=== PATIENT | male | born 1950 | race Caucasian/White ===

== ENCOUNTER → 2018-06-15 07:58 | Outpatient (CLI) | payer BC, SELFPAY ==
[2018-06-15 08:12] LABS: Bacteria 0 SEEN /hpf (None Seen); Mucous, Urine 0 SEEN /hpf (<or=2+); Red Blood Cells-Urine 0 SEEN /hpf (0-5); Squamous Epithelial Cells - UA 0 SEEN /hpf (0-5); White Blood Cells 0 SEEN /hpf (0-5)
[2018-06-15 08:53] LABS: Absolute Lymphocyte Count 1.11 X10^3/ul (0.83-4.51); Absolute Neutrophil Count 6.1 X10^3/uL (2.0-7.7); Basophil# 0.06 X10^3/uL; Basophil% 0.7 % (0-1); Color, Urine Yellow (Yellow); Eosinophil# 0.12 X10^3/uL; Eosinophils% 1.5 % (0-5); Glucose, Dipstick Normal (Normal); Hemoglobin 13.6 g/dl (13.0-16.5); Ketone-Dipstick Negative (Negative); Leukocyte Esterase-Dipstick Negative /ul (Negative); Lymphocyte # 1.11 X10^3/ul (4.0); Lymphocyte % 13.5 % (19-41); Mean Corp Hgb Conc 33.2 g/gl (32-36); Mean Corpuscular Hgb 31.4 pg (27.0-32.0); Mean Corpuscular Volume 94.7 fL (80-94); Mean Platelet Vol. 8.8 fl (6.2-12.0); Monocyte% 10.9 % (0-10); Neutrophil # 6.05 X10^3/uL (2.7-7.7); Neutrophil % 73.3 % (47-70); Nitrite-Dipstick Negative (Negative); Occult Blood-Urine 25 /ul (Negative); POSITIVE COUNT NO; POSITIVE DIFFERENTIAL NO; POSITIVE MORPHOLOGY NO; Platelet Count 231 K/mm3 (150-450); Protein-Dipstick Negative (Negative); RBC Distribution Width SD 45.3 fl (35.1-43.9); Red Blood Count 4.33 M/mm3 (4.6-6.2); Specific Gravity, Urine 1.005 (1.002-1.030); Urine Bilirubin Dipstick Negative (Negative); Urine Clarity Clear (Clear); Urine Urobilinogen Normal (Normal); Urine pH 6.5 (5.0 - 8.0); White Blood Count 8.3 K/mm3 (4.4-11.0)
[2018-06-15 09:25] LABS: ALB/GLOB Ratio 0.9 RATIO (0.9-2.4); AST(SGOT) 10 U/L (15-37); Alanine Aminotransfer ALT/SGPT 27 U/L (16-61); Albumin, Serum 3.6 g/dL (3.2-5.0); Alkaline Phosphatase 72 U/L (45-117); Anion Gap 9 (5-15); BUN 18 mg/dL (7-18); Calcium,Total 8.8 mg/dL (8.5-10.1); Chloride 106 mmol/L (98-107); EST Glomerular Filtration Rate 64 mL/min (>60); Est Glom Filt Rate - Afr Amer 78 mL/min (>60); Globulin 3.8 g/dL (2.2-4.2); Glucose 93 mg/dL (74-106); Potassium 4.1 mmol/L (3.5-5.1); Protein, Total 7.4 g/dL (6.4-8.2); Sodium Level 140 mmol/L (136-145)
[2018-06-15 11:03] LABS: Vitamin B12 870 pg/mL (211-911)
[2018-06-16 11:33] LABS: Hep C Antibodies <0.1 s/co ratio (0.0-0.9)
== END ==
PROVIDERS: Family Provider Internal Medicine; PCP Internal Medicine; Referring Provider Internal Medicine; Visit Provider Internal Medicine
DX: R53.83 Other fatigue (principal)
CPT/HCPCS: 36415; 80053; 81001; 82607; 85025; 86803

== ENCOUNTER → 2018-09-30 09:25 | Outpatient (CLI) | payer BC, SELFPAY ==
--- NOTE | 2018-09-30 09:37 | CT_ITS ---
STUDY: CT ABDOMEN AND PELVIS WITH CONTRAST REASON FOR EXAM: Male, 68 years old. RUQ pain radiating to RLQ and around to flank. Prior cholecystectomy, hypertension, hx pancreatitis. RADIATION DOSAGE (If Supplied By Facility): CTDIvol = ( 15.38 ) mGy, DLP = ( 717.21 ) mGycm TECHNIQUE: Transaxial images were obtained from the dome of the diaphragm to the symphysis pubis with oral contrast. 75mL ml of Isovue 300 contrast was administered. Sagittal and coronal images were reconstructed. Individualized dose optimization techniques were used for this CT. COMPARISON: CT abdomen August 30, 2015 FINDINGS: The visualized lung bases are unremarkable. The visualized portions of the heart are within normal limits. Normal liver. There are surgical clips in the gallbladder fossa consistent with a prior cholecystectomy. No biliary ductal dilatation. Normal spleen. Small splenule anterior to the spleen. Normal pancreas. Normal bilateral adrenal glands. Normal right kidney. Normal left kidney. There is an exophytic cyst of the mid to lower pole the left kidney measuring approximately 4.5 cm. Normal visualized stomach. Normal small intestine. There are multiple colonic diverticula consistent with diverticulosis. The appendix is visualized and appears normal. Mild atherosclerosis of the aorta noted. Normal inferior vena cava. Normal retroperitoneum. Normal urinary bladder. Prominent fat extends into the right inguinal canal. There is no evidence of bowel hernia. Normal osseous structures. Mild degenerative endplate changes present. CT/Abdomen/Pelvis WITH Contrast IMPRESSION: Normal appendix. No acute intra-abdominal or pelvic abnormality. No evidence of pancreatitis. No evidence of aortic aneurysm. Diverticulosis without evidence of diverticulitis. Right inguinal fatty hernia without bowel herniation. See above. Electronically Signed: Tonya Torrez MD at 12:39 EST , Service support ,
--- OUTSIDE RECORDS SUMMARY | 2018-12-04 23:07 | XMS RPT_ITS | Continuity of Care Document ---
:1950 Author Organization [facility] Address [address] [facility] [address] [place] [address] Phone Care Team Providers Name Role Phone Diandra Anaya DO Unavailable [facility], [facility] Unavailable Dr. Ryne Arndt Unavailable Marlene Ghosh Unavailable [place] DPMBrien Unavailable Long MACHINE CARTON MARKER, Shayla L Unavailable Unavailable Slarb MACHINE CARTON MARKER, Jade Unavailable Unavailable Willy Edouarda Unavailable Unavailable Unavailable Unavailable Problems Name Dates Details Abdominal pain, acute, generalized (R10.84, 789.07) Status: Active Abdominal pain, acute, right upper quadrant (Renamed from Acute abdominal pain in right upper quadrant) (R10.11, 789.01) Status: Active Abnormal blood sugar (R73.09, 790.29) Status: Active Actinic keratosis (L57.0, 702.0) Comments: froze mid back 45 sec with good results Status: Active Anemia (285.9) Status: Active Anxiety (F41.9, 300.00) Comments: chronic stable-continue present regimen Status: Active Benign essential hypertension (I10, 401.1) Status: Active Benign essential hypertension (I10, 401.1) Comments: we will monitor bp over next week- minimizie salt and caffiene and if stays elevated will need meds- Status: Active Bilateral carotid artery stenosis (I65.23, 433.10) Comments: getting blood flow screening Status: Active BMI 28.0-28.9,adult (Z68.28, V85.24) Status: Active BMI 28.0-28.9,adult (Z68.28, V85.24) Status: Active BMI 29.0-29.9,adult (Z68.29, V85.25) Status: Active Carcinoma in situ of skin, 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, 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) Status: Active Decreased libido (Renamed from Low libido) (R68.82, 799.81) Status: Active Dehydration (E86.0, 276.51) Status: Active Diverticulitis (K57.92, 562.11) Status: Active Dizziness (R42, 780.4) Status: Active Encounter for hepatitis C virus screening test for high risk patient (Z11.59, V73.89) Status: Active Encounter for screening for malignant neoplasm of prostate (Renamed from Screening for prostate cancer) (Z12.5, V76.44) Status: Active Encounter for screening for malignant neoplasm of prostate (Renamed from Screening for prostate cancer) (Z12.5, V76.44) Status: Active Erectile dysfunction (N52.9, 607.84) Status: Active Fatigue (R53.83, 780.79) Status: Active Gastroesophageal reflux disease without esophagitis (K21.9, 530.81) Status: Active Intractable vomiting with nausea, unspecified vomiting type (R11.2, 536.2) Status: Active Malignant hypertension (I10, 401.0) Status: Active [facility] WELLNESS EXAM Status: Active [facility] WELLNESS EXAM Status: Active Microscopic hematuria (R31.29, 599.72) Status: Active Mixed hyperlipidemia (E78.2, 272.2) Comments: bettercontrol, Status: Active 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, 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) Comments: monitor left cheek macule and scalp lesion and papule left lower face- recheck 2 months Status: Active Nonsmoker (Z78.9, V49.89) Status: Active Nonsmoker (Z78.9, V49.89) Status: Active Prediabetes (R73.03, 790.29) Comments: check labs Status: Active Right upper quadrant pain (R10.11, 789.01) Status: Active SYMPTOM, APNEA (786.03) Status: Active travel Comments: antiobitoic if needed Status: Active Unspecified Diagnosis Status: Active Unspecified Diagnosis Status: Active Medications Name Dates Details Baby Aspirin 81 MG Oral Tablet Chewable Active qd (81 MG) Losartan Potassium 25 MG Oral Tablet 1 (one) Tablet bid for 0 days Quantity: 60 {Tablet} Refills: 5 Ordered:26-May-2018 Fast DO, Diandra AFast DO, Diandra A Start : 26-May-2018 Active Multivitamin Oral Tablet 1 qd Active Vitamin D3 2000 UNIT Oral Capsule 1 cap daily (2000 UNIT) Active ACIPHEX, 20MG (Oral Tablet Delayed Release) 1 (one) Tablet DR daily for 0 days Quantity: 30 {Tablet_DR} Refills: 7 Ordered:06-Feb-2010 Sheryl Feliciano Start : 16-May-2009 Inactive ALBUTEROL SULFATE HFA, 108MCG/ACT (Inhalation Aerosol Soln) 2 (two) Aerosol Soln QID/PRN for 0 days Quantity: 1 {Aerosol_Soln} Refills: 0 Ordered:10-Sep-2006 Lakshmi Garrison LPN Start : 10-Sep-2006 End : 15-Jan-2007 Inactive ALIGN, 4MG (Oral Capsule) 1 Capsule daily for 0 days Quantity: 30 {Capsule} Refills: 0 Ordered:21-Feb-2013 Sera Edouard Start : 27-Aug-2012 End : 21-Feb-2013 Inactive ASHWIN-D 12 HOUR, 60-120MG (Oral Tablet Extended Release 12 Hour) 1 Tablet ER 12HR bid for 3 days Quantity: 10 {Tablet_ER_12HR} Refills: 0 Ordered:01-Nov-2007 Faye Narayan CNP Start : 01-Nov-2007 End : 15-Nov-2007 Inactive AMBIEN CR, 6.25MG (Oral Tablet Extended Release) 1 (one) Tablet ER qhs prn for 0 days Quantity: 30 {Tablet_ER} Refills: 3 Ordered:24-Oct-2010 Ngozi Belle LPN Start : 23-Sep-2010 End : 24-Oct-2010 Inactive ATIVAN, 0.5MG (Oral Tablet) 1 Tablet qd prn for 0 days Quantity: 60 {Tablet} Refills: 1 Ordered:05-Nov-2010 Sheryl Feliciano Start : 27-May-2010 End : 05-Nov-2010 Inactive Comments:SIXTY BIAXIN XL PAC, 500MG (Oral Tablet Extended Release 24 Hour) 2 (two) Tablet ER 24HR daily for 10 days Quantity: 20 {Tablet_ER_24HR} Refills: 0 Ordered:24-Oct-2010 Johana Pan DO Start : 24-Oct-2010 End : 03-Nov-2010 Inactive BUSPAR, 15MG (Oral Tablet) 1 (one) Tablet bid for 0 days Quantity: 60 {Tablet} Refills: 4 Ordered:06-Feb-2010 Sheryl Feliciano Start : 17-Oct-2009 Inactive CARAFATE, 1GM/10ML (Oral Suspension) 2 tsp before each meal and q hs for 0 days Refills: 0 Ordered:06-Feb-2010 Sheryl FelicianoInactive CELEBREX, 200MG (Oral Capsule) 1 Capsule daily for 0 days Quantity: 9 {Capsule} Refills: 0 Ordered:27-Aug-2012 Lakshmi Garrison LPN Start : 10-Dec-2011 End : 27-Aug-2012 Inactive CELEXA, 20MG (Oral Tablet) 1 Tablet daily for 0 days Quantity: 30 {Tablet} Refills: 0 Ordered:06-Feb-2010 Sheryl Feliciano Start : 28-Aug-2009 Inactive Cipro 500 MG Oral Tablet 1 (one) Tablet twice daily for 0 days Quantity: 20 {Tablet} Refills: 0 Ordered:26-May-2018 Shayla West LPN Start : 10-Jan-2018 End : 26-May-2018 Inactive CLARITIN, 10MG (Oral Tablet) 1 for 0 days Refills: 0 Ordered:06-Feb-2010 Sheryl Feliciano Start : 09-May-2009 Inactive Flagyl 500 MG Oral Tablet 1 (one) Tablet bid for 0 days Quantity: 20 {Tablet} Refills: 0 Ordered:26-May-2018 Shayla West LPN Start : 10-Jan-2018 End : 26-May-2018 Inactive GUAIATUSSIN AC, 100-10MG/5ML (Oral Syrup) 1 Syrup every 4-6 hours prn for 0 days Quantity: 6 {Ounce(s)} Refills: 0 Ordered:10-Sep-2006 Bladimir LOPEZNLakshmi Start : 10-Sep-2006 End : 15-Jan-2007 Inactive KAPIDEX, 60MG (Oral Capsule Delayed Release) 1 (one) Capsule DR daily for 0 days Refills: 0 Ordered:06-Feb-2010 Sheryl Feliciano Start : 09-May-2009 Inactive LEVAQUIN, 500MG (Oral Tablet) 1 Tablet daily for 10 days Quantity: 10 {Tablet} Refills: 0 Ordered:31-Aug-2008 Faye Narayan CNP Start : 31-Aug-2008 End : 18-Sep-2008 Inactive MEDROL (ОЛЬГА), 4MG (Oral Tablet) 1 Tablet TAD for 0 days Quantity: 1 {Package(s)} Refills: 0 Ordered:21-Feb-2013 Sera Edouard Start : 08-Nov-2012 End : 21-Feb-2013 Inactive Comments:take with food NEXIUM, 40MG (Oral Capsule Delayed Release) [address] QD for 0 days Quantity: 30 {Capsule_DR} Refills: 3 Ordered:25-Apr-2009 Venessa Parnell End : 03-May-2009 Inactive No current meds at this time Inactive PEPCID, 20MG (Oral Tablet) 1 bid for 0 days Refills: 0 Ordered:06-Feb-2010 Opal Feliciano PRILOSEC OTC, 20MG (Oral Tablet Delayed Release) 1 QD for 0 days Refills: 0 Ordered:06-Feb-2010 Opal Feliciano PROVENTIL HFA, 108 (90 Base)MCG/ACT (Inhalation Aerosol Solution) 1 (one) Aerosol Soln 1-2 puff bid for 0 days Quantity: 1 {Aerosol_Soln} Refills: 0 Ordered:06-Feb-2010 Sheryl Feliciano Start : 03-Oct-2008 Inactive Tamiflu 75 MG Oral Capsule 1 (one) Capsule bid for 0 days Quantity: 10 {Capsule} Refills: 0 Ordered:20-Nov-2017 Sera Edouard Start : 27-Oct-2017 End : 20-Nov-2017 Inactive VALIUM, 2MG (Oral Tablet) 1 Tablet qhs for 2 weeks then 1/2 for 2 weeks then 1/4 for 2 weeks for 0 days Quantity: 25 {Tablet} Refills: 0 Ordered:21-Feb-2013 Sera Edouard Start : 07-Nov-2010 End : 21-Feb-2013 Inactive Vitamin D qd Inactive ZANTAC 150 MAXIMUM STRENGTH, 150MG (Oral Tablet) 1 tab qd for 0 days Refills: 0 Ordered:06-Feb-2010 Opal Feliciano ZYRTEC HIVES RELIEF, 10MG (Oral Tablet) 1 Tablet daily for 0 days Quantity: 30 {Tablet} Refills: 0 Ordered:21-Feb-2013 MarcelSera bustamante Start : 08-Nov-2012 End : 21-Feb-2013 Inactive AMBIEN, 5MG (Oral Tablet) 1 tab Tablet q hs, prn for 0 days Quantity: 30 {Tablet} Refills: 2 Ordered:06-Feb-2010 Fast DO, Diandra AFast DO, Diandra A Start : 06-Feb-2010 End : 06-Feb-2010 Discontinued ATIVAN, 1MG (Oral Tablet) 1 (one) Tablet QHS / HS for 0 days Quantity: 14 {Tablet} Refills: 0 Ordered:01-Feb-2008 Agnes Osman Start : 01-Feb-2008 End : 31-Aug-2008 Discontinued ATIVAN, 1MG (Oral Tablet) 1 Tablet q6 hrs prn for 0 days Quantity: 20 {Tablet} Refills: 0 Ordered:07-Nov-2010 Fast DO, Diandra AFast DO, Diandra A Start : 07-Nov-2010 End : 07-Nov-2010 Discontinued Ciprofloxacin HCl 500 MG Oral Tablet 1 (one) Tablet bid for 0 days Quantity: 20 {Tablet} Refills: 0 Ordered:22-Apr-2016 Sheryl Feliciano Start : 17-Sep-2015 End : 22-Apr-2016 Discontinued GUAIATUSSIN AC, 100-10MG/5ML (Oral Syrup) 1 Syrup 1 tsp qhs for 0 days Quantity: 6 {Ounce(s)} Refills: 0 Ordered:31-Aug-2008 Agnes Osman Start : 31-Aug-2008 End : 21-Sep-2008 Discontinued LEXAPRO, 10MG (Oral Tablet) 1 Tablet for 0 days Refills: 0 Ordered:27-Aug-2009 Faye Narayan CNP Start : 27-Aug-2009 End : 28-Aug-2009 Discontinued NASACORT AQ, 55MCG/ACT (Nasal Aerosol Solution) 2 (two) Aerosol Soln Daily for 0 days Quantity: 1 {Aerosol_Soln} Refills: 0 Ordered:01-Feb-2008 Agnes Osman Start : 01-Feb-2008 End : 21-Sep-2008 Discontinued Omeprazole 20 MG Oral Capsule Delayed Release [address] QD for 0 days Quantity: 30 {Capsule_DR} Refills: 3 Ordered:22-Apr-2016 Sheryl Feliciano Start : 20-Aug-2015 End : 22-Apr-2016 Discontinued OMEPRAZOLE, 20MG (PO Cap CR) 1 QD for 0 days Refills: 0 Ordered:03-May-2009 Venessa Parnell Start : 03-May-2009 End : 03-May-2009 Discontinued Comments:This order discontinued per [facility]. OxyCODONE HCl 5 MG Oral Capsule 1 (one) Capsule Capsule q4h prn for 0 days Quantity: 20 {Capsule} Refills: 0 Ordered:22-Apr-2016 Sheryl Feliciano Start : 20-Aug-2015 End : 22-Apr-2016 Discontinued Comments:number given unknown -- started by [facility] for pancreatitis PROZAC, 10MG (Oral Tablet) 1 (one) Tablet Daily for 0 days Quantity: 30 {Tablet} Refills: 3 Ordered:01-Mar-2008 Agnes Osman Start : 01-Mar-2008 End : 31-Aug-2008 Discontinued SKELAXIN, 800MG (Oral Tablet) 1 (one) Tablet TID prn for 0 days Quantity: 30 {Tablet} Refills: 0 Ordered:01-Feb-2008 Agnes Osman Start : 01-Feb-2008 End : 31-Aug-2008 Discontinued VITAMIN B12, 100MCG (Oral Tablet) qd (100 MCG) End : 22-Apr-2016 Discontinued ZITHROMAX Z-ОЛЬГА, 250MG (Oral Tablet) 1 Tablet TAD for 0 days Quantity: 1 {Package} Refills: 0 Ordered:02-Oct-2014 Sheryl Feliciano Start : 19-Sep-2014 End : 02-Oct-2014 Discontinued Allergies and Adverse Reactions Name Dates Details CeleXA *ANTIDEPRESSANTS* (Allergy) Status: Active Comments: vomit Penicillamine *Assorted Classes (Allergy) Status: Active Past Medical History Name Dates Details Abdominal discomfort, generalized (789.00) Status: Inactive as of 19-Sep-2014 Abdominal pain, acute, right upper quadrant (R10.11, 789.01) 28-Jun-2010 Status: Resolved as of 23-Dec-2010 Abnormal blood chemistry (R79.9, 790.6) Status: Inactive as of 19-Sep-2014 Abnormal cardiac function test (R94.30, 794.30) Status: Inactive as of 19-Sep-2014 Acute epigastric pain (R10.13, 789.06) Status: Resolved as of 10-Jun-2016 Acute sinusitis, unspecified (J01.90, 461.9) Status: Inactive as of 27-Feb-2009 Allergic rhinitis due to other allergen (J30.89, 477.8) Status: Inactive as of 19-Sep-2014 Ankle swelling (M25.473, 719.07) Status: Inactive as of 19-Sep-2014 Bronchitis (J40, 490) Status: Resolved as of 10-Jun-2016 Chills (R68.83, 780.64) Status: Resolved as of 10-Jun-2016 Cough (R05, 786.2) Status: Inactive as of 27-Feb-2009 Diarrhea (R19.7, 787.91) Status: Resolved as of 23-Dec-2010 Encounter for immunization (Z23, V03.89) Status: Inactive as of 19-Sep-2014 Eustachian tube dysfunction (H69.80, 381.81) Status: Inactive as of 27-Feb-2009 Fatigue (R53.83, 780.79) Status: Inactive as of 20-Nov-2017 Fever (R50.9, 780.60) Status: Inactive as of 27-Feb-2009 Foot Pain (M79.673, 729.5) Status: Inactive as of 19-Sep-2014 Hematuria (R31.9, 599.7) Status: Inactive as of 19-Sep-2014 Impingement syndrome of shoulder region, unspecified laterality (M75.40, 726.2) Status: Inactive as of 19-Sep-2014 Jaw sprain (848.1) Comments: resolved Status: Inactive as of 27-Feb-2009 Knee pain (M25.569, 719.46) Comments: ? 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) Status: Inactive as of 20-Nov-2017 Pain in forearm, unspecified laterality (M79.639, 729.5) Comments: elbow -- suspect ulnar radiculopathy doubt cervical component Status: Inactive as of 27-Feb-2009 Pain in unspecified joint (M25.50, 719.40) Status: Inactive as of 20-Nov-2017 Pancreatitis, acute (K85.9, 577.0) Status: Resolved as of 10-Jun-2016 Pharyngitis, acute (J02.9, 462) 24-Oct-2010 Status: Resolved as of 23-Dec-2010 Post-nasal drip (R09.82, 784.91) Status: Resolved as of 10-Jun-2016 Rash and nonspecific skin eruption (R21, 782.1) Comments: from Sathish oil Status: Inactive as of 19-Sep-2014 screening Status: Inactive as of 10-Oct-2009 Screening for prostate cancer (Z12.5, V76.44) Status: Inactive as of 10-Jun-2016 Shoulder pain (M25.519, 719.41) Comments: LHI DOSE OMEAGA 3 FFA Status: Inactive as of 27-Feb-2009 Sinus congestion (R09.81, 478.19) Status: Resolved as of 23-Dec-2010 SOB (shortness of breath) on exertion (R06.02, 786.05) Status: Inactive as of 27-Feb-2009 Syncope and collapse (R55, 780.2) Status: Inactive as of 19-Sep-2014 Unspecified Diagnosis Status: Inactive as of 10-Oct-2009 Unspecified Diagnosis Status: Inactive as of 10-Oct-2009 Unspecified Diagnosis Status: Inactive as of 10-Jun-2016 Urinary frequency (R35.0, 788.41) Status: Inactive as of 20-Nov-2017 Urinary frequency (R35.0, 788.41) Status: Resolved as of 10-Oct-2009 Wheezing (R06.2, 786.07) Status: Inactive as of 27-Feb-2009 Procedures Procedure Dates Details basal cell ca removed Completed Cholecystectomy Completed Comments: 2014 Vasectomy Completed Date Value Details 17-Jun-2018 TXT - Blood Flow Screening Result: Comments: See Note; NOTES: [facility] [address] [place] [address] 06/15/18 0826 MR#: [id number] Acct: [id number] Name: SIMEON PAIZ Rep #: [id number] : 1950 68 From: Nilo King MD Attending Dr: Diandra Anaya DO Status: REG REF Ordering Dr: Date: 06/16/18 Location: [facility] Sex: M C Admitted: Reason For Study: BFS Carotid Duplex Ultrasou nd Abdominal Aorta The right maximum ICA velocity is 98.9/41.4 cm/s.The maximal outside diameter of the proximal The left maximum ICA velocity is 102/37.7 cm/s. aorta measures 1.72 cm in the longitudina l axis. The right ECA velocity is less than 125 cm/s. The maximal outside diameter of the proximal The left ECA velocity is less than 125 cm/s. aorta measures 1.69 x 1.65 cm in the cross- There is no pl aque formation noted on the right sectional axis. side. There is no plaque formation noted on the left side. Ankle Brachial Index The right ankle/ brachial index is 1.14. The left ankle/ brachial index is 1.03. Medical History and Assessment The heart rate is 66 beats per minute. The heart rhythm is regular. The right blood pressure is 138/84. The left blood pressure is 140/82. Pt presents with a hi story of high blood pressure. The assessment was performed by Ángel Porter RVT. Interpretation Summary Normal carotid artery screening (0 to 15% narrowing). Normal aortic ultrasound exam. The ankle/bra chial index is normal (1.0 or greater). .rdering Physician: Diandra Anaya D.O Performed By: Kely Huerta RVT and Student 06/16/18920 Date Nilo King MD CC: Diandra LOWE ate Dictated: 06/15/18825 Date Transcribed: 06/16/18920 Clean Up Worker: Signed 16-Jun-2018 TXT - Blood Flow Screening Result: Comments: See Note; NOTES: [facility] [address] [place] [address] 06/15/18825 MR#: [id number] Acct: [id number] Name: SIMEON PAIZ Rep #: [id number] : 1950 68 From: Nilo King MD Attending Dr: Diandra Anaya DO Status: REG REF Ordering Dr: Date: 06/16/18 Location: [facility] Sex: M C Admitted: Reason For Study: BFS Carotid Duplex Ultrasou nd Abdominal Aorta The right maximum ICA velocity is 98.9/41.4 cm/s.The maximal outside diameter of the proximal The left maximum ICA velocity is 102/37.7 cm/s. aorta measures 1.72 cm in the longitudina l axis. The right ECA velocity is less than 125 cm/s. The maximal outside diameter of the proximal The left ECA velocity is less than 125 cm/s. aorta measures 1.69 x 1.65 cm in the cross- There is no pl aque formation noted on the right sectional axis. side. There is no plaque formation noted on the left side. Ankle Brachial Index The right ankle/ brachial index is 1.14. The left ankle/ brachial index is 1.03. Medical History and Assessment The heart rate is 66 beats per minute. The heart rhythm is regular. The right blood pressure is 138/84. The left blood pressure is 140/82. Pt presents with a hi story of high blood pressure. The assessment was performed by Ángel Porter RVT. Interpretation Summary Normal carotid artery screening (0 to 15% narrowing). Normal aortic ultrasound exam. The ankle/bra chial index is normal (1.0 or greater). .rdering Physician: Diandra Anaya D.O Performed By: Kely Huerta RVT and Student 06/16/18920 Date Nilo King MD CC: Diandra Anaya DO D ate Dictated: 06/15/18825 Date Transcribed: 06/16/18920 Clean Up Worker: Signed 08-Oct-2016 PT D/C of Non Returning Pt (1) Result: Comments: See Note; NOTES: [facility] [address] [place] [address]. [address] [place] [address] Fax REHABILITATION SERVICES DISCHAR GE SUMMARY MR#: [id number] Acct: [id number] Name: SIMEON PAIZ Rep #: [id number] : 1950 66 From: Sean Rojas PT, Cert. T, OCS Referring Dr.: Diandra Anaya DO Status: REG RCR Insurance: [facility] - Discharge Summary (1) - Patient Information SIMEON PAIZ was seen in my office for initial evaluation on 08/19/16. The following Plan of Care was established for this patient: Init ial Frequency: 2x /Week Initial Duration: 4 Weeks - Anticipated Interventions Patient/Client Instruction: Educate patient on: Condition, Plan of Care For the Purpose of:: To decrease pain, To increase ROM, To improve nutrient delivery to tissue, To increase oxygenation perfusion, To improve muscle performance and motor function, To improve performance and independence with ADL's, To improve ability o f physical actions for home/ community/work/leisure, To improve health of tissue, To decrease soft tissue restriction, To increase flexibility/ROM, To improve ability to perform tasks related to life ma nagement Therapeutic Exercise to Include: Strength training, Body mechanics, Postural training, Flexibilty training, Dynamic Lumbar Stabilization For the Purpose of:: To decrease pain, To increase ROM, To improve muscle performance and motor function, To improve ability to perform ADL's, To increase tolerance to activity/condition/ position, To improve performance and independence with ADL's, To impro ve ability of physical actions for home/community/work/leisure, To improve gait and locomotor functions, To improve health of tissue, To decrease soft tissue restriction, To increase flexibility/ROM, To improve ability to perform tasks related to life management Manual Therapy Techniques to Include: Mobilization Comment: MUSCLE ENERGY For the Purpose of:: To decrease pain, To decrease swelling/inflamm ation, To increase ROM, To improve health of tissue, To decrease soft tissue restriction IF ES: Yes Cryotherapy (ice pack, ice massage): Yes Thermo therapy (hot pack): Yes Ultrasound (thermal/non therma l): Yes For the Purpose of:: To decrease pain, To increase ROM, To improve nutrient delivery to tissue, To increase oxygenation perfusion, To improve health of tissue, To decrease soft tissue restrictio n This patient was last seen in our office 09/12/16. Pertinent comments regarding their Physical therapy will appear below: This patient was seen for PT hip and back pain. Patient PT focused on strengh ening ,postural ex's ,flexability ,hip strengthening. Patient had good response with decrease pain ,and will cont at home with ex's.Thus is d/c. At this point I will be discontinuing this patient from physical therapy. I would be happy to see this patient again in the future if found appropriate by the physician. Thank you! Sean Rojas PT, <Electronically signed by Sean Rojas PT, CertSandra GUTIERREZ, OCS> 10/08/16 0801 CC: Diandra Anaya DO VIRAL Signed 21-Aug-2016 Inital Evaluation (1) - PT Result: Comments: See Note; NOTES: [facility] [address] [place], [place] [address] Fax REHABILITATION SERVICES INITIAL EVALUATION MR#: [id number] Acct: [id number] Name: SIMEON PAIZ Rep #: [id number] : 1950 66 From: Sean Rojas PT, CertSandra HORTONT, OCS Referring Dr.: Diandra Anaya DO Status: REG R Insurance: [facility] Patient's Visit Information SIMEON PAIZ is a 66 year old M referred to Physical Therapy by Diandra Anaya DO with a diagnosis of lumbar radiculapothy,bursits. Date of Evaluation: 08/19/16 Physical Therapist: Sean Rojas PT, - Visit Plan Frequency: 2x /Week Duration: 4 Weeks Plan: FLEXABILITY,MODALITIES,DLS ,HIP/KNEE STENGTHENING,STICK/ROLLING I tband. muscle energy ..manulat therap y - Subjective Subjective: This 66 y/o male presents to physical therapy with lumbar radiculopathy ,bursitis hip left. for several years. Patient has history of being runner.Most ,recently been using e clipitical. Patient reports location of pain buttuck,hamstring,lateral hip.Symptoms worse with resting ,laying. Symptoms okay with bending,lifting,sitting,standing,walking. Most problem keeps patient at night. Coughing/sneezing/straining negative. patient c/o feeling tightness buttuck hams. SOCIAL: . 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 PALPATION: mild L-S,greater tronchanter, I T BAND. GAIT: normal adilson. NEURO: den ies parathesia/tingling,reflexes L3-4,L5-S1 2/3. FLEXABILITY:left min/mod loss,right min loss,piriformis min loss. MMT: quads/hams 4/5,hip flexion/abd 4-/5,ankle 5/5. LIMBAR ROM: flexion min loss,ext mi n loss,side glides min loss - Special Tests L/S Slump test left side: Negative L/S Slump test right side: Negative L/S Left Straight Leg Raise: Negative L/S Right Straight Leg Raise: Negative Lumbar St anding: Flexion - Mechanical Response: No effect Lumbar Standing: Flexion - Symptoms During Testing: No effect Lumbar Standing: Flexion - Symptoms After Testing: No effect Lumbar Standing: Extension - M echanical Response: No effect Lumbar Standing: Extension - Symptoms During Testing: No effect Lumbar Standing: Extension - Symptoms After Testing: No effect Lumbar Standing: Right Side Glides - Childcare Teacher al Response: No effect Lumbar Standing: Right Side [place] - Symptoms During Testing: No effect Lumbar Standing: Right Side [place] - Symptoms After Testing: No effect Lumbar Standing: Left Side [place] - Mec hanical Response: No effect Lumbar Standing: Left Side [place] - Symptoms During Testing: No effect Lumbar Standing: Left Side [place] - Symptoms After Testing: No effect Lumbar Lying: Flexion - Mechanical Response: No effect Lumbar Lying: Flexion - Symptoms During Testing: No effect Lumbar Lying: Flexion - Symptoms After Testing: No effect Lumbar Lying: Extension - Mechanical Response: No effect Lumbar L jamshid: Extension - Symptoms During Testing: No effect Lumbar Lying: Extension - Symptoms After Testing: No effect L Hip Scour: Negative L Hip Quadrant - Intraarticular Pathology: Negative L Hip ARMANDO - I ntraarticular Pathology: Negative L Hip Trendelenberg - Glut Medius: Negative - Goals Goal 1:: Patient to be Independant with HEP Goal Time Frame: 4-6 Weeks Goal 2:: Decrease pain left hip /back by 60 % or greater to improve function ans sleeping, return to working out. Goal Time Frame: 4-6 Weeks Goal 3:: Patient increase strength left hip 4/5 to improve function with function ,sleeping, Goal Time Fr stephan: 4-6 Weeks Goal 4:: Patient to improve flexability hip to WFL to decrease tightness durning walking Goal Time Frame: 4-6 Weeks Goal 5:: patient return to prior level of activity without limitations Goal Time Frame: 4-6 Weeks - Rehabilitation Potential Physical Therapy Diagnosis: This patient has left leg pain with leg length disrepency with tightness and wekness left hip. thus will benifit from s killed PT Rehabilitation Potential: Good - Anticipated Interventions Patient/Client Instruction: Educate patient on: Condition, Plan of Care For the Purpose of:: To decrease pain, To increase ROM, To i mprove nutrient delivery to tissue, To increase oxygenation perfusion, To improve muscle performance and motor function, To improve performance and independence with ADL's, To improve ability of physica l actions for home/ community/work/leisure, To improve health of tissue, To decrease soft tissue restriction, To increase flexibility/ROM, To improve ability to perform tasks related to life management Therapeutic Exercise to Include: Strength training, Body mechanics, Postural training, Flexibilty training, Dynamic Lumbar Stabilization For the Purpose of:: To decrease pain, To increase ROM, To improv e muscle performance and motor function, To improve ability to perform ADL's, To increase tolerance to activity/condition/ position, To improve performance and independence with ADL's, To improve abilit y of physical actions for home/community/work/leisure, To improve gait and locomotor functions, To improve health of tissue, To decrease soft tissue restriction, To increase flexibility/ROM, To improve ability to perform tasks related to life management Manual Therapy Techniques to Include: Mobilization Comment: MUSCLE ENERGY For the Purpose of:: To decrease pain, To decrease swelling/inflammation, To increase ROM, To improve health of tissue, To decrease soft tissue restriction IF ES: Yes Cryotherapy (ice pack, ice massage): Yes Thermo therapy (hot pack): Yes Ultrasound (thermal/non thermal): Yes F or the Purpose of:: To decrease pain, To increase ROM, To improve nutrient delivery to tissue, To increase oxygenation perfusion, To improve health of tissue, To decrease soft tissue restriction Steve nk you for the opportunity to evaluate your patient. For Medicare and Medicare HMO plans, please review the plan of care and approve it. It will need to be FAXED BACK to us at [phone] for Medicare purposes. Please let me know if there are questions or concerns regarding this plan of care. Physician Signature: Date: <Electr onically signed by Sean Rojas PT, Cert. T, OCS> 08/21/16 1517 CC: Diandra Anaya DO JLShan Signed For Medicare only, by signing this I certify the plan of care. __ Physicians Signature Date 24-Apr-2016 MRCP Abdomen without Contrast Result: Comments: See Note; NOTES: [facility] Imaging Services [address] [place] [address] Verdana 4d MRCP Abdomen without Contrast MR#: [id number] Acct: [id number] Name: DELMA PAIZ Rep #: [id number] : 1950 M 66 From: Catherine Mota MD PCP: Diandra Anaya DO Status: REG CLI Study: MRCP Abdomen without Contrast Date of Exam: 04/24/16 Exam# [id number] Ordering Dr: Diandra Anaya DO STUDY: MR CHOLANGIOPANCREATOGRAPHY (MRCP) REASON FOR EXAM: Male, 66 years old. Abdominal pain. TECHNIQUE: Standard MRCP technique was utilized. COMPARISON: CT of the abdomen dated August 30, 2015. FINDINGS: Gall Bladder: The gallbladder is NOT visualized. This may be secondary to cholecystectomy. Cystic duct: Normal with no demonstrated fixed filling d efect. Intrahepatic ducts: Normal visualized intrahepatic ducts with no demonstrated fixed filling defect, dilation or stricture. Common hepatic duct: Normal with no demonstrated fixed filling defect, dilation or stricture. Common bile duct: Normal with no demonstrated fixed filling defect, dilation or stricture. Pancreatic duct: Normal with no demonstrated fixed filling defect, dilation or strict ure. The visualized lung bases are unremarkable. The visualized portions of the heart are within normal limits. Normal liver. There is non-visualization of the gallbladder, which may be secondary to e ither contraction or a prior cholecystectomy. Normal spleen. Normal pancreas. Normal bilateral adrenal glands. Normal right kidney. There is a large cyst arising from lower pole of the left kidney, si milar to the previous CT. This measures 4.2 cm in greatest dimension. The gastric kang are mildly thickened measuring approximately 1.6 cm. Normal small intestine. Normal colon. There is non-visualiza tion of the appendix. Normal abdominal aorta. Normal inferior vena cava. Normal retroperitoneum. Normal abdominal wall. Normal osseous structures. 0003 MRI/MRCP Abdomen without Contrast IMPRESSION: 1. Nonvisualization of the gallbladder suggesting possible cholecystectomy. 2. No evidence for choledocholithiasis. 3. Left-sided renal cyst. Electron ically Signed: Catherine Mota MD at 9:35 EDT , Service support [phone], CC: Diandra Anaya DO Clean Up Worker: Signed 20-Sep-2015 Operative Report Result: Comments: See Note; NOTES: [facility] Medical Records Department [address] [place] [address] Operative Report MR#: [id number] Acct: [id number] Name: KIKE PAIZ Rep #: [id number] : 1950 65 From: Simeon Gruber MD PCP: Diandra Anaya DO Status: [facility] DATE OF SERVICE: 09/04/2015 DATE OF SERVICE: September 04, 2015. PREOPERATIVE DIAGNOSIS: Ac marie biliary pancreatitis. POSTOPERATIVE DIAGNOSIS: Acute biliary pancreatitis. PROCEDURE: Laparoscopic cholecystectomy. SURGEON: Simeon Gruber M.D. ANESTHETIC: Endotracheal intubation. E STIMATED BLOOD LOSS: Less than 25 mL. FLUID REPLACEMENT: About a liter of crystalloid. ASA: 2. DESCRIPTION OF PROCEDURE: The patient was brought in the operating room, placed in supine positio n. Under excellent general endotracheal intubation, the abdomen was sterilely prepped and draped in the usual fashion. Local was injected infraumbilically. Dissection was carried down to the fascia. The fascia was grasped with Alne. Veress needle was placed inside the abdomen. The abdomen was insufflated to 15 torr. 10/12 trocar was placed without difficulty. Subxiphoid #5 trocar was placed. I nferior to this, another #5 trocar was placed. Laterally, a #5 trocar was placed, all of these under direct visualization without injury to underlying structures. The patient actually had dense adhesi ons onto his gallbladder. I took these all down with electrocautery, grabbed the fundus of the gallbladder and retracted in a cephalad direction, dissected the cystic duct free, dissected the cystic artery free, identified the liver lobe posterior to this. I identified Calot's triangle quite nicely, placed Hem-o-jean paul clips proximally and distally on the duct, the duct was quite small and ligated t he duct. Identified the cystic artery, placed Hem-o-jean paul clips proximally and distally and ligated the artery and identified the posterior branch of the cystic artery and placed Hem-o-jean paul clip on this. I delivered the gallbladder from the gallbladder bed with the use of electrocautery, had no spillage of bile or stones. I placed the specimen in specimen bag, delivered it through the umbilical port without difficulty. Irrigated the right upper quadrant. Good hemostasis was noted. I inspected the liver, good hemostasis. Inspected above the liver I did not see any abnormalities within the liver i tself, did not see any abnormalities within the stomach, pylorus or the first part of the duodenum and the duodenal bulb. I removed the trocars under direct visualization. Good hemostasis was noted. I closed the fascia of the umbilical port with hyqtdp-mu-yfenh stitch of 0 Vicryl. Skin incisions were closed with subcuticular stitches of 4-0 Monocryl. Steri- Strips were applied. Sterile dressings we re applied and the patient tolerated the procedure well. Simeon Gruber MD T: NTS JOB: [id number] 09/20/15 1111 <Electronically signed by Simeon Gruber MD> Date Simeon Gruber MD Cosigner Signature (If Indicated): Date CC: Simeon Gruber MD; Diandra Anaya DO Date D ictated: 09/04/151151 Date Transcribed: 09/04/151151 Clean Up Worker: Signed 06-Sep-2015 12 Lead Electrocardiogram Result: Comments: See Note; NOTES: [facility] Cardiovascular Services [address] [place] [address] 12 Lead EKG 09/04/15911 MR#: [id number] Acct: [id number] Name: ERIK SIMEON HARTLEY Rep #: [id number] : 1950 65 From: Simeon Stack MD Attending Dr: Simeon Gruber MD Status: DEP [facility] [place] Ordering [place]: Misael Mayer MD Date: 09/04/15 Location: [facility] [place] Sex: M C Admitted: Test Reason : PRE-OP Blood Pressure : / mmHG Vent. 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-2008) Abnormal ECG When compared with ECG of 18-AUG-2015 21:15, No significant change was found Confirmed by SIMEON STACK ([id number]), book or script editor EDGAR MOTA ([id number]) on 09/06/2015 10:47:28 AM Referred By: WALLY Confirmed By:SIMEON STACK 09/06/15 1047 Date Simeon Stack MD CC: Diandra Anaya DO Date Dictated: 09/04/15911 Date Transcribed: 09/04/15911 Clean Up Worker: Signed 04-Sep-2015 Discharge Instruction Result: Comments: See Note; NOTES: [facility] Medical Records Department [address] [place] [address] Instructions for Home/Discharge Instructions 09/04/15 1121 MR#: [id number] Acct: [id number] Name: SIMEON PAIZ Rep #: [id number] : 1950 65 From: Simeon Gruber MD PCP: Diandra Anaya DO Status: REG [facility] [place] Discharge Diet: Light diet - advance as tolerated Dis charge Activity: May Not Drive - for 2-3 days or while taking narcotic pain medications., - - Do not drive, work heavy equipment or sign legal documents for 24 hours. May shower in (days): 1 - with th e bandage in place. Additional Activity Instructions:: Pain medication may cause nausea. You should typically eat light foods as you take your pain medications. Pain medication may also cause constipa tion. If this is a problem for you, please discuss with your doctor. Call your doctor if your incision/area has: Continuous Slow Oozing, Sudden Increased Bleeding, Increased Pain/ Swelling, Increased Redness, Foul Smelling Discharge Call your doctor if you observe: Fever of 101 or Higher Suture Line Care: Avoid Pulling/Pushing, Avoid Pinching/Bending Additional Dressing/Incision Instructions:: Le ave operative bandaids on for 2 days. When you remove dressing, leave Steri-Strips on until your follow-up appointment, or until the Steri- Strips fall off on their own. Allergies/Adverse Reactions: Allergies Penicillins Allergy (Intermediate, Verified 08/18/15 20:57) Hives Medications to take at Discharge Cholecalciferol (Vitamin D3) [Vitamin D3] 5,000 tab PO DAILY 09/03/15 Multivitamins, Ther W-Minerals [Multivitamin With Minerals] 1 tablet PO DAILY 09/03/15 Oxycodone HCl/Acetaminophen [Percocet 5/325] 1 - 2 tablet PO Q4H PRN PRN #30 tablet 09/04/15 The following prescriptions were given: Oxycodone HCl/Acetaminophen [Percocet 5/325] 1 - 2 tablet PO Q4H PRN PRN #30 tablet PRN Reason: Pain Please Follow Up With: Simeon Gruber - Please call [phone] to schedule an appointment . When: 7 days after your surgery. 09/04/15 1122 <Electronically signed by Simeon Gruber MD> Date Simeon Gruber MD CC: Diadnra Anaya DO 30-Aug-2015 Abdomen W/WO IV Contrast Result: Comments: See Note; NOTES: [facility] Imaging Services [address] [place] [address] Verdana 4d Abdomen W/WO IV Contrast MR#: [id number] Acct: [id number] Name: SIMEON YE Rep #: [id number] : 1950 M 65 From: Chidi Walker MD PCP: Diandra Anaya DO Status: REG CLI Study: Abdomen W/WO IV Contrast Date of Exam: 08/30/15 Exam# [id number] Ordering Dr : Diandra Anaya DO STUDY: CT ABDOMEN WITH AND WITHOUT CONTRAST REASON FOR EXAM: Male, 65 years old. Epigastric pain. Pancreatitis. RADIATION DOSAGE (If Supplied By Facility): CTDIvol = ( 12.34 ) m Gy, DLP = ( 1204.97 ) mGycm TECHNIQUE: Transaxial images were obtained pre and post I.V. administration of 100cc ml of Isovue 300, and with oral contrast. Sagittal and coronal images were reconstru cted. Delayed images were obtained as well. COMPARISON: Comparison is made with prior study dated June 28, 2010 FINDINGS: The visualized lung bases are unre markable. The visualized portions of the heart are within normal limits. Normal liver. Normal gallbladder and extrahepatic biliary system. Normal spleen. Normal pancreas. Normal bilateral adrenal glands. Normal right kidney. There is a 4.3 cm x 4.2 cm cyst in the mid inferior portion of the left kidney. There is a small hiatal hernia. Normal small intestine. Normal colon. The appendix is v isualized and appears normal. There is scattered atherosclerotic calcification of the abdominal aorta, without a demonstrated aneurysm. Normal inferior vena cava. Normal retroperitoneum. Normal ab dominal wall. There are mild degenerative changes of the visualized lumbar spine. IMPRESSION: Left renal cyst. Electronically Signed: Chidi Walker MD at 9:59 EST Tel [phone], Service support [phone], CC: Diandra Anaya DO Clean Up Worker: Signed Immunization Name Dates Details Influenza (3 years and up) on: 26-Jun-2009 Comments: Lot #[id number]-left deltoidgiven by:[facility] Pneumococcal (2 years and up) on: 26-Jun-2009 Comments: Lot #[id number]/20/10Site-right deltoidDose0.5mlgiven by:[facility] Family History Unknown Family Member Name Dates Details Father Comments: Dimple Gerig's Disease in 70s, HTN mild Status: Active Mother Comments: 93 heart failure- mi age 85- htn Status: Active Social History Name Dates Details Alcohol Use Comments: Occasional alcohol use Status: Active Caffeine Use Comments: 4 cups/day Status: Active Exercise History Comments: 1-2 X a week for 1 hr Status: Active Living Situation Comments: Lives with spouse Status: Active Most Recent Primary Occupation Comments: [employer] Status: Active Number of Adult (age 18 or over) Dependents Comments: 3 Status: Active Tobacco Use Comments: Smokes cigars-occ Status: Active Vital Signs Date Test Result Details :13 Temperature 97.3 f Comments: Method: Temporal Pulse 63 /min Comments: Pattern: Regular Respiration Rate 16 /min Comments: Pattern: Unlabored O2 SAT 98 % Comments: Room air BP Systolic 128 mm[Hg] Comments: Patient Position: Sitting; Cuff Location: Left Arm; Cuff Size: Standard BP Diastolic 82 mm[Hg] Comments: Patient Position: Sitting; Cuff Location: Left Arm; Cuff Size: Standard Weight 191 lb Height 68 in Body Mass Index Calculated 29.04 kg/m2 Body Surface Area Calculated 2 m2 :14 Temperature 98.3 f Comments: Method: Temporal Pulse 80 /min Comments: Pattern: Regular Respiration Rate 16 /min Comments: Pattern: Unlabored BP Systolic 128 mm[Hg] Comments: Patient Position: Sitting; Cuff Location: Left Arm; Cuff Size: Standard BP Diastolic 68 mm[Hg] Comments: Patient Position: Sitting; Cuff Location: Left Arm; Cuff Size: Standard Weight 189 lb Height 68 in Body Mass Index Calculated 28.74 kg/m2 Body Surface Area Calculated 2 m2 :15 Temperature 97.1 f Pulse 70 /min Comments: Pattern: Regular Respiration Rate 18 /min Comments: Pattern: Unlabored O2 SAT 97 % Comments: Room air BP Systolic 134 mm[Hg] Comments: Patient Position: Sitting; Cuff Location: Left Arm; Cuff Size: Standard BP Diastolic 78 mm[Hg] Comments: Patient Position: Sitting; Cuff Location: Left Arm; Cuff Size: Standard Weight 189 lb Height 68 in Body Mass Index Calculated 28.74 kg/m2 Body Surface Area Calculated 2 m2 :15 Comments: cuff compared at 135/92, 80P Temperature 98 f Pulse 74 /min Comments: Pattern: Regular Respiration Rate 16 /min Comments: Pattern: Unlabored O2 SAT 97 % Comments: Room air BP Systolic 138 mm[Hg] Comments: Patient Position: Sitting; Cuff Location: Left Arm; Cuff Size: Standard BP Diastolic 92 mm[Hg] Comments: Patient Position: Sitting; Cuff Location: Left Arm; Cuff Size: Standard Weight 190 lb Height 68 in Body Mass Index Calculated 28.89 kg/m2 Body Surface Area Calculated 2 m2 :06 Comments: this was initial bp prior to the 148 BP Systolic 168 mm[Hg] Comments: Patient Position: Sitting BP Diastolic 90 mm[Hg] Comments: Patient Position: Sitting :13 BP Systolic 148 mm[Hg] Comments: Patient Position: Sitting BP Diastolic 90 mm[Hg] Comments: Patient Position: Sitting :12 Pulse 65 /min Comments: Pattern: Regular Respiration Rate 16 /min :07 Temperature 98 f Pulse 84 /min Comments: Pattern: Regular Respiration Rate 16 /min Comments: Pattern: Unlabored O2 SAT 92 % Comments: Room air BP Systolic 110 mm[Hg] Comments: Patient Position: Sitting; Cuff Location: Left Arm; Cuff Size: Standard BP Diastolic 62 mm[Hg] Comments: Patient Position: Sitting; Cuff Location: Left Arm; Cuff Size: Standard Weight 190 lb Height 68 in Body Mass Index Calculated 28.89 kg/m2 Body Surface Area Calculated 2 m2 [id number] Temperature 97.2 f Comments: Method: Temporal Pulse 68 /min Comments: Pattern: Regular Respiration Rate 15 /min Comments: Pattern: Unlabored O2 SAT 97 % Comments: Room air BP Systolic 136 mm[Hg] Comments: Patient Position: Sitting; Cuff Location: Right Arm; Cuff Size: Standard BP Diastolic 82 mm[Hg] Comments: Patient Position: Sitting; Cuff Location: Right Arm; Cuff Size: Standard Weight 190 lb Height 68 in Body Mass Index Calculated 28.89 kg/m2 Body Surface Area Calculated 2 m2 :49 Temperature 97.4 f Comments: Method: Temporal Pulse 72 /min Comments: Pattern: Regular Respiration Rate 16 /min Comments: Pattern: Unlabored O2 SAT 95 % Comments: Room air BP Systolic 126 mm[Hg] Comments: Patient Position: Sitting; Cuff Location: Left Arm; Cuff Size: Standard BP Diastolic 78 mm[Hg] Comments: Patient Position: Sitting; Cuff Location: Left Arm; Cuff Size: Standard Weight 186 lb Height 68 in Body Mass Index Calculated 28.28 kg/m2 Body Surface Area Calculated 1.98 m2 :00 Temperature 97.7 f Comments: Method: Temporal Pulse 77 /min Comments: Pattern: Regular Respiration Rate 16 /min Comments: Pattern: Unlabored O2 SAT 95 % Comments: Room air BP Systolic 128 mm[Hg] Comments: Patient Position: Sitting; Cuff Location: Left Arm; Cuff Size: Standard BP Diastolic 74 mm[Hg] Comments: Patient Position: Sitting; Cuff Location: Left Arm; Cuff Size: Standard Weight 186 lb Height 68 in Body Mass Index Calculated 28.28 kg/m2 Body Surface Area Calculated 1.98 m2 :33 Temperature 97.6 f Pulse 72 /min Comments: Pattern: Regular Respiration Rate 16 /min Comments: Pattern: Unlabored BP Systolic 120 mm[Hg] Comments: Patient Position: Sitting; Cuff Location: Left Arm; Cuff Size: Large BP Diastolic 90 mm[Hg] Comments: Patient Position: Sitting; Cuff Location: Left Arm; Cuff Size: Large Weight 189 lb Height 68 in Body Mass Index Calculated 28.74 kg/m2 Body Surface Area Calculated 2 m2 :54 Temperature 97.9 f Comments: Method: Temporal Pulse 90 /min Comments: Pattern: Regular Respiration Rate 20 /min Comments: Pattern: Unlabored O2 SAT 98 % Comments: Room air BP Systolic 120 mm[Hg] Comments: Patient Position: Sitting; Cuff Location: Left Arm; Cuff Size: Standard BP Diastolic 80 mm[Hg] Comments: Patient Position: Sitting; Cuff Location: Left Arm; Cuff Size: Standard Weight 195 lb Height 68 in Body Mass Index Calculated 29.65 kg/m2 Body Surface Area Calculated 2.02 m2 :31 Temperature 97.2 f Comments: Method: Oral Pulse 68 /min Comments: Pattern: Regular Respiration Rate 16 /min Comments: Pattern: Unlabored BP Systolic 134 mm[Hg] Comments: Patient Position: Sitting; Cuff Location: Left Arm; Cuff Size: Standard BP Diastolic 88 mm[Hg] Comments: Patient Position: Sitting; Cuff Location: Left Arm; Cuff Size: Standard Weight 195.3125 lb Height 68 in Body Mass Index Calculated 29.7 kg/m2 Body Surface Area Calculated 2.02 m2 :04 Temperature 98.4 f Comments: Method: Oral Pulse 88 /min Comments: Pattern: Regular Respiration Rate 16 /min O2 SAT 98 % Comments: Room air BP Systolic 152 mm[Hg] Comments: Patient Position: Sitting; Cuff Location: Left Arm; Cuff Size: Standard BP Diastolic 88 mm[Hg] Comments: Patient Position: Sitting; Cuff Location: Left Arm; Cuff Size: Standard Weight 195.3125 lb Height 68 in Body Mass Index Calculated 29.7 kg/m2 Body Surface Area Calculated 2.02 m2 :32 Temperature 98.2 f Comments: Method: Oral Pulse 80 /min Comments: Pattern: Regular O2 SAT 99 % Comments: Room air BP Systolic 140 mm[Hg] Comments: Patient Position: Sitting; Cuff Location: Left Arm; Cuff Size: Standard BP Diastolic 82 mm[Hg] Comments: Patient Position: Sitting; Cuff Location: Left Arm; Cuff Size: Standard Weight 195.3125 lb Height 68 in Body Mass Index Calculated 29.7 kg/m2 Body Surface Area Calculated 2.02 m2 :38 Pulse 78 /min Comments: Pattern: Regular Respiration Rate 16 /min Comments: Pattern: Unlabored BP Systolic 138 mm[Hg] Comments: Patient Position: Sitting; Cuff Location: Left Arm; Cuff Size: Standard BP Diastolic 86 mm[Hg] Comments: Patient Position: Sitting; Cuff Location: Left Arm; Cuff Size: Standard Weight 195 lb Height 68.5 in Body Mass Index Calculated 29.22 kg/m2 Body Surface Area Calculated 2.03 m2 [id number] Temperature 96.9 f Pulse 68 /min Comments: Pattern: Regular Respiration Rate 16 /min Comments: Pattern: Unlabored BP Systolic 122 mm[Hg] Comments: Patient Position: Sitting; Cuff Location: Left Arm; Cuff Size: Standard BP Diastolic 84 mm[Hg] Comments: Patient Position: Sitting; Cuff Location: Left Arm; Cuff Size: Standard Weight 195 lb Height 68.5 in Body Mass Index Calculated 29.22 kg/m2 Body Surface Area Calculated 2.03 m2 :08 Temperature 97.7 f Pulse 72 /min Comments: Pattern: Regular Respiration Rate 16 /min Comments: Pattern: Unlabored BP Systolic 126 mm[Hg] Comments: Patient Position: Sitting; Cuff Location: Left Arm; Cuff Size: Large BP Diastolic 72 mm[Hg] Comments: Patient Position: Sitting; Cuff Location: Left Arm; Cuff Size: Large Weight 190 lb Height 68.5 in Body Mass Index Calculated 28.47 kg/m2 Body Surface Area Calculated 2.01 m2 :56 Temperature 98 f Pulse 88 /min Comments: Pattern: Regular Respiration Rate 16 /min Comments: Pattern: Unlabored BP Systolic 120 mm[Hg] Comments: Patient Position: Sitting; Cuff Location: Left Arm; Cuff Size: Large BP Diastolic 80 mm[Hg] Comments: Patient Position: Sitting; Cuff Location: Left Arm; Cuff Size: Large :08 Temperature 97.5 f Comments: Method: Oral Pulse 72 /min Comments: Pattern: Regular Respiration Rate 20 /min Comments: Pattern: Unlabored BP Systolic 124 mm[Hg] Comments: Patient Position: Sitting; Cuff Location: Left Arm; Cuff Size: Standard BP Diastolic 70 mm[Hg] Comments: Patient Position: Sitting; Cuff Location: Left Arm; Cuff Size: Standard Weight 183 lb :02 Temperature 97.7 f Pulse 76 /min Comments: Pattern: Regular Respiration Rate 16 /min Comments: Pattern: Unlabored BP Systolic 108 mm[Hg] Comments: Patient Position: Sitting; Cuff Location: Left Arm; Cuff Size: Large BP Diastolic 76 mm[Hg] Comments: Patient Position: Sitting; Cuff Location: Left Arm; Cuff Size: Large Weight 183 lb :59 Temperature 97.6 f Pulse 76 /min Comments: Pattern: Regular Respiration Rate 18 /min Comments: Pattern: Unlabored BP Systolic 110 mm[Hg] Comments: Patient Position: Sitting; Cuff Location: Left Arm; Cuff Size: Large BP Diastolic 76 mm[Hg] Comments: Patient Position: Sitting; Cuff Location: Left Arm; Cuff Size: Large Weight 186 lb :49 Temperature 979.8 f Pulse 80 /min Comments: Pattern: Regular Respiration Rate 18 /min Comments: Pattern: Unlabored BP Systolic 120 mm[Hg] Comments: Patient Position: Sitting; Cuff Location: Left Arm; Cuff Size: Large BP Diastolic 90 mm[Hg] Comments: Patient Position: Sitting; Cuff Location: Left Arm; Cuff Size: Large Weight 190 lb :26 Temperature 97.8 f Pulse 74 /min Comments: Pattern: Regular Respiration Rate 18 /min Comments: Pattern: Unlabored BP Systolic 120 mm[Hg] Comments: Patient Position: Sitting; Cuff Location: Left Arm; Cuff Size: Standard BP Diastolic 80 mm[Hg] Comments: Patient Position: Sitting; Cuff Location: Left Arm; Cuff Size: Standard Weight 186 lb :01 Temperature 97.1 f Pulse 66 /min Comments: Pattern: Regular Respiration Rate 18 /min Comments: Pattern: Unlabored BP Systolic 128 mm[Hg] Comments: Patient Position: Sitting; Cuff Location: Left Arm; Cuff Size: Standard BP Diastolic 84 mm[Hg] Comments: Patient Position: Sitting; Cuff Location: Left Arm; Cuff Size: Standard Weight 186 lb :19 Temperature 96.4 f Pulse 80 /min Comments: Pattern: Regular Respiration Rate 18 /min Comments: Pattern: Unlabored BP Systolic 146 mm[Hg] Comments: Patient Position: Sitting; Cuff Location: Right Arm; Cuff Size: Large BP Diastolic 80 mm[Hg] Comments: Patient Position: Sitting; Cuff Location: Right Arm; Cuff Size: Large :00 Temperature 97.3 f Comments: Method: Oral Pulse 76 /min Comments: Pattern: Regular Respiration Rate 18 /min Comments: Pattern: Unlabored BP Systolic 120 mm[Hg] Comments: Patient Position: Sitting; Cuff Location: Left Arm; Cuff Size: Standard BP Diastolic 80 mm[Hg] Comments: Patient Position: Sitting; Cuff Location: Left Arm; Cuff Size: Standard Weight 200 lb Height 0 in Head Circumference 0.00 cm :31 Pulse 60 /min Comments: Pattern: Regular Respiration Rate 20 /min Comments: Pattern: Unlabored BP Systolic 124 mm[Hg] Comments: Patient Position: Sitting; Cuff Location: Left Arm; Cuff Size: Large BP Diastolic 70 mm[Hg] Comments: Patient Position: Sitting; Cuff Location: Left Arm; Cuff Size: Large Weight 200 lb Height 0 in Head Circumference 0.00 cm :39 Temperature 97.6 f Comments: Method: Oral Pulse 80 /min Comments: Pattern: Regular Respiration Rate 16 /min Comments: Pattern: Unlabored BP Systolic 122 mm[Hg] Comments: Patient Position: Sitting; Cuff Location: Left Arm; Cuff Size: Standard BP Diastolic 74 mm[Hg] Comments: Patient Position: Sitting; Cuff Location: Left Arm; Cuff Size: Standard Weight 0 lb Height 0 in Head Circumference 0.00 cm :16 Pulse 72 /min Comments: Pattern: Regular Respiration Rate 16 /min Comments: Pattern: Unlabored BP Systolic 132 mm[Hg] Comments: Patient Position: Supine; Cuff Location: Left Arm; Cuff Size: Standard BP Diastolic 72 mm[Hg] Comments: Patient Position: Supine; Cuff Location: Left Arm; Cuff Size: Standard Weight 200 lb Height 0 in Head Circumference 0.00 cm :02 Temperature 98.1 f Comments: Method: Undefined Pulse 84 /min Comments: Pattern: Regular Respiration Rate 16 /min Comments: Pattern: Undefined BP Systolic 124 mm[Hg] Comments: Patient Position: Sitting; Cuff Location: Left Arm; Cuff Size: Standard BP Diastolic 76 mm[Hg] Comments: Patient Position: Sitting; Cuff Location: Left Arm; Cuff Size: Standard Weight 0 lb Height 0 in Head Circumference 0.00 cm :42 Temperature 97.5 f Comments: Method: Oral Pulse 67 /min Comments: Pattern: Regular Respiration Rate 18 /min Comments: Pattern: Unlabored O2 SAT 98 % Comments: Room air BP Systolic 122 mm[Hg] Comments: Patient Position: Sitting; Cuff Location: Left Arm; Cuff Size: Standard BP Diastolic 80 mm[Hg] Comments: Patient Position: Sitting; Cuff Location: Left Arm; Cuff Size: Standard Weight 200 lb Height 0 in Head Circumference 0.00 cm :46 Temperature 97.9 f Comments: Method: Oral Pulse 83 /min Comments: Pattern: Regular Respiration Rate 18 /min Comments: Pattern: Unlabored O2 SAT 96 % Comments: Room air BP Systolic 114 mm[Hg] Comments: Patient Position: Sitting; Cuff Location: Left Arm; Cuff Size: Large BP Diastolic 68 mm[Hg] Comments: Patient Position: Sitting; Cuff Location: Left Arm; Cuff Size: Large Weight 200 lb Height 0 in Head Circumference 0.00 cm :12 Temperature 99 f Comments: Method: Oral Pulse 86 /min Comments: Pattern: Regular Respiration Rate 18 /min Comments: Pattern: Unlabored O2 SAT 98 % Comments: Room air BP Systolic 130 mm[Hg] Comments: Patient Position: Sitting; Cuff Location: Left Arm; Cuff Size: Standard BP Diastolic 86 mm[Hg] Comments: Patient Position: Sitting; Cuff Location: Left Arm; Cuff Size: Standard Weight 200 lb Height 0 in Head Circumference 0.00 cm :23 Pulse 88 /min Comments: Pattern: Regular Respiration Rate 20 /min Comments: Pattern: Unlabored BP Systolic 138 mm[Hg] Comments: Patient Position: Sitting; Cuff Location: Right Arm; Cuff Size: Standard BP Diastolic 82 mm[Hg] Comments: Patient Position: Sitting; Cuff Location: Right Arm; Cuff Size: Standard Weight 200.25 lb Height 0 in Head Circumference 0.00 cm :48 Pulse 64 /min Comments: Pattern: Regular Respiration Rate 20 /min Comments: Pattern: Unlabored BP Systolic 124 mm[Hg] Comments: Patient Position: Sitting; Cuff Location: Left Arm; Cuff Size: Standard BP Diastolic 78 mm[Hg] Comments: Patient Position: Sitting; Cuff Location: Left Arm; Cuff Size: Standard Weight 204.125 lb Height 0 in Head Circumference 0.00 cm :00 Temperature 98.1 f Comments: Method: Oral Pulse 82 /min Comments: Pattern: Regular Respiration Rate 16 /min Comments: Pattern: Unlabored BP Systolic 122 mm[Hg] Comments: Patient Position: Sitting; Cuff Location: Left Arm; Cuff Size: Large BP Diastolic 86 mm[Hg] Comments: Patient Position: Sitting; Cuff Location: Left Arm; Cuff Size: Large Weight 0 lb Height 0 in Head Circumference 0.00 cm :54 Temperature 97.4 f Comments: Method: Oral Pulse 66 /min Comments: Pattern: Regular Respiration Rate 17 /min Comments: Pattern: Unlabored O2 SAT 97 % Comments: Room air BP Systolic 120 mm[Hg] Comments: Patient Position: Sitting; Cuff Location: Left Arm; Cuff Size: Standard BP Diastolic 72 mm[Hg] Comments: Patient Position: Sitting; Cuff Location: Left Arm; Cuff Size: Standard Weight 206 lb Height 0 in Head Circumference 0.00 cm :47 Temperature 97.5 f Comments: Method: Oral Pulse 72 /min Comments: Pattern: Regular Respiration Rate 16 /min Comments: Pattern: Unlabored BP Systolic 128 mm[Hg] Comments: Patient Position: Sitting; Cuff Location: Left Arm; Cuff Size: Standard BP Diastolic 82 mm[Hg] Comments: Patient Position: Sitting; Cuff Location: Left Arm; Cuff Size: Standard Weight 206 lb Height 0 in Head Circumference 0.00 cm :03 Temperature 97.9 f Comments: Method: Oral Pulse 80 /min Comments: Pattern: Regular Respiration Rate 16 /min Comments: Pattern: Unlabored BP Systolic 124 mm[Hg] Comments: Patient Position: Sitting; Cuff Location: Left Arm; Cuff Size: Standard BP Diastolic 76 mm[Hg] Comments: Patient Position: Sitting; Cuff Location: Left Arm; Cuff Size: Standard Weight 204 lb Height 0 in Head Circumference 0.00 cm :29 Temperature 98.1 f Comments: Method: Undefined Pulse 80 /min Comments: Pattern: Regular BP Systolic 140 mm[Hg] Comments: Patient Position: Sitting; Cuff Location: Left Arm; Cuff Size: Standard BP Diastolic 96 mm[Hg] Comments: Patient Position: Sitting; Cuff Location: Left Arm; Cuff Size: Standard Weight 0 lb Height 0 in Head Circumference 0.00 cm Results Date Description Value Details :11 CBC W/Diff, Automated Comments: [facility] [address] [place], [place], [id number] Absolute Lymph 1.11 {X10_3/ul} (Normal) Range: 0.83-4.51 Absolute Neut 6.1 {X10_3/uL} (Normal) Range: 2.0-7.7 IM GRAN % 0.100 % (Normal) Range: 0.0-0.9 Comments: IG% - Immature Granulocytes (promyelocytes, myelocytes andmetamyelocytes) > 1% indicates that a LEFT SHIFT is Present. BASO% 0.7 % (Normal) Range: 0-1 EO% 1.5 % (Normal) Range: 0-5 MONO% 10.9 % (Abnormal) Range: 0-10 LY% 13.5 % (Abnormal) Range: 19-41 NEUT% 73.3 % (Abnormal) Range: 47-70 MPV 8.8 fL (Normal) Range: 6.2-12.0 PLT 231 K/mm3 (Normal) Range: 150-450 RDW SD 45.3 fL (Abnormal) Range: 35.1-43.9 RDW CV 13.0 % (Normal) Range: 11.6-14.6 MCHC 33.2 {g/gl} (Normal) Range: 32-36 MCH 31.4 pg (Normal) Range: 27.0-32.0 MCV 94.7 fL (Abnormal) Range: 80-94 HCT 41.0 % (Normal) Range: 40-54 HGB 13.6 g/dL (Normal) Range: 13.0-16.5 RBC 4.33 {M/mm3} (Abnormal) Range: 4.6-6.2 WBC 8.3 K/mm3 (Normal) Range: 4.4-11.0 15-Jun-20188:11 Comprehensive Metabolic Profil Comments: [facility] [address] [place], [address] GAP 9 (Normal) Range: 5-15 CO2 25.0 mmol/L (Normal) Range: 21.0-32.0 CL 106 mmol/L (Normal) Range: 98-107 K 4.1 mmol/L (Normal) Range: 3.5-5.1 NA 140 mmol/L (Normal) Range: 136-145 T BILI 1.10 mg/dL (Abnormal) Range: 0.20-1.00 ALT 27 U/L (Normal) Range: 16-61 ALK P 72 U/L (Normal) Range: 45-117 AST 10 U/L (Abnormal) Range: 15-37 CA 8.8 mg/dL (Normal) Range: 8.5-10.1 A/G 0.9 {RATIO} (Normal) Range: 0.9-2.4 GLOB 3.8 g/dL (Normal) Range: 2.2-4.2 ALB 3.6 g/dL (Normal) Range: 3.2-5.0 T PROT 7.4 g/dL (Normal) Range: 6.4-8.2 BUN/CRE 15.0 {RATIO} (Normal) Range: 10-20 EST GFR - AA 78 mL/min (Normal) Comments: GFR Calc EST GFR 64 mL/min (Normal) Comments: Non- GFR Calc CREAT,SERUM 1.20 mg/dL (Normal) Range: 0.70-1.30 Comments: The validity of the calculated GFR AND GFRAA in patients over70 years has not been determined. Clinical correlation isessential. BUN 18 mg/dL (Normal) Range: 7-18 GLU 93 mg/dL (Normal) Range: 74-106 Comments: Please note revised GLUCOSE reference range ybyknudlx03/02/2018. 15-Jun-20188:11 Hepatitis C Antibodies Comments: [facility] (refer to report for specific site)refer to report for address and phone number HEP C AB <0.1 {s/co_ratio} (Normal) Range: 0.0-0.9 Comments: Negative: < 0.8 Indeterminate: 0.8 - 0.9 Positive: > 0.9 The CDC recommends that a positive HCV antibody result be followed up with a HCV Nucleic Acid Amplification test (995970).Performed at: [address] [id number] Director: Toby Wilder PhD, Phone: [phone] 15-Jun-20188:11 Urinalysis, Complete Comments: How was Urine Obtained? [facility] [address] [place] [address], [address] MUCUS, URINE 0 SEEN {/hpf} (Normal) BACTERIA 0 SEEN {/hpf} (Normal) SQUAM EPI 0 SEEN {/hpf} (Normal) Range: 0-5 RBC-UA 0 SEEN {/hpf} (Normal) Range: 0-5 WBC 0 SEEN {/hpf} (Normal) Range: 0-5 LEUK ESTERASE Negative /ul (Normal) OCCULT BLOOD-UR 25 /ul (Abnormal) NITRITE UR Negative (Normal) UROBILI Normal mg/dL (Normal) PROT DIPSTX Negative mg/dL (Normal) pH UR 6.5 (Normal) Range: 5.0 - 8.0 SP.GR. DIPSTX 1.005 (Normal) Range: 1.002-1.030 KETONE UR Negative mg/dL (Normal) BILIRUBIN URINE Negative mg/dL (Normal) GLUCOSE, UR Normal mg/dL (Normal) CLARITY Clear (Normal) COLOR Yellow (Normal) :11 Vitamin B12 870 pg/mL (Normal) Comments: USE R1 TUBE ADD ON TEST PER [facility] [address] [place], [id number] Range: 211-911 :53 Microscopic Examination Comments: PATIENT WAS FASTINGPERFORMED BY: [facility] [id number] BY: [employer] [id number] Bacteria None seen (Normal) Mucus Threads Present (Normal) Epithelial Cells (non renal) None seen {/hpf} (Normal) Range: 0 - 10 RBC None seen {/hpf} (Normal) Range: 0 - 2 WBC 0-5 {/hpf} (Normal) Range: 0 - 5 :53 URINALYSIS, W/ MICRO Comments: PATIENT WAS FASTINGPERFORMED BY: [facility] [id number] BY: [employer] [id number] ([id number]) Microscopic Examination See below: (Normal) Comments: Microscopic was indicated and was performed. Microscopic Examination MICRON (Normal) Comments: Microscopic follows if indicated. Nitrite, Urine Negative (Normal) Urobilinogen,Semi-Qn 0.2 mg/dL (Normal) Range: 0.2-1.0 Bilirubin Negative (Normal) Occult Blood Negative (Normal) Ketones Negative (Normal) Glucose Negative (Normal) Protein Negative (Normal) WBC Esterase Negative (Normal) Appearance Clear (Normal) Urine-Color Yellow (Normal) pH 7.0 (Normal) Range: 5.0-7.5 Specific [place] 1.009 (Normal) Range: 1.005-1.030 :53 PSA (PROSTATE SPECIFIC Comments: PATIENT WAS FASTINGPERFORMED BY: [facility] [id number] BY: [employer] [id number] ANTIGEN) (V76.44) Prostate Specific Ag, 1.3 ng/mL (Normal) Range: 0.0-4.0 Serum Comments: [employer] methodology. .According to the [place] [employer], Serum PSA shoulddecrease and remain at undetectable levels after radicalprostatectomy. The AUA defines biochemical recurrence as an initialPSA value 0.2 ng/mL or greater followed by a subsequent confirmatoryPSA value 0.2 ng/mL or greater.Values obtained with d ifferent assay methods or kits cannot be usedinterchangeably. Results cannot be interpreted as absolute evidenceof the presence or absence of malignant disease. :53 TESTOSTERONE FREE (29699) Comments: PATIENT WAS FASTINGPERFORMED BY: [employer] Ouwbks1745 [facility] [id number] BY: [employer] [id number] Free Testosterone(Direct) 13.7 pg/mL (Normal) Range: 6.6-18.1 :53 CBC with auto diff Comments: PATIENT WAS FASTINGPERFORMED BY: [employer] [address] [id number] BY: [employer] [id number] ([address]) Immature Grans (Abs) 0.0 {x10E3/uL} (Normal) Range: 0.0-0.1 Immature Granulocytes 0 % (Normal) Baso (Absolute) 0.1 {x10E3/uL} (Normal) Range: 0.0-0.2 Eos (Absolute) 0.2 {x10E3/uL} (Normal) Range: 0.0-0.4 Monocytes(Absolute) 0.8 {x10E3/uL} (Normal) Range: 0.1-0.9 Lymphs (Absolute) 1.6 {x10E3/uL} (Normal) Range: 0.7-3.1 Neutrophils (Absolute) 3.7 {x10E3/uL} (Normal) Range: 1.4-7.0 Basos 1 % (Normal) Eos 3 % (Normal) Monocytes 12 % (Normal) Lymphs 25 % (Normal) Neutrophils 59 % (Normal) Platelets 217 {x10E3/uL} (Normal) Range: 150-379 RDW 13.4 % (Normal) Range: 12.3-15.4 MCHC 33.3 g/dL (Normal) Range: 31.5-35.7 MCH 31.3 pg (Normal) Range: 26.6-33.0 MCV 94 fL (Normal) Range: 79-97 Hematocrit 40.8 % (Normal) Range: 37.5-51.0 Hemoglobin 13.6 g/dL (Normal) Range: 13.0-17.7 RBC 4.34 {x10E6/uL} (Normal) Range: 4.14-5.80 WBC 6.3 {x10E3/uL} (Normal) Range: 3.4-10.8 :53 MICROALBUMIN: CREATININE Comments: PATIENT WAS FASTINGPERFORMED BY: [employer] [facility] [id number] BY: [employer] [id number] RATIO (34967) AND (69124) Microalb/Creat Ratio <7.8 {mg/g_creat} (Normal) Range: 0.0-30.0 Microalbumin, Urine <3.0 ug/mL (Normal) Creatinine, Urine 38.5 mg/dL (Normal) :53 HGB A1C (01062) Comments: PATIENT WAS FASTINGPERFORMED BY: [employer] Xqlwku7573 [facility] [id number] BY: [employer] [id number] Hemoglobin A1c 5.3 % (Normal) Range: 4.8-5.6 Comments: . Pre-diabetes: 5.7 - 6.4 Diabetes: >6.4 Glycemic control for adults with diabetes: <7.0 :53 LIPID PANEL (37922) Comments: PATIENT WAS FASTINGPERFORMED BY: [employer] [facility] [id number] BY: [employer] SolutionsBarbara [place] [address] [facility] [id number] LDL/HDL Ratio 1.8 {ratio_units} (Normal) Range: 0.0-3.6 Comments: LDL/HDL Ratio Men Women 1/2 Avg.Risk 1.0 1.5 Av g.Risk 3.6 3.2 2X Avg.Risk 6.2 5.0 3X Avg.Risk 8.0 6.1 LDL Cholesterol Calc 102 mg/dL (Abnormal) Range: 0-99 VLDL Cholesterol [place] 19 mg/dL (Normal) Range: 5-40 HDL Cholesterol 58 mg/dL (Normal) Triglycerides 96 mg/dL (Normal) Range: 0-149 Cholesterol, Total 179 mg/dL (Normal) Range: 100-199 33-Ovm-25596:53 METABOLIC PANEL, Comments: PATIENT WAS FASTINGPERFORMED BY: [employer] Ekfvdk7403 [facility] [id number] BY: [employer] [id number] [facility] ([address]) ALT (SGPT) 18 [iU]/L (Normal) Range: 0-44 AST (SGOT) 15 [iU]/L (Normal) Range: 0-40 Alkaline Phosphatase, S 79 [iU]/L (Normal) Range: 39-117 Bilirubin, Total 0.8 mg/dL (Normal) Range: 0.0-1.2 A/G Ratio 1.6 (Normal) Range: 1.2-2.2 Globulin, Total 2.7 g/dL (Normal) Range: 1.5-4.5 Albumin, Serum 4.3 g/dL (Normal) Range: 3.6-4.8 Protein, Total, Serum 7.0 g/dL (Normal) Range: 6.0-8.5 Calcium, Serum 9.2 mg/dL (Normal) Range: 8.6-10.2 Carbon Dioxide, Total 24 mmol/L (Normal) Range: 18-29 Chloride, Serum 100 mmol/L (Normal) Range: 96-106 Potassium, Serum 4.5 mmol/L (Normal) Range: 3.5-5.2 Sodium, Serum 140 mmol/L (Normal) Range: 134-144 BUN/Creatinine Ratio 9 (Abnormal) Range: 10-24 eGFR If Africn Am 84 mL/min/1.73 (Normal) eGFR If NonAfricn Am 72 mL/min/1.73 (Normal) Creatinine, Serum 1.07 mg/dL (Normal) Range: 0.76-1.27 BUN 10 mg/dL (Normal) Range: 8-27 Glucose, Serum 88 mg/dL (Normal) Range: 65-99 64-Qsj-910760:15 Microscopic Examination Comments: PATIENT NOT FASTINGPERFORMED BY: [facility] [place] [id number] Bacteria None seen (Normal) Mucus Threads Present (Normal) Epithelial Cells (non renal) None seen {/hpf} (Normal) Range: 0 - 10 RBC 0-2 {/hpf} (Normal) Range: 0 - 2 WBC 0-5 {/hpf} (Normal) Range: 0 - 5 42-Atp-815068:15 URINALYSIS (41098) Comments: PATIENT NOT FASTINGPERFORMED BY: [facility] [place] [id number] Information: SRC:UC Microscopic Examination See below: (Normal) Comments: Microscopic was indicated and was performed. Nitrite, Urine Negative (Normal) Urobilinogen,Semi-Qn 0.2 mg/dL (Normal) Range: 0.2-1.0 Bilirubin Negative (Normal) Occult Blood 2+ (Abnormal) Ketones Negative (Normal) Glucose Negative (Normal) Protein Trace (Normal) WBC Esterase Negative (Normal) Appearance Clear (Normal) Urine-Color Yellow (Normal) pH 6.0 (Normal) Range: 5.0-7.5 Specific [place] 1.025 (Normal) Range: 1.005-1.030 94-Yxs-438401:15 URINE IZA CULTURE-IDENTIFICATN Comments: PATIENT NOT FASTINGPERFORMED BY: [facility] [place] [id number] (05448) Result 1 NG36 (Normal) Comments: No growth in 36 - 48 hours. Urine Culture,Comprehensive Final report (Normal) 04-Bpm-79630:45 CBC W/AUTO DIFF WBC (45689) Comments: PATIENT NOT FASTINGPERFORMED BY: HistoryFile RoadDublin [place] [id number] Immature Grans (Abs) 0.0 {x10E3/uL} (Normal) Range: 0.0-0.1 Immature Granulocytes 0 % (Normal) Baso (Absolute) 0.1 {x10E3/uL} (Normal) Range: 0.0-0.2 Eos (Absolute) 0.1 {x10E3/uL} (Normal) Range: 0.0-0.4 Monocytes(Absolute) 0.6 {x10E3/uL} (Normal) Range: 0.1-0.9 Lymphs (Absolute) 1.5 {x10E3/uL} (Normal) Range: 0.7-3.1 Neutrophils (Absolute) 4.5 {x10E3/uL} (Normal) Range: 1.4-7.0 Basos 1 % (Normal) Eos 2 % (Normal) Monocytes 9 % (Normal) Lymphs 21 % (Normal) Neutrophils 67 % (Normal) Platelets 263 {x10E3/uL} (Normal) Range: 150-379 RDW 13.7 % (Normal) Range: 12.3-15.4 MCHC 33.5 g/dL (Normal) Range: 31.5-35.7 MCH 31.1 pg (Normal) Range: 26.6-33.0 MCV 93 fL (Normal) Range: 79-97 Hematocrit 42.7 % (Normal) Range: 37.5-51.0 Hemoglobin 14.3 g/dL (Normal) Range: 12.6-17.7 RBC 4.60 {x10E6/uL} (Normal) Range: 4.14-5.80 WBC 6.8 {x10E3/uL} (Normal) Range: 3.4-10.8 35-Fgn-15428:45 METABOLIC PANEL, COMPREHENSIVE Comments: PATIENT NOT FASTINGPERFORMED BY: [facility]CoSaint [facility] CenterYvtwqc3444 [facility] [id number] (06234) ALT (SGPT) 18 [iU]/L (Normal) Range: 0-44 AST (SGOT) 12 [iU]/L (Normal) Range: 0-40 Alkaline Phosphatase, S 80 [iU]/L (Normal) Range: 39-117 Bilirubin, Total 0.9 mg/dL (Normal) Range: 0.0-1.2 A/G Ratio 1.6 (Normal) Range: 1.1-2.5 Globulin, Total 2.7 g/dL (Normal) Range: 1.5-4.5 Albumin, Serum 4.3 g/dL (Normal) Range: 3.6-4.8 Protein, Total, Serum 7.0 g/dL (Normal) Range: 6.0-8.5 Calcium, Serum 9.4 mg/dL (Normal) Range: 8.6-10.2 Carbon Dioxide, Total 20 mmol/L (Normal) Range: 18-29 Chloride, Serum 105 mmol/L (Normal) Range: 96-106 Potassium, Serum 4.1 mmol/L (Normal) Range: 3.5-5.2 Sodium, Serum 145 mmol/L (Abnormal) Range: 134-144 BUN/Creatinine Ratio 13 (Normal) Range: 10-22 eGFR If Africn Am 68 mL/min/1.73 (Normal) eGFR If NonAfricn Am 59 mL/min/1.73 (Abnormal) Creatinine, Serum 1.28 mg/dL (Abnormal) Range: 0.76-1.27 BUN 17 mg/dL (Normal) Range: 8-27 Glucose, Serum 95 mg/dL (Normal) Range: 65-99 :30 Amylase Comments: [facility] [address] [place], [place], [address] ESTIVEN 80 U/L (Normal) Range: 25-115 :30 CBC W/Diff, Automated Comments: [address] [place], [place], [address] Absolute Lymph 1.18 {X10_3/ul} (Normal) Range: 0.83-4.51 Absolute Neut 4.7 {X10_3/uL} (Normal) Range: 2.0-7.7 IM GRAN % 0.000 % (Normal) Range: 0.0-0.9 Comments: IG% - Immature Granulocytes (promyelocytes, myelocytes andmetamyelocytes) > 1% indicates that a LEFT SHIFT is Present. BASO% 1.2 % (Abnormal) Range: 0-1 EO% 2.2 % (Normal) Range: 0-5 MONO% 11.6 % (Abnormal) Range: 0-10 LY% 17.2 % (Abnormal) Range: 19-41 NEUT% 67.8 % (Normal) Range: 47-70 MPV 9.3 fL (Normal) Range: 6.2-12.0 PLT 230 K/mm3 (Normal) Range: 150-450 RDW SD 43.2 fL (Normal) Range: 35.1-43.9 RDW CV 13.0 % (Normal) Range: 11.6-14.6 MCHC 32.9 {g/gl} (Normal) Range: 32-36 MCH 30.8 pg (Normal) Range: 27.0-32.0 MCV 93.4 fL (Normal) Range: 80-94 HCT 42.5 % (Normal) Range: 40-54 HGB 14.0 g/dL (Normal) Range: 13.0-16.5 RBC 4.55 {M/mm3} (Abnormal) Range: 4.6-6.2 WBC 6.9 K/mm3 (Normal) Range: 4.4-11.0 22-Apr-20169:30 Comprehensive Metabolic Profil Comments: [facility] [address] [place], [address] GAP 6 (Normal) Range: 5-15 CO2 28.0 mmol/L (Normal) Range: 21.0-32.0 CL 106 mmol/L (Normal) Range: 98-107 K 4.2 mmol/L (Normal) Range: 3.5-5.1 NA 140 mmol/L (Normal) Range: 136-145 T BILI 1.30 mg/dL (Abnormal) Range: 0.20-1.00 ALT 71 U/L (Normal) Range: 12-78 ALK P 77 U/L (Normal) Range: 50-136 AST 17 U/L (Normal) Range: 15-37 CA 8.7 mg/dL (Normal) Range: 8.5-10.1 A/G 1.1 {RATIO} (Normal) Range: 0.9-2.4 GLOB 3.4 g/dL (Normal) Range: 2.3-3.5 ALB 3.7 g/dL (Normal) Range: 3.4-5.0 T PROT 7.1 g/dL (Normal) Range: 6.4-8.2 BUN/CRE 12.8 {RATIO} (Normal) Range: 10-20 EST GFR - AA 70 mL/min (Normal) Comments: GFR Calc EST GFR 58 mL/min (Abnormal) Comments: Non- GFR Calc CREAT,SERUM 1.33 mg/dL (Abnormal) Range: 0.70-1.30 Comments: The validity of the calculated GFR AND GFRAA in patients over70 years has not been determined. Clinical correlation isessential. BUN 17 mg/dL (Normal) Range: 7-18 GLU 97 mg/dL (Normal) Range: 70-110 22-Apr-20169:30 Lipase Comments: [facility] [address] [place], [place], [id number] LIPASE 201 U/L (Normal) Range: 73-393 57-Iou-532816:28 GALLBLADDER See Note (Normal) Comments: [facility] [address] [place], [place], [address] Comments: Patient: SIMEON PAIZ : 1950 (65/M) Acct Num: [id number] Phys: Wally HORTON,Simeon Unit Num: [id number] Loc: [facility] [place] Specimen: [id number] Received: 09/04/15 - 1324 Spec Type: G ALLBLADDE TISSUES TISSUES: CULTURE RESULTS No results available. GROSS DESCRIPTION Received is one container designated gallbladder. The specimen consists of a gallbladder m easuring 8 x 2.6 x 2.3 cm. The external surface is pink-beck, smooth and glistening for the most part. Focally, it is granular, hemorrhagic and contains cautery artifact. The lumen of the gallbladder contains yellow mucoid bile and no stones. The gallbladder wall measures 0.2 cm in thickness and is free of mass lesions. Superannuation Funds Manager sections of the gallbladder and thecystic duct are submitted in one cassette. AM: 09/04/15 TC:3 CPT: 28927 HEADER OPERATION: Cholecystectomy, lap, no grams PRE-OP DIAGNOSIS: Acute biliary pancreatitis TISSUE SUBMITTED: Gallbladder MICROSCOPIC DE SCRIPTION Slides are reviewed. MICROSCOPIC DIAGNOSIS Gallbladder, cholecystectomy: Mild chronic cholecystitis. AM: 09/05/15 Signed Jared Gabo 09/05/15 <signature on file> [id number]-Fcv-[id number]:30 Urinalysis, Complete Comments: Order Date: 08/18/15How was Urine Obtained? CLEAN [facility] [address] [place], [address] FINE GRAN CAST 0-5 SEEN {/lpf} (Normal) Range: 0-5 HYALINE CAST 0-5 SEEN {/lpf} (Normal) Range: 0-5 MUCUS, URINE 0 SEEN {/hpf} (Normal) BACTERIA 0 SEEN {/hpf} (Normal) SQUAM EPI 0 SEEN {/hpf} (Normal) Range: 0-5 RBC-UA 0-5 SEEN {/hpf} (Normal) Range: 0-5 WBC 0-5 SEEN {/hpf} (Normal) Range: 0-5 LEUK ESTERASE Negative /ul (Normal) OCCULT BLOOD-UR 150 /ul (Abnormal) NITRITE UR Negative (Normal) UROBILI Normal mg/dL (Normal) PROT DIPSTX Negative mg/dL (Normal) pH UR 6.0 (Normal) Range: 5.0 - 8.0 SP.GR. DIPSTX 1.025 (Normal) Range: 1.002-1.030 KETONE UR Negative mg/dL (Normal) BILIRUBIN URINE Negative mg/dL (Normal) GLUCOSE, UR Normal mg/dL (Normal) CLARITY Clear (Normal) COLOR Yellow (Normal) 7-Xhv-348793:00 Basic Metabolic Profile (BMP) Comments: 'TROP' Serial specimen #1, #2, #3, or #4: [address] [place] [address] [id number] [place], [place], [id number] GAP 12 (Normal) Range: 5-15 CO2 27.0 mmol/L (Normal) Range: 21.0-32.0 CL 107 mmol/L (Normal) Range: 98-107 K 3.3 mmol/L (Abnormal) Range: 3.5-5.1 NA 146 mmol/L (Abnormal) Range: 136-145 CA 8.8 mg/dL (Normal) Range: 8.5-10.1 BUN/CRE 16.8 {RATIO} (Normal) Range: 10-20 Estimated CRCL 48.78 ml/min (Normal) EST GFR - AA 59 mL/min (Abnormal) Comments: GFR Calc EST GFR 48 mL/min (Abnormal) Comments: Non- GFR Calc CREAT,SERUM 1.55 mg/dL (Abnormal) Range: 0.70-1.30 Comments: The validity of the calculated GFR AND GFRAA in patients over70 years has not been determined. Clinical correlation isessential. BUN 26 mg/dL (Abnormal) Range: 7-18 GLU 96 mg/dL (Normal) Range: 70-110 1-Dyc-844917:00 CBC W/Diff, Automated Comments: [facility] [id number] [place], [place], [id number] Absolute Lymph 2.93 {X10_3/ul} (Normal) Range: 0.83-4.51 Absolute Neut 6.1 {X10_3/uL} (Normal) Range: 2.0-7.7 IM GRAN % 0.200 % (Normal) Range: 0.0-0.9 Comments: IG% - Immature Granulocytes (promyelocytes, myelocytes andmetamyelocytes) > 1% indicates that a LEFT SHIFT is Present. BASO% 0.4 % (Normal) Range: 0-1 EO% 1.5 % (Normal) Range: 0-5 MONO% 9.3 % (Normal) Range: 0-10 LY% 28.9 % (Normal) Range: 19-41 NEUT% 59.7 % (Normal) Range: 47-70 MPV 9.0 fL (Normal) Range: 6.2-12.0 PLT 209 K/mm3 (Normal) Range: 150-450 RDW SD 44.7 fL (Abnormal) Range: 35.1-43.9 RDW CV 13.2 % (Normal) Range: 11.6-14.6 MCHC 33.7 {g/gl} (Normal) Range: 32-36 MCH 31.2 pg (Normal) Range: 27.0-32.0 MCV 92.7 fL (Normal) Range: 80-94 HCT 40.7 % (Normal) Range: 40-54 HGB 13.7 g/dL (Normal) Range: 13.0-16.5 RBC 4.39 {M/mm3} (Abnormal) Range: 4.6-6.2 WBC 10.1 K/mm3 (Normal) Range: 4.4-11.0 :00 Lipase Comments: 'TROP' Serial specimen #1, #2, #3, or #4: [address] [place] [address] [id number] [place], [address] LIPASE 73093 U/L (Abnormal) Range: 73-393 :00 Liver Profile Comments: 'TROP' Serial specimen #1, #2, #3, or #4: [address] [place] [address] [id number] [place], [address] D BILI 0.13 mg/dL (Normal) Range: 0.00-0.30 T BILI 0.60 mg/dL (Normal) Range: 0.20-1.00 ALT 104 U/L (Abnormal) Range: 12-78 ALK P 89 U/L (Normal) Range: 50-136 AST 108 U/L (Abnormal) Range: 15-37 GLOB 3.5 g/dL (Normal) Range: 2.3-3.5 ALB 3.7 g/dL (Normal) Range: 3.4-5.0 T PROT 7.2 g/dL (Normal) Range: 6.4-8.2 :00 Troponin-I Comments: 'TROP' Serial specimen #1, #2, #3, or #4: [address] [place] [id number] [place], [address] TROPONIN-I < 0.02 ng/mL (Normal) Comments: TROPONIN-I EXPECTED VALUES <0.05 NEGATIVE 0.06 - 0.59 AT RISK OF [place] > OR = 0.60 SUGGEST [place] 41-Luv-122382:23 Microscopic Examination Comments: PATIENT NOT FASTINGPERFORMED BY: [facility] [id number] [facility] [id number] Bacteria None seen (Normal) Mucus Threads Present (Normal) Epithelial Cells (non renal) None seen {/hpf} (Normal) Range: 0 - 10 RBC None seen {/hpf} (Normal) Range: 0 - 2 WBC 0-5 {/hpf} (Normal) Range: 0 - 5 92-Paq-761205:14 H pylori, IgM, IgG, IgA Comments: PATIENT NOT FASTINGPERFORMED BY: [facility] [id number] Information: [id number] Ab H. pylori, IgM Abs <9.0 {units} (Normal) Range: 0.0-8.9 Comments: Negative <9.0 Equivocal 9.0 - 11.0 Positive >11.0 . This test was developed and its performance characteristics determined by [employer]. It has not been cleared or approved by the Food and Drug Administration. Results of this test are for investigational purposes only. The result should not be used as a diagnostic procedure without confi rmation of the diagnosis by another medically diagnostic product or procedure. H. pylori, IgA Abs <9.0 {units} (Normal) Range: 0.0-8.9 Comments: Negative <9.0 Equivocal 9.0 - 11.0 Positive >11.0 H. pylori, IgG Abs <0.9 U/mL (Normal) Range: 0.0-0.8 Comments: Negative <0.9 Indeterminate 0.9 - 1.0 Positive >1.0 25-Jks-420113:14 Request Problem Comments: PATIENT NOT FASTINGPERFORMED BY: [facility] [id number] 66-Lab-766201:1 Written Authorization WAR (Normal) Comments: PATIENT NOT FASTINGPERFORMED BY: [facility] [id number] Comments: Written Authorization Received.Authorization received from ORIGINAL REQUISITION [id number] by Faye Fitzgerald 57-Hdd-731648:23 URINE IZA CULTURE (MARYCHUY COL Comments: PATIENT NOT FASTINGPERFORMED BY: [facility] [id number] COUNT) ([id number]) Result 1 NG36 (Normal) Comments: No growth in 36 - 48 hours. Urine Culture,Comprehensive Final report (Normal) 23-Kpc-406549:14 CBC W/AUTO DIFF WBC Comments: PATIENT NOT FASTINGPERFORMED BY: [facility] [id number] Information: [id number] (23828) Immature Grans (Abs) 0.0 {x10E3/uL} (Normal) Range: 0.0-0.1 Immature Granulocytes 0 % (Normal) Baso (Absolute) 0.1 {x10E3/uL} (Normal) Range: 0.0-0.2 Eos (Absolute) 0.1 {x10E3/uL} (Normal) Range: 0.0-0.4 Monocytes(Absolute) 0.9 {x10E3/uL} (Normal) Range: 0.1-0.9 Lymphs (Absolute) 1.7 {x10E3/uL} (Normal) Range: 0.7-3.1 Neutrophils (Absolute) 5.4 {x10E3/uL} (Normal) Range: 1.4-7.0 Basos 1 % (Normal) Eos 1 % (Normal) Monocytes 11 % (Normal) Lymphs 21 % (Normal) Neutrophils 66 % (Normal) Platelets 282 {x10E3/uL} (Normal) Range: 150-379 RDW 13.6 % (Normal) Range: 12.3-15.4 MCHC 33.2 g/dL (Normal) Range: 31.5-35.7 MCH 30.5 pg (Normal) Range: 26.6-33.0 MCV 92 fL (Normal) Range: 79-97 Hematocrit 42.8 % (Normal) Range: 37.5-51.0 Hemoglobin 14.2 g/dL (Normal) Range: 12.6-17.7 RBC 4.65 {x10E6/uL} (Normal) Range: 4.14-5.80 WBC 8.1 {x10E3/uL} (Normal) Range: 3.4-10.8 95-Rjh-492176:14 METABOLIC PANEL, COMPREHENSIVE Comments: PATIENT NOT FASTINGPERFORMED BY: [facility] [id number] (81048) ALT (SGPT) 21 [iU]/L (Normal) Range: 0-44 AST (SGOT) 12 [iU]/L (Normal) Range: 0-40 Alkaline Phosphatase, S 71 [iU]/L (Normal) Range: 39-117 Bilirubin, Total 1.1 mg/dL (Normal) Range: 0.0-1.2 A/G Ratio 1.7 (Normal) Range: 1.1-2.5 Globulin, Total 2.5 g/dL (Normal) Range: 1.5-4.5 Albumin, Serum 4.3 g/dL (Normal) Range: 3.6-4.8 Protein, Total, Serum 6.8 g/dL (Normal) Range: 6.0-8.5 Calcium, Serum 9.5 mg/dL (Normal) Range: 8.6-10.2 Comments: Please note reference interval change Carbon Dioxide, Total 24 mmol/L (Normal) Range: 18-29 Chloride, Serum 102 mmol/L (Normal) Range: 97-108 Potassium, Serum 4.6 mmol/L (Normal) Range: 3.5-5.2 Sodium, Serum 141 mmol/L (Normal) Range: 134-144 BUN/Creatinine Ratio 11 (Normal) Range: 10-22 eGFR If Africn Am 72 mL/min/1.73 (Normal) eGFR If NonAfricn Am 63 mL/min/1.73 (Normal) Creatinine, Serum 1.23 mg/dL (Normal) Range: 0.76-1.27 BUN 14 mg/dL (Normal) Range: 8-27 Glucose, Serum 87 mg/dL (Normal) Range: 65-99 99-Fhn-471716:14 Vitamin D Hydroxy (44864) Comments: PATIENT NOT FASTINGPERFORMED BY: [facility] [id number] Vitamin D, 25-Hydroxy 38.7 ng/mL (Normal) Range: 30.0-100.0 Comments: Vitamin D deficiency has been defined by the [place] of[place]icine and an Endocrine Society practice guideline as alevel of serum 25-OH vitamin D less than 20 ng/mL (1,2).The Endocrine Society went on to further define vitamin Dinsufficiency as a level between 21 and 29 ng/mL (2).1. IOM ([place] of [employer]). 2010. Dietary reference intakes for calcium and D. [place]: The National Academies Press.2. Mike MF, Shital HARVEY, Adele PEREZ, et al. Evaluation, treatment, and prevention of vitamin D deficiency: an Endocrine Society clinical practice guideline. JCEM. 2010; 96(7):1911-30. 66-Zej-306319:14 VITAMIN B-12 (CYANOCOBALAMIN) Comments: PATIENT NOT FASTINGPERFORMED BY: [facility] [id number] (83161) Vitamin B12 935 pg/mL (Normal) Range: 211-946 53-Njf-171322:14 EBV Panel (33193) Comments: PATIENT NOT FASTINGPERFORMED BY: [facility] [id number] Interpretation: SPRCS (Normal) Comments: EBV Interpretation Chart . Interpretation EBV-IgM EA(D)-IgG VCA-IgG EBNA-IgG . EBV Seronegative - - - - Early Phase + - - - Acute Primary + +or- + - Infection Convalescence/Past - +or- + + Infection Reactivated +or- + + + Infection + Antibody Present - Antibody Absent EBV Nuclear Antigen Ab, IgG 492.0 U/mL (Abnormal) Range: 0.0-17.9 Comments: Negative <18.0 Equivocal 18.0 - 21.9 Positive >21.9 EBV Ab VCA, IgG 352.0 U/mL (Abnormal) Range: 0.0-17.9 Comments: Negative <18.0 Equivocal 18.0 - 21.9 Positive >21.9 EBV Early Antigen Ab, IgG >150.0 U/mL (Abnormal) Range: 0.0-8.9 Comments: Hepatitis A, Hepatitis C and HIV antibodies may cross-reactwith this assay. Negative < 9.0 Equivoc al 9.0 - 10.9 Positive >10.9 EBV Ab VCA, IgM <36.0 U/mL (Normal) Range: 0.0-35.9 Comments: Negative <36.0 Equivocal 36.0 - 43.9 Positive >43.9 16-Wgm-248526:23 URINALYSIS, W/ MICRO Comments: PATIENT NOT FASTINGPERFORMED BY: [facility] [id number] Information: SRC:BENJAMIN [id number] (56889) Microscopic Examination See below: (Normal) Comments: Microscopic was indicated and was performed. Nitrite, Urine Negative (Normal) Urobilinogen,Semi-Qn 0.2 mg/dL (Normal) Range: 0.0-1.9 Bilirubin Negative (Normal) Occult Blood Trace (Abnormal) Ketones Negative (Normal) Glucose Negative (Normal) Protein Negative (Normal) WBC Esterase Negative (Normal) Appearance Clear (Normal) Urine-Color Yellow (Normal) pH 7.5 (Normal) Range: 5.0-7.5 Specific [place] 1.011 (Normal) Range: 1.005-1.030 90-Rau-147661:14 TSH (52163) Comments: PATIENT NOT FASTINGPERFORMED BY: [facility] Dtnvjr9148 [facility] [id number] TSH 2.980 {uIU/mL} (Normal) Range: 0.450-4.500 31-Uml-784974:14 SED RATE ERYTHROCYTE (37180) Comments: PATIENT NOT FASTINGPERFORMED BY: [facility] SolutionsSaint [facility]abas Medical CenterHtozaj7289 [facility] [id number] Sedimentation Rate-Westergren 2 mm/h (Normal) Range: 0-30 11-Csb-530374:14 C-REACTIVE PROTEIN (05662) Comments: PATIENT NOT FASTINGPERFORMED BY: [facility]FillSaint [facility]abas Medical CenterYtkxou2472 [facility] [id number] C-Reactive Protein, Quant 1.3 mg/L (Normal) Range: 0.0-4.9 73-Vsw-290431:23 ANKLE MIN 3 VIEWS Radiology Report See Note Comments: PROCEDURE: X-RAY - RIGHT ANKLE REASON FOR EXAM: Male, 62 years old. Pain TECHNIQUE: Three views of the ankle. COMPARISON: None. FINDINGS:Normal vi sualized dis (Normal) cristy tibia and fibula. Normal medial and lateralmalleoli. Normal tibiotalar articulation and ankle mortise. Heel spur is present The visualized subtalar, talonavicular, calcaneocuboid and tarsalarticul ations are normal. IMPRESSION:Heel spur. No fracture. Signed:John Mandujano M.D.February 21, 2013 at 6:08:53 PM [id number] Signed BP/BP If you are the referring physician and would like to consult with theradiologist who provided this interpretation, please contact Heri Ramsay at [phone]. If this radiologist is unavailable, youwillbe ected to another radiologist to assist. If you are a patient with a question regarding this report, pleasecontactyour referring physician directly. Professional Interpretation Provided By: PaeDae, Phone , These documents contain legally protected and confidential healthinformation intended only for the use of the individual or entity namedabove. If you are not the in tended recipient, you are hereby notifiedthatany disclosure, copying, distribution, or other use of these documents isstrictly prohibited. If you have received this information in error,pleasenotify the sender immediately and arrange for the return or destructionofthese documents. Dictated on 02/21/131807 by John Mandujano MDTranscribed on 02/21/131809 by ITS IMPORTSign by John Mandujano MD on 02/21/131810 Sign by: John Mandujano MD 58-Fkw-815297:23 FOOT MIN 3 VIEWS Radiology See Note Comments: PROCEDURE: X-RAY - RIGHT FOOT CLINICAL: Male, 62 years old. Pain TECHNIQUE: Three view(s) of the foot. COMPARISON: None. FINDINGS:There is a plantar calcaneal Report (Normal) spur. Normal visualized subtalar, talonavicular, calcaneocuboid, tarsal andtarsometatarsal articulations. Normal metatarsi. Normal metatarsophalangeal joint of the great toe. Normal tibial andfibular sesamoid bones. Normal interphalangeal joint of the great toe.Normal phalanges of the great toe. Normal second through fifth metatarsophalangeal joints. Normalinterphalangeal joints of the lesser toes . Normal phalanges of thelessertoes. There is no demonstrated fracture. There is no demonstrated soft tissueswelling. IMPRESSION:Heel spur. No fracture. Signed:Shahram Mandujano M.D.February 21, 2013 at 6:10:23 PM [id number] Signed BP/BP If you are the referring physician and would like to consult with theradiologist who provided this interpretation, please contact Heri Ramsay at [phone]. If this radiologist is unavailable, youwillbe directed to another radiologist to assist. If you are a patient with a question regarding this report, juany zeeconsarahctyobenjamin referring physician directly. Professional Interpretation Provided By: PaeDae, Phone , These documents contain legally protected and confidential heal thinformation intended only for the use of the individual or entity namedabove. If you are not the intended recipient, you are hereby notifiedthatany disclosure, copying, distribution, or other use of t hese documents isstrictly prohibited. If you have received this information in error,pleasenotify the sender immediately and arrange for the return or destructionofthese documents. Dictated on 1809 by John Mandujano MDTranscribed on 02/21/131811 by ITS IMPORTSign by John Mandujano MD on 02/21/131812 Sign by: John Mandujano MD 59-Bbe-988615:57 CBC With Differential/Platelet Comments: PERFORMED BY: [facility] [id number] Immature Grans (Abs) 0.0 {x10E3/uL} (Normal) Range: 0.0-0.1 Immature Granulocytes 0 % (Normal) Range: 0-2 Baso (Absolute) 0.1 {x10E3/uL} (Normal) Range: 0.0-0.2 Eos (Absolute) 0.1 {x10E3/uL} (Normal) Range: 0.0-0.4 Monocytes(Absolute) 0.8 {x10E3/uL} (Normal) Range: 0.1-1.0 Lymphs (Absolute) 1.2 {x10E3/uL} (Normal) Range: 0.7-4.5 Neutrophils (Absolute) 4.4 {x10E3/uL} (Normal) Range: 1.8-7.8 Basos 1 % (Normal) Range: 0-3 Eos 1 % (Normal) Range: 0-7 Monocytes 12 % (Normal) Range: 4-13 Lymphs 18 % (Normal) Range: 14-46 Neutrophils 68 % (Normal) Range: 40-74 Platelets 257 {x10E3/uL} (Normal) Range: 140-415 RDW 13.7 % (Normal) Range: 12.3-15.4 MCHC 33.5 g/dL (Normal) Range: 31.5-35.7 MCH 30.7 pg (Normal) Range: 26.6-33.0 MCV 92 fL (Normal) Range: 79-97 Hematocrit 42.7 % (Normal) Range: 37.5-51.0 Hemoglobin 14.3 g/dL (Normal) Range: 12.6-17.7 RBC 4.66 {x10E6/uL} (Normal) Range: 4.14-5.80 WBC 6.4 {x10E3/uL} (Normal) Range: 4.0-10.5 34-Tcx-005127:57 Celiac Disease Comprehensive Comments: PERFORMED BY: [facility] [id number] Immunoglobulin A, Qn, Serum 266 mg/dL (Normal) Range: 91-414 Endomysial Antibody IgA Negative (Normal) t-Transglutaminase (tTG) IgG 2 U/mL (Normal) Range: 0-5 Comments: Negative 0 - 5 Weak Positive 6 - 9 Positive >9 t-Transglutaminase (tTG) IgA <2 U/mL (Normal) Range: 0-3 Comments: Negative 0 - 3 Weak Positive 4 - 10 Positive >10 . Tissue Transglutaminase (tTG) has been identified as the endomysial antigen. Studies have demonstr- ated that endomysial IgA antibo dies have over 99% specificity for gluten sensitive enteropathy. Deamidated Gliadin Abs, IgG 3 {units} (Normal) Range: 0-19 Comments: Negative 0 - 19 Weak Positive 20 - 30 Moderate to Strong Positive >30 Deamidated Gliadin Abs, IgA 5 {units} (Normal) Range: 0-19 Comments: Negative 0 - 19 Weak Positive 20 - 30 Moderate to Strong Positive >30 :57 Comp. Metabolic Panel (14) Comments: PERFORMED BY: [facility] [id number] ALT (SGPT) 17 [iU]/L (Normal) Range: 0-44 AST (SGOT) 14 [iU]/L (Normal) Range: 0-40 Alkaline Phosphatase, S 64 [iU]/L (Normal) Range: 25-160 Bilirubin, Total 1.1 mg/dL (Normal) Range: 0.0-1.2 A/G Ratio 1.5 (Normal) Range: 1.1-2.5 Globulin, Total 2.8 g/dL (Normal) Range: 1.5-4.5 Albumin, Serum 4.2 g/dL (Normal) Range: 3.6-4.8 Protein, Total, Serum 7.0 g/dL (Normal) Range: 6.0-8.5 Calcium, Serum 9.2 mg/dL (Normal) Range: 8.6-10.2 Carbon Dioxide, Total 23 mmol/L (Normal) Range: 20-32 Chloride, Serum 103 mmol/L (Normal) Range: 97-108 Potassium, Serum 3.9 mmol/L (Normal) Range: 3.5-5.2 Sodium, Serum 140 mmol/L (Normal) Range: 134-144 BUN/Creatinine Ratio 12 (Normal) Range: 10-22 eGFR If Africn Am 71 mL/min/1.73 (Normal) eGFR If NonAfricn Am 62 mL/min/1.73 (Normal) Creatinine, Serum 1.26 mg/dL (Normal) Range: 0.76-1.27 BUN 15 mg/dL (Normal) Range: 8-27 Glucose, Serum 90 mg/dL (Normal) Range: 65-99 20-Bpx-721021:57 H pylori, IgM, IgG, IgA Ab Comments: PERFORMED BY: [employer] [id number] [facility] [id number] H.pylori, IgM ABS <0.80 {index} Range: 0.00-0.79 (Normal) Comments: Negative <0.80 Equivocal 0.80 - 1.19 Positive >1.19 . Current studies suggest that H. pylori IgM testing should be performed concomitantly with H. pylori IgA and/or IgG tests to support a diagnosis of Helicobacter pylori infection. . For research use only, not for use in clinical diagnostic procedures. H. pylori, IgA ABS <0.89 {index} Range: 0.00-0.88 (Normal) Comments: Negative <0.89 Equivocal 0.89 - 0.99 Positive >0.99 H. pylori IgG, Abs <0.9 U/mL (Normal) Range: 0.0-0.8 Comments: Negative <0.9 Indeterminate 0.9 - 1.0 Positive >1.0 Magnesium, Serum 2.0 mg/dL (Normal) Comments: PERFORMED BY: [employer] Bykofe1124 [facility] [id number] :57 Range: 1.6-2.6 TSH 2.770 {uIU/mL} Comments: PERFORMED BY: [employer] Ohqfuw0724 [facility] [id number] :57 (Normal) Range: 0.450-4.500 Vitamin D, 25-Hydroxy 32.0 ng/mL (Normal) Comments: PERFORMED BY: [facility] SolutionsSaint Barnabas [facility] CenterLxutig3128 [facility] [id number] :57 Range: 30.0-100.0 Comments: Vitamin D deficiency has been defined by the [place] of[place]icine and an Endocrine Society practice guideline as alevel of serum 25-OH vitamin D less than 20 ng/mL (1,2).The Endocrine Society went on to further define vitamin Dinsufficiency as a level between 21 and 29 ng/mL (2).1. IOM ([place] of [employer]). 2010. Dietary reference intakes for calcium and D. [place]: The National Academies Press.2. Mike MF, Shital HARVEY, Adele PEREZ, et al. Evaluation, treatment, and prevention of vitamin D deficiency: an Endocrine Society clinical practice guideline. JCEM. 2010; 96(7):1911-30. 45-Lmt-020522:09 URINE IZA CULTURE-IDENTIFICATN Comments: PATIENT NOT FASTINGPERFORMED BY: [facility] Savvmo[address] [place] [id number] Information: [id number] (26429) Result 1 NG36 (Normal) Comments: No growth in 36 - 48 hours. Urine Culture,Comprehensive Final report (Normal) 82-Xsg-62284:35 Urinalysis, Office (62028) UA - BILIRUBIN Negative (Normal) UA - BLOOD Hemolyzed Small (Normal) UA - GLUCOSE Negative (Normal) UA - KETONES Negative mg/dL (Normal) UA - LEUKOCYTE ESTERASE Negative (Normal) UA - NITRITE Negative (Normal) UA - PH 7.5 (Normal) UA - PROTEIN Negative mg/dL (Normal) UA - SPECIFIC GRAVITY 1.015 (Normal) URINE UROBILINGN MARYCHUY TIMED Normal mg/dL (Normal) 11-Ggb-097780:27 KNEE,4 OR MORE VIEWS Radiology Report See Note (Normal) Comments: PROCEDURES: X-RAY - RIGHT KNEE REASON FOR EXAM: Male, 61 years old. Knee pain TECHNIQUE: Five views of the right knee including weight bearing views. COMPARISON: None. FINDINGS:Ther e is moderat e degenerative arthrosis of the medial femorotibialcompartment. Normal lateral femorotibial compartment. There is milddegenerative arthrosis of the patellofemoral articulation. Normal visualized dista l femur. Normal visualized proximal tibia andfibula. Normal proximal tibiofibular articulation. IMPRESSION:Moderate degenerative osteoarthrosis of the medial joint compartment. Unremarkable lateral jose alejandro int compartment. Mild degenerative osteoarthrosis of the patellofemoral joint. To consult with a radiologist regarding this report, please call our [id number] line @ Dictated on 12/09 1636 by Alfredo Gotti MDTranscribed on 12/11/11 171 by ITS IMPORTSign by Alfredo Gotti MD on 12/11/111711 Sign by: Alfredo Gotti MD 1-Ipv-410875:26 HAND,MIN 3 VIEWS Radiology Report See Note (Normal) Comments: PROCEDURE: X-RAY - RIGHT HAND REASON FOR EXAM: Male, 61 years old. Pain and swelling, arthralgia,attention thumb. TECHNIQUE: Three views of the hand. COMPARISON: None. FINDINGS:Norm al visualize d carpal bones. Normal first metacarpus. Normal secondthrough fifth metacarpi. Normal phalanges. There is no demonstratedfracture. Normal carpal articulations. Mild degenerative joint disease invol vingtheradiocarpal joint. Normal carpometacarpal (CMC) articulation of the thumb. Normalmetacarpophalangeal (MCP) joint of the thumb. Normal interphalangeal(IP) joint of the thumb. Normal second thr ough fifth carpometacarpal (CMC) joints. Normal secondthrough fifth metacarpophalangeal (MCP) joints. Normal proximalinterphalangeal (PIP) and distal interphalangeal (DIP) joints of thesecondthrough fifth fingers. IMPRESSION:Degenerative osteoarthritis, as described above. Dictated on 04/16/11 1626 by Hiren Braden MDTranscribed on 04/17/11 0126 by ITS IMPORTSign by Hiren Braden MD on 12/23 0126 Sign by: Hiren Braden MD 8-Gmm-182410:26 HAND,MIN 3 VIEWS Radiology Report See Note (Normal) Comments: PROCEDURE: X-RAY - LEFT HAND REASON FOR EXAM: Male, 61 years old. Pain and swelling, arthralgias,attention thumb. TECHNIQUE: Three views of the hand. COMPARISON: None. FINDINGS:Normal visualize d carpal bones. Normal first metacarpus. Normal secondthrough fifth metacarpi. Normal phalanges. There is no demonstratedfracture. Normal carpal articulations. Normal carpometacarpal (CMC) articulat ion of the thumb. Normalmetacarpophalangeal (MCP) joint of the thumb. Normal interphalangeal(IP) joint of the thumb. Normal second through fifth carpometacarpal (CMC) joints. Normal secondthrough f ifth metacarpophalangeal (MCP) joints. Normal proximalinterphalangeal (PIP) and distal interphalangeal (DIP) joints of thesecondthrough fifth fingers. IMPRESSION:Normal x-ray examination of the hand. Dictated on 04/16/11 1626 by Hiren Braden MDTranscribed on 04/17/11 0359 by ITS IMPORTSign by Hiren Braden MD on 04/17/11 0400 Sign by: Hiren Braden MD CCP Antibodies 7 {units} Comments: PATIENT NOT FASTINGPERFORMED BY: [employer] [id number] [facility] [id number] BY: [address] [id number] 6:01 IgG/IgA (Normal) Range: 0-19 Comments: Negative <20 Weak positive 20 - 39 Moderate positive 40 - 59 Strong positive >59 Comment: SPRCS (Normal) Comments: PATIENT NOT FASTINGPERFORMED BY: [employer] [id number] [facility] [id number] BY: [address] [id number] 6:01 Comments: Effective June 11, 2009 order code 148854 CCP IgGAntibodies has been replaced due to an updated reagentversion 3.1. For this reason [facility] has provided youwith a new order code 546128 CCP Antibodies IgG/IgA. 2-Oam-702828:01 SED RATE ERYTHROCYTE Comments: PATIENT NOT FASTINGPERFORMED BY: [employer] Joagmu3758 [facility] [id number] BY: [address] [id number] (66367) Sedimentation Rate-Westergren 3 mm/h (Normal) Range: 0-41 9-Jfn-024213:01 C-REACTIVE PROTEIN (97461) Comments: PATIENT NOT FASTINGPERFORMED BY: [employer] Tetact3833 [facility] [id number] BY: [address] [id number] C-Reactive Protein, Quant 0.7 mg/L (Normal) Range: 0.0-4.9 :01 TSH (07855) Comments: PATIENT NOT FASTINGPERFORMED BY: LabCoSaint Barnabas Medical CenterQbxszc8328 [facility] [id number] BY: [address] [id number] TSH 2.220 {uIU/mL} (Normal) Range: 0.450-4.500 8-Jil-095572:01 RHEUMATOID FACTOR-QUANT Comments: PATIENT NOT FASTINGPERFORMED BY: LabC[place] [id number] [facility] [id number] BY: [address] [id number] (90099) RA Latex Turbid. 9.1 {IU/mL} (Normal) Range: 0.0-13.9 :01 BO (ANTINUCLEAR ANTIBODY) Comments: PATIENT NOT FASTINGPERFORMED BY: [facility]6370 [facility] [id number] BY: [address] [id number] (38656) BO Direct Negative (Normal) :01 CBC WITH MANUAL DIFF Comments: PATIENT NOT FASTINGPERFORMED BY: [place] 2125270 [facility] [id number] BY: [address] [id number] Inf ormation: [id number] (82794) Immature Grans (Abs) 0.0 {x10E3/uL} (Normal) Range: 0.0-0.1 Immature Granulocytes 0 % (Normal) Range: 0-2 Comments: Please note reference interval change Baso (Absolute) 0.1 {x10E3/uL} (Normal) Range: 0.0-0.2 Eos (Absolute) 0.3 {x10E3/uL} (Normal) Range: 0.0-0.4 Monocytes(Absolute) 0.7 {x10E3/uL} (Normal) Range: 0.1-1.0 Lymphs (Absolute) 1.7 {x10E3/uL} (Normal) Range: 0.7-4.5 Neutrophils (Absolute) 3.5 {x10E3/uL} (Normal) Range: 1.8-7.8 Basos 1 % (Normal) Range: 0-3 Eos 4 % (Normal) Range: 0-7 Monocytes 11 % (Normal) Range: 4-13 Lymphs 27 % (Normal) Range: 14-46 Neutrophils 57 % (Normal) Range: 40-74 Platelets 224 {x10E3/uL} (Normal) Range: 140-415 RDW 13.8 % (Normal) Range: 11.7-15.0 MCHC 33.8 g/dL (Normal) Range: 32.0-36.0 MCH 30.9 pg (Normal) Range: 27.0-34.0 MCV 91 fL (Normal) Range: 80-98 Hematocrit 41.1 % (Normal) Range: 36.0-50.0 Hemoglobin 13.9 g/dL (Normal) Range: 12.5-17.0 RBC 4.50 {x10E6/uL} (Normal) Range: 4.10-5.60 WBC 6.2 {x10E3/uL} (Normal) Range: 4.0-10.5 8-Nke-347484:01 METABOLIC PANEL, Comments: PATIENT NOT FASTINGPERFORMED BY: CB [facility] Piyhbz4167 [facility] [id number] BY: BN [facility] Myuuwkifay2901 [facility] [id number] [facility] (48271) ALT (SGPT) 15 [iU]/L (Normal) Range: 0-55 AST (SGOT) 11 [iU]/L (Normal) Range: 0-40 Alkaline Phosphatase, S 69 [iU]/L (Normal) Range: 25-150 Bilirubin, Total 1.1 mg/dL (Normal) Range: 0.0-1.2 A/G Ratio 1.7 (Normal) Range: 1.1-2.5 Globulin, Total 2.5 g/dL (Normal) Range: 1.5-4.5 Albumin, Serum 4.3 g/dL (Normal) Range: 3.5-5.5 Protein, Total, Serum 6.8 g/dL (Normal) Range: 6.0-8.5 Calcium, Serum 8.8 mg/dL (Normal) Range: 8.7-10.2 Carbon Dioxide, Total 26 mmol/L (Normal) Range: 20-32 Chloride, Serum 103 mmol/L (Normal) Range: 97-108 Potassium, Serum 4.2 mmol/L (Normal) Range: 3.5-5.2 Sodium, Serum 140 mmol/L (Normal) Range: 135-145 BUN/Creatinine Ratio 14 (Normal) Range: 9-20 eGFR If Africn Am 68 mL/min/1.73 (Normal) Comments: Note: A persistent eGFR <60 mL/min/1.73 m2 (3 months or more) mayindicate chronic kidney disease. An eGFR >59 mL/min/1.73 m2 with anelevated urine protein also may indicate chronic kidney disease.Calculated using CKD-EPI formula. eGFR If NonAfricn Am 59 mL/min/1.73 (Abnormal) Creatinine, Serum 1.31 mg/dL (Abnormal) Range: 0.76-1.27 BUN 18 mg/dL (Normal) Range: 6-24 Glucose, Serum 96 mg/dL (Normal) Range: 65-99 :29 IZA CULTURE-OTHER (19445) Comments: PATIENT NOT FASTINGPERFORMED BY: LabCoSaint Barnabas Medical CenterEqxmaq8912 [facility] [id number] Information: SRC:THRT [id number] Result 1 RRF (Normal) Comments: Routine respiratory hilda Upper Respiratory Culture Final report (Normal) :05 Rapid Strep Test, Office (85617) Rapid Strep Test, Office Negative (Normal) :00 CUL STOOL/SHIG SHIGA-TOXIN See Note (Normal) Comments: SHIGA TOXIN 1 AND SHIGA TOXIN 2 NOT DETECTED CULTURE, STOOL See Note (Normal) Comments: No Salmonella, Shigella, Yersinia or Campylobacter isolated.No significant amount of Staphylococcus aureusor yeast-like organisms isolated. :00 O AND P See Note (Normal) Comments: OVA AND PARASITES EXAM, ROUTINE These results were obtained using wet preparation(s) and trichrome stained smear. This test does not include testing for Crytosporidium parvum, Cyclospora, or Microspo ridia. TESTING PERFORMED AT [facility]. ORIGINAL REPORT ON FILE IN LAB CONTAINS ADDITIONAL TEST SITE INFORMATION. OVA/ PARASITES EXAM NO OVA, CYSTS, OR PARASITES FOUND. 31-Tus-419619:22 FOLIC ACID SERUM (74931) Comments: PATIENT NOT FASTINGPERFORMED BY: [address] [id number] Folate (Folic Acid), Serum 14.5 ng/mL (Normal) Comments: Indeterminate: 2.2 - 3.0 Deficient: <2.2 44-Mae-839207:22 VITAMIN B-12 (CYANOCOBALAMIN) Comments: PATIENT NOT FASTINGPERFORMED BY: [address] [id number] (05035) Vitamin B12 566 pg/mL (Normal) Range: 211-946 47-Xuh-809791:22 T3, FREE (TRIDOTHYRONINE) (85007) Comments: PATIENT NOT FASTINGPERFORMED BY: [address] [id number] Triiodothyronine,Free,Serum 3.0 pg/mL (Normal) Range: 2.0-4.4 69-Jno-529818:22 T4, FREE (THYROXINE) Comments: PATIENT NOT FASTINGPERFORMED BY: [address] [id number] Information: [id number],[id number] (92314) T4,Free(Direct) 1.40 ng/dL (Normal) Range: 0.82-1.77 32-Ycy-594534:22 Anti-TPO Antibody (24623) Comments: PATIENT NOT FASTINGPERFORMED BY: [facility] Wcuppu2952 [facility] [place] [id number] Thyroid Peroxidase (TPO) Ab 9 {IU/mL} (Normal) Range: 0-34 95-Epv-773828:22 TSH (26094) Comments: PATIENT NOT FASTINGPERFORMED BY: [facility] Rbnxuh4649 [facility] [place] [id number] TSH 2.640 {uIU/mL} (Normal) Range: 0.450-4.500 08-Hzb-505577:22 Vitamin D Hydroxy (18286) Comments: PATIENT NOT FASTINGPERFORMED BY: CB [facility] Ztdkvx7074 [facility] [place] [id number] Vitamin D, 25-Hydroxy 48.1 ng/mL (Normal) Range: 32.0-100.0 Comments: Recent studies consider the lower limit of 32.0 ng/mL to be athreshold for optimal health.Stevan NEAL. J Nutr. 2004;135(2):317-22. 61-Uza-739178:37 SERUM CRE & GFR EST GFR 60 mL/min (Normal) EST GFR - AA 73 mL/min (Normal) CREAT,SERUM 1.3 mg/dL (Normal) Range: 0.8-1.3 91-Jkf-681264:40 ABDOMEN WITH IV CONTRAST Radiology Report See Note (Normal) Comments: Exam Number: [id number] LINICAL:The patient is a 60-year-old man with right upper quadrant pain for months CT ABDOMEN WITH CONTRAST TECHNIQUE:Transaxial images were obtained from the dome of the diaphrag m to the iliac crest of the pelvis with oral contrast. 100 ml of Isovue-300 contrast was administered intravenously. COMPARISON:None. FINDINGS:The visualized lung bases are unremarkable. Normal enha nced liver except for the presence of a 2-mm hypodensity at the dome of the liver. This tiny focus is too small to evaluate. Normal gallbladder and biliary system. Normal enhanced spleen. Normal pancre as. Normal bilateral adrenal glands. Normal size of the right kidney. There is no right renal mass. There are no right renal calculi. There is no right hydronephrosis. Normal visualized right ureter . Normal size of the left kidney. There is a left renal cyst measuring 3 cm in size. There are no left renal calculi. There is no left hydronephrosis. Normal visualized left ureter. Normal visualized stomach. Normal visualized small intestine. The visualized segments of the colon demonstrates mild colonic diverticulosis. Lewis and small bowel are not completely visualized since only be stomach o r lowest imaged. Normal abdominal aorta. Normal inferior vena cava. Normal abdominal wall. Normal osseous structures. IMPRESSION:No significant abnormality is seen Reported By: JA MARIN M.D. 0-Jvv-478257:10 HEPATOBILIARY IMAGING Radiology Report See Note (Normal) Comments: Exam Number: [id number] HEPATOBILIARY IMAGING HISTORYRight upper quadrant pain. Following the intravenous administration of 5.1 mCi of Tc99m labeledCholetec, sequential images of the liver and biliary tr ee wereobtained. There is prompt visualization of liver, gallbladder,biliary tree and small bowel. Initial images, therefore, are normal. Following the intravenous infusion of 1.7 mcg of Cholecystokin in over30 minutes, the ejection fraction is 99% which is normal. IMPRESSIONNormal hepatobiliary scan with Cholecystokinin. Reported By: JA MARIN M.D. 68-Arz-924401:32 GALLBLADDER Radiology Report See Note (Normal) Comments: Exam Number: [id number] ULTRASOUND OF THE GALLBLADDER Multiple views of the gallbladder were obtained. HISTORYThis is a 59-year-old male patient with history of epigastricdiscomfort. FINDINGS There is no evidence of cholelithiasis. The gallbladder is notdistended. The gallbladder wall is not thickened. The common bileduct is not dilated. The pancreas was obscured due to overlying bowel gas. The live r is not enlarged. It is of homogeneous echotexture. Nofocal lesion is seen. The right kidney measures 10.8 cm in longitudinal dimension. It isunremarkable. IMPRESSIONThere is no evidence of cholelit hiasis. No acute abnormality is seen. Reported By: CHIDI WALKER 46-Dln-871453:07 Bilirubin, Total/Direct, Serum Comments: PERFORMED BY: LabCoSaint Barnabas Medical CenterKncgry0249 [facility] [id number] Bilirubin, Indirect 0.70 mg/dL (Normal) Range: 0.10-0.80 Bilirubin, Direct 0.20 mg/dL (Normal) Range: 0.00-0.40 60-Tmp-903957:07 CBC WITH MANUAL DIFF (83909) Comments: PERFORMED BY: [employer] SolutionsSaint Barnabas Medical CenterUvvrjk3776 [facility] [id number] Baso (Absolute) 0.1 {x10E3/uL} (Normal) Range: 0.0-0.2 Eos (Absolute) 0.2 {x10E3/uL} (Normal) Range: 0.0-0.4 Lymphs (Absolute) 1.8 {x10E3/uL} (Normal) Range: 0.7-4.5 Monocytes(Absolute) 0.9 {x10E3/uL} (Normal) Range: 0.1-1.0 Neutrophils (Absolute) 4.6 {x10E3/uL} (Normal) Range: 1.8-7.8 Basos 1 % (Normal) Range: 0-3 Eos 2 % (Normal) Range: 0-7 Lymphs 24 % (Normal) Range: 14-46 Monocytes 12 % (Normal) Range: 4-13 Neutrophils 61 % (Normal) Range: 40-74 Platelets 268 {x10E3/uL} (Normal) Range: 140-415 RDW 14.0 % (Normal) Range: 11.7-15.0 Hematocrit 40.7 % (Normal) Range: 36.0-50.0 MCH 32.3 pg (Normal) Range: 27.0-34.0 MCHC 34.9 g/dL (Normal) Range: 32.0-36.0 MCV 93 fL (Normal) Range: 80-98 Hemoglobin 14.2 g/dL (Normal) Range: 12.5-17.0 RBC 4.40 {x10E6/uL} (Normal) Range: 4.10-5.60 WBC 7.5 {x10E3/uL} (Normal) Range: 4.0-10.5 71-Dte-368350:07 METABOLIC PANEL, COMPREHENSIVE Comments: PERFORMED BY: [facility] SolutionsSaint Barnabas Medical CenterOcmzmp1913 [facility] [id number] (78983) Alkaline Phosphatase, S 77 [iU]/L (Normal) Range: 25-150 ALT (SGPT) 22 [iU]/L (Normal) Range: 0-55 AST (SGOT) 13 [iU]/L (Normal) Range: 0-40 Bilirubin, Total 0.9 mg/dL (Normal) Range: 0.1-1.2 A/G Ratio 1.6 (Normal) Range: 1.1-2.5 Globulin, Total 2.7 g/dL (Normal) Range: 1.5-4.5 Albumin, Serum 4.3 g/dL (Normal) Range: 3.5-5.5 Calcium, Serum 9.7 mg/dL (Normal) Range: 8.7-10.2 Protein, Total, Serum 7.0 g/dL (Normal) Range: 6.0-8.5 Carbon Dioxide, Total 26 mmol/L (Normal) Range: 20-32 Chloride, Serum 101 mmol/L (Normal) Range: 97-108 Potassium, Serum 4.1 mmol/L (Normal) Range: 3.5-5.2 Sodium, Serum 141 mmol/L (Normal) Range: 135-145 BUN 12 mg/dL (Normal) Range: 5-26 BUN/Creatinine Ratio 10 (Normal) Range: 8-27 Creatinine, Serum 1.20 mg/dL (Normal) Range: 0.76-1.27 eGFR >59 mL/min/1.73 (Normal) eGFR AfricanAmerican >59 mL/min/1.73 Comments: Note: Persistent reduction for 3 months or more in an eGFR<60 mL/min/1.73 m2 defines CKD. Patients with eGFR values>/=60 mL/min/1.73 m2 may also have CKD if evidence of persistentproteinuria is (Normal) present. Additional information may be found [email or web address]. Glucose, Serum 88 mg/dL (Normal) Range: 65-99 9-Xuo-605978:10 KIDNEY (HP) Radiology Report See Note (Normal) Comments: Exam Number: [id number] CLINICAL:Elevated renal functions. RENAL ULTRASOUND TECHNIQUE: COMPARISON:None FINDINGS:The right kidney is normal in size, measuring 12.8 x 5.7 x 5.3 cm.There are no cortical mas ses or cysts. There is no corticalatrophy. There is no hydronephrosis. There are no renal calculi. The left kidney is normal in size, measuring 11.5 x 4.9 x 4.3 cm.There is an exophytic lower pole cy st measuring 2.5 x 2.7 x 2.5 cm.There is no cortical atrophy. There is no hydronephrosis. Thereare no renal calculi. There are no perinephric collections. There is no retroperitoneal lymphadenopathy. IMPRESSION:Simple left renal cyst. Reported By: HALLEY SIDDIQUI M.D. :40 CBCD,SMEAR DIFF BAND 2 % (Normal) Range: 0-5 CELLS COUNTED 100 (Normal) LYMPH 22 % (Normal) Range: 19-41 MCHC 33.6 g/dL (Normal) Range: 32-36 MONOCYTE 14 % (Abnormal) Range: 0-10 PLT 268 K/mm3 (Normal) Range: 150-450 PLT EST SeeNote (Normal) Comments: Result: ADEQUATE RDW 13.3 % (Normal) Range: 11.6-14.6 RED CELL MORPH SeeNote {NORMAL} (Normal) Comments: Result: NORM C+C SEGS 62 % (Normal) Range: 47-70 HCT 42.4 % (Normal) Range: 40-54 HGB 14.3 g/dL (Normal) Range: 14.0-18.0 MCH 30.9 pg (Normal) Range: 27.0-32.0 MCV 91.9 fL (Normal) Range: 80-94 RBC 4.62 {M/mm3} (Normal) Range: 4.6-6.2 WBC 7.0 K/mm3 (Normal) Range: 4.4-11.0 :40 COMP METABOLIC CL 104 mmol/L (Normal) Range: 98-107 CO2 27.0 mmol/L (Normal) Range: 21.0-32.0 GAP 8 (Normal) Range: 5-15 K 3.7 mmol/L (Normal) Range: 3.5-5.1 A/G 1.0 {RATIO} (Normal) Range: 0.9-2.4 ALB 3.8 g/dL (Normal) Range: 3.4-5.0 ALK P 74 U/L (Normal) Range: 50-136 ALT 23 U/L (Normal) Range: 12-78 AST 4 U/L (Abnormal) Range: 15-37 BUN/CRE 10.7 {RATIO} (Normal) Range: 10-20 CA 9.2 mg/dL (Normal) Range: 8.5-10.1 EST GFR 51 mL/min (Abnormal) EST GFR - AA 62 mL/min (Normal) GLOB 3.7 g/dL (Normal) Range: 2.7-4.2 NA 139 mmol/L (Normal) Range: 136-145 T BILI 1.40 mg/dL (Abnormal) Range: 0.00-1.00 T PROT 7.5 g/dL (Normal) Range: 6.4-8.2 BUN 16 mg/dL (Normal) Range: 7-18 CREAT,SERUM 1.5 mg/dL (Abnormal) Range: 0.8-1.3 GLU 93 mg/dL (Normal) Range: 70-110 :40 COMPLETE UA BACTERIA 0 SEEN {/hpf} (Normal) LEUK ESTERASE SeeNote (Normal) Comments: Result: NEGATIVE MUCUS, URINE 0 SEEN {/hpf} (Normal) OCCULT BLOOD-UR 1+ (Abnormal) RBC-UA SeeNote {/hpf} (Normal) Range: 0-5 Comments: Result: 0-5 SEEN SQUAM EPI 0 SEEN {/hpf} (Normal) Range: 0-5 WBC SeeNote {/hpf} (Normal) Range: 0-5 Comments: Result: 0-5 SEEN BILIRUBIN URINE SeeNote (Normal) Comments: Result: NEGATIVE CLARITY CLEAR (Normal) GLUCOSE, UR SeeNote (Normal) Comments: Result: NEGATIVE KETONE UR SeeNote mg/dL (Normal) Comments: Result: NEGATIVE NITRITE UR SeeNote (Normal) Comments: Result: NEGATIVE pH UR 6.0 (Normal) Range: 5.0-8.0 PROT DIPSTX SeeNote (Normal) Comments: Result: NEGATIVE SP.GR. DIPSTX <=1.005 (Normal) Range: 1.002-1.030 UROBILI 0.2 EU/dl (Normal) Range: 0.2 - 1.0 COLOR YELLOW (Normal) :40 LIPID VLDL 19 mg/dL (Normal) Range: 5-40 CHOL 170 mg/dL (Normal) Comments: <200 mg/dL Sueujgnmi955-126 mg/dL Borderline>240 mg/dL High Risk HDL 52 mg/dL (Normal) Comments: Reference RangeHDL <40 mg/dL Low HDL CholesterolHDL >or= 60 mg/dL High HDL Cholesterol LDL 99 mg/dL (Normal) Range: 0-130 TRIG 94 mg/dL (Normal) Comments: Serum Triglycerides Reference IntervalNormal <150 mg/dLBorderline high 150 - 199 mg/dLHigh 200 - 499 mg/ dLVery High > or = 500 mg/dL :40 PSA, SCREEN 1.1 ng/mL (Normal) Range: 0.0-4.0 :40 TSH 2.36 {uIU/mL} (Normal) Range: 0.358-3.74 :40 VITAMIN B12 729 pg/mL (Normal) Range: 254-1320 33-Zvs-949720:20 IZA CULTURE-OTHER (15927) Comments: PATIENT NOT FASTINGPERFORMED BY: [facility]EC[facility] [id number] Information: SRC:THRT [id number] Result 1 RRF (Normal) Comments: Routine respiratory hilda Upper Respiratory Culture Final report (Normal) 11-Gow-022993:19 Rapid Strep Test, Office (93055) Rapid Strep Test, Office Negative (Normal) 12-Bso-099922:31 URINE IZA CULTURE (MARYCHUY COL Comments: PATIENT NOT FASTINGClinical Information: SRC:UR [id number] PERFORMED BY: [facility] [place] [id number] COUNT) (19457) Result 1 NG36 (Normal) Comments: No growth in 36 - 48 hours. Urine Culture,Comprehensive Final report (Normal) 33-Pxz-47321:31 Urinalysis, Office (15387) UA - LEUKOCYTE ESTERASE Negative (Normal) Comments: aw UA - BILIRUBIN Negative (Normal) UA - BLOOD Non Hemolyzed Moderate (Normal) UA - GLUCOSE Negative (Normal) UA - KETONES Negative mg/dL (Normal) UA - NITRITE Negative (Normal) UA - PH 5.0 (Normal) UA - PROTEIN Negative mg/dL (Normal) UA - SPECIFIC GRAVITY 1.020 (Normal) URINE UROBILINGN MARYCHUY TIMED Normal mg/dL (Normal) 28-Prj-593695:45 CHEST, PA AND LATERAL Radiology Report See Note (Normal) Comments: Exam Number: [id number] TWO VIEW CHEST COMPARISON STUDYNone. REASON FOR EXAMINATIONCough. Cardiac, mediastinal and hilar contours are normal. Lungs are clearwithout consolidation or effusion . Fine line ar opacity at the leftlateral base likely represents subsegmental atelectasis/scar. Thereis no acute osseous abnormality. Upper abdomen is unremarkable. IMPRESSIONNo radiographic evidence for acute ch est abnormality. Reported By: KANE MANUEL M.D. 19-Gyo-795328:26 CBCD BASO% 0.5 % (Normal) Range: 0-1 EO% 2.5 % (Normal) Range: 0-5 HCT 40.8 % (Normal) Range: 40-54 HGB 14.1 g/dL (Normal) Range: 14.0-18.0 LY% 20.0 % (Normal) Range: 19-41 MCH 30.5 pg (Normal) Range: 27.0-32.0 MCHC 34.5 g/dL (Normal) Range: 32-36 MCV 88.3 fL (Normal) Range: 80-94 MONO% 11.8 % (Abnormal) Range: 0-10 MPV 7.5 fL (Normal) Range: 6.5-12.0 NEUT% 65.2 % (Normal) Range: 47-70 PLT 272 K/mm3 (Normal) Range: 150-450 RBC 4.62 {M/mm3} (Normal) Range: 4.6-6.2 RDW 13.7 % (Normal) Range: 11.6-14.6 WBC 8.9 K/mm3 (Normal) Range: 4.4-11.0 24-Erk-989597:26 ESR SED RATE 11 mm/h (Normal) Range: 0-20 :05 Urinalysis, Office (41699) Comments: done BC UA - BILIRUBIN Negative (Normal) UA - BLOOD Hemolyzed Small (Normal) UA - GLUCOSE Negative (Normal) UA - KETONES Negative mg/dL (Normal) UA - LEUKOCYTE ESTERASE Trace (Normal) UA - NITRITE Negative (Normal) UA - PH 6.0 (Normal) UA - PROTEIN Negative mg/dL (Normal) UA - SPECIFIC GRAVITY 1.000 (Normal) URINE UROBILINGN MARYCHUY Normal mg/dL (Normal) TIMED :0 CULTURE, THROAT See Note (Normal) Comments: Normal throat hilda isolated. No beta-hemolyticstreptococcus isolated. 2 :0 CULTURE,VIRUS See Note (Normal) Comments: TESTING PERFORMED AT [facility]. ORIGINAL REPORT ON FILE IN LAB CONTAINS ADDITIONAL TEST SITE INFORMATION. 2 CULTURE, VIRUS GENERAL NO VIRUS ISOLATED AFTER 14 DAYS- FINAL REPORT 73-Srr-245891:38 Urinalysis, Office (75351) UA - BILIRUBIN Negative (Normal) UA - BLOOD Hemolyzed Large (Normal) UA - GLUCOSE Negative (Normal) UA - KETONES Small mg/dL (Normal) Comments: 15 UA - LEUKOCYTE ESTERASE Negative (Normal) UA - NITRITE Negative (Normal) UA - PH 6.5 (Normal) UA - PROTEIN Trace mg/dL (Normal) UA - SPECIFIC GRAVITY 1.000 (Normal) URINE UROBILINGN MARYCHUY TIMED Normal mg/dL (Normal) 15-Iwf-975111:19 Rapid Flu (68228 x 2) Comments: Neg INFLUENZA IMMUNOASSY DIRECT OPTICAL OBSERV Negative (Normal) 68-Aud-919143:12 Rapid Strep Test, Office (09607) Comments: neg Rapid Strep Test, Office Negative (Normal) :31 CORONALS,SAG,MULTI,OBL,3-D REC Radiology Report See Note (Normal) Comments: Exam Number: [id number] CT SINUSES REASON FOR EXAMAcute sinusitis. Recent history of dental procedure with drainageof tooth abscess and root canal. Coronal and axial CT scan obtained through the [facility]. All areas areviewed at soft tissue and bone windows. COMPARISON STUDYNone. Bilateral frontal, ethmoid, maxillary and sphenoid air cells arenormally pneumatized and clear. There is minimal mucop eriostealthickening associated with the left maxillary sinus inferiorly andposteriorly. There is left wall nasal septal deviation with small left sidedosseous spur. IMPRESSIONMinimal mucoperiosteal thickening associated with the leftmaxillary sinus. All paranasal sinuses are otherwise clear. Thereis leftward septal deviation. Reported By: KANE MANUEL M.D. :00 SINUS/FACIAL BONE WITHOUT CONT Radiology Report See Note (Normal) Comments: Exam Number: [id number] CT SINUSES REASON FOR EXAMAcute sinusitis. Recent history of dental procedure with drainageof tooth abscess and root canal. Coronal and axial CT scan obtained through the [facility]. All areas areviewed at soft tissue and bone windows. COMPARISON STUDYNone. Bilateral frontal, ethmoid, maxillary and sphenoid air cells arenormally pneumatized and clear. There is minimal mucop eriostealthickening associated with the left maxillary sinus inferiorly andposteriorly. There is left wall nasal septal deviation with small left sidedosseous spur. IMPRESSIONMinimal mucoperiosteal thickening associated with the leftmaxillary sinus. All paranasal sinuses are otherwise clear. Thereis leftward septal deviation. Reported By: KANE MANUEL M.D. : TSH 2.74 {uIU/mL} Range: 0.34-4.82 00 (Normal) 89-Rpx-067545:20 A/C JTS,KYRA W OR W/O WTS Radiology Report See Note (Normal) Comments: Exam Number: [id number] LEFT SHOULDER/BILATERAL ACROMIOCLAVICULAR JOINTS CLINICAL INFORMATIONShoulder pain. TECHNIQUE4 images of the left shoulder were obtained. AP views of both acromioclavicular joints were obtained with andwithout weightbearing. FINDINGSThere is no evidence of fracture or dislocation. The glenohumeraljoint is unremarkable. There are some mild degenerative changes inthe acromioclav icular joint. No soft tissue calcification is evident.No bone destruction is seen. The underlying ribs and apex of thelungs appear unremarkable. Both AC joints demonstrate mild degenerative changes. Otherwise,there is normal relationship of the clavicular to the acromion. Noseparation is seen. There is no clavicular displacement evident. IMPRESSIONExamination of the left shoulder and the acro mioclavicular jointsdemonstrate no acute findings. There are mild symmetric degenerativechanges in the acromioclavicular joints. Reported By: FILIPPO PETERSON M.D. 69-Jrs-507638:19 SHOULDER,MIN 2 VIEWS Radiology Report See Note (Normal) Comments: Exam Number: [id number] LEFT SHOULDER/BILATERAL ACROMIOCLAVICULAR JOINTS CLINICAL INFORMATIONShoulder pain. TECHNIQUE4 images of the left shoulder were obtained. AP views of both acromioclavicular joints were obtained with andwithout weightbearing. FINDINGSThere is no evidence of fracture or dislocation. The glenohumeraljoint is unremarkable. There are some mild degenerative changes inthe acromioclav icular joint. No soft tissue calcification is evident.No bone destruction is seen. The underlying ribs and apex of thelungs appear unremarkable. Both AC joints demonstrate mild degenerative changes. Otherwise,there is normal relationship of the clavicular to the acromion. Noseparation is seen. There is no clavicular displacement evident. IMPRESSIONExamination of the left shoulder and the acro mioclavicular jointsdemonstrate no acute findings. There are mild symmetric degenerativechanges in the acromioclavicular joints. Reported By: FILIPPO PETERSON M.D. Plan of Care Name Dates Details Instructions Nonsmoker : Eprescribed prescriptions (G8553) Indication: Nonsmoker Nonsmoker : Eprescribed prescriptions (G8553) Indication: Nonsmoker Bilateral carotid artery stenosis : Eprescribed prescriptions (G8553) Indication: Bilateral carotid artery stenosis Prediabetes : *Diabetes Education Indication: Prediabetes Prediabetes : Diet, Exercise, and Wt loss Indication: Prediabetes Low back pain potentially associated with radiculopathy : Eprescribed prescriptions (G8553) Indication: Low back pain potentially associated with radiculopathy Abdominal pain, acute, right upper quadrant (Renamed from Acute abdominal pain in right upper quadrant) : Eprescribed prescriptions (G8553) Indication: Abdominal pain, acute, right upper quadrant (Renamed from Acute abdominal pain in right upper quadrant) Pancreatitis, acute : Eprescribed prescriptions (G8553) Indication: Pancreatitis, acute Abdominal pain, acute, generalized : Abdominal Pain: abdominal pain Indication: Abdominal pain, acute, generalized Bronchitis : *URI Treatment Indication: Bronchitis Bronchitis : *URI Symptoms Indication: Bronchitis Bronchitis : *Antibiotic Usage Education - Female Indication: Bronchitis Encounter for immunization : Shingles Vaccine Education 2005 Indication: Encounter for immunization Rash and nonspecific skin eruption : Follow up if no improvement or if symptoms worsen Indication: Rash and nonspecific skin eruption Metallic taste : Follow up in 1 week Indication: Metallic taste Knee pain : Follow up in 2 weeks Indication: Knee pain Mixed hyperlipidemia : Diet, Exercise, and Wt loss Indication: Mixed hyperlipidemia Anxiety : Antidepressant Usage Indication: Anxiety Anxiety : depression/anxiety treatment Indication: Anxiety Anxiety : depression/anxiety treatment Indication: Anxiety Anxiety : Antidepressant Usage Indication: Anxiety Allergic rhinitis due to other allergen : ALLERGY CONTROL Indication: Allergic rhinitis due to other allergen Allergic rhinitis due to other allergen : ALLERGY PROOFING Indication: Allergic rhinitis due to other allergen Allergic rhinitis due to other allergen : URI Symptoms Indication: Allergic rhinitis due to other allergen Gastroesophageal reflux disease without esophagitis : FOLLOW UP IF NO IMPROVEMENT OR IF SYMPTOMS WORSEN Indication: Gastroesophageal reflux disease without esophagitis Gastroesophageal reflux disease without esophagitis : GERD Education Indication: Gastroesophageal reflux disease without esophagitis Bronchitis : *URI Treatment Indication: Bronchitis Bronchitis : URI Symptoms Indication: Bronchitis Jaw sprain : Reviewed Diagnostic Tests Indication: Jaw sprain Anxiety : FOLLOW UP IN 1 MONTH Indication: Anxiety Shoulder pain : Reviewed Diagnostic Tests Indication: Shoulder pain Anxiety : Diet, Exercise, and Wt loss Indication: Anxiety Acute sinusitis, unspecified : *Antibiotic Usage Education - Male Indication: Acute sinusitis, unspecified Acute sinusitis, unspecified : *URI Treatment Indication: Acute sinusitis, unspecified Acute sinusitis, unspecified : URI Symptoms Indication: Acute sinusitis, unspecified Wheezing : FOLLOW UP IF NO IMPROVEMENT OR IF SYMPTOMS WORSEN Indication: Wheezing Wheezing : MDI Education Indication: Wheezing Acute sinusitis, unspecified : Antibiotic Usage Education - Male Indication: Acute sinusitis, unspecified Acute sinusitis, unspecified : URI treament Indication: Acute sinusitis, unspecified Acute sinusitis, unspecified : URI Symptoms Indication: Acute sinusitis, unspecified Planned Observations LIPASE (35200)Indication: Right upper quadrant pain On: :19 Request AMYLASE (08630)Indication: Right upper quadrant pain On: :19 Request CBC W/AUTO DIFF WBC (59629)Indication: Right upper quadrant pain On: :17 Request METABOLIC PANEL, COMPREHENSIVE (33994)Indication: Right upper quadrant pain On: :17 Request Vitamin B-12 (cyanocobalamin) (49335)Indication: Fatigue On: 15-Jun-20189:23 Request URINALYSIS, W/ MICRO (39971)Indication: Benign essential hypertension On: :04 Request CBC W/AUTO DIFF WBC (14693)Indication: Benign essential hypertension On: :04 Request METABOLIC PANEL, COMPREHENSIVE (39022)Indication: Benign essential hypertension On: 65-Cwl-822325:04 Request HEPATITIS C ANTIBODY (28018)Indication: Encounter for hepatitis C virus screening test for high risk patient On: :04 Request HGB A1C (88691)Indication: Abnormal blood sugar On: 5-Kpx-386881:03 Request CBC W/AUTO DIFF WBC (88655)Indication: Benign essential hypertension On: :46 Request METABOLIC PANEL, COMPREHENSIVE (14995)Indication: Benign essential hypertension On: :46 Request LIPID PANEL (51077)Indication: Mixed hyperlipidemia On: :46 Request HEPATITIS C ANTIBODY (06661)Indication: Encounter for hepatitis C virus screening test for high risk patient On: :46 Request METABOLIC PANEL, COMPREHENSIVE (56723)Indication: Prediabetes On: :30 Request RENIN (22584)Indication: Malignant hypertension On: :53 Request URINE VMA (68486)Indication: Malignant hypertension On: :53 Request CATECHOLAMINES TOTAL, URINE (84557)Indication: Malignant hypertension On: :53 Request METANEPHRINES - URINE (63322)Indication: Malignant hypertension On: :53 Request TESTOSTERONE FREE (11954)Indication: Decreased libido (Renamed from Low libido) On: 0-Uft-254346:02 Request LIPID PANEL (59738)Indication: Mixed hyperlipidemia On: :55 Request PSA (PROSTATE SPECIFIC ANTIGEN) (V76.44)Indication: Encounter for screening for malignant neoplasm of prostate (Renamed from Screening for prostate cancer) On: :13 Request CBC with auto diff (67632)Indication: Prediabetes On: :12 Request METABOLIC PANEL, COMPREHENSIVE (10175)Indication: Prediabetes On: :12 Request MICROALBUMIN: CREATININE RATIO (86876) AND (70746)Indication: Prediabetes On: :12 Request HGB A1C (25879)Indication: Prediabetes On: :12 Request HEPATIC FUNCTION PANEL (52911)Indication: Acute epigastric pain On: :36 Request Comments: standing Lipase (27303)Indication: Acute epigastric pain On: :36 Request Comments: standing Amylase (75295)Indication: Acute epigastric pain On: :36 Request Comments: standing Lipase (12380)Indication: Abdominal pain, acute, right upper quadrant (Renamed from Acute abdominal pain in right upper quadrant) On: :15 Request Comments: stat Amylase (24678)Indication: Abdominal pain, acute, right upper quadrant (Renamed from Acute abdominal pain in right upper quadrant) On: :15 Request Comments: stat CBC WITH MANUAL DIFF (56190)Indication: Abdominal pain, acute, right upper quadrant (Renamed from Acute abdominal pain in right upper quadrant) On: :15 Request Comments: stat METABOLIC PANEL, COMPREHENSIVE (73752)Indication: Abdominal pain, acute, right upper quadrant (Renamed from Acute abdominal pain in right upper quadrant) On: :15 Request Comments: stat Vitamin D Hydroxy (02537)Indication: Fatigue On: :35 Request VITAMIN B-12 (CYANOCOBALAMIN) (35223)Indication: Fatigue On: :34 Request METABOLIC PANEL, COMPREHENSIVE (56002)Indication: Pancreatitis, acute On: :33 Request CBC W/AUTO DIFF WBC (71965)Indication: Anemia On: :33 Request LIPID PANEL (97398)Indication: Mixed hyperlipidemia On: :33 Request PSA (PROSTATE SPECIFIC ANTIGEN) (V76.44)Indication: Screening for prostate cancer On: :32 Request Phosphorus (00390)Indication: Abdominal pain, acute, generalized On: 79-Tbj-383480:51 Request Magnesium (14283)Indication: Abdominal pain, acute, generalized On: 07-Yiy-391941:51 Request METABOLIC PANEL, COMPREHENSIVE (52981)Indication: Abdominal pain, acute, generalized On: 07-Yfl-091857:50 Request Helicobacter pylori Ag, EIA (40450)Indication: Abdominal pain, acute, generalized On: 35-Iwd-633269:08 Request H. PYLORI ANALYSIS UREASE ACTIVITY (64417)Indication: Metallic taste On: 02-Veb-22360:05 Request Celiac Disease Comphrehensive Profile (50412)Indication: Metallic taste On: :05 Request MAGNESIUM (73490)Indication: Metallic taste On: :03 Request CALCIFEDIOL (78965)Indication: Metallic taste On: :03 Request TSH (30561)Indication: Metallic taste On: :02 Request CBC with manual diff (19195)Indication: Metallic taste On: :02 Request Metabolic Panel, Comprehensive (83375)Indication: Metallic taste On: :02 Request CCP ANTIBODY (02862)Indication: Pain in unspecified joint On: 1-Vpk-135589:55 Request HEPATIC FUNCTION PANEL (90605)Indication: Mixed hyperlipidemia On: 29-Yel-168155:19 Request LIPID PANEL (19046)Indication: Mixed hyperlipidemia On: 96-Noq-218021:19 Request OVA & PARASITE DIR SMEAR (23376)Indication: Diarrhea On: :26 Request Comments: check and make sure no giardia IZA CULTURE-STOOL (58981)Indication: Diarrhea On: :26 Request HEPATIC FUNCTION PANEL (87094)Indication: Bilateral carotid artery stenosis On: 90-Fsm-713534:05 Request LIPID PANEL (19883)Indication: Bilateral carotid artery stenosis On: 54-Giq-551219:05 Request Creatine (81165)Indication: Abdominal pain, acute, right upper quadrant On: 93-Hyg-987897:55 Request Bilirubin, total (22652)Indication: Abnormal blood chemistry On: 93-Fyf-220847:49 Request Bilirubin, Direct (76324)Indication: Abnormal blood chemistry On: 89-Rci-352025:49 Request VITAMIN B-12 (CYANOCOBALAMIN) (98570)Indication: Fatigue On: 64-Utp-635036:08 Request LIPID PANEL (46763)Indication: screening On: :08 Request PSA (PROSTATE SPECIFIC ANTIGEN) (V76.44)Indication: Screening for prostate cancer On: :06 Request URINALYSIS, W/ MICRO (72155)Indication: Fatigue On: :06 Request TSH (84549)Indication: Fatigue On: :06 Request METABOLIC PANEL, COMPREHENSIVE (06892)Indication: Fatigue On: :06 Request CBC WITH MANUAL DIFF (10180)Indication: Fatigue On: :06 Request VIRAL CULTURE (39084) On: 68-Eli-755908:55 Request IZA CULTURE-OTHER (19782) On: :52 Request TSH ([id number])Indication: Anxiety On: 97-Nxw-857131:18 Request Planned Encounters Medical; [facility] Exam (DF Nurse) - On: 12-Nov-2018 7:15 [facility] NURSE, DF Medical; [facility] Exam (Doctor) - On: 03-Dec-2018 7:00 [facility] Fast DO, Diandra A Fast DO, Diandra A Planned Procedures CT - Abdomen & Pelvis Stone ProtocolBy: On: 28-Jul-2018 Intent Fast DO, Diandra A Fast DO, Diandra A ELECTROCARDIOGRAM, COMPLETE (ECG) On: 20-Nov-2017 Intent ([id number])By: Fast DO, Diandra A Fast DO, Comments: ekg showed normal sinus rhythym, normal axis, no acute st/t wave changes Diandra A Renal Duplex ScanBy: Fast DO, Diandra A On: 09-Oct-2016 Intent Fast DO, Diandra A ELECTROCARDIOGRAM, COMPLETE (ECG) On: 08-Oct-2016 Intent ([id number])By: Fast DO, Diandra A Fast DO, Comments: ekg showed normal sinus rhythym, normal axis, no acute st/t wave changes Diandra A Cartoid DopplerBy: Fast DO, Diandra A Fast On: 08-Oct-2016 Intent DO, Diandra A INFUSION, NORMAL SALINE SOLUTION , 1000 On: 28-Aug-2016 Intent CC (Special Coverage Instructions Apply. Comments: lot:[id number]:12-13-2017rte: left anticub. IV dose: 1000ml (2 bags) given by:Suzanne Godinez LPN See MCM: 2049) (J7030)By: BARRINGTON Patton Phenergan Injection, up to 50 mg On: 28-Aug-2016 Intent (J2550)By: BARRINGTON Patton Comments: lot:[id number]:04/2017rte:IM right gluteal dose:25mggiven by:cristian RO signedER, MACHINE CARTON MARKER ELECTROCARDIOGRAM, COMPLETE (ECG) On: 14-Aug-2016 Intent ([id number])By: Fast DO, Diandra A Fast DO, Comments: ekg showed normal sinus rhythym, normal axis, no acute st/t wave changes Diandra A Cartoid DopplerBy: Fast DO, Diandra A Fast On: 14-Aug-2016 Intent DO, Diandra A Comments: bilateral Cartoid DopplerBy: Fast DO, Diandra A Fast On: 10-Jun-2016 Intent DO, Diandra A MAGNETIC RESONANCE On: 22-Apr-2016 Intent CHOLANGIOPANCREATOGRAPHY (MRCP) WITH Comments: rule out biliary sludge or stone CONTRAST ([id number])By: Fast DO, Diandra A Fast DO, Diandra A Cartoid DopplerBy: Fast DO, Diandra A Fast On: 24-Aug-2015 Intent DO, Diandra A CT - Abdomen (IV Contrast Needed)By: Fast On: 24-Aug-2015 Intent DO, Diandra A Fast DO, Diandra A IMMUNIZ ADMNIN, 1 VAC, SNGL/COMBO On: 10-Mar-2014 Intent ([id number])By: Visit, [place] ([id number])By: Fast DO, Diandra On: 10-Mar-2014 Intent A Fast DO, Diandra A Comments: lot: [id number]: 11/17/14site/route: R arm/IMamt:0.5mLVIS signed when applicableSHELBY Zamora Radiology - Foot - RightBy: Fast DO, On: 21-Feb-2013 Intent Diandra A Fast DO, Diandra A Comments: call wet read Radiology - Ankle - RightBy: Fast DO, On: 21-Feb-2013 Intent Diandra A Fast DO, Diandra A Comments: call wet read Solu -Medrol Injection, 125 mg On: 08-Nov-2012 Intent ([id number])By: Faye Narayan CNP Comments: lot # [id number]- 06/2015site-RGlut hpakp-BRklmv-[id number] ML Eun GONZALEZ PHYSICAL THERAPY EVALUATION ([id number])By: On: 10-Dec-2011 Intent Faye Narayan CNP Radiology - Knee - Right - Weight On: 10-Dec-2011 Intent BearingBy: Faye Narayan CNP Radiology - Humerus - RightBy: Sylvain LIM, On: 10-Dec-2011 Intent Faye Alves Radiology - Hand - BilateralBy: Fast DO, On: 16-Apr-2011 Intent Diandra A Fast DO, Diandra A Comments: attn thumbs malik- pain and swelling CT - AbdomenBy: Fast DO, Diandra A Fast DO, On: 28-Jun-2010 Intent Diandra A Comments: - please do today- call wet read Overnight Pulse Ox([id number])By: Bladimir GONZALEZ, On: 12-Jun-2010 Intent Lakshmi Ultrasound - GallbladderBy: Fast DO, On: 02-Nov-2009 Intent Diandra A Fast DO, Diandra A Pneumovax (45005)By: Erin Jordan LPN On: 26-Jun-2009 Intent Comments: Lot #[id number]/20/10Site-right deltoidDose0.5mlgiven by:FRANCE Flu Vaccine, Split IM (23656)By: Julian On: 26-Jun-2009 Intent Erin GONZALEZ Comments: Lot #[id number]-left deltoidgiven by:FRANCE Inhaler Demonstration (76867)By: Sylvain On: 21-Sep-2008 Intent Faye LIM Comments: done BC Pulse Oximetry (07026)By: Faye Narayan CNP On: 21-Sep-2008 Intent E Comments: done BC Aerosol Treatment ([id number])By: Sylvain LIM, On: 21-Sep-2008 Intent Faye Alves Comments: done BC Solu -Medrol Injection, 125 mg On: 21-Sep-2008 Intent ([id number])By: Faye Narayan CNP Comments: Amt: 2mlLot: [id number]: 03/2011Route: IMSite: right hipTolerated: wellGiven By: LISA Soto Pulse Oximetry (17163)By: Sylvain LIMFaye On: 31-Aug-2008 Intent E Pulse Oximetry (65515)By: Sylvain LIM Faye On: 31-Aug-2008 Intent E Aerosol Treatment ([id number])By: Sylvain LIM, On: 31-Aug-[address] - Sinuses CompleteBy: Maxim HAMM, On: 01-Feb-2008 Intent Johana PHYSICAL THERAPY EVALUATION ([id number])By: On: 01-Nov-2007 Intent Sylvain LIM Meli Radiology - Shoulder - LeftBy: Fast DO, On: 12-Oct-2007 Intent Diandra A Fast DO, Diandra A Comments: and left ac joint Nerve ConductionBy: Johana Pan DO On: 15-Jan-2007 Intent EMGBy: Johana Pan DO On: 15-Jan-2007 Intent Inhaler Demo (85384)By: JOSY LIM, On: 10-Sep-2006 Intent LASHAY Aerosol Treatment ([id number])By: JOSY LIM, On: 10-Sep-2006 Intent LASHAY Comments: expiratory wheeze absent on rt after treatment.Continues on rt. Pulse Oximetry ([id number])By: JOSY LIM On: 10-Sep-2006 Intent LASHAY Comments: 98% Planned Medications INFUSION, NORMAL SALINE SOLUTION , 1000 CC Ordered: 28-Aug-2016 Pending BARRINGTON Patton INJECTION, METHYLPREDNISOLONE SODIUM SUCCINATE, UP TO 125 MG Ordered: 08-Nov-2012 Pending Faye Narayan CNP Phenergan 50 MG/ML Injection Solution Ordered: 28-Aug-2016 Pending BARRINGTON Patton Instructions Name Dates Details Nonsmoker : Patient Instructions Indication: Nonsmoker Nonsmoker : How to access health information online Indication: Nonsmoker Nonsmoker : Patient Instructions Indication: Nonsmoker Nonsmoker : How to access health information online Indication: Nonsmoker Nonsmoker : How to access health information online - Detail Indication: Nonsmoker Nonsmoker : Patient Instructions Indication: Nonsmoker Bilateral carotid artery stenosis : How to access health information online Indication: Bilateral carotid artery stenosis Bilateral carotid artery stenosis : How to access health information online - Detail Indication: Bilateral carotid artery stenosis Bilateral carotid artery stenosis : Patient Instructions Indication: Bilateral carotid artery stenosis [facility] EX[facility] : How to access health information online Indication: [facility] EXAM [facility] EXAM : How to access health information online - Detail Indication: [facility] EXAM [facility] EXAM : Patient Instructions Indication: [facility] EXAM Low back pain potentially associated with radiculopathy : How to access health information online Indication: Low back pain potentially associated with radiculopathy Low back pain potentially associated with radiculopathy : How to access health information online - Detail Indication: Low back pain potentially associated with radiculopathy Low back pain potentially associated with radiculopathy : Patient Instructions Indication: Low back pain potentially associated with radiculopathy Abdominal pain, acute, right upper quadrant (Renamed from Acute abdominal pain in right upper quadrant) : How to access health information online Indication: Abdominal pain, acute, right upper quadrant (Renamed from Acute abdominal pain in right upper quadrant) Abdominal pain, acute, right upper quadrant (Renamed from Acute abdominal pain in right upper quadrant) : How to access health information online - Detail Indication: Abdominal pain, acute, right upper quadrant (Renamed from Acute abdominal pain in right upper quadrant) Abdominal pain, acute, right upper quadrant (Renamed from Acute abdominal pain in right upper quadrant) : Patient Instructions Indication: Abdominal pain, acute, right upper quadrant (Renamed from Acute abdominal pain in right upper quadrant) Pancreatitis, acute : How to access health information online Indication: Pancreatitis, acute Pancreatitis, acute : How to access health information online - Detail Indication: Pancreatitis, acute Pancreatitis, acute : Patient Instructions Indication: Pancreatitis, acute Abdominal pain, acute, generalized : Patient Instructions Indication: Abdominal pain, acute, generalized Ankle swelling : Patient Instructions Indication: Ankle swelling Advance Directives Name Dates Details Living Will - Effective on 01/12/2018. Expiration date Effective: 12-Jan-2018 unspecified. Scanned Document is available upon request. Encounters Office Visit On: 29-Sep-2018 14:17 Encounter Diagnosis: Right upper quadrant pain End: 29-Sep-2018 14:19 [facility] Phone Encounter On: 28-Jul-2018 15:04 Encounter Diagnosis: Microscopic hematuria End: 28-Jul-2018 15:18 [facility] Phone Encounter On: 28-Jul-2018 13:12 Encounter Diagnosis: Microscopic hematuria End: 28-Jul-2018 13:13 [facility] Office Visit On: 15-Jun-2018 9:22 Encounter Diagnosis: Fatigue End: 15-Jun-2018 9:23 [facility] Office Visit On: 26-May-2018 15:05 Encounter Reason: Follow up for chronic medical issues - The patient feels well with no complaints, has good energy level and is sleeping well. Patient has been compliant with instructions. Current medication use: experi End: 28-May-2018 7:13 encing side effects (losartan-dizziness). Patient sleeps 6 hours per night. Impact of disease: no overall impact. The medical issues the patient is following up for include high cholesterol and other (a nxiety, prediabetes, GERD). blood pressure range : (130/80). Note for Follow up for chronic medical issues: feeling well reviewed his labs done for insurance profile and looked good -- sugar and chol great and bp is good and toleraiting well- he is riding back 10 miles plus several times a week- and feels while doing- and he never did the blood flow screening we discussed ris of strokeEncounter Diagnosis: Nonsmoker, Benign essential hypertension , BMI 29.0-29.9,adult, Encounter for hepatitis C virus screening test for high risk patient, Mixed hyperlipidemia, Bilateral carotid artery stenosis [facility] Office Visit On: 10-Jan-2018 12:19 Encounter Diagnosis: Diverticulitis End: 10-Jan-2018 20:24 [facility] Office Visit On: 07-Jan-2018 9:25 Encounter Diagnosis: Benign essential hypertension End: 07-Jan-2018 9:26 [facility] Office Visit On: 20-Nov-2017 14:05 Encounter Reason: Physical male exam - General health: feels well with no complaints, has good energy level and is sleeping well. The patient's appetite is normal. Nutrition: normal/adequate. Exercises 4 days per week. S End: 07-Dec-2017 20:36 leeps on average 6 hours per night. Normal bowel and bladder habits. Safety measures include appropriate use of safety belts, appropriate use of helmets and home smoke detectors. There are no current em otional problems. Preventative measures done by patient are screening, colonoscopy (less than 10 years ago) and screening, visual acuity (2014, glacoma test done). Note for Physical exam: have added l ittle bit of chicken shrimp turkey back in- - he is biking - some not as much as he was- feeling well- he has followup skin check in january and just had eye exam last month- he feels good when exercising- prostate good no issues - not having stomach issues although a month ago may have had the sphincter oddi spasm- questions from cold beverage-Encounter Diagnosis: Nonsmoker, BMI 28.0-28.9,adult, Benign essential hypertension, Mixed hyperlipidemia, Bilateral carotid artery stenosis, [facility] EXAM, Encounter for hepatitis C virus screening test for high risk patient, Abnormal blood sugar, Gastroesophageal reflux disease without esophagitis [facility] Office Visit On: 27-Oct-2017 21:52 Encounter Diagnosis: Unspecified Diagnosis End: 27-Oct-2017 21:53 [facility] Office Visit On: 04-Sep-2017 7:08 Encounter Reason: Follow up for chronic medical issues - The patient feels well with no complaints, has good energy level and is sleeping well. Patient has been compliant with instructions. Current medication use: experi End: 08-Sep-2017 21:57 encing side effects (losartan-dizziness). Patient sleeps 6 hours per night. Impact of disease: no overall impact. The medical issues the patient is following up for include high cholesterol and other (a nxiety, prediabetes, GERD). blood pressure range : (130/80). Note for Follow up for chronic medical issues: he is vegan now bp good and weight stable- no gerd or gi sx - only time losxarten bothers hi m if quick ak chin movements and laying on backget up- riding bikes again and back and leg good- no syncope no dizzy and no cp sob when ridingEncounter Diagnosis: BMI 28.0-28.9,adult, Nonsmoker, Mixed hyperlipidemia, Bilateral carotid artery stenosis , Prediabetes, Benign essential hypertension, Erectile dysfunction, Encounter for screening for malignant neoplasm of prostate (Renamed from Screening for prostate cancer), Gastroesophageal reflux disease without esophagitis [facility] Office Visit On: 09-Oct-2016 17:47 Encounter Diagnosis: Malignant hypertension End: 09-Oct-2016 17:54 [facility] Office Visit On: 09-Oct-2016 8:09 Encounter Reason: Nurse procedure visit - The symptoms have been associated with other (Bp cuff check).[facility] End: 09-Oct-2016 16:17 Office Visit On: 08-Oct-2016 16:49 Encounter Reason: Dizziness - Symptoms include dizziness and weakness. Onset was sudden hour(s) ago (8). The patient describes this as moderate in severity. Associated symptoms do not include headache or visual changes. End: 09-Oct-2016 17:10 Note for Dizziness: he didnt have good night sleep last night then woke up and worked out really hard- cardiovascular- didnt eat before then ate cottage cheese and tuna- no carbs was shakey tremory di zzy and just not feel well - no chest pain no sob no perez- bp running high today 140-160s/80-90sEncounter Diagnosis: Near syncope, Urinary frequency, Benign essential hypertension [facility] Office Visit On: 08-Oct-2016 10:31 Encounter Diagnosis: Near syncope End: 08-Oct-2016 10:34 [facility] Office Visit On: 28-Aug-2016 9:41 Encounter Reason: Vomiting - Note for Vomiting: call from patient he feeling ill - went out felt like maybe too many etoh beverages - not typical for him to do so - and woke up feeling like hangover but as day progress End: 28-Aug-2016 21:02 ed he felt worse vomit body aches loose stools and very nauseated and no abdominal pain- he vomited 4-5 times not keeping anything down and not urinatingEncounter Diagnosis: Dehydration, Intractable vomiting with nausea, unspecified vomiting type [facility] Office Visit On: 14-Aug-2016 7:59 Encounter Reason: Physical male exam - General health: feels well with minor complaints (dizziness), has good energy level and is sleeping well. The patient's appetite is normal. Nutrition: normal/adequate. Exercises 4 d End: 25-Aug-2016 21:54 ays per week. Sleeps on average 8 hours per night. Elimination problems include urinary frequency (getting up once at night, but drinks water at night before bed). Safety measures include appropriate us e of safety belts, appropriate use of helmets and home smoke detectors. There are no current emotional problems. Preventative measures done by patient are screening, colonoscopy (less than 10 years ago) and screening, visual acuity (2014, glacoma test done). Note for Physical exam: he thinks hip and leg improving since back on exercise regimen- he occ if eats wrong things gets the right upper quad painEncounter Diagnosis: BMI 28.0-28.9,adult, Nonsmoker, Dizziness, [facility] WELLNESS EXAM, Mixed hyperlipidemia, Low back pain potentially associated with radiculopathy, Prediabetes, Actinic keratosis, Neoplasm of uncertain behavior of skin, Encounter for screening for malignant neoplasm of prostate (Renamed from Screening for prostate cancer), Decreased libido (Renamed from Low libido) [facility] Office Visit On: 10-Jun-2016 13:31 Encounter Reason: Skin Lesions - Symptoms include single skin lesion. Lesion location includes the head (left cheek). The patient describes the lesion(s) as painless and changing in texture. Onset was gradual week(s) ago End: 11-Jun-2016 22:08 . There is no known event that preceded symptom onset. The symptoms occur constantly. The patient describes this as mild and worsening. Associated symptoms do not include fever. The patient is not currently being treated for this problem., [ADDITIONAL REASON] Hip Problem - Symptoms include hip problem and pain in other joints. The symptoms are located in the left hip. The patient describes the hip problem as hip pain. Onset was gradual m onth(s) ago. The symptoms occur intermittently. The patient describes symptoms as moderate in severity and unchanged. Associated symptoms do not include low back pain. The patient is not currently being treated for this problem. Note for Hip problem: he started sleeping on left side alot and and going hard on ellipitcial and now left buttocks and deep tooth ache/ hurts worse with sit or lay and bett er with walk - certainpositions better than others- he not take nsaid yet -sent him home with exercises Encounter Diagnosis: Low back pain potentially associated with radiculopathy, Bilateral carotid artery stenosis, Neoplasm of uncertain behavior of skin [facility] Office Visit On: 29-Apr-2016 8:35 Encounter Diagnosis: Acute epigastric pain End: 29-Apr-2016 8:37 [facility] Office Visit On: 22-Apr-2016 8:43 Encounter Reason: Abdominal pain - The onset of the abdominal pain has been sudden and has been occurring in a persistent pattern for 4 days. The course has been constant. The abdominal pain is described as a mild sharp End: 22-Apr-2016 14:26 pain, stabbing (had this pain on sat for about 20min- now just ache) and dull ache. The abdominal pain is described as being located in the right upper quadrant and epigastrium. The abdominal pain radia victoria to the back. The symptoms have no aggravating factors. The symptoms have no relieving factors. The symptoms have been associated with nausea, while the symptoms have not been associated with bloati ng, bloody stools, chest pain, constipation, diarrhea, dysuria, fever, heartburn or vomiting. Note for Abdominal pain: Pt had his gallbladder removed.- so has had about 3 episodes since gb out- right upper quad pain/midline pain - this one the worst on sat=-it gets intense then decresencedo- no vomit little nausea-- no diarrhea- no fever- no chest pain did make difficult to breath-- when had pain - had beer and pumpernickle wrap Encounter Diagnosis: Abdominal pain, acute, right upper quadrant (Renamed from Acute abdominal pain in right upper quadrant) [facility] Office Visit On: 17-Sep-2015 20:23 Encounter Diagnosis: travel End: 17-Sep-2015 20:30 [facility] Office Visit On: 24-Aug-2015 8:56 Encounter Reason: Transition into care - The patient is transitioning into care from a hospital and a summary of care was reviewed ., [ADDITIONAL REASON] Follow up hospital - Reason for ER visit: abdominal pain. The patient feels well End: 27-Aug-2015 22:04 with minor complaints (mild nausea yet, slight tweeks of pinching feelings), has decreased energy level and is sleeping poorly. Patient has been compliant with instructions. Current medication use: no side effects and compliant with dosing regimen. Patient sleeps 5 hours per night. Nutrition: balanced diet and supplemental vitamins. Encounter Diagnosis: Pancreatitis, acute, Hyperlipidemia, Screening for prostate cancer, Carotid stenosis, Anemia(285.9), Fatigue (780.79), Post-nasal drip [facility] Phone Encounter On: 20-Aug-2015 10:43 Encounter Diagnosis: Unspecified Diagnosis End: 20-Aug-2015 10:49 [facility] Office Visit On: 09-Oct-2014 10:50 Encounter Diagnosis: Abdominal Pain,General (789.07) End: 09-Oct-2014 10:51 [facility] Office Visit On: 02-Oct-2014 9:26 Encounter Reason: Abdominal pain - The pain has been occurring in an intermittent pattern for years. The course has been increasing. The pain is described as a moderate burning and sharp pain. The pain is described as be End: 03-Oct-2014 22:34 ing located in the right upper quadrant and lower abdomen. The pain radiates to the back. The symptoms are aggravated by alcohol (and popcorn). The symptoms have no relieving factors. The symptoms have been associated with bloating and nausea, while the symptoms have not been associated with chest pain, constipation, diarrhea, dysuria, fever or vomiting. Note for Pain: no vomit or diarrhea had some nausea had flu last week -with zithromax that improved e xcept post nasal drip- this am low backhurts- normal burning that gets right side ??but now low abd and low back and maria guadalupe fatigued and chills no fever - no blood in stool Encounter Diagnosis: Abdominal Pain,General (789.07), Chills, Fatigue (780.79) [facility] Office Visit On: 19-Sep-2014 7:54 Encounter Diagnosis: BRONCHITIS, NOT SPECIFIED ACUTE OR CHRONIC (490.) End: 21-Sep-2014 16:20 [facility] Office Visit On: 10-Mar-2014 14:04 Encounter Reason: Injections - The medication the patient is here to receive is shingles vaccine IM.Encounter Diagnosis: SHINGLES,NEED FOR PROPHYLACTIC VACCINATION AND INOCULATION AGAINST (V05.8) End: 12-Mar-2014 21:11 [facility] Office Visit On: 21-Feb-2013 15:28 Encounter Reason: Ankle Pain - This condition occurred without any known injury. Symptoms include ankle pain and swelling, while symptoms do not include warmth, decreased range of motion or difficulty bearing weight. Sym End: 21-Feb-2013 22:31 ptoms are located in the right ankle. There is no radiation. The patient describes the pain as aching. Onset was 1 month(s) ago. The patient describes symptoms as worsening. Current treatment includes a pplication of ice and nonsteroidal anti-inflammatory drugs. 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 The course has been constant. The problem is characterized as a rash, itch End: 08-Nov-2012 12:32 ing and a change in skin color. Lesions are described as red. There has been associated itching, while there has been no fever or pain.Encounter Diagnosis: Rash and nonspecific skin eruption (782.1) [facility] Office Visit On: 27-Aug-2012 8:23 Encounter Reason: Abdominal pain - The pain has been occurring in an intermittent pattern for 1 week. The course has been increasing. The pain is described as a severe burning. The pain is described as being located in t End: 27-Aug-2012 9:06 he right lower quadrant. The pain does not radiate. The symptoms are aggravated by meals (1/2 to 1 hour after eating). The symptoms have no relieving factors. The symptoms have been associated with abdo cecil distention and bloating, while the symptoms have not been associated with constipation, diarrhea, dysuria, fever or heartburn. Previous evaluations have included upper gastrointestinal X-ray. Not e for Pain: worst bloating after eating fried food Encounter Diagnosis: Abdominal discomfort, generalized (789.00), Metallic taste (781.1) [facility] Office Visit On: 10-Dec-2011 15:31 Encounter Reason: Joint Pain - Symptoms include joint pain, joint stiffness and morning stiffness, while symptoms do not include joint warmth. Symptoms are located in the right knee. The patient describes the pain as dul End: 10-Dec-2011 15:59 l, aching and burning. Onset was sudden. The symptoms occur constantly.Encounter Diagnosis: Knee pain (719.46) [facility] Office Visit On: 16-Apr-2011 15:25 Encounter Reason: Joint Pain - Symptoms include joint pain, joint swelling, joint stiffness and decreased range of motion, while symptoms do not include joint redness or joint warmth. Symptoms are located in the left wri End: 17-Apr-2011 21:38 st (hands and fingers) and right wrist (hands and fingers). The patient describes the pain as sharp and dull. Onset was gradual 6 month(s) ago. There is no known event that preceded symptom onset. The s ymptoms occur frequently. The patient describes this as moderate in severity and worsening. There is no radiation. Associated symptoms do not include fever, chills, shortness of breath, paresthesias or rash. Note for Joint Pain: The more pt does with his hands the more they hurt. Has not and doesnt want to take any meds to relieve it. pain primarily in thumb areas- - rest of hands feel tight- not st iff- - hard to get rings off - some swelling- blood vessels pop and swell near thumb- no rash on skinEncounter Diagnosis: ARTHRALGIAS 719.40 [facility] Office Visit On: 23-Dec-2010 17:00 Encounter Reason: Follow up for chronic medical issues - The patient feels well with no complaints, has good energy level and is sleeping well. Patient has been compliant with instructions. Current medication use: no angel End: 24-Dec-2010 7:23 e effects and compliant with dosing regimen. Patient sleeps 6 hours per night. Nutrition: balanced diet and supplemental vitamins. The medical issues the patient is following up for include All identifi ed problems below, gastric reflux and other (anxiety, fatigue, allergic rhinitis). 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 Patient has been End: 07-Nov-2010 22:12 compliant with instructions. Current medication use: experiencing side effects (just withdrawl symptoms, joint pain, vertigo, tremors) and compliant with dosing regimen. Patient sleeps 6 hours per night.Encounter Diagnosis: Anxiety (300.00) [facility] Office Visit On: 24-Oct-2010 8:04 Encounter Reason: Sore Throat - The last clinic visit was 3 day(s) ago. Symptoms include sore throat and swollen glands, while symptoms do not include fever or chills. The symptoms are symmetrical. There is no radiation. End: 24-Oct-2010 8:32 The patient describes the pain as sharp.Encounter Diagnosis: ACUTE PHARYNGITIS (462.), Sinus congestion (478.19) [facility] Office Visit On: 24-Sep-2010 8:56 Encounter Reason: Follow up, Diagnostic Procedure Results - Diagnostic tests include other (gastric emptying study). Date: (09/18/10). Current symptoms include other (ongoing bloating and gerd symptoms- not currently takin End: 24-Sep-2010 21:57 g anything for this.). Note for Follow up, Diagnostic Procedure Results: Tess ordered this test and has given pt the results and states pt needs to have a thyroid workup by his pcp.Encounter Diagnosis: Anxiety (300.00), Diarrhea (787.91), GERD (530.81) [facility] Office Visit On: 27-Aug-2010 11:50 Encounter Reason: Follow up hospital - Reason for ER visit: note: (syncope). The patient feels well with no complaints, has good energy level and is sleeping well. Patient has been compliant with instructions. Current me End: 29-Aug-2010 22:19 dication use: no side effects and compliant with dosing regimen. Patient sleeps 6 hours per night. Note for Follow up hospital: he was sitting at table with client and hewas telling him about his sto mach issue - and the client told him nhow a friend had same sx and from stomach cancer and then he felt suddenly like he was going to pass out and did and broke out in cold sweat- no seizure activi ty- was taken to hospital and admitted cxr ekg- and enzynes neg- was little dehydrated given fluids was better- hadnt had diarrhea or vomit- no chest pain sob- he had normal echo- stress question apical thinning vs normal- he felt like wanted another opinion other than the cardio there as he wanted to cath him- had carotids some plaque discussed with plaque there could have heart plaque- and should go get another opinion and discussed should be on statin and why and he will consider and also discussed his anxietyEncounter Diagnosis: Abnormal Cardiac Test (794.30), SYMPTOM, SYNCOPE AND COLLAPSE (780.2), Anxiety (300.00), Carotid stenosis (433.10) [facility] Office Visit On: 28-Jun-2010 9:41 Encounter Reason: Abdominal pain - The onset of the pain has been gradual and has been occurring in a persistent pattern for 6 months. The course has been increasing. The pain is described as a moderate burning, dull ach End: 30-Jun-2010 21:05 e and fullness. The pain is described as being located in the left upper quadrant. The pain radiates to the back. The symptoms have no aggravating factors. The symptoms are relieved by eating. The sympt oms have been associated with bloating, constipation, diarrhea and nausea, while the symptoms have not been associated with dysuria, fever or vomiting. Previous evaluations have included endoscopy (mur garcia). Note for Abdominal pain: -he didnt feel a lump he just felt a gas bubble in right mid abd- medial to gb and near duodenum- has been chronic- he is unsure whether food makes a difference- sometim es better sometimes worse- he called [facility] office other day and gave him dicyclomine- he started it thursday- doesnt helpEncounter Diagnosis: Abdominal Pain,RUQ(789.01) [facility] Office Visit On: 12-Jun-2010 16:20 Encounter Diagnosis: SYMPTOM, APNEA (786.03) End: 12-Jun-2010 16:46 [facility] Office Visit On: 06-Feb-2010 15:26 Encounter Reason: Follow up for chronic medical issues - The patient feels well with no complaints ,has good energy level and is sleeping well. Patient has been compliant with instructions. Current medication use: no angel End: 06-Feb-2010 22:57 e effects and compliant with dosing regimen. Patient sleeps 6 hours per night. Nutrition: balanced diet and supplemental vitamins. The medical issues the patient is following up for include All identifi ed problems below ,gastric reflux and other (anxiety, fatigue, allergic rhinitis). Note for Follow up for chronic medical issues: Abdominal issues are alot better. Didnt do the ct abd and started citr acel and it seems to be helping alot.--- not taking ativan routinely - maybe every few weeks- but helps alot- ambien helps him have more restful sleep- minimal gerdEncounter Diagnosis: GERD (530.81), Anxiety (300.00) [facility] Office Visit On: 02-Nov-2009 14:01 Encounter Reason: Follow up, Diagnostic Procedure Results - Diagnostic tests include ultrasound (kidney). Date: (10/15/09). , [ADDITIONAL REASON] Follow up, Laboratory Test Results - Date: (10/08/09). Note for Follow up, Labor End: 04-Nov-2009 21:52 atory Test Results: occ snore- but lays on side mostly- if does ok- but lays on back -- 2 sisters have elevated creatinine- he is watching diet and noticed more pain right upper quad- gas and bloating - feeling better on very small dose of buspar- weaned off all gerd meds made him worse just having to really watch diet- ambien helping him sleep- feels pretty good Encounter Diagnosis: Abdominal Pain,RUQ(789.01), Hematuria (599.7), GERD (530.81), Abnormal blood chemistry (790.6), Anxiety (300.00) [facility] Historical Summary On: 10-Oct-2009 17:47 [facility] End: 10-Oct-2009 18:08 Office Visit On: 02-Oct-2009 12:08 Encounter Reason: Sore throat - The onset of the sore throat has been gradual and has been occurring in a persistent pattern for months. The course has been unchanged. The symptoms have been associated with change in voi End: 14-Oct-2009 22:16 ce ,difficulty in swallowing ,post-nasal drip and sinus pain, while the symptoms have not been associated with chest pain ,chills ,cough ,ear pain ,fever ,runny nose or swelling of neck glands. Note for Sore throat: several mos ag saw severo he looked down - esophagus looked little inflamed classic sx of gerd- getting egd and colonsocopy next month- seems to have started after getting allergy shots and using nasal spray- has alot of pnd- - worried about staph becuase dog had staph in ears- cant sleep on back becuase if lays back airway shuts off- years ago tested for sleep apnea- years ago-despit e taking aciphex in am - pepcid in pb and carafate during day still burning in throat- no trouble swallowing - no etoh caffeine or tobacco for mos- alot of anxietyEncounter Diagnosis: ACUTE PHARYNGITIS (462.), Anxiety (300.00), GERD (530.81), Fatigue (780.79), SCREENING FOR CANCER OF THE PROSTATE (V76.44), screening [facility] Office Visit On: 03-Sep-2009 17:12 Encounter Diagnosis: Unspecified Diagnosis End: 03-Sep-2009 17:14 [facility] Office Visit On: 03-Sep-2009 16:49 Encounter Reason: Follow up Meds - The patient feels well with minor complaints ,has good energy level and is sleeping well. Patient has been non-compliant with instructions. Current medication use: not considered effective by patient. End: 03-Sep-2009 17:12 Encounter Diagnosis: Anxiety (300.00) [facility] Office Visit On: 31-Aug-2009 7:29 Encounter Reason: Urinary problems - The onset of the urinary problems has been sudden and they have been occurring in a persistent pattern for 1 weeks. The course has been increasing. The urinary problems are described End: 31-Aug-2009 8:24 as mild. The urinary problem is characterized as frequency (difficulty initiating a stream -- ) ,hesitancy and urgency. There has been associated back pain. Encounter Diagnosis: Urinary frequency (788.41) [facility] Phone Encounter On: 28-Aug-2009 12:25 Encounter Diagnosis: Anxiety (300.00) End: 28-Aug-2009 12:28 [facility] Office Visit On: 27-Aug-2009 16:31 Encounter Reason: Anxiety - The onset of the anxiety has been gradual and has been occurring for months. The anxiety is characterized as nervousness. There are no specific phobias. The symptoms have been associated with End: 27-Aug-2009 17:17 agitation ,personality change (cranky) and tremors ( from coffee ), while the symptoms have not been associated with anorexia ,chest pain or weight loss. Previous evaluations: antidepressants. Encounter Diagnosis: Anxiety (300.00) [facility] Office Visit On: 26-Jun-2009 15:01 Encounter Diagnosis: Unspecified Diagnosis End: 26-Jun-2009 15:22 [facility] Office Visit On: 09-May-2009 9:11 Encounter Reason: Follow up acute care visit - The patient feeling better since last seen (except for when taking Prilosec, ok on Aciphex). Note for Follow up acute care visit: t being treated for GERDEncounter Diagnosis: GERD (530.81), End: 09-May-2009 11:49 Allergic rhinitis due to other allergen (477.8) [facility] Phone Encounter On: 03-May-2009 15:11 [facility] End: 03-May-2009 15:13 Phone Encounter On: 25-Apr-2009 10:55 [facility] End: 25-Apr-2009 10:57 Office Visit On: 19-Apr-2009 8:02 Encounter Reason: Heartburn - The onset of the heartburn has been gradual and has been occurring in an intermittent pattern for months. The course has been increasing. The heartburn is characterized as burning. The heart End: 19-Apr-2009 12:49 burn does not radiate. The symptoms are aggravated by citrus fruits (and stress related) and alcohol (tomatoes), but not by large meals. The symptoms are relieved by antacids. There has been no associat ed abdominal pain ,dysphagia ,nausea ,use of medications ,vomiting or blood in stool. Encounter Diagnosis: GERD (530.81), Anxiety (300.00) [facility] Office Visit On: 03-Oct-2008 14:38 Encounter Reason: Follow up acute care visit - The patient feeling better since last seen. Patient has been compliant with instructions. Current medication use: no side effects and compliant with dosing regimen. Patient End: 03-Oct-2008 15:01 sleeps 7 hours per night. Nutrition: balanced diet. The medical issues the patient is following up for include other (bronchitis, hematuria). Encounter Diagnosis: Cough (786.2), Wheezing (786.07) [facility] Office Visit On: 21-Sep-2008 8:42 Encounter Reason: Follow up acute care visit - The patient feeling better since last seen. Patient has been compliant with instructions. Current medication use: no side effects and compliant with dosing regimen. Patient End: 21-Sep-2008 11:49 sleeps 7 hours per night. Nutrition: balanced diet. The medical issues the patient is following up for include other (bronchitis, cough). Encounter Diagnosis: Cough (786.2), BRONCHITIS, NOT SPECIFIED ACUTE OR CHRONIC (490.), Hematuria (599.7) [facility] Annotation/Addendum On: 31-Aug-2008 16:51 Encounter Diagnosis: Unspecified Diagnosis End: 31-Aug-2008 16:56 [facility] Office Visit On: 31-Aug-2008 16:08 Encounter Reason: Flu like symptoms - The onset of the flu like symptoms has been acute and they have been occurring in a persistent pattern for 4 days. The course has been constant. The flu like symptoms are described as moderate. End: 31-Aug-2008 16:49 Encounter Diagnosis: BRONCHITIS, NOT SPECIFIED ACUTE OR CHRONIC (490.), Cough (786.2), Wheezing (786.07), FEVER (780.6), Lower back pain (724.2), Hematuria (599.7) [facility] Office Visit On: 01-Mar-2008 8:23 Encounter Reason: Follow up, Diagnostic Procedure Results - Date: (02-28-08 on face sheet). Encounter Diagnosis: Anxiety (300.00), Jaw sprain (848.1) End: 01-Mar-2008 9:08 [facility] Office Visit On: 01-Feb-2008 7:48 Encounter Reason: Sinusitis/ - The course has been worsening. The sinusitis/ has no relieving factors. Associated features include The symptoms have been associated with nasal discharge/stuffy nose ,sinus pain and teeth End: 01-Feb-2008 8:36 pain, while the symptoms have not been associated with cough or ear pain. No previous evaluations were reported. Encounter Diagnosis: Acute sinusitis, unspecified (461.9), Jaw sprain (848.1), Anxiety (300.00) [facility] Office Visit On: 25-Nov-2007 15:52 Encounter Reason: Anxiety - The onset of the anxiety has been gradual and has been occurring in a persistent pattern for 2 months. The course has been constant. The symptoms have been associated with agitation ,headache and sleep disturbance. End: 25-Nov-2007 16:40 Encounter Diagnosis: Shoulder pain (719.41), Anxiety (300.00) [facility] Office Visit On: 01-Nov-2007 15:42 Encounter Reason: Follow up, Diagnostic Procedure Results - Diagnostic tests include X-Ray (shoulder ). Date: (10-28-07). Current symptoms include decreased ROM. There is no family history of breast cancer ,cardiovascular End: 01-Nov-2007 16:38 disease ,cystic fibrosis ,Down's syndrome ,mental retardation or myocardial infarction before age 55. There is no past medical history of abnormal Pap smear ,anatomic urinary anomalies ,asthma ,cardiov ascular disease ,chest injury ,chronic obstructive lung disease ,congenital/chromosomal defects ,coronary artery disease ,current ,emotional problems ,hypertension ,injury ,lung disease ,menta l retardation ,neurologic disorder ,psychiatric illness or other. , [ADDITIONAL REASON] Sinusitis/ - The duration of the symptoms are 2 weeks (noticed sensitivity to pa in - wakes up with it ) The course has been worsening. The sinusitis/ has no relieving factors. Associated features include The symptoms have been associated with ear pain (popping - ) ,nasal discharge/ stuffy nose (clear ) ,sinus pain and teeth pain (maxilla ), while the symptoms have not been associated with cough ,purulent discharge from ear ,purulent nasal discharge ,red eyes ,sore throat or swolle n lymph glands. No previous evaluations were reported. none reported. Encounter Diagnosis: Acute sinusitis, unspecified (461.9), Eustachian tube dysfunction (381.81), Shoulder pain (719.41) [facility] Office Visit On: 12-Oct-2007 16:41 Encounter Reason: Shoulder Pain - The onset of the shoulder pain has been gradual following an incident not at work and has been occurring in an intermittent pattern for months. The course has been recurrent. The shoulde End: 12-Oct-2007 20:55 r pain is moderate. The shoulder pain is characterized as a sharp stabbing. The shoulder pain is described as being located in the left shoulder. The shoulder pain is aggravated by physical activity and overhead activity (reaching). Relieving factors include rest and medication (ibuprofen). Associated features include: painful ROM ,decreased ROM ,popping/crepitus ,difficulty overhead activities (reach ing) and difficulty dressing oneself, but not muscle stiffness ,muscle swelling ,warmth ,burning sensation ,fever ,chills ,difficulty combing hairs or difficulty hooking bra. Note for Shoulder Pain: d riving for 6 hours this weekend- thursday and thursday had pain inEncounter Diagnosis: Shoulder pain (719.41) [facility] Historical Summary On: 19-Jan-2007 14:13 [facility] End: 19-Jan-2007 14:17 Office Visit On: 15-Jan-2007 8:03 Encounter Reason: Shoulder Pain - The onset of the shoulder pain has been gradual following no specific incident and has been occurring in an intermittent (some tasks aggravate the pain more) pattern for 1 years. The cou End: 15-Jan-2007 15:21 rse has been constant. The shoulder pain is mild to moderate. The shoulder pain is characterized as a dull aching. The shoulder pain is described as being located in the left shoulder. The shoulder pain is aggravated by any movement. Relieving factors include medication (Ibuprofen helps a little). Associated features include: painful ROM. Encounter Diagnosis: Shoulder pain (719.41), Shoulder Impingment Syndrome (726.2), Forearm Pain (719.43) [facility] Office Visit On: 10-Sep-2006 13:29 Encounter Reason: Cough - The onset of the cough has been sudden and 10 days ago. The cough is characterized as productive of mucoid sputum. The amount of sputum produced is scanty. The cough occurs all the time. The sym End: 10-Sep-2006 21:20 ptoms are aggravated by supine posture. the color of the sputum is clear and purulent. Note for Cough: Hoarness of voice. Had cold last week and then exposed to dust. Pt has hx of bad coughs after exposure to allergens.Encounter Diagnosis: Acute sinusitis, unspecified (461.9), Cough (786.2), Wheezing (786.07), SOB (786.05) [facility] Payers Namita PEREZ/CAMELIA PAIZ; a guarantor
--- OUTSIDE RECORDS SUMMARY | 2018-12-04 23:08 | XMS RPT_ITS | Continuity of Care Document ---
:1950 Author Organization [facility] Address [address] [facility] [address] [place] [address] Phone Care Team Providers Name Role Phone Diandra Anaya DO Unavailable [facility], [facility] Unavailable Dr. Ryne Arndt Unavailable Marlene Ghosh Unavailable Prairie DPMBrien Unavailable Long DRIVERS LICENSE EXAMINER, Shayla L Unavailable Unavailable Slarb DRIVERS LICENSE EXAMINER, Jade Unavailable Unavailable Willy Edouarda Unavailable Unavailable [...] (R73.03, 790.29) Comments: check labs Status: Active SYMPTOM, APNEA (786.03) Status: Active [...] days Quantity: 6 {Ounce(s)} Refills: 0 Ordered:10-Sep-2006 Lakshmi Garrison LPN Start [...] days Quantity: 30 {Tablet} Refills: 0 Ordered:21-Feb-2013 Willy Edouarda Start : 08-Nov-2012 End : 21-Feb-2013 Inactive [...] Discontinued Comments:number given unknown -- started by [facility] for pancreatitis PROZAC, 10MG (Oral Tablet) 1 [...] Flow Screening Result: Comments: See Note; NOTES: [facility] Cardiovascular Services [address] [place] [address] 06/15/18 0826 MR#: [id number] Acct: [id number] Name: SIMEON PAIZ Rep #: [id number] : 1950 68 From: Nilo King MD Attending Dr: Diandra Anaya DO Status: REG REF Ordering Dr: Date: 06/16/18 Location: [facility] Sex: M C Admitted: Reason For Study: [...] LOWE ate Dictated: 06/15/18825 Date Transcribed: 06/16/18920 Medication Care Manager: Signed 16-Jun-2018 TXT - Blood Flow Screening Result: Comments: See Note; NOTES: [facility] Cardiovascular Services [address] [place] [address] 06/15/18825 MR#: [id number] Acct: [id number] Name: SIMEON PAIZ Rep #: [id number] : 1950 68 From: Nilo King MD Attending Dr: Diandra Anaya DO Status: REG REF Ordering Dr: Date: 06/16/18 Location: [facility] Sex: M C Admitted: Reason For Study: [...] D ate Dictated: 06/15/18825 Date Transcribed: 06/16/18920 Medication Care Manager: Signed 08-Oct-2016 PT D/C of Non Returning Pt (1) Result: Comments: See Note; NOTES: [facility] Physical Therapy Health[address] [place] [address] Fax REHABILITATION SERVICES DISCHAR GE SUMMARY MR#: [id number] Acct: [id number] Name: SIMEON PAIZ Rep #: [id number] : 1950 66 From: Sean Rojas PT, Cert. T, OCS Referring : Diandra Anaya DO Status: REG RCR [facility] Discharge Summary (1) - Patient [...] appropriate by the physician. Thank you! Sean Rojas, PT, <Electronically signed by Sean Rojas PT, CertSandra GUTIERREZ, OCS> 10/08/16 0801 CC: Diandra Anaya DO VIRAL Signed 21-Aug-2016 Inital Evaluation (1) - PT Result: Comments: See Note; NOTES: [facility] Physical Therapy [facility]point [address] [facility] [place] [address] Fax REHABILITATION SERVICES INITIAL EVALUATION MR#: [id number] Acct: [id number] Name: SIMEON PAIZ Rep #: [id number] : 1950 66 From: Sean Rojas PT, Cert. 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 Please let me know if there are questions or concerns regarding this plan of care. Physician Signature: Date: <Electr onically signed by Sean Rojas PT, Cert. T, OCS> 08/21/16 1517 CC: Diandra Aanya DO VIRAL Signed For Medicare only, by signing this I certify the plan of care. __ Physicians Signature Date 24-Apr-2016 MRCP Abdomen without Contrast Result: Comments: See Note; NOTES: [facility] Imaging Services [address] [place] [address] Verdana 4d MRCP Abdomen without Contrast MR#: [id number] Acct: [id number] Name: DELMA PAIZ Rep #: [id number] : 1950 M 66 From: Catherine Mota MD PCP: Diandra Anaya DO Status: REG CLI Study: MRCP Abdomen without Contrast Date of Exam: 04/24/16 Exam# [id number] Ordering Dr: Diandra Anaya DO STUDY: MR [...] MD at 9:35 EDT , Service support [phone], CC: Diandra Anaya DO Medication Care Manager: Signed 20-Sep-2015 Operative Report Result: Comments: See Note; NOTES: [facility] Medical Records Department [address] [place] [address] Operative Report MR#: [id number] Acct: [id number] Name: KIKE PAIZ Rep #: [id number] : 1950 65 From: Simeon Gruber MD PCP: Diandra Anaya DO Status: [facility] DATE OF SERVICE: 09/04/2015 DATE OF SERVICE: [...] the fascia. The fascia was grasped with Lane. Veress needle was placed inside the abdomen. [...] the fascia of the umbilical port with mwcwyr-xx-yzhpm stitch of 0 Vicryl. Skin incisions were closed with subcuticular stitches of 4-0 Monocryl. Steri- Strips were applied. Sterile dressings we re applied and the patient tolerated the procedure well. Simeon Gruber MD T: NTS JOB: [id number] 09/20/15 1111 <Electronically signed by Simeon Gruber MD> Date Simeon Gruber MD Cosigner Signature (If Indicated): Date CC: Simeon Gruber MD; Diandra Anaya DO Date D ictated: 09/04/151151 Date Transcribed: 09/04/151151 Medication Care Manager: Signed 06-Sep-2015 12 Lead Electrocardiogram Result: Comments: See Note; NOTES: [facility] Cardiovascular Services [address] [place] [address] 12 Lead EKG 09/04/15911 MR#: [id number] Acct: [id number] Name: ERIK HARTLEYTALATSIMEON Pham Rep #: [id number] : 1950 65 From: Simeon Stack MD Attending Dr: Simeon Gruber MD Status: DEP [facility] Ordering Dr: Misael Mayer MD Date: 09/04/15 Location: [facility] Sex: M C Admitted: Test Reason : [...] found Confirmed by SIMEON STACK ([id number]), rewrite editor EDGAR OMTA (56) on 09/06/2015 10:47:28 AM Referred By: WALLY Confirmed By:SIMEON STACK 09/06/15 1047 Date Simeon Stack MD CC: Diandra Anaya DO Date Dictated: 09/04/15911 Date Transcribed: 09/04/15911 Medication Care Manager: Signed 04-Sep-2015 Discharge Instruction Result: Comments: See Note; NOTES: [facility] Medical Records Department [address] [place] [address] Instructions for Home/Discharge Instructions 09/04/15 1121 MR#: [id number] Acct: [id number] Name: SIMEON PAIZ Rep #: [id number] : 1950 65 From: Simeon Gruber MD PCP: Diandra Anaya DO Status: REG [facility] Discharge Diet: Light diet - advance as [...] Up With: Simeon Gruber - Please call [phone] to schedule an appointment . When: 7 days after your surgery. 09/04/15 1122 <Electronically signed by Simeon Gruber MD> Date Simeon Gruber MD CC: Diandra Anaya DO 30-Aug-2015 Abdomen W/WO IV Contrast Result: Comments: See Note; NOTES: [facility] Imaging Services [address] [place] [address] Verdana 4d Abdomen W/WO IV Contrast MR#: [id number] Acct: [id number] Name: SIMEON YE Rep #: [id number] : 1950 M 65 From: Chidi Walker MD PCP: Diandra Anaya DO Status: REG CLI Study: Abdomen W/WO IV Contrast Date of Exam: 08/30/15 Exam# [id number] Ordering Dr : Diandra Anaya DO STUDY: [...] Chidi Walker MD at 9:59 EST Tel [phone], Service support [phone], CC: Diandra Anaya DO Medication Care Manager: Signed Immunization Name Dates Details Influenza (3 years and up) on: 26-Jun-2009 Comments: Lot #[id number] deltoidgiven by:[facility] Pneumococcal (2 years and up) [...] Status: Active Most Recent Primary Occupation Comments: [employer] Status: Active Number of Adult (age 20 [...] kg/m2 Body Surface Area Calculated 2 m2 57-Lzu-510517:39 Temperature 97.2 f Comments: Method: Temporal Pulse [...] kg/m2 Body Surface Area Calculated 2.03 m2 :25 Temperature 96.9 f Pulse 68 /min Comments: [...] Value Details :11 CBC W/Diff, Automated Comments: [facility] [address] [place], [place], [address] Absolute Lymph 1.11 {X10_3/ul} (Normal) Range: 0.83-4.51 [...] Range: 4.4-11.0 15-Jun-20188:11 Comprehensive Metabolic Profil Comments: [facility] [address] [place], [place], [address] GAP 9 (Normal) Range: 5-15 CO2 25.0 [...] Comments: Please note revised GLUCOSE reference range rpikthtqp75/02/2018. 15-Jun-20188:11 Hepatitis C Antibodies Comments: [facility] (refer to report for specific site)refer to report for address and phone number HEP C AB <0.1 {s/co_ratio} (Normal) Range: 0.0-0.9 Comments: Negative: < 0.8 Indeterminate: 0.8 - 0.9 Positive: > 0.9 The CDC recommends that a positive HCV antibody result be followed up with a HCV Nucleic Acid Amplification test (498647).Performed at: [address] [id number] Director: Toby Wilder PhD, Phone: [phone] 15-Jun-20188:11 Urinalysis, Complete Comments: How was Urine Obtained? [facility] [address] [place] [address], [id number] MUCUS, URINE 0 SEEN {/hpf} (Normal) BACTERIA [...] R1 TUBE ADD ON TEST PER [facility] Fnaxwvugvi2269 FAREED [place], [address] Range: 211-918 :53 Microscopic Examination Comments: PATIENT WAS FASTINGPERFORMED BY: [employer] [facility] [id number] BY: [employer] [id number] Bacteria None seen (Normal) Mucus Threads Present (Normal) Epithelial Cells (non renal) None seen {/hpf} (Normal) Range: 0 - 10 RBC None seen {/hpf} (Normal) Range: 0 - 2 WBC 0-5 {/hpf} (Normal) Range: 0 - 5 :53 URINALYSIS, W/ MICRO Comments: PATIENT WAS FASTINGPERFORMED BY: Shots70 [facility] [id number] BY: [employer] [id number] ([address]60) Microscopic Examination See below: (Normal) Comments: Microscopic was indicated and was performed. Microscopic Examination MICRON (Normal) Comments: Microscopic follows if indicated. Nitrite, Urine Negative (Normal) Urobilinogen,Semi-Qn 0.2 mg/dL (Normal) Range: 0.2-1.0 Bilirubin Negative (Normal) Occult Blood Negative (Normal) Ketones Negative (Normal) Glucose Negative (Normal) Protein Negative (Normal) WBC Esterase Negative (Normal) Appearance Clear (Normal) Urine-Color Yellow (Normal) pH 7.0 (Normal) Range: 5.0-7.5 Specific Rapelje 1.009 (Normal) Range: 1.005-1.030 :53 PSA (PROSTATE SPECIFIC Comments: PATIENT WAS FASTINGPERFORMED BY: [employer] [facility] [id number] BY: [employer] [id number] ANTIGEN) (V76.44) Prostate Specific Ag, 1.3 ng/mL (Normal) Range: 0.0-4.0 Serum Comments: Lin ECLIA methodology. .According to the [place] [employer], Serum PSA shoulddecrease and remain at undetectable levels after radicalprostatectomy. The AUA defines biochemical recurrence as an initialPSA value 0.2 ng/mL or greater followed by a subsequent confirmatoryPSA value 0.2 ng/mL or greater.Values obtained with d ifferent assay methods or kits cannot be usedinterchangeably. Results cannot be interpreted as absolute evidenceof the presence or absence of malignant disease. :53 TESTOSTERONE FREE (49345) Comments: PATIENT WAS FASTINGPERFORMED BY: Shots70 [facility] [id number] BY: [employer] [id number] Free Testosterone(Direct) 13.7 pg/mL (Normal) Range: 6.6-18.1 :53 CBC with auto diff Comments: PATIENT WAS FASTINGPERFORMED BY: [employer] Umyhbg1179 [facility] [id number] BY: [address]rels[address] [id number] (78413) Immature Grans (Abs) 0.0 {x10E3/uL} (Normal) Range: [...] MICROALBUMIN: CREATININE Comments: PATIENT WAS FASTINGPERFORMED BY: APJeT [employer] [facility] [id number] BY: Correls[address] [id number] RATIO (81070) AND (05786) Microalb/Creat Ratio <7.8 {mg/g_creat} (Normal) Range: 0.0-30.0 Microalbumin, Urine <3.0 ug/mL (Normal) Creatinine, Urine 38.5 mg/dL (Normal) :53 HGB A1C (08750) Comments: PATIENT WAS FASTINGPERFORMED BY: Idibonlin6370 [facility] [id number] BY: Correls[address] [id number] Hemoglobin A1c 5.3 % (Normal) Range: 4.8-5.6 Comments: . Pre-diabetes: 5.7 - 6.4 Diabetes: >6.4 Glycemic control for adults with diabetes: <7.0 :53 LIPID PANEL (73703) Comments: PATIENT WAS FASTINGPERFORMED BY: [employer] [facility] [id number] BY: LabCo[address] [id number] LDL/HDL Ratio 1.8 {ratio_units} (Normal) Range: 0.0-3.6 Comments: LDL/HDL Ratio Men Women 1/2 Avg.Risk 1.0 1.5 Av g.Risk 3.6 3.2 2X Avg.Risk 6.2 5.0 3X Avg.Risk 8.0 6.1 LDL Cholesterol Calc 102 mg/dL (Abnormal) Range: 0-99 VLDL Cholesterol Chaparro 19 mg/dL (Normal) Range: 5-40 HDL Cholesterol 58 mg/dL (Normal) Triglycerides 96 mg/dL (Normal) Range: 0-149 Cholesterol, Total 179 mg/dL (Normal) Range: 100-199 51-Jmy-17314:53 METABOLIC PANEL, Comments: PATIENT WAS FASTINGPERFORMED BY: LabCoTrinitas HospitalDtulfc6885 [facility] [id number] BY: [facility] [id number] COMPREHENSIVE (27444) ALT (SGPT) 18 [iU]/L (Normal) Range: 0-44 [...] Glucose, Serum 88 mg/dL (Normal) Range: 65-99 02-Dyi-614428:15 Microscopic Examination Comments: PATIENT NOT FASTINGPERFORMED BY: [facility] [id number] Bacteria None seen (Normal) Mucus Threads Present (Normal) Epithelial Cells (non renal) None seen {/hpf} (Normal) Range: 0 - 10 RBC 0-2 {/hpf} (Normal) Range: 0 - 2 WBC 0-5 {/hpf} (Normal) Range: 0 - 5 69-Qwz-219151:15 URINALYSIS (64323) Comments: PATIENT NOT FASTINGPERFORMED BY: [facility] [id number] Information: SRC:UC Microscopic Examination See below: (Normal) Comments: Microscopic was indicated and was performed. Nitrite, Urine Negative (Normal) Urobilinogen,Semi-Qn 0.2 mg/dL (Normal) Range: 0.2-1.0 Bilirubin Negative (Normal) Occult Blood 2+ (Abnormal) Ketones Negative (Normal) Glucose Negative (Normal) Protein Trace (Normal) WBC Esterase Negative (Normal) Appearance Clear (Normal) Urine-Color Yellow (Normal) pH 6.0 (Normal) Range: 5.0-7.5 Specific Rapelje 1.025 (Normal) Range: 1.005-1.030 14-Qsc-508773:15 URINE IZA CULTURE-IDENTIFICATN Comments: PATIENT NOT FASTINGPERFORMED BY: APJeT [facility] EntertainmentFirst[facility] [id number] (38303) Result 1 NG36 (Normal) Comments: No growth in 36 - 48 hours. Urine Culture,Comprehensive Final report (Normal) 39-Dzz-41343:45 CBC W/AUTO DIFF WBC (57471) Comments: PATIENT NOT FASTINGPERFORMED BY: APJeT [facility] [id number] Immature Grans (Abs) 0.0 {x10E3/uL} (Normal) Range: [...] 4.14-5.80 WBC 6.8 {x10E3/uL} (Normal) Range: 3.4-10.8 69-Wsz-38601:45 METABOLIC PANEL, COMPREHENSIVE Comments: PATIENT NOT FASTINGPERFORMED BY: LabCoTrinitas HospitalCnticx3732 [facility] [id number] (89486) ALT (SGPT) 18 [iU]/L (Normal) Range: 0-44 [...] mg/dL (Normal) Range: 65-99 :30 Amylase Comments: [facility] [address] [facility] [place], [place], [id number] ESTIVEN 80 U/L (Normal) Range: 25-115 :30 CBC W/Diff, Automated Comments: [facility] [address] [place], [place], [address] Absolute Lymph 1.18 {X10_3/ul} (Normal) Range: 0.83-4.51 [...] Range: 4.4-11.0 22-Apr-20169:30 Comprehensive Metabolic Profil Comments: [facility] [address] [place], [address] GAP 6 (Normal) Range: 5-15 CO2 28.0 [...] mg/dL (Normal) Range: 70-110 22-Apr-20169:30 Lipase Comments: [facility] [address] [place], [place], [address] LIPASE 201 U/L (Normal) Range: 73-393 16-Lbn-927605:28 GALLBLADDER See Note (Normal) Comments: [facility] [address] [place], [place], [address] Comments: Patient: SIMEON PAIZ : 1950 (65/M) Acct Num: [id number] Phys: Simeon Gruber MD Unit Num: [id number] Loc: [facility] Specimen: [id number] Received: 09/04/15 - 4 Spec Type: G ALLBLADDE TISSUES TISSUES: CULTURE [...] thickness and is free of mass lesions. Director Of Assisted Living sections of the gallbladder and thecystic duct are submitted in one cassette. AM: 09/04/15 TC:3 CPT: 78618 HEADER OPERATION: Cholecystectomy, lap, no grams PRE-OP DIAGNOSIS: Acute biliary pancreatitis TISSUE SUBMITTED: Gallbladder MICROSCOPIC DE SCRIPTION Slides are reviewed. MICROSCOPIC DIAGNOSIS Gallbladder, cholecystectomy: Mild chronic cholecystitis. AM: 09/05/15 Signed Jared Piedraih 09/05/15 <signature on file> 8-Ras-575728:30 Urinalysis, Complete Comments: Order Date: 08/18/15How was Urine Obtained? CLEAN [facility] [address] [place], [address] FINE GRAN CAST 0-5 SEEN [...] (Normal) CLARITY Clear (Normal) COLOR Yellow (Normal) 0-Fyj-121423:00 Basic Metabolic Profile (BMP) Comments: 'TROP' Serial specimen #1, #2, #3, or #4: [address] [place] [address] [address] [place], [place], [address] GAP 12 (Normal) Range: 5-15 CO2 27.0 [...] 7-18 GLU 96 mg/dL (Normal) Range: 70-110 4-Qgm-677816:00 CBC W/Diff, Automated Comments: [facility] [address] [place], [place], [address] Absolute Lymph 2.93 {X10_3/ul} (Normal) Range: 0.83-4.51 [...] Serial specimen #1, #2, #3, or #4: [address] [place] [address] [address] [place], [address] LIPASE 77254 U/L (Abnormal) Range: 73-393 1-Djm-258447:00 Liver Profile Comments: 'TROP' Serial specimen #1, #2, #3, or #4: [address] [place] [address] [address] [place], [address] D BILI 0.13 mg/dL (Normal) [...] Serial specimen #1, #2, #3, or #4: [address] [place] [address] [address] [place], [address] TROPONIN-I < 0.02 ng/mL (Normal) Comments: TROPONIN-I EXPECTED VALUES <0.05 NEGATIVE 0.06 - 0.59 AT RISK OF LA > OR = 0.60 SUGGEST LA 61-Wqr-927632:23 Microscopic Examination Comments: PATIENT NOT FASTINGPERFORMED BY: [facility] Jttiyp0861 Brielle [facility] [id number] Bacteria None seen (Normal) Mucus Threads Present (Normal) Epithelial Cells (non renal) None seen {/hpf} (Normal) Range: 0 - 10 RBC None seen {/hpf} (Normal) Range: 0 - 2 WBC 0-5 {/hpf} (Normal) Range: 0 - 5 58-Dnk-454898:14 H pylori, IgM, IgG, IgA Comments: PATIENT NOT FASTINGPERFORMED BY: [facility]6370 [facility] [id number] Information: [id number],[id number] Ab H. pylori, IgM Abs <9.0 {units} (Normal) Range: 0.0-8.9 Comments: Negative <9.0 Equivocal 9.0 - 11.0 Positive >11.0 . This test was developed and its performance characteristics determined by [facility]. It has not been cleared or approved [...] <0.9 Indeterminate 0.9 - 1.0 Positive >1.0 29-Btt-552578:14 Request Problem Comments: PATIENT NOT FASTINGPERFORMED BY: [facility]6370 [facility] [id number] 54-Ozo-201477:1 Written Authorization WAR (Normal) Comments: PATIENT NOT FASTINGPERFORMED BY: [facility]6370 [facility] [id number] Comments: Written Authorization Received.Authorization received from ORIGINAL REQUISITION [id number] by Faye Fitzgerald 49-Qsg-317710:23 URINE IZA CULTURE (MARYCHUY COL Comments: PATIENT NOT FASTINGPERFORMED BY: [facility]6370 [facility] [id number] COUNT) (56771) Result 1 NG36 (Normal) Comments: No growth in 36 - 48 hours. Urine Culture,Comprehensive Final report (Normal) 95-Mdk-147331:14 CBC W/AUTO DIFF WBC Comments: PATIENT NOT FASTINGPERFORMED BY: [facility]6370 [facility] [id number] Information: 773936,L39754 (59061) Immature Grans (Abs) 0.0 {x10E3/uL} (Normal) Range: [...] 4.14-5.80 WBC 8.1 {x10E3/uL} (Normal) Range: 3.4-10.8 55-Pgc-388289:14 METABOLIC PANEL, COMPREHENSIVE Comments: PATIENT NOT FASTINGPERFORMED BY: [facility]CoBrenda [facility] 7608870 [facility] [id number] (81840) ALT (SGPT) 21 [iU]/L (Normal) Range: 0-44 [...] Glucose, Serum 87 mg/dL (Normal) Range: 65-99 49-Ojd-783149:14 Vitamin D Hydroxy (91798) Comments: PATIENT NOT FASTINGPERFORMED BY: [facility] Zhstyl9619 [facility] [id number] Vitamin D, 25-Hydroxy 38.7 ng/mL (Normal) Range: 30.0-100.0 Comments: Vitamin D deficiency has been defined by the [place] of[place]icine and an Endocrine Society practice guideline as alevel of serum 25-OH vitamin D less than 20 ng/mL (1,2).The Endocrine Society went on to further define vitamin Dinsufficiency as a level between 21 and 29 ng/mL (2).1. IOM ([place] of [employer]). 2010. Dietary reference intakes for calcium and D. [place]: The National Academies Press.2. Mike MF, Shital [place], Adele PEREZ, et al. Evaluation, treatment, and prevention of vitamin D deficiency: an Endocrine Society clinical practice guideline. JCEM. 2010; 96(7):1911-30. 65-Brc-751583:14 VITAMIN B-12 (CYANOCOBALAMIN) Comments: PATIENT NOT FASTINGPERFORMED BY: CorrelsenseTrinitas HospitalEihssa8449 [facility] [id number] (71146) Vitamin B12 935 pg/mL (Normal) Range: 211-946 42-Adr-141670:14 EBV Panel (77355) Comments: PATIENT NOT FASTINGPERFORMED BY: [facility]6370 [facility] [id number] Interpretation: SPRCS (Normal) Comments: EBV Interpretation Chart [...] <36.0 Equivocal 36.0 - 43.9 Positive >43.9 75-Yoa-097222:23 URINALYSIS, W/ MICRO Comments: PATIENT NOT FASTINGPERFORMED BY: [facility]6370 [facility] [id number] Information: SRC:UR [id number] (69946) Microscopic Examination See below: (Normal) Comments: Microscopic was indicated and was performed. Nitrite, Urine Negative (Normal) Urobilinogen,Semi-Qn 0.2 mg/dL (Normal) Range: 0.0-1.9 Bilirubin Negative (Normal) Occult Blood Trace (Abnormal) Ketones Negative (Normal) Glucose Negative (Normal) Protein Negative (Normal) WBC Esterase Negative (Normal) Appearance Clear (Normal) Urine-Color Yellow (Normal) pH 7.5 (Normal) Range: 5.0-7.5 Specific Rapelje 1.011 (Normal) Range: 1.005-1.030 47-Rmh-394189:14 TSH (57654) Comments: PATIENT NOT FASTINGPERFORMED BY: APJeT Fcpvkn3493 [facility] [id number] TSH 2.980 {uIU/mL} (Normal) Range: 0.450-4.500 62-Dmx-596140:14 SED RATE ERYTHROCYTE (97605) Comments: PATIENT NOT FASTINGPERFORMED BY: CorrelsenseTrinitas HospitalMevrrd4720 [facility] [id number] Sedimentation Rate-Westergren 2 mm/h (Normal) Range: 0-30 66-Dzn-682336:14 C-REACTIVE PROTEIN (12548) Comments: PATIENT NOT FASTINGPERFORMED BY: APJeTTrinitas HospitalGpshnz1186 [facility] [id number] C-Reactive Protein, Quant 1.3 mg/L (Normal) Range: 0.0-4.9 74-Ovd-353154:23 ANKLE MIN 3 VIEWS Radiology Report See [...] Mandujano M.D.February 21, 2013 at 6:08:53 PM [id number] Signed BP/BP If you are the referring physician and would like to consult with theradiologist who provided this interpretation, please contact Heri Ramsya at [phone]. If this radiologist is unavailable, youwillbe ected to another radiologist to assist. If you are a patient with a question regarding this report, pleasecontactyour referring physician directly. Professional Interpretation Provided By: [employer], Phone , These documents contain legally protected [...] ITS IMPORTSign by John Mandujano MD on 0 02/21/131810 Sign by: John Mandujano MD 61-Vrc-809077:23 FOOT MIN 3 VIEWS Radiology See Note [...] Mandujano M.D.February 21, 2013 at 6:10:23 PM [id number] Signed BP/BP If you are the referring physician and would like to consult with theradiologist who provided this interpretation, please contact Heri Ramsay at [phone]. If this radiologist is unavailable, youwillbe directed to another radiologist to assist. If you are a patient with a question regarding this report, juany zeeconsarahctyoalisha referring physician directly. Professional Interpretation Provided By: [employer], Phone , These documents contain legally protected [...] on 02/21/131812 Sign by: John Mandujano MD 60-Pku-431129:57 CBC With Differential/Platelet Comments: PERFORMED BY: [facility]6370 [facility] [id number] Immature Grans (Abs) 0.0 {x10E3/uL} (Normal) Range: [...] 4.14-5.80 WBC 6.4 {x10E3/uL} (Normal) Range: 4.0-10.5 70-Aar-890906:57 Celiac Disease Comprehensive Comments: PERFORMED BY: [facility]6370 [facility] [id number] Immunoglobulin A, Qn, Serum 266 mg/dL (Normal) [...] Comp. Metabolic Panel (14) Comments: PERFORMED BY: [facility] [id number] ALT (SGPT) 17 [iU]/L (Normal) Range: 0-44 [...] Glucose, Serum 90 mg/dL (Normal) Range: 65-99 :57 H pylori, IgM, IgG, IgA Ab Comments: PERFORMED BY: [facility] [id number] H.pylori, IgM ABS <0.80 {index} Range: 0.00-0.79 [...] Serum 2.0 mg/dL (Normal) Comments: PERFORMED BY: [employer]6370 [facility] [id number] :57 Range: 1.6-2.6 TSH 2.770 {uIU/mL} Comments: PERFORMED BY: [employer]6370 [facility] [id number] :57 (Normal) Range: 0.450-4.500 Vitamin D, 25-Hydroxy 32.0 ng/mL (Normal) Comments: PERFORMED BY: [employer]6370 [facility] [id number] :57 Range: 30.0-100.0 Comments: Vitamin D deficiency has been defined by the [place] of[place] and an Endocrine Society practice guideline as alevel of serum 25-OH vitamin D less than 20 ng/mL (1,2).The Endocrine Society went on to further define vitamin Dinsufficiency as a level between 21 and 29 ng/mL (2).1. IOM ([place] of [employer]). 2010. Dietary reference intakes for calcium and D. [place]: The National Academies Press.2. Mike MF, Shital [place], Adele PEREZ, et al. Evaluation, treatment, and prevention of vitamin D deficiency: an Endocrine Society clinical practice guideline. JCEM. 2010; 96(7):1911-30. 28-Dvc-671300:09 URINE IZA CULTURE-IDENTIFICATN Comments: PATIENT NOT FASTINGPERFORMED BY: [facility] Abdabh[address] [place] [id number] Information: [id number] (03928) Result 1 NG36 (Normal) Comments: No growth in 36 - 48 hours. Urine Culture,Comprehensive Final report (Normal) 09-Vcn-41638:35 Urinalysis, Office (11652) UA - BILIRUBIN Negative (Normal) UA - BLOOD Hemolyzed Small (Normal) UA - GLUCOSE Negative (Normal) UA - KETONES Negative mg/dL (Normal) UA - LEUKOCYTE ESTERASE Negative (Normal) UA - NITRITE Negative (Normal) UA - PH 7.5 (Normal) UA - PROTEIN Negative mg/dL (Normal) UA - SPECIFIC GRAVITY 1.015 (Normal) URINE UROBILINGN MARYCHUY TIMED Normal mg/dL (Normal) 89-Gej-054926:27 KNEE,4 OR MORE VIEWS Radiology Report See [...] radiologist regarding this report, please call our [id number] line @ Dictated on 12/09 1636 by Alfredo Gotti MDTranscribed on 12/11/11 171 by ITS IMPORTSign by Alfredo Gotti MD on 12/11/11 171 Sign by: Alfredo Gotti MD 7-Met-947841:26 HAND,MIN 3 VIEWS Radiology Report See Note [...] osteoarthritis, as described above. Dictated on 04/16/11 162 by Hiren Braden MDTranscribed on 04/17/11 0126 by ITS IMPORTSign by Hiren Braden MD on 12/23 0126 Sign by: Hiren Braden MD 1-Bli-248160:26 HAND,MIN 3 VIEWS Radiology Report See Note [...] 7 {units} Comments: PATIENT NOT FASTINGPERFORMED BY: [employer] [id number] BY: [address] [id number] 6:01 IgG/IgA (Normal) Range: 0-19 Comments: Negative <20 Weak positive 20 - 39 Moderate positive 40 - 59 Strong positive >59 Comment: SPRCS (Normal) Comments: PATIENT NOT FASTINGPERFORMED BY: [facility]Tr[facility] HospitalXrjgum2073 [facility] [id number] BY: [address] [id number] 6:01 Comments: Effective June 11, 2009 order code 148217 CCP IgGAntibodies has been replaced due to an updated reagentversion 3.1. For this reason [facility] has provided youwith a new order code [id number] CCP Antibodies IgG/IgA. 5-Dbt-851465:01 SED RATE ERYTHROCYTE Comments: PATIENT NOT FASTINGPERFORMED BY: [facility]Trinit[facility] HospitalUtfydj2387 [facility] [id number] BY: [address] [id number] (00719) Sedimentation Rate-Westergren 3 mm/h (Normal) Range: 0-41 0-Qhg-872766:01 C-REACTIVE PROTEIN (80776) Comments: PATIENT NOT FASTINGPERFORMED BY: [facility] BackstageJ[place] 2429670 [facility] [id number] BY: [address] [id number] C-Reactive Protein, Quant 0.7 mg/L (Normal) Range: 0.0-4.9 :01 TSH (80154) Comments: PATIENT NOT FASTINGPERFORMED BY: LabJenn[facility] [place] 2429670 [facility] [id number] BY: [address] [id number] TSH 2.220 {uIU/mL} (Normal) Range: 0.450-4.500 :01 RHEUMATOID FACTOR-QUANT Comments: PATIENT NOT FASTINGPERFORMED BY: LabJenn[place] 2429670 [facility] [id number] BY: [address] [id number] (00560) RA Latex Turbid. 9.1 {IU/mL} (Normal) Range: 0.0-13.9 :01 BO (ANTINUCLEAR ANTIBODY) Comments: PATIENT NOT FASTINGPERFORMED BY: LabJ[place] 2429670 [facility] [id number] BY: [address] [id number] (43010) BO Direct Negative (Normal) : CBC WITH MANUAL DIFF Comments: PATIENT NOT FASTINGPERFORMED BY: [place] 7434770 [facility] [id number] BY: [address] [id number] Inf ormation: [id number] (59064) Immature Grans (Abs) 0.0 {x10E3/uL} (Normal) Range: [...] 4.10-5.60 WBC 6.2 {x10E3/uL} (Normal) Range: 4.0-10.5 4-Osa-317480:01 METABOLIC PANEL, Comments: PATIENT NOT FASTINGPERFORMED BY: [facility] Ochcbk4221 [facility] [id number] BY: [facility] [address] [id number] [facility] (51431) ALT (SGPT) 15 [iU]/L (Normal) Range: 0-55 [...] mg/dL (Normal) Range: 65-99 :29 IZA CULTURE-OTHER (84297) Comments: PATIENT NOT FASTINGPERFORMED BY: LabCoTrinitas HospitalIknrcl8819 [facility] [id number] Information: SRC:CBT [id number] Result 1 RRF (Normal) Comments: Routine respiratory hilda Upper Respiratory Culture Final report (Normal) :05 Rapid Strep Test, Office (93264) Rapid Strep Test, Office Negative (Normal) :00 [...] Cyclospora, or Microspo ridia. TESTING PERFORMED AT [facility]. ORIGINAL REPORT ON FILE IN LAB CONTAINS ADDITIONAL TEST SITE INFORMATION. OVA/ PARASITES EXAM NO OVA, CYSTS, OR PARASITES FOUND. 26-Suj-348086:22 FOLIC ACID SERUM (77106) Comments: PATIENT NOT FASTINGPERFORMED BY: [address] [id number] Folate (Folic Acid), Serum 14.5 ng/mL (Normal) Comments: Indeterminate: 2.2 - 3.0 Deficient: <2.2 26-Vtq-446476:22 VITAMIN B-12 (CYANOCOBALAMIN) Comments: PATIENT NOT FASTINGPERFORMED BY: [place] 7434770 [facility] [id number] (61998) Vitamin B12 566 pg/mL (Normal) Range: 211-946 29-Xro-490708:22 T3, FREE (TRIDOTHYRONINE) (51424) Comments: PATIENT NOT FASTINGPERFORMED BY: [address] [id number] Triiodothyronine,Free,Serum 3.0 pg/mL (Normal) Range: 2.0-4.4 32-Vhh-375938:22 T4, FREE (THYROXINE) Comments: PATIENT NOT FASTINGPERFORMED BY: [address] [id number] Information: [id number] (50744) T4,Free(Direct) 1.40 ng/dL (Normal) Range: 0.82-1.77 07-Qwv-878935:22 Anti-TPO Antibody (11065) Comments: PATIENT NOT FASTINGPERFORMED BY: [facility]6370 [facility] [id number] Thyroid Peroxidase (TPO) Ab 9 {IU/mL} (Normal) Range: 0-34 46-Qvh-539201:22 TSH (27280) Comments: PATIENT NOT FASTINGPERFORMED BY: [facility] Nvugbl5240 [facility] [place] [id number] TSH 2.640 {uIU/mL} (Normal) Range: 0.450-4.500 98-Nqk-224725:22 Vitamin D Hydroxy (32871) Comments: PATIENT NOT FASTINGPERFORMED BY: [facility] Simltg2922 [facility] [id number] Vitamin D, 25-Hydroxy 48.1 ng/mL (Normal) Range: 32.0-100.0 Comments: Recent studies consider the lower limit of 32.0 ng/mL to be athreshold for optimal health.Stevan NEAL. J Nutr. 2004;135(2):317-22. 27-Pga-979847:37 SERUM CRE & GFR EST GFR 60 mL/min (Normal) EST GFR - AA 73 mL/min (Normal) CREAT,SERUM 1.3 mg/dL (Normal) Range: 0.8-1.3 52-Qpm-415694:40 ABDOMEN WITH IV CONTRAST Radiology Report See Note (Normal) Comments: Exam Number: [id number] LINICAL:The patient is a 60-year-old man with [...] is seen Reported By: JA MARIN M.D. 4-Hnq-897848:10 HEPATOBILIARY IMAGING Radiology Report See Note (Normal) Comments: Exam Number: [id number] HEPATOBILIARY IMAGING HISTORYRight upper quadrant pain. Following [...] with Cholecystokinin. Reported By: JA MARIN M.D. 84-Pvp-361377:32 GALLBLADDER Radiology Report See Note (Normal) Comments: Exam Number: [id number] ULTRASOUND OF THE GALLBLADDER Multiple views of [...] abnormality is seen. Reported By: CHIDI WALKER 62-Yqi-888460:07 Bilirubin, Total/Direct, Serum Comments: PERFORMED BY: [facility]Co[facility] HospitalSwrcwe4349 [facility] [id number] Bilirubin, Indirect 0.70 mg/dL (Normal) Range: 0.10-0.80 Bilirubin, Direct 0.20 mg/dL (Normal) Range: 0.00-0.40 :07 CBC WITH MANUAL DIFF (99424) Comments: PERFORMED BY: [facility]6370 [facility] [id number] Baso (Absolute) 0.1 {x10E3/uL} (Normal) Range: 0.0-0.2 [...] 4.10-5.60 WBC 7.5 {x10E3/uL} (Normal) Range: 4.0-10.5 79-Tua-244534:07 METABOLIC PANEL, COMPREHENSIVE Comments: PERFORMED BY: [facility]6370 [facility] [id number] (59245) Alkaline Phosphatase, S 77 [iU]/L (Normal) Range: [...] Glucose, Serum 88 mg/dL (Normal) Range: 65-99 7-Zpd-491618:10 KIDNEY (HP) Radiology Report See Note (Normal) Comments: Exam Number: [id number] CLINICAL:Elevated renal functions. RENAL ULTRASOUND TECHNIQUE: COMPARISON:None [...] CHOL 170 mg/dL (Normal) Comments: <200 mg/dL Oxocefixj126-263 mg/dL Borderline>240 mg/dL High Risk HDL 52 [...] VITAMIN B12 729 pg/mL (Normal) Range: 254-1320 65-Pfy-419819:20 IZA CULTURE-OTHER (55116) Comments: PATIENT NOT FASTINGPERFORMED BY: [facility] [id number] Information: SRC:THRT [id number] Result 1 RRF (Normal) Comments: Routine respiratory hilda Upper Respiratory Culture Final report (Normal) 87-Yoy-522206:19 Rapid Strep Test, Office (99804) Rapid Strep Test, Office Negative (Normal) 43-Lps-053123:31 URINE IZA CULTURE (MARYCHUY COL Comments: PATIENT NOT FASTINGClinical Information: SRC:UR [id number] PERFORMED BY: [facility] [id number] COUNT) (49939) Result 1 NG36 (Normal) Comments: No growth in 36 - 48 hours. Urine Culture,Comprehensive Final report (Normal) 07-Jsx-88023:31 Urinalysis, Office (25957) UA - LEUKOCYTE ESTERASE Negative (Normal) Comments: aw UA - BILIRUBIN Negative (Normal) UA - BLOOD Non Hemolyzed Moderate (Normal) UA - GLUCOSE Negative (Normal) UA - KETONES Negative mg/dL (Normal) UA - NITRITE Negative (Normal) UA - PH 5.0 (Normal) UA - PROTEIN Negative mg/dL (Normal) UA - SPECIFIC GRAVITY 1.020 (Normal) URINE UROBILINGN MARYCHUY TIMED Normal mg/dL (Normal) 59-Ixs-988455:45 CHEST, PA AND LATERAL Radiology Report See Note (Normal) Comments: Exam Number: [id number] TWO VIEW CHEST COMPARISON STUDYNone. REASON FOR EXAMINATIONCough. Cardiac, mediastinal and hilar contours are normal. Lungs are clearwithout consolidation or effusion . Fine line ar opacity at the leftlateral base likely represents subsegmental atelectasis/scar. Thereis no acute osseous abnormality. Upper abdomen is unremarkable. IMPRESSIONNo radiographic evidence for acute ch est abnormality. Reported By: KANE MANUEL M.D. 67-Bbm-226975:26 CBCD BASO% 0.5 % (Normal) Range: 0-1 [...] 11.6-14.6 WBC 8.9 K/mm3 (Normal) Range: 4.4-11.0 23-Ndm-381887:26 ESR SED RATE 11 mm/h (Normal) Range: 0-20 :05 Urinalysis, Office (53933) Comments: done BC UA - BILIRUBIN Negative [...] See Note (Normal) Comments: TESTING PERFORMED AT [facility]. ORIGINAL REPORT ON FILE IN LAB CONTAINS ADDITIONAL TEST SITE INFORMATION. 2 CULTURE, VIRUS GENERAL NO VIRUS ISOLATED AFTER 14 DAYS- FINAL REPORT 81-Dwe-272866:38 Urinalysis, Office (37704) UA - BILIRUBIN Negative (Normal) UA - BLOOD Hemolyzed Large (Normal) UA - GLUCOSE Negative (Normal) UA - KETONES Small mg/dL (Normal) Comments: 15 UA - LEUKOCYTE ESTERASE Negative (Normal) UA - NITRITE Negative (Normal) UA - PH 6.5 (Normal) UA - PROTEIN Trace mg/dL (Normal) UA - SPECIFIC GRAVITY 1.000 (Normal) URINE UROBILINGN MARYCHUY TIMED Normal mg/dL (Normal) 89-Mhi-472329:19 Rapid Flu (75993 x 2) Comments: Neg INFLUENZA IMMUNOASSY DIRECT OPTICAL OBSERV Negative (Normal) 67-Oys-050964:12 Rapid Strep Test, Office (15684) Comments: neg Rapid Strep Test, Office Negative (Normal) :31 CORONALS,SAG,MULTI,OBL,3-D REC Radiology Report See Note (Normal) Comments: Exam Number: [id number] CT SINUSES REASON FOR EXAMAcute sinusitis. Recent history of dental procedure with drainageof tooth abscess and root canal. Coronal and axial CT scan obtained through the [facility]. All areas areviewed at soft tissue and [...] Report See Note (Normal) Comments: Exam Number: [id number] CT SINUSES REASON FOR EXAMAcute sinusitis. Recent history of dental procedure with drainageof tooth abscess and root canal. Coronal and axial CT scan obtained through the [facility]. All areas areviewed at soft tissue and [...] TSH 2.74 {uIU/mL} Range: 0.34-4.82 00 (Normal) 03-Bqm-453870:20 A/C JTS,KYRA W OR W/O WTS Radiology Report See Note (Normal) Comments: Exam Number: [id number] LEFT SHOULDER/BILATERAL ACROMIOCLAVICULAR JOINTS CLINICAL INFORMATIONShoulder pain. [...] acromioclavicular joints. Reported By: FILIPPO PETERSON M.D. :19 SHOULDER,MIN 2 VIEWS Radiology Report See Note (Normal) Comments: Exam Number: [id number] LEFT SHOULDER/BILATERAL ACROMIOCLAVICULAR JOINTS CLINICAL INFORMATIONShoulder pain. [...] Symptoms Indication: Acute sinusitis, unspecified Planned Observations Vitamin B-12 (cyanocobalamin) (05184)Indication: Fatigue On: 15-Jun-20189:23 Request URINALYSIS, W/ MICRO (20364)Indication: Benign essential hypertension On: 04-Hds-630750:04 Request CBC W/AUTO DIFF WBC (41943)Indication: Benign essential hypertension On: 65-Rcj-226154:04 Request METABOLIC PANEL, COMPREHENSIVE (71659)Indication: Benign essential hypertension On: 49-Pdx-547847:04 Request HEPATITIS C ANTIBODY (30973)Indication: Encounter for hepatitis C virus screening test for high risk patient On: 66-Wtg-642242:04 Request HGB A1C (90144)Indication: Abnormal blood sugar On: 7-Kqz-915520:03 Request CBC W/AUTO DIFF WBC (66074)Indication: Benign essential hypertension On: :46 Request METABOLIC PANEL, COMPREHENSIVE (27555)Indication: Benign essential hypertension On: :46 Request LIPID PANEL (17662)Indication: Mixed hyperlipidemia On: :46 Request HEPATITIS C ANTIBODY (27221)Indication: Encounter for hepatitis C virus screening test for high risk patient On: :46 Request METABOLIC PANEL, COMPREHENSIVE (96683)Indication: Prediabetes On: :30 Request RENIN (31097)Indication: Malignant hypertension On: :53 Request URINE VMA (67951)Indication: Malignant hypertension On: :53 Request CATECHOLAMINES TOTAL, URINE (51124)Indication: Malignant hypertension On: :53 Request METANEPHRINES - URINE (43906)Indication: Malignant hypertension On: :53 Request TESTOSTERONE FREE (62621)Indication: Decreased libido (Renamed from Low libido) On: 4-Axg-611274:02 Request LIPID PANEL (44010)Indication: Mixed hyperlipidemia On: 14-Aug-20169:55 Request PSA (PROSTATE SPECIFIC ANTIGEN) (V76.44)Indication: Encounter for screening for malignant neoplasm of prostate (Renamed from Screening for prostate cancer) On: :13 Request CBC with auto diff (49067)Indication: Prediabetes On: :12 Request METABOLIC PANEL, COMPREHENSIVE (24113)Indication: Prediabetes On: :12 Request MICROALBUMIN: CREATININE RATIO (04383) AND (80038)Indication: Prediabetes On: 14-Aug-20169:12 Request HGB A1C (03282)Indication: Prediabetes On: :12 Request HEPATIC FUNCTION PANEL (84599)Indication: Acute epigastric pain On: :36 Request Comments: standing Lipase (16757)Indication: Acute epigastric pain On: :36 Request Comments: standing Amylase (37331)Indication: Acute epigastric pain On: :36 Request Comments: standing Lipase (77137)Indication: Abdominal pain, acute, right upper quadrant (Renamed from Acute abdominal pain in right upper quadrant) On: :15 Request Comments: stat Amylase (08645)Indication: Abdominal pain, acute, right upper quadrant (Renamed from Acute abdominal pain in right upper quadrant) On: :15 Request Comments: stat CBC WITH MANUAL DIFF (37509)Indication: Abdominal pain, acute, right upper quadrant (Renamed from Acute abdominal pain in right upper quadrant) On: :15 Request Comments: stat METABOLIC PANEL, COMPREHENSIVE (56412)Indication: Abdominal pain, acute, right upper quadrant (Renamed from Acute abdominal pain in right upper quadrant) On: :15 Request Comments: stat Vitamin D Hydroxy (72320)Indication: Fatigue On: :35 Request VITAMIN B-12 (CYANOCOBALAMIN) (47968)Indication: Fatigue On: :34 Request METABOLIC PANEL, COMPREHENSIVE (99230)Indication: Pancreatitis, acute On: :33 Request CBC W/AUTO DIFF WBC (74172)Indication: Anemia On: :33 Request LIPID PANEL (93700)Indication: Mixed hyperlipidemia On: :33 Request PSA (PROSTATE SPECIFIC ANTIGEN) (V76.44)Indication: Screening for prostate cancer On: 17-Cxq-31682:32 Request Phosphorus (75870)Indication: Abdominal pain, acute, generalized On: 44-Ijl-959077:51 Request Magnesium (52875)Indication: Abdominal pain, acute, generalized On: 55-Ros-004930:51 Request METABOLIC PANEL, COMPREHENSIVE (88260)Indication: Abdominal pain, acute, generalized On: 73-Gci-031173:50 Request Helicobacter pylori Ag, EIA (35521)Indication: Abdominal pain, acute, generalized On: 78-Elo-290128:08 Request H. PYLORI ANALYSIS UREASE ACTIVITY (60849)Indication: Metallic taste On: :05 Request Celiac Disease Comphrehensive Profile (45267)Indication: Metallic taste On: :05 Request MAGNESIUM (72027)Indication: Metallic taste On: :03 Request CALCIFEDIOL (15468)Indication: Metallic taste On: :03 Request TSH (63020)Indication: Metallic taste On: :02 Request CBC with manual diff (26183)Indication: Metallic taste On: :02 Request Metabolic Panel, Comprehensive (34370)Indication: Metallic taste On: :02 Request CCP ANTIBODY (79478)Indication: Pain in unspecified joint On: 7-Xzg-874004:55 Request HEPATIC FUNCTION PANEL (74062)Indication: Mixed hyperlipidemia On: :19 Request LIPID PANEL (42750)Indication: Mixed hyperlipidemia On: :19 Request OVA & PARASITE DIR SMEAR (58408)Indication: Diarrhea On: :26 Request Comments: check and make sure no giardia IZA CULTURE-STOOL (68972)Indication: Diarrhea On: :26 Request HEPATIC FUNCTION PANEL (39712)Indication: Bilateral carotid artery stenosis On: :05 Request LIPID PANEL (97446)Indication: Bilateral carotid artery stenosis On: :05 Request Creatine (93121)Indication: Abdominal pain, acute, right upper quadrant On: 57-Erm-242524:55 Request Bilirubin, total (62203)Indication: Abnormal blood chemistry On: 58-Bso-132427:49 Request Bilirubin, Direct (36949)Indication: Abnormal blood chemistry On: 58-Lod-178901:49 Request VITAMIN B-12 (CYANOCOBALAMIN) (65375)Indication: Fatigue On: :08 Request LIPID PANEL (70662)Indication: screening On: :08 Request PSA (PROSTATE SPECIFIC ANTIGEN) (V76.44)Indication: Screening for prostate cancer On: :06 Request URINALYSIS, W/ MICRO (49026)Indication: Fatigue On: :06 Request TSH (25704)Indication: Fatigue On: 31-Xlp-132830:06 Request METABOLIC PANEL, COMPREHENSIVE (80978)Indication: Fatigue On: 93-Xns-124452:06 Request CBC WITH MANUAL DIFF (93070)Indication: Fatigue On: 23-Iyk-519906:06 Request VIRAL CULTURE (57886) On: 32-Msf-426742:55 Request IZA CULTURE-OTHER (16471) On: 55-Ywx-883163:52 Request TSH (35283)Indication: Anxiety On: 81-Xyk-908905:18 Request Planned Encounters Medical; [facility] [...] A ELECTROCARDIOGRAM, COMPLETE (ECG) On: 20-Nov-2017 Intent (43255)By: Fast DO, Diandra A Fast DO, Comments: ekg showed normal sinus rhythym, normal axis, no acute st/t wave changes Diandra A Renal Duplex ScanBy: Fast DO, Diandra A On: 09-Oct-2016 Intent Fast DO, Diandra A ELECTROCARDIOGRAM, COMPLETE (ECG) On: 08-Oct-2016 Intent (99164)By: Fast DO, Diandra A Fast DO, Comments: ekg showed normal sinus rhythym, normal axis, no acute st/t wave changes Diandra A Cartoid DopplerBy: Fast DO, Diandra A Fast On: 08-Oct-2016 Intent DO, Diandra A INFUSION, NORMAL SALINE SOLUTION , 1000 On: 28-Aug-2016 Intent CC (Special Coverage Instructions Apply. Comments: lot:[id number]:12-13-2017rte: left anticub. IV dose: 1000ml (2 bags) given by:Suzanne Godinez LPN See MCM: 2049) (J7030)By: BARRINGTON Patton Phenergan Injection, up to 50 mg On: 28-Aug-2016 Intent (J2550)By: BARRINGTON Patton Comments: lot:[id number]:04/2017rte:IM right gluteal dose:25mggiven by:cristian Godinez LPN ELECTROCARDIOGRAM, COMPLETE (ECG) On: 14-Aug-2016 Intent (44135)By: Fast DO Diandra A Fast DO, Comments: ekg showed normal sinus rhythym, normal axis, no acute st/t wave changes Diandra A Cartoid DopplerBy: Fast DO, Diandra A Fast On: 14-Aug-2016 Intent DO, Diandra A Comments: bilateral Cartoid DopplerBy: Fast DO, Diandra A Fast On: 10-Jun-2016 Intent DO, Diandra A MAGNETIC RESONANCE On: 22-Apr-2016 Intent CHOLANGIOPANCREATOGRAPHY (MRCP) WITH Comments: rule out biliary sludge or stone CONTRAST (15733)By: Fast DO, Diandra A Fast DO, Diandra A Cartoid DopplerBy: Fast DO, Diandra A Fast On: 24-Aug-2015 Intent DO, Diandra A CT - Abdomen (IV Contrast Needed)By: Fast On: 24-Aug-2015 Intent DO, Diandra A Fast DO, Diandra A IMMUNIZ ADMNIN, 1 VAC, SNGL/COMBO On: 10-Mar-2014 Intent (78448)By: Visit, Nurse [facility] [place] (80638)By: Fast DO, Diandra On: 10-Mar-2014 Intent A Fast DO, Diandra A Comments: lot: [id number]: 11/17/14site/route: R arm/IMamt:0.5mLVIS signed when applicableSHELBY Zamora Radiology - Foot - RightBy: Fast DO, On: 21-Feb-2013 Intent Diandra A Fast DO, Diandra A Comments: call wet read Radiology - Ankle - RightBy: Fast DO, On: 21-Feb-2013 Intent Diandra A Fast DO, Diandra A Comments: call wet read Solu -Medrol Injection, 125 mg On: 08-Nov-2012 Intent (J2930)By: Faye Narayan CNP Comments: lot # [id number]- 06/2015site-RGlut tyrrg-OXuspc-8 ML [facility] PHYSICAL THERAPY EVALUATION (87197)By: On: 10-Dec-2011 Intent Faye Narayan CNP Radiology [...] do today- call wet read Overnight Pulse Ox(05381)By: Bladimir GONZALEZ, On: 12-Jun-2010 Intent Lakshmi Ultrasound - GallbladderBy: Fast DO, On: 02-Nov-2009 Intent Diandra A Fast DO, Diandra A Pneumovax (34393)By: Erin Jordan LPN On: 26-Jun-2009 Intent Comments: Lot #[id number]-11/20/10Site-right deltoidDose0.5mlgiven by:[facility] Flu Vaccine, Split IM (55443)By: Julian On: 26-Jun-2009 Intent Erin GONZALEZ Comments: Lot #[id number] deltoidgiven by:[facility] Inhaler Demonstration ([id number])By: Sylvain On: 21-Sep-2008 Intent Faye LIM Comments: done BC Pulse Oximetry ([id number])By: Faye Narayan CNP On: 21-Sep-2008 Intent E Comments: done BC Aerosol Treatment ([id number])By: Sylvain LIM On: 21-Sep-2008 Intent Faye Alves Comments: done BC Solu -Medrol Injection, 125 mg On: 21-Sep-2008 Intent ([id number])By: Faye Narayan CNP Comments: Amt: 2mlLot: [id number]: 03/2011Route: IMSite: right hipTolerated: wellGiven By: LISA Soto Pulse Oximetry ([id number])By: Faye Narayan CNP On: 31-Aug-2008 Intent E Pulse Oximetry ([id number])By: Faye Narayan CNP On: 31-Aug-2008 Intent E Aerosol Treatment ([id number])By: Sylvain LIM, On: 31-Aug-[address] - Sinuses CompleteBy: Maxim DO, On: 01-Feb-2008 Intent Johana PHYSICAL THERAPY EVALUATION ([id number])By: On: 01-Nov-2007 Intent Faye Narayan CNP Radiology - Shoulder - LeftBy: Fast DO, On: 12-Oct-2007 Intent Diandra A Fast DO, Diandra A Comments: and left ac joint Nerve ConductionBy: Maxim HAMMJohana On: 15-Jan-2007 Intent EMGBy: Maxim HAMM Johana On: 15-Jan-2007 Intent Inhaler Demo ([id number])By: JOSY LIM, On: 10-Sep-2006 Intent LASHAY Aerosol Treatment ([id number])By: JOSY LIM, On: 10-Sep-2006 Intent LASHAY Comments: expiratory wheeze absent on rt after treatment.Continues on rt. Pulse Oximetry ([id number])By: JOSY LIM, On: 10-Sep-2006 Intent LASHAY Comments: 98% Planned [...] Scanned Document is available upon request. Encounters Phone Encounter On: 28-Jul-2018 15:04 Encounter Diagnosis: [...] time losxarten bothers hi m if quick [place] movements and laying on backget up- riding [...] 10:34 [facility] Office Visit On: 15-Dec-2016 9:41 Encounter Reason: Vomiting - Note for [...] or vomiting. Previous evaluations have included endoscopy (sabrina zelaya). Note for Abdominal pain: -he didnt feel a lump he just felt a gas bubble in right mid abd- medial to gb and near duodenum- has been chronic- he is unsure whether food makes a difference- sometim es better sometimes worse- he called [place] [facility] other day and gave him dicyclomine- [...]
--- OUTSIDE RECORDS SUMMARY | 2018-12-04 23:09 | XMS RPT_ITS | Continuity of Care Document ---
:1950 Author Organization [facility] Address [address] [facility] [address] [place] [address] Phone Care Team Providers Name Role Phone Diandra Anaya DO Unavailable [facility], [facility] Unavailable Dr. Ryne Arndt Unavailable Marlene Ghosh Unavailable [place] DPMBrien Unavailable Long STEAM PLANT OPERATOR, Shayla L Unavailable Unavailable Slarb STEAM PLANT OPERATOR, Jade Unavailable Unavailable Willy Edouarda Unavailable Unavailable [...] Status: Active MDVIP WELLNESS EXAM Status: Active Mixed hyperlipidemia (E78.2, 272.2) Comments: [...] hs for 0 days Refills: 0 Ordered:06-Feb-2010 Mercy Felicianoctive CELEBREX, 200MG (Oral Capsule) 1 Capsule daily [...] {Tablet} Refills: 0 Ordered:26-May-2018 Shayla West LPN L Start : 10-Jan-2018 End : 26-May-2018 Inactive CLARITIN, 10MG (Oral Tablet) 1 for 0 days Refills: 0 Ordered:06-Feb-2010 Sheryl Feliciano Start : 09-May-2009 Inactive Flagyl 500 MG Oral Tablet 1 (one) Tablet bid for 0 days Quantity: 20 {Tablet} Refills: 0 Ordered:26-May-2018 Long [employer] PLANT OPERATOR, Shayla L Start : 10-Jan-2018 End : 26-May-2018 Inactive [...] qd for 0 days Refills: 0 Ordered:06-Feb-2010 Mercy Felicianoctive ZYRTEC HIVES RELIEF, 10MG (Oral Tablet) 1 Tablet daily for 0 days Quantity: 30 {Tablet} Refills: 0 Ordered:21-Feb-2013 Sera Edouard Start : 08-Nov-2012 End : 21-Feb-2013 Inactive AMBIEN, 5MG (Oral Tablet) 1 tab Tablet q hs, prn for 0 days Quantity: 30 {Tablet} Refills: 2 Ordered:06-Feb-2010 Fast DO, Diandra AFast DO, Diandra A Start : 06-Feb-2010 End : 06-Feb-2010 Discontinued ATIVAN, 1MG (Oral Tablet) 1 Tablet q6 hrs prn for 0 days Quantity: 20 {Tablet} Refills: 0 Ordered:07-Nov-2010 Fast DO, Diandra AFast DO, Diandra A Start : 07-Nov-2010 End : 07-Nov-2010 Discontinued ATIVAN, 1MG (Oral Tablet) 1 (one) Tablet QHS / HS for 0 days Quantity: 14 {Tablet} Refills: 0 Ordered:01-Feb-2008 Agnes Osman Start : 01-Feb-2008 End : 31-Aug-2008 Discontinued Ciprofloxacin HCl 500 MG Oral Tablet [...] QD for 0 days Refills: 0 Ordered:03-May-2009 Parmjit Venessa Start : 03-May-2009 End : 03-May-2009 Discontinued Comments:This order discontinued per [employer]. OxyCODONE HCl 5 MG Oral Capsule 1 (one) Capsule Capsule q4h prn for 0 days Quantity: 20 {Capsule} Refills: 0 Ordered:22-Apr-2016 Sheryl Feliciano Start : 20-Aug-2015 End : 22-Apr-2016 Discontinued Comments:number given unknown -- started by [facility] for pancreatitis PROZAC, 10MG (Oral Tablet) [...] Comments: 2014 Vasectomy Completed Date Value Details 08-Oct-2016 PT D/C of Non Returning Pt (1) Result: Comments: See Note; NOTES: [facility] [address] [place] [address] Fax REHABILITATION SERVICES DISCHAR GE SUMMARY MR#: [id number] Acct: [id number] Name: SIMEON PAIZ Rep #: [id number] : 1950 66 From: Sean Rojas PT, Cert. MDT, OCS Referring DrSandra: Diandra Anaya DO Status: REG RCR Insurance: mPort - Discharge Summary (1) - Patient Information [...] PT, <Electronically signed by Sean Rojas PT, Cert. HORTONT, OCS> 10/08/16 0801 CC: Diandra Anaya DO VIRAL Signed 21-Aug-2016 Inital Evaluation (1) - PT Result: Comments: See Note; NOTES: [facility] [address] [place] [address]. [address] [place], [place] [address] Fax REHABILITATION SERVICES INITIAL EVALUATION MR#: [id number] Acct: [id number] Name: SIMEON PAIZ Rep #: [id number] : 1950 66 From: Cert. BRENDA Beauchamp PT, OCS Referring Dr.: Diandra Anaya DO Status: REG RCR Insurance[facility] Patient's Visit Information [...] effect Lumbar Standing: Right Side Glides - Pitch Gatherer al Response: No effect Lumbar Standing: Right Side [place] - Symptoms During Testing: No effect Lumbar Standing: Right Side [place] - Symptoms After Testing: No effect Lumbar Standing: Left Side [place] - Mec hanical Response: No effect Lumbar Standing: Left Side [place] - Symptoms During Testing: No effect Lumbar Standing: Left Side [place] - Symptoms After Testing: No effect Lumbar [...] to be FAXED BACK to us at [phone] for Medicare purposes. Please let me know if there are questions or concerns regarding this plan of care. Physician Signature: Date: <Electr onically signed by Sean Rojas PT, Cert. BRENDA, OCS> 08/21/16 1517 CC: Diandra Anaya DO VIRAL Signed For Medicare only, by signing this I certify the plan of care. __ Physicians Signature Date 24-Apr-2016 MRCP Abdomen without Contrast Result: Comments: See Note; NOTES: [facility] Imaging Services [address] [place] [address] Verdana 4d MRCP Abdomen without Contrast MR#: [id number] Acct: [id number] Name: DELMA PAIZ Rep #: [id number] : 1950 M 66 From: Catherine Mota MD PCP: Diandra Anaya DO Status: REG CLI Study: MRCP Abdomen without Contrast Date of Exam: 04/24/16 Exam# [id number] Ordering Dr: Diandra Anaya DO STUDY: MR [...] MD at 9:35 EDT , Service support [phone], CC: Diandra Anaya DO Fly Frame Tender: Signed 20-Sep-2015 Operative Report Result: Comments: See Note; NOTES: [facility] Medical Records Department [address] [place] [address] Operative Report MR#: [id number] Acct: [id number] Name: KIKE PAIZ Rep #: [id number] : 1950 65 From: Simeon Gruber MD PCP: Diandra Anaya DO Status: [facility] DATE OF SERVICE: 09/04/2015 DATE [...] the fascia of the umbilical port with luphyz-qy-vucvy stitch of 0 Vicryl. Skin incisions were closed with subcuticular stitches of 4-0 Monocryl. Steri- Strips were applied. Sterile dressings we re applied and the patient tolerated the procedure well. Simeon Gruber MD T: NTS JOB: [id number] 09/20/15 1111 <Electronically signed by Simeon Gruber MD> Date Simeon Gruber MD Cosigner Signature (If Indicated): Date CC: Simeon Gruber MD; Diandra Anaya DO Date D ictated: 09/04/151151 Date Transcribed: 09/04/151151 Fly Frame Tender: Signed 06-Sep-2015 12 Lead Electrocardiogram Result: Comments: See Note; NOTES: [facility] Cardiovascular Services [address] [place] [address] 12 Lead EKG 09/04/15 0912 MR#: [id number] Acct: [id number] Name: SIMEON BUENROSTRO Rep #: [id number] : 1950 65 From: Simeon Stack MD Attending Dr: Simeon Gruber MD Status: DEP [facility] Ordering Dr: Misael Mayer MD Date: 09/04/15 Location: [facility] Sex: M C Admitted: Test Reason : [...] found Confirmed by SIMEON STACK ([phone]), school photograph editor EDGAR MOTA (58) on 09/06/2015 10:47:28 AM Referred By: WALLY Confirmed By:SIMEON STACK 09/06/15 1047 Date Simeon Stack MD CC: Diandra Anaya DO Date Dictated: 09/04/15911 Date Transcribed: 09/04/15911 Fly Frame Tender: Signed 04-Sep-2015 Discharge Instruction Result: Comments: See Note; NOTES: [facility] Medical Records Department [address] [facility] [place] [address] Instructions for Home/Discharge Instructions 09/04/15 1121 MR#: [id number] Acct: [id number] Name: CHENCHOSIMEON Nath Rep #: [id number] : 1950 65 From: Simeon Gruber MD PCP: Diandra Anaya DO Status: REG UTC Discharge Diet: Light diet - advance as [...] Up With: Simeon Gruber - Please call [phone] to schedule an appointment . When: 7 days after your surgery. 09/04/15 1122 <Electronically signed by Simeon Gruber MD> Date Simeon Gruber MD CC: Diandra Anaya DO 30-Aug-2015 Abdomen W/WO IV Contrast Result: Comments: See Note; NOTES: [facility] Imaging Services [address] [place] [address] Verdana 4d Abdomen W/WO IV Contrast MR#: [id number] Acct: [id number] Name: SIMEON YE Pham Rep #: [id number] : 1950 M 65 From: Chidi Walker MD PCP: Diandra Anaya DO Status: REG CLI Study: Abdomen W/WO IV Contrast Date of Exam: 08/30/15 Exam# [id number] Ordering Dr : Diandra Anaya DO STUDY: [...] Chidi Walker MD at 9:59 EST Tel [phone], Service support [phone], CC: Diandra Anaya DO Fly Frame Tender: Signed Immunization Name Dates Details Influenza (3 years and up) on: 26-Jun-2009 Comments: Lot #[id number]-left deltoidgiven by:[facility] Pneumococcal (2 years and up) [...] Status: Active 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 [place], [place], [address] Absolute Lymph 1.11 {X10_3/ul} (Normal) Range: 0.83-4.51 [...] 4.6-6.2 WBC 8.3 K/mm3 (Normal) Range: 4.4-11.0 :11 Comprehensive Metabolic Profil Comments: [facility] [address] [place], [place], [address] GAP 9 (Normal) Range: 5-15 CO2 25.0 [...] Comments: Please note revised GLUCOSE reference range bwebrhhfb85/02/2018. 15-Jun-20188:11 Urinalysis, Complete Comments: How was Urine Obtained? [facility] [address] [facility]. [place], [place], [address] MUCUS, URINE 0 SEEN {/hpf} (Normal) BACTERIA [...] R1 TUBE ADD ON TEST PER ORDER [facility]ED[facility] [address] [place], [address] Range: 211-911 :53 Microscopic Examination Comments: PATIENT WAS FASTINGPERFORMED BY: [employer] [facility] [id number] BY: [employer] [address] [id number] Bacteria None seen (Normal) Mucus Threads Present (Normal) Epithelial Cells (non renal) None seen {/hpf} (Normal) Range: 0 - 10 RBC None seen {/hpf} (Normal) Range: 0 - 2 WBC 0-5 {/hpf} (Normal) Range: 0 - 5 :53 URINALYSIS, W/ MICRO Comments: PATIENT WAS FASTINGPERFORMED BY: [employer] [address] [place] [address] [id number] BY: [employer] [address] [id number] (07547) Microscopic Examination See below: (Normal) Comments: Microscopic was indicated and was performed. Microscopic Examination MICRON (Normal) Comments: Microscopic follows if indicated. Nitrite, Urine Negative (Normal) Urobilinogen,Semi-Qn 0.2 mg/dL (Normal) Range: 0.2-1.0 Bilirubin Negative (Normal) Occult Blood Negative (Normal) Ketones Negative (Normal) Glucose Negative (Normal) Protein Negative (Normal) WBC Esterase Negative (Normal) Appearance Clear (Normal) Urine-Color Yellow (Normal) pH 7.0 (Normal) Range: 5.0-7.5 Specific Stephenson 1.009 (Normal) Range: 1.005-1.030 :53 PSA (PROSTATE SPECIFIC Comments: PATIENT WAS FASTINGPERFORMED BY: 3ClickEMR CorporationMarlton Rehabilitation HospitalYjqjsv4743 [facility] [id number] BY: [address] [id number] ANTIGEN) (V76.44) Prostate Specific Ag, 1.3 ng/mL (Normal) Range: 0.0-4.0 Serum Comments: DropShipIA methodology. .According to the [place] [employer], Serum PSA shoulddecrease and remain at undetectable levels after radicalprostatectomy. The AUA defines biochemical recurrence as an initialPSA value 0.2 ng/mL or greater followed by a subsequent confirmatoryPSA value 0.2 ng/mL or greater.Values obtained with d ifferent assay methods or kits cannot be usedinterchangeably. Results cannot be interpreted as absolute evidenceof the presence or absence of malignant disease. :53 TESTOSTERONE FREE (54122) Comments: PATIENT WAS FASTINGPERFORMED BY: ACSIANMarlton Rehabilitation HospitalVqqvan0779 [facility] [id number] BY: Qiandao[address] [id number] Free Testosterone(Direct) 13.7 pg/mL (Normal) Range: 6.6-18.1 :53 CBC with auto diff Comments: PATIENT WAS FASTINGPERFORMED BY: ACS[place]Don[place] 0529670 [facility] [id number] BY: [address] [id number] ([address]) Immature Grans (Abs) 0.0 {x10E3/uL} (Normal) Range: [...] MICROALBUMIN: CREATININE Comments: PATIENT WAS FASTINGPERFORMED BY: ACSIAN[address] [id number] BY: [employer] [id number] RATIO (97649) AND (60168) Microalb/Creat Ratio <7.8 {mg/g_creat} (Normal) Range: 0.0-30.0 Microalbumin, Urine <3.0 ug/mL (Normal) Creatinine, Urine 38.5 mg/dL (Normal) :53 HGB A1C (13828) Comments: PATIENT WAS FASTINGPERFORMED BY: ACSIAN[address] [id number] BY: [employer] [id number] Hemoglobin A1c 5.3 % (Normal) Range: 4.8-5.6 Comments: . Pre-diabetes: 5.7 - 6.4 Diabetes: >6.4 Glycemic control for adults with diabetes: <7.0 :53 LIPID PANEL (17414) Comments: PATIENT WAS FASTINGPERFORMED BY: [employer] Stlvyg5942 [facility] [id number] BY: Qiandao[address] [id number] LDL/HDL Ratio 1.8 {ratio_units} (Normal) Range: 0.0-3.6 Comments: LDL/HDL Ratio Men Women 1/2 Avg.Risk 1.0 1.5 Av g.Risk 3.6 3.2 2X Avg.Risk 6.2 5.0 3X Avg.Risk 8.0 6.1 LDL Cholesterol Calc 102 mg/dL (Abnormal) Range: 0-99 VLDL Cholesterol Chaparro 19 mg/dL (Normal) Range: 5-40 HDL Cholesterol 58 mg/dL (Normal) Triglycerides 96 mg/dL (Normal) Range: 0-149 Cholesterol, Total 179 mg/dL (Normal) Range: 100-199 :53 METABOLIC PANEL, Comments: PATIENT WAS FASTINGPERFORMED BY: [employer] Nhpwkb8720 [facility] [id number] BY: [employer] [id number] COMPREHENSIVE (00923) ALT (SGPT) 18 [iU]/L (Normal) Range: 0-44 [...] Glucose, Serum 88 mg/dL (Normal) Range: 65-99 14-Bqx-496628:15 Microscopic Examination Comments: PATIENT NOT FASTINGPERFORMED BY: S[facility]hmarketC[facility] [id number] Bacteria None seen (Normal) Mucus Threads Present (Normal) Epithelial Cells (non renal) None seen {/hpf} (Normal) Range: 0 - 10 RBC 0-2 {/hpf} (Normal) Range: 0 - 2 WBC 0-5 {/hpf} (Normal) Range: 0 - 5 79-Jff-645089:15 URINALYSIS (84082) Comments: PATIENT NOT FASTINGPERFORMED BY: S[facility]hmarketC[facility] [id number] Information: SRC:UC Microscopic Examination See below: (Normal) Comments: Microscopic was indicated and was performed. Nitrite, Urine Negative (Normal) Urobilinogen,Semi-Qn 0.2 mg/dL (Normal) Range: 0.2-1.0 Bilirubin Negative (Normal) Occult Blood 2+ (Abnormal) Ketones Negative (Normal) Glucose Negative (Normal) Protein Trace (Normal) WBC Esterase Negative (Normal) Appearance Clear (Normal) Urine-Color Yellow (Normal) pH 6.0 (Normal) Range: 5.0-7.5 Specific Stephenson 1.025 (Normal) Range: 1.005-1.030 89-Eag-464071:15 URINE IZA CULTURE-IDENTIFICATN Comments: PATIENT NOT FASTINGPERFORMED BY: [facility]hmarketC[facility] [id number] (36712) Result 1 NG36 (Normal) Comments: No growth in 36 - 48 hours. Urine Culture,Comprehensive Final report (Normal) :45 CBC W/AUTO DIFF WBC (02761) Comments: PATIENT NOT FASTINGPERFORMED BY: 3ClickEMR CorporationUNM Sandoval Regional Medical CenterYshecl1920 [facility] [id number] Immature Grans (Abs) 0.0 {x10E3/uL} (Normal) Range: [...] 4.14-5.80 WBC 6.8 {x10E3/uL} (Normal) Range: 3.4-10.8 :45 METABOLIC PANEL, COMPREHENSIVE Comments: PATIENT NOT FASTINGPERFORMED BY: [facility]6370 [facility] [id number] (44327) ALT (SGPT) 18 [iU]/L (Normal) Range: 0-44 [...] :30 Amylase Comments: [facility] [address] [place], [address] ESTIVEN 80 U/L (Normal) Range: 25-115 :30 CBC W/Diff, Automated Comments: [address] [place], [address] Absolute Lymph 1.18 {X10_3/ul} (Normal) Range: 0.83-4.51 [...] Metabolic Profil Comments: [facility] [address] [place], [address] GAP 6 (Normal) Range: 5-15 CO2 28.0 [...] 22-Apr-20169:30 Lipase Comments: [facility] [address] [place], [place], [address] LIPASE 201 U/L (Normal) Range: 73-393 00-Wlx-728540:28 GALLBLADDER See Note (Normal) Comments: [facility] [address] [place], [place], [address] Comments: Patient: SIMEON PAIZ : 1950 (65/M) Acct Num: [id number] Phys: Simeon Gruber MD Unit Num: [id number] Loc: [facility] Specimen: [id number] Received: 09/04/15 - 1324 Spec Type: G [...] thickness and is free of mass lesions. Assistant Dean Of Students sections of the gallbladder and thecystic duct are submitted in one cassette. AM:dom 09/04/15 TC:3 CPT: 19136 HEADER OPERATION: Cholecystectomy, lap, no grams PRE-OP DIAGNOSIS: Acute biliary pancreatitis TISSUE SUBMITTED: Gallbladder MICROSCOPIC DE SCRIPTION Slides are reviewed. MICROSCOPIC DIAGNOSIS Gallbladder, cholecystectomy: Mild chronic cholecystitis. AM: 09/05/15 Signed Jared Gabo 09/05/15 <signature on file> 7-Oyp-720656:30 Urinalysis, Complete Comments: Order Date: 08/18/15How was Urine Obtained? CLEAN [facility] [address] [place], [address] FINE GRAN CAST 0-5 SEEN [...] (Normal) CLARITY Clear (Normal) COLOR Yellow (Normal) 9-Cvg-851246:00 Basic Metabolic Profile (BMP) Comments: 'TROP' Serial specimen #1, #2, #3, or #4: [address] [place] [address] [address] [place], [address] GAP 12 (Normal) Range: 5-15 CO2 27.0 [...] 7-18 GLU 96 mg/dL (Normal) Range: 70-110 8-Kua-911298:00 CBC W/Diff, Automated Comments: [facility] [address] [place], [place], [address] Absolute Lymph 2.93 {X10_3/ul} (Normal) Range: 0.83-4.51 [...] Serial specimen #1, #2, #3, or #4: [address] [place] [address] [place], [address] LIPASE 98689 U/L (Abnormal) Range: 73-393 :00 Liver Profile Comments: '[facility]' Serial specimen #1, #2, #3, or #4: [address] [place] [address] [place], [address] D BILI 0.13 mg/dL (Normal) [...] Serial specimen #1, #2, #3, or #4: [address] [place] [address] [place], [address] TROPONIN-I < 0.02 ng/mL (Normal) Comments: TROPONIN-I EXPECTED VALUES <0.05 NEGATIVE 0.06 - 0.59 AT RISK OF NM > OR = 0.60 SUGGEST NM 50-Zfx-487401:23 Microscopic Examination Comments: PATIENT NOT FASTINGPERFORMED BY: CB [facility] Chlgwz9300 [facility] [id number] Bacteria None seen (Normal) Mucus Threads Present (Normal) Epithelial Cells (non renal) None seen {/hpf} (Normal) Range: 0 - 10 RBC None seen {/hpf} (Normal) Range: 0 - 2 WBC 0-5 {/hpf} (Normal) Range: 0 - 5 11-Wfz-224257:14 H pylori, IgM, IgG, IgA Comments: PATIENT NOT FASTINGPERFORMED BY: [facility]6370 [facility] [id number] Information: 378127,Y69461 Ab H. pylori, IgM Abs <9.0 {units} (Normal) Range: 0.0-8.9 Comments: Negative <9.0 Equivocal 9.0 - 11.0 Positive >11.0 . This test was developed and its performance characteristics determined by [employer]. It has not been cleared or approved [...] <0.9 Indeterminate 0.9 - 1.0 Positive >1.0 13-Lfa-334124:14 Request Problem Comments: PATIENT NOT FASTINGPERFORMED BY: [facility]6370 [facility] [id number] 29-Xjr-702374:1 Written Authorization WAR (Normal) Comments: PATIENT NOT FASTINGPERFORMED BY: [facility]6370 [facility] [id number] 4 Comments: Written Authorization Received.Authorization received from ORIGINAL REQUISITION [id number] by Faye Fitzgerald 98-Lkf-830987:23 URINE IZA CULTURE (MARYCHUY COL Comments: PATIENT NOT FASTINGPERFORMED BY: [facility]6370 [facility] [id number] COUNT) (41731) Result 1 NG36 (Normal) Comments: No growth in 36 - 48 hours. Urine Culture,Comprehensive Final report (Normal) 11-Rmi-918734:14 CBC W/AUTO DIFF WBC Comments: PATIENT NOT FASTINGPERFORMED BY: 3ClickEMR CorporationMarlton Rehabilitation HospitalYonumo8476 [facility] [id number] Information: [id number],[id number] (30254) Immature Grans (Abs) 0.0 {x10E3/uL} (Normal) Range: [...] 4.14-5.80 WBC 8.1 {x10E3/uL} (Normal) Range: 3.4-10.8 74-Yxe-699481:14 METABOLIC PANEL, COMPREHENSIVE Comments: PATIENT NOT FASTINGPERFORMED BY: QiandaoCoMarlton Rehabilitation HospitalFoecwf1541 [facility] [id number] (35187) ALT (SGPT) 21 [iU]/L (Normal) Range: 0-44 [...] Glucose, Serum 87 mg/dL (Normal) Range: 65-99 14-Crf-888082:14 Vitamin D Hydroxy (81515) Comments: PATIENT NOT FASTINGPERFORMED BY: [facility] Idqxbu0456 [facility] [id number] Vitamin D, 25-Hydroxy 38.7 ng/mL (Normal) Range: 30.0-100.0 Comments: Vitamin D deficiency has been defined by the [place] ofMedicine and an Endocrine Society practice guideline as alevel of serum 25-OH vitamin D less than 20 ng/mL (1,2).The Endocrine Society went on to further define vitamin Dinsufficiency as a level between 21 and 29 ng/mL (2).1. IOM ([place] of Medicine). 2010. Dietary reference intakes for calcium and D. [place]: The National Academies Press.2. Mike MF, Shital HARVEY, Adele PEREZ, et al. Evaluation, treatment, and prevention of vitamin D deficiency: an Endocrine Society clinical practice guideline. JCEM. 2010; 96(7):1911-30. 00-Jbk-920336:14 VITAMIN B-12 (CYANOCOBALAMIN) Comments: PATIENT NOT FASTINGPERFORMED BY: [employer] [address]wl[address] [place] [id number] (25484) Vitamin B12 935 pg/mL (Normal) Range: 211-946 35-Zae-258492:14 EBV Panel (51604) Comments: PATIENT NOT FASTINGPERFORMED BY: ACSIANrp Srcgca045[address] [place] [id number] Interpretation: SPRCS (Normal) Comments: EBV Interpretation Chart [...] <36.0 Equivocal 36.0 - 43.9 Positive >43.9 73-Ylw-562999:23 URINALYSIS, W/ MICRO Comments: PATIENT NOT FASTINGPERFORMED BY: QiandaoPromedica [facility]6370 [facility] [id number] Information: SRC:BENJAMIN M35300 (13897) Microscopic Examination See below: (Normal) Comments: Microscopic was indicated and was performed. Nitrite, Urine Negative (Normal) Urobilinogen,Semi-Qn 0.2 mg/dL (Normal) Range: 0.0-1.9 Bilirubin Negative (Normal) Occult Blood Trace (Abnormal) Ketones Negative (Normal) Glucose Negative (Normal) Protein Negative (Normal) WBC Esterase Negative (Normal) Appearance Clear (Normal) Urine-Color Yellow (Normal) pH 7.5 (Normal) Range: 5.0-7.5 Specific Stephenson 1.011 (Normal) Range: 1.005-1.030 09-Zdz-808979:14 TSH (10641) Comments: PATIENT NOT FASTINGPERFORMED BY: [facility]6370 [facility] [id number] TSH 2.980 {uIU/mL} (Normal) Range: 0.450-4.500 43-Zto-917338:14 SED RATE ERYTHROCYTE (02053) Comments: PATIENT NOT FASTINGPERFORMED BY: [facility]andaoPromedica [facility]6370 [facility] [id number] Sedimentation Rate-Westergren 2 mm/h (Normal) Range: 0-30 65-Gxa-393845:14 C-REACTIVE PROTEIN (65703) Comments: PATIENT NOT FASTINGPERFORMED BY: [facility]6370 [facility] [id number] C-Reactive Protein, Quant 1.3 mg/L (Normal) Range: 0.0-4.9 77-Lqk-850332:23 ANKLE MIN 3 VIEWS Radiology Report See [...] Mandujano M.D.February 21, 2013 at 6:08:53 PM [id number] Signed BP/BP If you are the referring physician and would like to consult with theradiologist who provided this interpretation, please contact Heri Ramsay at [phone]. If this radiologist is unavailable, youwillbe ected to another radiologist to assist. If you are a patient with a question regarding this report, pleasecontactyour referring physician directly. Professional Interpretation Provided By: [employer], Phone , These documents contain legally protected [...] on 02/21/131810 Sign by: John Mandujano MD 24-Lkj-789134:23 FOOT MIN 3 VIEWS Radiology See Note [...] Mandujano M.D.February 21, 2013 at 6:10:23 PM [id number] Signed BP/BP If you are the referring physician and would like to consult with theradiologist who provided this interpretation, please contact Heri Ramsay at [phone]. If this radiologist is unavailable, moira directed to another radiologist to assist. If you are a patient with a question regarding this report, juany zeeconsarahctyobenjamin referring physician directly. Professional Interpretation Provided By: [employer], Phone , These documents contain legally protected [...] on 02/21/131812 Sign by: John Mandujano MD 58-Obd-977474:57 CBC With Differential/Platelet Comments: PERFORMED BY: [facility]6370 [facility] [id number] Immature Grans (Abs) 0.0 {x10E3/uL} (Normal) Range: [...] 4.14-5.80 WBC 6.4 {x10E3/uL} (Normal) Range: 4.0-10.5 79-Umy-074579:57 Celiac Disease Comprehensive Comments: PERFORMED BY: ZANA [facility]CoM[facility] HospitalOdwvhf8120 [facility] [id number] Immunoglobulin A, Qn, Serum 266 mg/dL (Normal) [...] - 30 Moderate to Strong Positive >30 54-Wxa-537595:57 Comp. Metabolic Panel (14) Comments: PERFORMED BY: [facility]CoM[facility] HospitalKwtaao6519 [facility] [id number] ALT (SGPT) 17 [iU]/L (Normal) Range: 0-44 [...] IgM, IgG, IgA Ab Comments: PERFORMED BY: [employer] Tignoo9797 [facility] [id number] H.pylori, IgM ABS <0.80 {index} Range: 0.00-0.79 [...] Serum 2.0 mg/dL (Normal) Comments: PERFORMED BY: [employer] Fgaonu0589 [facility] [id number] :57 Range: 1.6-2.6 TSH 2.770 {uIU/mL} Comments: PERFORMED BY: [employer] Fvbkxh2857 [facility] [id number] :57 (Normal) Range: 0.450-4.500 Vitamin D, 25-Hydroxy 32.0 ng/mL (Normal) Comments: PERFORMED BY: [employer] Pispte3117 [facility] [id number] :57 Range: 30.0-100.0 Comments: Vitamin D deficiency has been defined by the [place] ofMedicine and an Endocrine Society practice guideline as alevel of serum 25-OH vitamin D less than 20 ng/mL (1,2).The Endocrine Society went on to further define vitamin Dinsufficiency as a level between 21 and 29 ng/mL (2).1. IOM ([place] of Medicine). 2010. Dietary reference intakes for calcium and D. [place]: The National Academies Press.2. Mike MF, Shital HARVEY, Adele PEREZ, et al. Evaluation, treatment, and prevention of vitamin D deficiency: an Endocrine Society clinical practice guideline. JCEM. 2010; 96(7):1911-30. 79-Dyb-209312:09 URINE IZA CULTURE-IDENTIFICATN Comments: PATIENT NOT FASTINGPERFORMED BY: [facility] Eswsxz9640 [facility] [id number] Information: [id number] (87667) Result 1 NG36 (Normal) Comments: No growth in 36 - 48 hours. Urine Culture,Comprehensive Final report (Normal) 79-Ypv-29423:35 Urinalysis, Office (59595) UA - BILIRUBIN Negative (Normal) UA - BLOOD Hemolyzed Small (Normal) UA - GLUCOSE Negative (Normal) UA - KETONES Negative mg/dL (Normal) UA - LEUKOCYTE ESTERASE Negative (Normal) UA - NITRITE Negative (Normal) UA - PH 7.5 (Normal) UA - PROTEIN Negative mg/dL (Normal) UA - SPECIFIC GRAVITY 1.015 (Normal) URINE UROBILINGN MARYCHUY TIMED Normal mg/dL (Normal) 40-Vku-012286:27 KNEE,4 OR MORE VIEWS Radiology Report See [...] radiologist regarding this report, please call our [id number] line @ Dictated on 12/09 1636 by Alfredo Gotti MDTranscribed on 12/11/11 1711 by ITS IMPORTSign by Alfredo Gotti MD on 12/11/11 171 Sign by: Alfredo Gotti MD 5-Jfv-528430:26 HAND,MIN 3 VIEWS Radiology Report See Note [...] 12/23 0126 Sign by: Hiren Braden MD 8-Ynd-343117:26 HAND,MIN 3 VIEWS Radiology Report See Note [...] 7 {units} Comments: PATIENT NOT FASTINGPERFORMED BY: [address] [id number] BY: [address] [id number] 6:01 IgG/IgA (Normal) Range: 0-19 Comments: Negative <20 Weak positive 20 - 39 Moderate positive 40 - 59 Strong positive >59 Comment: SPRCS (Normal) Comments: PATIENT NOT FASTINGPERFORMED BY: [address] [id number] BY: [address] [id number] 6:01 Comments: Effective June 11, 2009 order code 802224 CCP IgGAntibodies has been replaced due to an updated reagentversion 3.1. For this reason [facility] has provided youwith a new order code 107813 CCP Antibodies IgG/IgA. 8-Xni-957700:01 SED RATE ERYTHROCYTE Comments: PATIENT NOT FASTINGPERFORMED BY: Qiandao[address] [id number] BY: [address] [id number] (39669) Sedimentation Rate-Westergren 3 mm/h (Normal) Range: 0-41 0-Nve-570842:01 C-REACTIVE PROTEIN (17595) Comments: PATIENT NOT FASTINGPERFORMED BY: [facility]6370 [facility] [id number] BY: [address] [id number] C-Reactive Protein, Quant 0.7 mg/L (Normal) Range: 0.0-4.9 : TSH (98592) Comments: PATIENT NOT FASTINGPERFORMED BY: LabAdam Ville 3096270 [facility] [id number] BY: [address] [id number] TSH 2.220 {uIU/mL} (Normal) Range: 0.450-4.500 :01 RHEUMATOID FACTOR-QUANT Comments: PATIENT NOT FASTINGPERFORMED BY: [place] 0764470 [facility] [id number] BY: [address] [id number] (86015) RA Latex Turbid. 9.1 {IU/mL} (Normal) Range: 0.0-13.9 :01 BO (ANTINUCLEAR ANTIBODY) Comments: PATIENT NOT FASTINGPERFORMED BY: [place] 0764470 [facility] [id number] BY: [address] [id number] (98375) BO Direct Negative (Normal) : CBC WITH MANUAL DIFF Comments: PATIENT NOT FASTINGPERFORMED BY: [place] 0764470 [facility] [id number] BY: [address] [id number] Inf ormation: [id number],[id number] (08570) Immature Grans (Abs) 0.0 {x10E3/uL} (Normal) Range: [...] 4.10-5.60 WBC 6.2 {x10E3/uL} (Normal) Range: 4.0-10.5 0-Cks-353970:01 METABOLIC PANEL, Comments: PATIENT NOT FASTINGPERFORMED BY: CB [facility] Tlvoxg5131 [facility] [id number] BY: BN [facility] Bwqddrgmjq2969 [facility] [id number] [facility] (56296) ALT (SGPT) 15 [iU]/L (Normal) Range: 0-55 [...] mg/dL (Normal) Range: 65-99 :29 IZA CULTURE-OTHER (10928) Comments: PATIENT NOT FASTINGPERFORMED BY: [facility]CoM[facility] Rehabilitation HospitalDoxzlb0983 [facility] [id number] Information: SRC:THRT [id number] Result 1 RRF (Normal) Comments: Routine respiratory hilda Upper Respiratory Culture Final report (Normal) :05 Rapid Strep Test, Office (29851) Rapid Strep Test, Office Negative (Normal) :00 [...] Cyclospora, or Microspo ridia. TESTING PERFORMED AT [facility]. ORIGINAL REPORT ON FILE IN LAB CONTAINS ADDITIONAL TEST SITE INFORMATION. OVA/ PARASITES EXAM NO OVA, CYSTS, OR PARASITES FOUND. 39-Dyf-156767:22 FOLIC ACID SERUM (77231) Comments: PATIENT NOT FASTINGPERFORMED BY: [employer] nivioCone [facility] [id number] Folate (Folic Acid), Serum 14.5 ng/mL (Normal) Comments: Indeterminate: 2.2 - 3.0 Deficient: <2.2 81-Pfi-559887:22 VITAMIN B-12 (CYANOCOBALAMIN) Comments: PATIENT NOT FASTINGPERFORMED BY: [facility] InstallFree HannahMap DecisionsCone Health [facility] [id number] (84713) Vitamin B12 566 pg/mL (Normal) Range: 211-946 08-Aob-343780:22 T3, FREE (TRIDOTHYRONINE) (20513) Comments: PATIENT NOT FASTINGPERFORMED BY: [facility]oAud[facility] nivioC[facility] [id number] Triiodothyronine,Free,Serum 3.0 pg/mL (Normal) Range: 2.0-4.4 48-Kaz-235323:22 T4, FREE (THYROXINE) Comments: PATIENT NOT FASTINGPERFORMED BY: [facility] PreventsysDublin [place] [id number] Information: [id number] (55928) T4,Free(Direct) 1.40 ng/dL (Normal) Range: 0.82-1.77 08-Ffa-078395:22 Anti-TPO Antibody (14833) Comments: PATIENT NOT FASTINGPERFORMED BY: LabPromedica [facility]6370 [facility] [id number] Thyroid Peroxidase (TPO) Ab 9 {IU/mL} (Normal) Range: 0-34 :22 TSH (75950) Comments: PATIENT NOT FASTINGPERFORMED BY: Lab[facility] Lbgtxx2641 [facility] [id number] TSH 2.640 {uIU/mL} (Normal) Range: 0.450-4.500 :22 Vitamin D Hydroxy (07490) Comments: PATIENT NOT FASTINGPERFORMED BY: [facility] Vttogz4323 [facility] [id number] Vitamin D, 25-Hydroxy 48.1 ng/mL (Normal) Range: 32.0-100.0 Comments: Recent studies consider the lower limit of 32.0 ng/mL to be athreshold for optimal health.Stevan NEAL. J Nutr. 2004;135(2):317-22. 00-Ecc-840115:37 SERUM CRE & GFR EST GFR 60 mL/min (Normal) EST GFR - AA 73 mL/min (Normal) CREAT,SERUM 1.3 mg/dL (Normal) Range: 0.8-1.3 41-Sdh-554891:40 ABDOMEN WITH IV CONTRAST Radiology Report See Note (Normal) Comments: Exam Number: [id number] LINICAL:The patient is a 60-year-old man with [...] is seen Reported By: JA MARIN M.D. 2-Fao-664799:10 HEPATOBILIARY IMAGING Radiology Report See Note (Normal) Comments: Exam Number: [id number] HEPATOBILIARY IMAGING HISTORYRight upper quadrant pain. Following [...] with Cholecystokinin. Reported By: JA MARIN M.D. 03-Qpu-904516:32 GALLBLADDER Radiology Report See Note (Normal) Comments: Exam Number: [id number] ULTRASOUND OF THE GALLBLADDER Multiple views of [...] abnormality is seen. Reported By: CHIDI WALKER :07 Bilirubin, Total/Direct, Serum Comments: PERFORMED BY: 3ClickEMR CorporationMarlton Rehabilitation HospitalKegfjr2415 [facility] [id number] Bilirubin, Indirect 0.70 mg/dL (Normal) Range: 0.10-0.80 Bilirubin, Direct 0.20 mg/dL (Normal) Range: 0.00-0.40 :07 CBC WITH MANUAL DIFF (23097) Comments: PERFORMED BY: 3ClickEMR CorporationMarlton Rehabilitation HospitalZpnweb2283 [facility] [id number] Baso (Absolute) 0.1 {x10E3/uL} (Normal) Range: 0.0-0.2 [...] 4.10-5.60 WBC 7.5 {x10E3/uL} (Normal) Range: 4.0-10.5 :07 METABOLIC PANEL, COMPREHENSIVE Comments: PERFORMED BY: 3ClickEMR CorporationMarlton Rehabilitation HospitalQclyzo8766 [facility] [id number] (04856) Alkaline Phosphatase, S 77 [iU]/L (Normal) Range: [...] Glucose, Serum 88 mg/dL (Normal) Range: 65-99 9-Hau-515063:10 KIDNEY (HP) Radiology Report See Note (Normal) Comments: Exam Number: [id number] CLINICAL:Elevated renal functions. RENAL ULTRASOUND TECHNIQUE: COMPARISON:None [...] CHOL 170 mg/dL (Normal) Comments: <200 mg/dL Zigdifrhv953-195 mg/dL Borderline>240 mg/dL High Risk HDL 52 [...] VITAMIN B12 729 pg/mL (Normal) Range: 254-1320 91-Cfz-353744:20 IZA CULTURE-OTHER (59255) Comments: PATIENT NOT FASTINGPERFORMED BY: [employer] [facility] [id number] Information: SRC:THRT [id number] Result 1 RRF (Normal) Comments: Routine respiratory hilda Upper Respiratory Culture Final report (Normal) 07-Aqb-617901:19 Rapid Strep Test, Office (07459) Rapid Strep Test, Office Negative (Normal) 43-Crd-973539:31 URINE IZA CULTURE (MARYCHUY COL Comments: PATIENT NOT FASTINGClinical Information: SRC:UR [id number] PERFORMED BY: [facility] [facility] WestCMP TherapeuticsCone Health Al[facility] [id number] COUNT) (46056) Result 1 NG36 (Normal) Comments: No growth in 36 - 48 hours. Urine Culture,Comprehensive Final report (Normal) 71-Hlc-41090:31 Urinalysis, Office (97386) UA - LEUKOCYTE ESTERASE Negative (Normal) Comments: aw UA - BILIRUBIN Negative (Normal) UA - BLOOD Non Hemolyzed Moderate (Normal) UA - GLUCOSE Negative (Normal) UA - KETONES Negative mg/dL (Normal) UA - NITRITE Negative (Normal) UA - PH 5.0 (Normal) UA - PROTEIN Negative mg/dL (Normal) UA - SPECIFIC GRAVITY 1.020 (Normal) URINE UROBILINGN MARYCHUY TIMED Normal mg/dL (Normal) 67-Xwk-787163:45 CHEST, PA AND LATERAL Radiology Report See Note (Normal) Comments: Exam Number: [id number] TWO VIEW CHEST COMPARISON STUDYNone. REASON FOR EXAMINATIONCough. Cardiac, mediastinal and hilar contours are normal. Lungs are clearwithout consolidation or effusion . Fine line ar opacity at the leftlateral base likely represents subsegmental atelectasis/scar. Thereis no acute osseous abnormality. Upper abdomen is unremarkable. IMPRESSIONNo radiographic evidence for acute ch est abnormality. Reported By: KANE MANUEL M.D. 39-Lcv-430481:26 CBCD BASO% 0.5 % (Normal) Range: 0-1 [...] 11.6-14.6 WBC 8.9 K/mm3 (Normal) Range: 4.4-11.0 12-Zxq-593587:26 ESR SED RATE 11 mm/h (Normal) Range: 0-20 :05 Urinalysis, Office (34495) Comments: done BC UA - BILIRUBIN Negative [...] See Note (Normal) Comments: [facility] ORIGINAL REPORT ON FILE IN LAB CONTAINS ADDITIONAL TEST SITE INFORMATION. 2 CULTURE, VIRUS GENERAL NO VIRUS ISOLATED AFTER 14 DAYS- FINAL REPORT :38 Urinalysis, Office (95806) UA - BILIRUBIN Negative (Normal) UA - BLOOD Hemolyzed Large (Normal) UA - GLUCOSE Negative (Normal) UA - KETONES Small mg/dL (Normal) Comments: 15 UA - LEUKOCYTE ESTERASE Negative (Normal) UA - NITRITE Negative (Normal) UA - PH 6.5 (Normal) UA - PROTEIN Trace mg/dL (Normal) UA - SPECIFIC GRAVITY 1.000 (Normal) URINE UROBILINGN MARYCHUY TIMED Normal mg/dL (Normal) :19 Rapid Flu (70614 x 2) Comments: Neg INFLUENZA IMMUNOASSY DIRECT OPTICAL OBSERV Negative (Normal) 64-Dtu-767503:12 Rapid Strep Test, Office (63032) Comments: neg Rapid Strep Test, Office Negative (Normal) :31 CORONALS,SAG,MULTI,OBL,3-D REC Radiology Report See Note (Normal) Comments: Exam Number: [id number] CT SINUSES REASON FOR EXAMAcute sinusitis. Recent history of dental procedure with drainageof tooth abscess and root canal. Coronal and axial CT scan obtained through the sinu ses. All areas areviewed at soft tissue and [...] septal deviation. Reported By: KANE MANUEL M.D. 23-Olq-03412:00 SINUS/FACIAL BONE WITHOUT CONT Radiology Report See Note (Normal) Comments: Exam Number: [id number] CT SINUSES REASON FOR EXAMAcute sinusitis. Recent [...] septal deviation. Reported By: KANE MANUEL M.D. 20-Fyr-151840: TSH 2.74 {uIU/mL} Range: 0.34-4.82 00 (Normal) 31-Mam-393821:20 A/C JTS,KYRA W OR W/O WTS Radiology Report See Note (Normal) Comments: Exam Number: [id number] LEFT SHOULDER/BILATERAL ACROMIOCLAVICULAR JOINTS CLINICAL INFORMATIONShoulder pain. [...] acromioclavicular joints. Reported By: FILIPPO PETERSON M.D. 64-Jce-323989:19 SHOULDER,MIN 2 VIEWS Radiology Report See Note (Normal) Comments: Exam Number: [id number] LEFT SHOULDER/BILATERAL ACROMIOCLAVICULAR JOINTS CLINICAL INFORMATIONShoulder pain. [...] sinusitis, unspecified Planned Observations Vitamin B-12 (cyanocobalamin) (57436)Indication: Fatigue On: 15-Jun-20189:23 Request URINALYSIS, W/ MICRO (55081)Indication: Benign essential hypertension On: 74-Brh-958713:04 Request CBC W/AUTO DIFF WBC (93387)Indication: Benign essential hypertension On: 48-Tqc-086089:04 Request METABOLIC PANEL, COMPREHENSIVE (03706)Indication: Benign essential hypertension On: 30-Uzz-775036:04 Request HEPATITIS C ANTIBODY (48503)Indication: Encounter for hepatitis C virus screening test for high risk patient On: 98-Pvd-068544:04 Request HGB A1C (60201)Indication: Abnormal blood sugar On: 1-Whu-634376:03 Request CBC W/AUTO DIFF WBC (74167)Indication: Benign essential hypertension On: :46 Request METABOLIC PANEL, COMPREHENSIVE (62255)Indication: Benign essential hypertension On: :46 Request LIPID PANEL (69706)Indication: Mixed hyperlipidemia On: :46 Request HEPATITIS C ANTIBODY (12873)Indication: Encounter for hepatitis C virus screening test for high risk patient On: :46 Request METABOLIC PANEL, COMPREHENSIVE (83078)Indication: Prediabetes On: :30 Request RENIN (06555)Indication: Malignant hypertension On: :53 Request URINE VMA (34177)Indication: Malignant hypertension On: :53 Request CATECHOLAMINES TOTAL, URINE (02207)Indication: Malignant hypertension On: :53 Request METANEPHRINES - URINE (36523)Indication: Malignant hypertension On: 57-Zzt-571975:53 Request TESTOSTERONE FREE (95135)Indication: Decreased libido (Renamed from Low libido) On: 0-Cqu-212204:02 Request LIPID PANEL (23283)Indication: Mixed hyperlipidemia On: :55 Request PSA (PROSTATE SPECIFIC ANTIGEN) (V76.44)Indication: Encounter for screening for malignant neoplasm of prostate (Renamed from Screening for prostate cancer) On: :13 Request CBC with auto diff (42737)Indication: Prediabetes On: :12 Request METABOLIC PANEL, COMPREHENSIVE (60733)Indication: Prediabetes On: :12 Request MICROALBUMIN: CREATININE RATIO (37885) AND (99461)Indication: Prediabetes On: :12 Request HGB A1C (86958)Indication: Prediabetes On: :12 Request HEPATIC FUNCTION PANEL (02731)Indication: Acute epigastric pain On: :36 Request Comments: standing Lipase (47506)Indication: Acute epigastric pain On: :36 Request Comments: standing Amylase (22667)Indication: Acute epigastric pain On: :36 Request Comments: standing Lipase (09474)Indication: Abdominal pain, acute, right upper quadrant (Renamed from Acute abdominal pain in right upper quadrant) On: :15 Request Comments: stat Amylase (34919)Indication: Abdominal pain, acute, right upper quadrant (Renamed from Acute abdominal pain in right upper quadrant) On: :15 Request Comments: stat CBC WITH MANUAL DIFF (54905)Indication: Abdominal pain, acute, right upper quadrant (Renamed from Acute abdominal pain in right upper quadrant) On: :15 Request Comments: stat METABOLIC PANEL, COMPREHENSIVE (72080)Indication: Abdominal pain, acute, right upper quadrant (Renamed from Acute abdominal pain in right upper quadrant) On: :15 Request Comments: stat Vitamin D Hydroxy (86490)Indication: Fatigue On: :35 Request VITAMIN B-12 (CYANOCOBALAMIN) (44627)Indication: Fatigue On: :34 Request METABOLIC PANEL, COMPREHENSIVE (23496)Indication: Pancreatitis, acute On: :33 Request CBC W/AUTO DIFF WBC (02217)Indication: Anemia On: :33 Request LIPID PANEL (78586)Indication: Mixed hyperlipidemia On: :33 Request PSA (PROSTATE SPECIFIC ANTIGEN) (V76.44)Indication: Screening for prostate cancer On: :32 Request Phosphorus (30991)Indication: Abdominal pain, acute, generalized On: 26-Wjy-402987:51 Request Magnesium (62390)Indication: Abdominal pain, acute, generalized On: 23-Nzg-279204:51 Request METABOLIC PANEL, COMPREHENSIVE (03790)Indication: Abdominal pain, acute, generalized On: 19-Fpy-487073:50 Request Helicobacter pylori Ag, EIA (59183)Indication: Abdominal pain, acute, generalized On: 78-Sih-565994:08 Request H. PYLORI ANALYSIS UREASE ACTIVITY (42495)Indication: Metallic taste On: :05 Request Celiac Disease Comphrehensive Profile (84877)Indication: Metallic taste On: 48-Iwr-12575:05 Request MAGNESIUM (50905)Indication: Metallic taste On: :03 Request CALCIFEDIOL (10040)Indication: Metallic taste On: :03 Request TSH (48646)Indication: Metallic taste On: :02 Request CBC with manual diff (48615)Indication: Metallic taste On: :02 Request Metabolic Panel, Comprehensive (00654)Indication: Metallic taste On: :02 Request CCP ANTIBODY (93001)Indication: Pain in unspecified joint On: 7-Ajc-606576:55 Request HEPATIC FUNCTION PANEL (45283)Indication: Mixed hyperlipidemia On: 66-Cqg-543445:19 Request LIPID PANEL (18307)Indication: Mixed hyperlipidemia On: 15-Csg-981575:19 Request OVA & PARASITE DIR SMEAR (67382)Indication: Diarrhea On: :26 Request Comments: check and make sure no giardia IZA CULTURE-STOOL (67232)Indication: Diarrhea On: :26 Request HEPATIC FUNCTION PANEL (62701)Indication: Bilateral carotid artery stenosis On: 71-Jtn-567745:05 Request LIPID PANEL (72533)Indication: Bilateral carotid artery stenosis On: 56-Ekr-948456:05 Request Creatine (55028)Indication: Abdominal pain, acute, right upper quadrant On: 09-Fyy-410268:55 Request Bilirubin, total (39728)Indication: Abnormal blood chemistry On: 83-Jyo-950308:49 Request Bilirubin, Direct (34268)Indication: Abnormal blood chemistry On: 17-Mhf-981751:49 Request VITAMIN B-12 (CYANOCOBALAMIN) (56452)Indication: Fatigue On: 44-Hsh-095675:08 Request LIPID PANEL (63969)Indication: screening On: 68-Cym-162847:08 Request PSA (PROSTATE SPECIFIC ANTIGEN) (V76.44)Indication: Screening for prostate cancer On: :06 Request URINALYSIS, W/ MICRO (60347)Indication: Fatigue On: :06 Request TSH (68413)Indication: Fatigue On: :06 Request METABOLIC PANEL, COMPREHENSIVE (36161)Indication: Fatigue On: :06 Request CBC WITH MANUAL DIFF (67558)Indication: Fatigue On: :06 Request VIRAL CULTURE (38690) On: 62-Lks-331723:55 Request IZA CULTURE-OTHER (60315) On: 42-Llc-490281:52 Request TSH (35207)Indication: Anxiety On: :18 Request Planned Encounters Medical; [facility] Pre Wellness Exam (DF Nurse) - On: 12-Nov-2018 7:15 [facility] NURSE, DF Medical; [facility] Wellness Exam (Doctor) - On: 03-Dec-2018 7:00 [facility] Fast DO, Diandra A Fast DO, Diandra A Planned Procedures ELECTROCARDIOGRAM, COMPLETE (ECG) On: 20-Nov-2017 Intent (09996)By: Fast DO, Diandra A Fast DO, Comments: ekg showed normal sinus rhythym, normal axis, no acute st/t wave changes Diandra A Renal Duplex ScanBy: Fast DO, Diandra A On: 09-Oct-2016 Intent Fast DO, Diandra A ELECTROCARDIOGRAM, COMPLETE (ECG) On: 08-Oct-2016 Intent (37520)By: Fast DO, Diandra A Fast DO, Comments: ekg showed normal sinus rhythym, normal axis, no acute st/t wave changes Diandra A Cartoid DopplerBy: Fast DO, Diandra A Fast On: 08-Oct-2016 Intent DO, Diandra A INFUSION, NORMAL SALINE SOLUTION , 1000 On: 28-Aug-2016 Intent CC (Special Coverage Instructions Apply. Comments: lot:[id number]:12-13-2017rte: left anticub. IV dose: 1000ml (2 bags) given by:Suzanne Godinez LPN See MCM: 2049) (J7030)By: BARRINGTON Patton Phenergan Injection, up to 50 mg On: 28-Aug-2016 Intent (J2550)By: BARRINGTON Patton Comments: lot:[id number]:04/2017rte:IM right gluteal dose:25mggiven by:cristian Godinez LPN ELECTROCARDIOGRAM, COMPLETE (ECG) On: 14-Aug-2016 Intent (61771)By: Fast DO, Diandra A Fast DO, Comments: [...] rule out biliary sludge or stone CONTRAST (02520)By: Fast DO, Diandra A Fast DO, Dinadra A Cartoid DopplerBy: Fast DO, Diandra A Fast On: 24-Aug-2015 Intent DO, Diandra A CT - Abdomen (IV Contrast Needed)By: Fast On: 24-Aug-2015 Intent DO, Diandra A Fast DO, Diandra A IMMUNIZ ADMNIN, 1 VAC, SNGL/COMBO On: 10-Mar-2014 Intent (75263)By: Visit, Nurse [place] (03167)By: Héctor DO Diandra On: 10-Mar-2014 Intent A Fast DO, Diandra A Comments: lot: [id number]: 11/17/14site/route: R arm/IMamt:0.5mLVIS signed when applicableSHELBY Zamora Radiology - Foot - RightBy: Fast DO, On: 21-Feb-2013 Intent Diandra A Fast DO, Diandra A Comments: call wet read Radiology - Ankle - RightBy: Fast DO, On: 21-Feb-2013 Intent Diandra A Fast DO, Diandra A Comments: call wet read Solu -Medrol Injection, 125 mg On: 08-Nov-2012 Intent (J2930)By: Faye Narayan CNP Comments: lot # [id number]- 06/2015site-RGlut bnyzx-PJfqmh-2 ML Eun GONZALEZ PHYSICAL THERAPY EVALUATION (55353)By: On: 10-Dec-2011 Intent Faye Narayan CNP Radiology [...] do today- call wet read Overnight Pulse Ox(72261)By: Bladimir GONZALEZ, On: 12-Jun-2010 Intent Lakshmi Ultrasound - GallbladderBy: Fast DO, On: 02-Nov-2009 Intent Diandra A Fast DO, Diandra A Pneumovax (65416)By: Erin Jordan LPN On: 26-Jun-2009 Intent Comments: Lot #[id number]-11/20/10Site-right deltoidDose0.5mlgiven by:[facility] Flu Vaccine, Split IM (23595)By: Julian On: 26-Jun-2009 Intent Erin GONZALEZ Comments: Lot #[id number]-left deltoidgiven by:[facility] Inhaler Demonstration (15646)By: Sylvain On: 21-Sep-2008 Intent Faye LIM Comments: done BC Pulse Oximetry (94865)By: Faye Narayan CNP On: 21-Sep-2008 Intent E Comments: done BC Aerosol Treatment (04875)By: Sylvain LIM, On: 21-Sep-2008 Intent Faye Alves Comments: done BC Solu -Medrol Injection, 125 mg On: 21-Sep-2008 Intent (J2930)By: Faye Narayan CNP Comments: Amt: 2mlLot: [id number]: 03/2011Route: IMSite: right hipTolerated: wellGiven By: LISA Soto Pulse Oximetry (80730)By: Faye Narayan CNP On: 31-Aug-2008 Intent E Pulse Oximetry (09233)By: Faye Narayan CNP On: 31-Aug-2008 Intent E Aerosol Treatment (82627)By: Sylvain LIM, On: 31-Aug-[address] - Sinuses CompleteBy: Maxim HAMM, On: 01-Feb-2008 Intent Johana PHYSICAL THERAPY EVALUATION (76223)By: On: 01-Nov-2007 Intent Faye Narayan CNP Radiology - Shoulder - LeftBy: Fast DO, On: 12-Oct-2007 Intent Diandra A Fast DO, Diandra A Comments: and left ac joint Nerve ConductionBy: Johana Pan DO On: 15-Jan-2007 Intent EMGBy: Johana Pan DO On: 15-Jan-2007 Intent Inhaler Demo ([id number])By: JOSY LIM, On: 10-Sep-2006 Intent LASHAY Aerosol Treatment ([id number])By: JOSY LIM, On: 10-Sep-2006 Intent LASHAY Comments: expiratory wheeze absent on rt after treatment.Continues on rt. Pulse Oximetry ([id number])By: JOSY LIM, On: 10-Sep-2006 Intent LASHAY Comments: [...] available upon request. Encounters Office Visit On: 15-Jun-2018 9:22 Encounter Diagnosis: [...] time losxarten bothers hi m if quick karuk movements and laying on backget up- riding [...] Patient has been compliant with instructions. Current ak End: 29-Aug-2010 22:19 dication use: no side [...] sometim es better sometimes worse- he called [facility] office other day and gave him dicyclomine- [...]
--- OUTSIDE RECORDS SUMMARY | 2018-12-04 23:10 | XMS RPT_ITS | Continuity of Care Document ---
:1950 Author Organization [facility] Address [address] [place] [address] Phone Care Team Providers Name Role Phone Diandra Anaya DO Unavailable [facility], [facility] Unavailable Dr. Ryne Arndt Unavailable Marlene Ghosh Unavailable Sublette DPMBrien Unavailable Long ANGLE DOZER OPERATOR, Shayla L Unavailable Unavailable Slarb ANGLE DOZER OPERATOR, Jade Unavailable Unavailable Willy Edouarda Unavailable Unavailable Herminia Xie Unavailable Unavailable Unavailable Unavailable Problems Name Dates [...] Active Right upper quadrant pain (R10.11, 789.01) Comments: rule out retrocecal appendix rule out diverticulitis-call wet lissette woody Status: Active SYMPTOM, APNEA (786.03) Status: Active [...] days Quantity: 9 {Capsule} Refills: 0 Ordered:27-Aug-2012 Bladimir LISA Lakshmi Start : 10-Dec-2011 End : 27-Aug-2012 Inactive CELEXA, 20MG (Oral Tablet) 1 Tablet daily for 0 days Quantity: 30 {Tablet} Refills: 0 Ordered:06-Feb-2010 Sheryl Feliciano Start : 28-Aug-2009 Inactive Cipro 500 MG Oral Tablet 1 (one) Tablet twice daily for 0 days Quantity: 20 {Tablet} Refills: 0 Ordered:26-May-2018 Long ANGLE DOZER OPERATOR, Shayla L Start : 10-Jan-2018 End : 26-May-2018 Inactive CLARITIN, 10MG (Oral Tablet) 1 for 0 days Refills: 0 Ordered:06-Feb-2010 Sheryl Feliciano Start : 09-May-2009 Inactive Flagyl 500 MG Oral Tablet 1 (one) Tablet bid for 0 days Quantity: 20 {Tablet} Refills: 0 Ordered:26-May-2018 Long ANGLE DOZER OPERATOR, Shayla L Start : 10-Jan-2018 End : 26-May-2018 Inactive GUAIATUSSIN AC, 100-10MG/5ML (Oral Syrup) 1 Syrup every 4-6 hours prn for 0 days Quantity: 6 {Ounce(s)} Refills: 0 Ordered:10-Sep-2006 Bladimir LISALakshmi Start : 10-Sep-2006 End : 15-Jan-2007 Inactive [...] days Quantity: 25 {Tablet} Refills: 0 Ordered:21-Feb-2013 MarcelSera bustamante Start : 07-Nov-2010 End : 21-Feb-2013 Inactive [...] Discontinued Comments:number given unknown -- started by health system for pancreatitis PROZAC, 10MG (Oral Tablet) 1 [...] Comments: 2014 Vasectomy Completed Date Value Details 30-Sep-2018 Abdomen/Pelvis WITH Contrast Result: Comments: See Note; NOTES: [facility] Imaging Services [address] [place] [address] Abdomen/Pelvis WITH Contrast MR#: [id number] Acct: [id number] Name: SIMEON PAIZ Rep #: [id number] : 1950 M 68 From: Tonya Torrez MD PCP: Diandra Anaya DO Status: REG CLI Study: Abdomen/Pelvis WITH Contrast Date of Exam: 09/30/18 Exam# [id number] Ordering Dr: Diandra Anaya DO STUDY : CT ABDOMEN AND PELVIS WITH CONTRAST REASON FOR EXAM: Male, 68 years old. RUQ pain radiating to RLQ and around to flank. Prior cholecystectomy, hypertension, hx pancreatitis. RADIATION DOSAGE (If Sup plied By Facility): CTDIvol = ( 15.38 ) mGy, DLP = ( 717.21 ) mGycm TECHNIQUE: Transaxial images were obtained from the dome of the diaphragm to the symphysis pubis with oral contrast. 75mL ml of Isovu e 300 contrast was administered. Sagittal and coronal images were reconstructed. Individualized dose optimization techniques were used for this CT. COMPARISON: CT abdomen August 30, 2015 FINDINGS: The visualized lung bases are unremarkable. The visualized portions of the heart are within normal limits. Normal liver. There are surgical clips in the gallbladder fossa consistent with a prior cholecystectomy. No biliary ductal dilatation. Normal spleen. Small splenule anterior to the spleen. Normal pancreas. Normal bilateral adrenal glands. Normal right kidney . Normal left kidney. There is an exophytic cyst of the mid to lower pole the left kidney measuring approximately 4.5 cm. Normal visualized stomach. Normal small intestine. There are multiple colonic d iverticula consistent with diverticulosis. The appendix is visualized and appears normal. Mild atherosclerosis of the aorta noted. Normal inferior vena cava. Normal retroperitoneum. Normal urinary nathaniel dder. Prominent fat extends into the right inguinal canal. There is no evidence of bowel hernia. Normal osseous structures. Mild degenerative endplate changes present. ___ CT/Abdomen/Pelvis WITH Contrast IMPRESSION: Normal appendix. No acute intra-abdominal or pelvic abnormality. No evidence of pancreatitis. No evidence of aortic aneurysm. Diverti culosis without evidence of diverticulitis. Right inguinal fatty hernia without bowel herniation. See above. Electronically Signed: Tonya Torrez MD at 12:39 EST , Service support , CC: Diandra Anaya DO Automation Tech: Signed 17-Jun-2018 TXT - Blood Flow Screening Result: Comments: See Note; NOTES: [facility] Cardiovascular Services [address] [place] [address] 06/15/18 0826 MR#: [id number] Acct: [id number] Name: SIMEON PAIZ Rep #: [id number] : 1950 68 From: Nilo King MD Attending Dr: Diandra Anaya DO Status: REG REF Ordering Dr: Date: 06/16/18 Location: [facility] Sex: M C Admitted: Reason For Study: [...] LOWE ate Dictated: 06/15/18825 Date Transcribed: 06/16/18920 Automation Tech: Signed 16-Jun-2018 TXT - Blood Flow Screening Result: Comments: See Note; NOTES: [facility] Cardiovascular Services [address] [address] [address] 06/15/18825 MR#: [id number] Acct: [id number] Name: SIMEON PAIZ Rep #: [id number] [...] 06/16/18920 Date Nilo King MD CC: Diandra Cabral Dictated: 06/15/18825 Date Transcribed: 06/16/18920 Automation Tech: Signed 08-Oct-2016 PT D/C of Non Returning Pt (1) Result: Comments: See Note; NOTES: [facility] [address] [place] [address] Fax REHABILITATION SERVICES DISCHAR GE SUMMARY MR#: [id number] Acct: [id number] Name: SIMEON PAIZ Rep #: [id number] : 1950 66 From: Sean Rojas PT, Cert. MDT, OCS Referring DrSandra: Diandra Anaya DO Status: REG RCR Insurance: [employer] - Discharge Summary (1) - Patient Information [...] you! Sean Rojas PT, <Electronically signed by Cert. BRENDA Beauchamp PT, XAVI> 10/08/16 0801 CC: Diandra Anaya DO VIRAL Signed 21-Aug-2016 Inital Evaluation (1) - PT Result: Comments: See Note; NOTES: [facility] [address] [place] [address] Fax REHABILITATION SERVICES INITIAL EVALUATION MR#: [id number] Acct: [id number] Name: SIMEON PAIZ Rep #: [id number] : 1950 66 From: Cert. BRENDA Beauchamp PT, OCS Referring Dr.: Diandra Anaya DO Status: REG RCR Insurance: [facility] Patient's Visit Information SIMEON PAIZ is a [...] effect Lumbar Standing: Right Side Glides - Communication Equipment Repairer al Response: No effect Lumbar Standing: Right Side [place] - Symptoms During Testing: No effect Lumbar Standing: Right Side [place] - Symptoms After Testing: No effect Lumbar Standing: Left Side [place] - Mec hanical Response: No effect Lumbar Standing: Left Side [place] - Symptoms During Testing: No effect Lumbar Standing: Left Side [place] - Symptoms After Testing: No effect Lumbar [...] to be FAXED BACK to us at [phone] for Medicare purposes. Please let me know [...] without Contrast Result: Comments: See Note; NOTES: [facility] Imaging Services [address] [place] [address] [facility] 4d MRCP Abdomen without Contrast MR#: [id number] Acct: [id number] Name: DELMA PAIZ Pham Rep #: [id number] : 1950 M 66 From: Catherine Mota MD PCP: Diandra Anaya DO Status: REG CLI Study: MRCP Abdomen without Contrast Date of Exam: 04/24/16 Exam# [id number] Ordering Dr: Diandra Anaya DO STUDY: MR [...] MD at 9:35 EDT , Service support [phone], CC: Diandra Anaya DO Automation Tech: Signed 20-Sep-2015 Operative Report Result: Comments: See Note; NOTES: [facility] Medical Records Department [address] [place] [address] Operative Report MR#: [id number] Acct: [id number] Name: KIKE PAIZ Rep #: [id number] : 1950 65 From: Simeon Gruber MD PCP: Diandra Anaya DO Status: [facility] DATE OF SERVICE: 09/04/2015 DATE OF SERVICE: [...] the fascia of the umbilical port with fhivte-du-sqszp stitch of 0 Vicryl. Skin incisions were closed with subcuticular stitches of 4-0 Monocryl. Steri- Strips were applied. Sterile dressings we re applied and the patient tolerated the procedure well. Simeon Gruber MD T: NTS JOB: [id number] 09/20/15 1111 <Electronically signed by Simeon Gruber MD> Date Simeon Gruber MD Cosigner Signature (If Indicated): Date CC: Simeon Gruber MD; Diandra Anaya DO Date D ictated: 09/04/151151 Date Transcribed: 09/04/15 115 Automation Tech: Signed 06-Sep-2015 12 Lead Electrocardiogram Result: Comments: See Note; NOTES: [facility] Cardiovascular Services [address] [place] [address] 12 Lead EKG 09/04/15 0912 MR#: [id number] Acct: [id number] Name: ERIK HARTLEYTALATSIMEON R Rep #: [id number] : 1950 65 From: Simeon Stack MD Attending Dr: Simeon Gruber MD Status: DEP [facility] Ordering Dr: Misael Mayer MD Date: 09/04/15 Location: [facility] Sex: M C Admitted: Test Reason : [...] was found Confirmed by SIMEON STACK ([id number]), telegraph editor EDGAR MOTA ([id number]) on 09/06/2015 10:47:28 AM Referred By: WALLY Confirmed By:SIMEON STACK 09/06/15 1047 Date Simeon Stack MD CC: Diandra Anaya DO Date Dictated: 09/04/15911 Date Transcribed: 09/04/15911 Automation Tech: Signed 04-Sep-2015 Discharge Instruction Result: Comments: See Note; NOTES: [facility] Medical Records Department [address] [place] [address] Instructions for Home/Discharge Instructions 09/04/15 1121 MR#: [id number] Acct: [id number] Name: SIMEON PAIZ Rep #: [id number] : 1950 65 From: Simeon Gruber MD PCP: Diandra Anaya DO Status: REG [facility] Discharge Diet: Light diet - advance as tolerated Dis charge Activity: May Not Drive - for 2-3 days or while taking narcotic pain medications., - - Do not drive, work heavy equipment or sign legal documents for 24 hours. May shower in (days): 1 - with e bandage in place. Additional Activity Instructions:: [...] Up With: Simeon Gruber - Please call [phone] to schedule an appointment . When: 7 days after your surgery. 09/04/15 1122 <Electronically signed by Simeon Gruber MD> Date Simeon Gruber MD CC: Diandra Anaya DO 30-Aug-2015 Abdomen W/WO IV Contrast Result: Comments: See Note; NOTES: [facility] Imaging Services [address] [place] [address] [place] 4d Abdomen W/WO IV Contrast MR#: [id number] Acct: [id number] Name: SIMEON CHRISTINE Pham Rep #: [id number] : 1950 M 65 From: Chidi Walker MD PCP: Diandra Anaya DO Status: REG CLI Study: Abdomen W/WO IV Contrast Date of Exam: 08/30/15 Exam# [id number] Ordering Dr : Diandra Anaya DO STUDY: [...] Chidi Walker MD at 9:59 EST Tel [phone], Service support [phone], CC: Diandra Anaya DO Automation Tech: Signed Immunization Name Dates Details Influenza (3 years and up) on: 26-Jun-2009 Comments: Lot #[id number] deltoidgiven by:[facility] Pneumococcal (2 years and up) [...] Status: Active Most Recent Primary Occupation Comments: [employer] Status: Active Number of Adult (age 18 or over) Dependents Comments: 3 Status: Active Tobacco Use Comments: Smokes cigars-occ Status: Active Vital Signs Date Test Result Details 80-Cti-449675:13 Temperature 97.3 f Comments: Method: Temporal Pulse [...] kg/m2 Body Surface Area Calculated 2 m2 3-Tcp-322869:14 Temperature 98.3 f Comments: Method: Temporal Pulse [...] Diastolic 90 mm[Hg] Comments: Patient Position: Sitting 27-Qcf-313385:12 Pulse 65 /min Comments: Pattern: Regular Respiration [...] 0.00 cm Results Date Description Value Details 57-Eku-032839:11 LIPASE (35441) Comments: PATIENT NOT FASTINGPERFORMED BY: [facility] Rtbupv2619 [facility] [id number] Lipase 46 U/L (Normal) Range: 13-78 97-Dfc-095987:11 AMYLASE (20233) Comments: PATIENT NOT FASTINGPERFORMED BY: [facility] Mmlfqk2203 [facility] [id number] Amylase 83 U/L (Normal) Range: 31-124 13-Zac-221773:11 CBC W/AUTO DIFF WBC (23230) Comments: PATIENT NOT FASTINGPERFORMED BY: [facility] Ufmkma0582 [facility] [id number] Immature Grans (Abs) 0.0 {x10E3/uL} (Normal) Range: 0.0-0.1 Immature Granulocytes 0 % (Normal) Baso (Absolute) 0.1 {x10E3/uL} (Normal) Range: 0.0-0.2 Eos (Absolute) 0.2 {x10E3/uL} (Normal) Range: 0.0-0.4 Monocytes(Absolute) 0.9 {x10E3/uL} (Normal) Range: 0.1-0.9 Lymphs (Absolute) 1.4 {x10E3/uL} (Normal) Range: 0.7-3.1 Neutrophils (Absolute) 5.2 {x10E3/uL} (Normal) Range: 1.4-7.0 Basos 1 % (Normal) Eos 2 % (Normal) Monocytes 11 % (Normal) Lymphs 18 % (Normal) Neutrophils 68 % (Normal) Platelets 229 {x10E3/uL} (Normal) Range: 150-379 RDW 13.7 % (Normal) Range: 12.3-15.4 MCHC 33.2 g/dL (Normal) Range: 31.5-35.7 MCH 30.8 pg (Normal) Range: 26.6-33.0 MCV 93 fL (Normal) Range: 79-97 Hematocrit 39.7 % (Normal) Range: 37.5-51.0 Hemoglobin 13.2 g/dL (Normal) Range: 13.0-17.7 RBC 4.28 {x10E6/uL} (Normal) Range: 4.14-5.80 WBC 7.7 {x10E3/uL} (Normal) Range: 3.4-10.8 22-Bfe-059208:11 METABOLIC PANEL, COMPREHENSIVE Comments: PATIENT NOT FASTINGPERFORMED BY: [facility] Hrmiez9380 [facility] [id number] (755[address]) ALT (SGPT) 15 [iU]/L (Normal) Range: 0-44 AST (SGOT) 12 [iU]/L (Normal) Range: 0-40 Alkaline Phosphatase 64 [iU]/L (Normal) Range: 39-117 Bilirubin, Total 1.1 mg/dL (Normal) Range: 0.0-1.2 A/G Ratio 1.9 (Normal) Range: 1.2-2.2 Globulin, Total 2.3 g/dL (Normal) Range: 1.5-4.5 Albumin 4.3 g/dL (Normal) Range: 3.6-4.8 Protein, Total 6.6 g/dL (Normal) Range: 6.0-8.5 Calcium 9.7 mg/dL (Normal) Range: 8.6-10.2 Carbon Dioxide, Total 25 mmol/L (Normal) Range: 20-29 Chloride 101 mmol/L (Normal) Range: 96-106 Potassium 4.2 mmol/L (Normal) Range: 3.5-5.2 Sodium 140 mmol/L (Normal) Range: 134-144 BUN/Creatinine Ratio 14 (Normal) Range: 10-24 eGFR If Africn Am 58 mL/min/1.73 (Abnormal) eGFR If NonAfricn Am 50 mL/min/1.73 (Abnormal) Creatinine 1.45 mg/dL (Abnormal) Range: 0.76-1.27 BUN 21 mg/dL (Normal) Range: 8-27 Glucose 95 mg/dL (Normal) Range: 65-99 15-Jun-20188:11 CBC W/Diff, Automated Comments: [facility] [address] [place], [place], [address] Absolute Lymph 1.11 {X10_3/ul} (Normal) Range: 0.83-4.51 [...] 4.4-11.0 15-Jun-20188:11 Comprehensive Metabolic Profil Comments: [facility] [address] [place], [place], [address] GAP 9 (Normal) Range: 5-15 CO2 25.0 [...] Comments: Please note revised GLUCOSE reference range dpfudlisq33/02/2018. 15-Jun-20188:11 Hepatitis C Antibodies Comments: [facility] (refer to report for specific site)refer to report for address and phone number HEP C AB <0.1 {s/co_ratio} (Normal) Range: 0.0-0.9 Comments: Negative: < 0.8 Indeterminate: 0.8 - 0.9 Positive: > 0.9 The CDC recommends that a positive HCV antibody result be followed up with a HCV Nucleic Acid Amplification test (463337).Performed at: [address] [id number] Director: Toby Wilder PhD, Phone: [phone] 15-Jun-20188:11 Urinalysis, Complete Comments: How was Urine Obtained? [facility] [address] [place], [address] MUCUS, URINE 0 SEEN {/hpf} (Normal) [...] R1 TUBE ADD ON TEST [facility] [address]rjbmug[address] [place], [place], [address] Range: 211-911 :53 Microscopic Examination Comments: PATIENT WAS FASTINGPERFORMED BY: [facility] [id number] BY: [employer] [address] [id number] Bacteria None seen (Normal) Mucus Threads Present (Normal) Epithelial Cells (non renal) None seen {/hpf} (Normal) Range: 0 - 10 RBC None seen {/hpf} (Normal) Range: 0 - 2 WBC 0-5 {/hpf} (Normal) Range: 0 - 5 :53 URINALYSIS, W/ MICRO Comments: PATIENT WAS FASTINGPERFORMED BY: [facility] [id number] BY: [employer] [address] [id number] ([address]) Microscopic Examination See below: (Normal) Comments: Microscopic was indicated and was performed. Microscopic Examination MICRON (Normal) Comments: Microscopic follows if indicated. Nitrite, Urine Negative (Normal) Urobilinogen,Semi-Qn 0.2 mg/dL (Normal) Range: 0.2-1.0 Bilirubin Negative (Normal) Occult Blood Negative (Normal) Ketones Negative (Normal) Glucose Negative (Normal) Protein Negative (Normal) WBC Esterase Negative (Normal) Appearance Clear (Normal) Urine-Color Yellow (Normal) pH 7.0 (Normal) Range: 5.0-7.5 Specific [place] 1.009 (Normal) Range: 1.005-1.030 :53 PSA (PROSTATE SPECIFIC Comments: PATIENT WAS FASTINGPERFORMED BY: [place] 8512170 [facility] [id number] BY: [address] [id number] ANTIGEN) (V76.44) Prostate Specific Ag, 1.3 ng/mL (Normal) Range: 0.0-4.0 Serum Comments: [employer] methodology. .According to the [employer] [employer], Serum PSA shoulddecrease and remain at undetectable levels after radicalprostatectomy. The AUA defines biochemical recurrence as an initialPSA value 0.2 ng/mL or greater followed by a subsequent confirmatoryPSA value 0.2 ng/mL or greater.Values obtained with d ifferent assay methods or kits cannot be usedinterchangeably. Results cannot be interpreted as absolute evidenceof the presence or absence of malignant disease. :53 TESTOSTERONE FREE (43826) Comments: PATIENT WAS FASTINGPERFORMED BY: [place]Cell[place] [id number] [facility] [id number] BY: [employer] [id number] Free Testosterone(Direct) 13.7 pg/mL (Normal) Range: 6.6-18.1 :53 CBC with auto diff Comments: PATIENT WAS FASTINGPERFORMED BY: [employer] [id number] BY: [address] [id number] (28189) Immature Grans (Abs) 0.0 {x10E3/uL} (Normal) Range: [...] MICROALBUMIN: CREATININE Comments: PATIENT WAS FASTINGPERFORMED BY: [employer]Cell[address] [id number] BY: [employer] [id number] RATIO (69444) AND (48261) Microalb/Creat Ratio <7.8 {mg/g_creat} (Normal) Range: 0.0-30.0 Microalbumin, Urine <3.0 ug/mL (Normal) Creatinine, Urine 38.5 mg/dL (Normal) :53 HGB A1C (10944) Comments: PATIENT WAS FASTINGPERFORMED BY: ACell[address] [id number] BY: [employer] [id number] Hemoglobin A1c 5.3 % (Normal) Range: 4.8-5.6 Comments: . Pre-diabetes: 5.7 - 6.4 Diabetes: >6.4 Glycemic control for adults with diabetes: <7.0 :53 LIPID PANEL (61505) Comments: PATIENT WAS FASTINGPERFORMED BY: [place] Gkqsla2455 [facility] [id number] BY: [employer] [id number] LDL/HDL Ratio 1.8 {ratio_units} (Normal) Range: 0.0-3.6 [...] METABOLIC PANEL, Comments: PATIENT WAS FASTINGPERFORMED BY: [place] Qpntef6487 [facility] [id number] BY: [employer] [id number] COMPREHENSIVE (82531) ALT (SGPT) 18 [iU]/L (Normal) Range: 0-44 [...] Glucose, Serum 88 mg/dL (Normal) Range: 65-99 90-Gev-918964:15 Microscopic Examination Comments: PATIENT NOT FASTINGPERFORMED BY: [facility] [id number] Bacteria None seen (Normal) Mucus Threads Present (Normal) Epithelial Cells (non renal) None seen {/hpf} (Normal) Range: 0 - 10 RBC 0-2 {/hpf} (Normal) Range: 0 - 2 WBC 0-5 {/hpf} (Normal) Range: 0 - 5 58-Qxg-428109:15 URINALYSIS (06565) Comments: PATIENT NOT FASTINGPERFORMED BY: [facility] [id number] Information: SRC:UC Microscopic Examination See below: (Normal) Comments: Microscopic was indicated and was performed. Nitrite, Urine Negative (Normal) Urobilinogen,Semi-Qn 0.2 mg/dL (Normal) Range: 0.2-1.0 Bilirubin Negative (Normal) Occult Blood 2+ (Abnormal) Ketones Negative (Normal) Glucose Negative (Normal) Protein Trace (Normal) WBC Esterase Negative (Normal) Appearance Clear (Normal) Urine-Color Yellow (Normal) pH 6.0 (Normal) Range: 5.0-7.5 Specific [place] 1.025 (Normal) Range: 1.005-1.030 39-Zpi-821696:15 URINE IZA CULTURE-IDENTIFICATN Comments: PATIENT NOT FASTINGPERFORMED BY: [facility] [id number] (82127) Result 1 NG36 (Normal) Comments: No growth in 36 - 48 hours. Urine Culture,Comprehensive Final report (Normal) :45 CBC W/AUTO DIFF WBC (71174) Comments: PATIENT NOT FASTINGPERFORMED BY: NacuiiSaint Alexius HospitalUhojkr4326 [facility] [id number] Immature Grans (Abs) 0.0 {x10E3/uL} (Normal) Range: [...] PANEL, COMPREHENSIVE Comments: PATIENT NOT FASTINGPERFORMED BY: [facility]6370 [facility] [id number] (36645) ALT (SGPT) 18 [iU]/L (Normal) Range: 0-44 [...] (Normal) Range: 65-99 :30 Amylase Comments: [facility] [address] [place], [address] ESTIVEN 80 U/L (Normal) Range: 25-115 :30 CBC W/Diff, Automated Comments: [facility] [address] [place], [address] Absolute Lymph 1.18 {X10_3/ul} (Normal) [...] 4.4-11.0 22-Apr-20169:30 Comprehensive Metabolic Profil Comments: [facility] [address] [place], [place], [address] GAP 6 (Normal) Range: 5-15 CO2 28.0 [...] (Normal) Range: 70-110 22-Apr-20169:30 Lipase Comments: [facility] [address] [place], [place], [address] LIPASE 201 U/L (Normal) Range: 73-393 03-Oop-559865:28 GALLBLADDER See Note (Normal) Comments: [facility] [address] [place], [place], [address] Comments: Patient: SIMEON PAIZ : 1950 (65/M) Acct Num: [id number] Phys: Simeon Gruber MD Unit Num: [id number] Loc: [facility] Specimen: [id number] Received: 09/04/15 - 1324 Spec Type: G [...] thickness and is free of mass lesions. Molecular Spectroscopist sections of the gallbladder and thecystic duct are submitted in one cassette. AM:dom 09/04/15 TC:3 CPT: 28188 HEADER OPERATION: Cholecystectomy, lap, no grams PRE-OP DIAGNOSIS: Acute biliary pancreatitis TISSUE SUBMITTED: Gallbladder MICROSCOPIC DE SCRIPTION Slides are reviewed. MICROSCOPIC DIAGNOSIS Gallbladder, cholecystectomy: Mild chronic cholecystitis. AM: 09/05/15 Signed Jared Gabo 09/05/15 <signature on file> 1-Tfi-659213:30 Urinalysis, Complete Comments: Order Date: 08/18/15How was Urine Obtained? CLEAN [facility] [address] [place], [address] FINE GRAN CAST 0-5 SEEN [...] (Normal) CLARITY Clear (Normal) COLOR Yellow (Normal) 7-Jfj-307568:00 Basic Metabolic Profile (BMP) Comments: 'TROP' Serial specimen #1, #2, #3, or #4: [address] [place] [address] [address] [place], [id number] GAP 12 (Normal) Range: 5-15 CO2 27.0 [...] 7-18 GLU 96 mg/dL (Normal) Range: 70-110 9-Uka-438600:00 CBC W/Diff, Automated Comments: [facility] [address] [place], [place], [address] Absolute Lymph 2.93 {X10_3/ul} (Normal) Range: 0.83-4.51 [...] Serial specimen #1, #2, #3, or #4: [address] [place] [address] [address] [place], [address] LIPASE 96479 U/L (Abnormal) Range: 73-393 : Liver Profile Comments: '[facility]' Serial specimen #1, #2, #3, or #4: [address] [place] [address] [place], [address] D BILI 0.13 mg/dL (Normal) Range: 0.00-0.30 T BILI 0.60 mg/dL (Normal) Range: 0.20-1.00 ALT 104 U/L (Abnormal) Range: 12-78 ALK P 89 U/L (Normal) Range: 50-136 AST 108 U/L (Abnormal) Range: 15-37 GLOB 3.5 g/dL (Normal) Range: 2.3-3.5 ALB 3.7 g/dL (Normal) Range: 3.4-5.0 T PROT 7.2 g/dL (Normal) Range: 6.4-8.2 :00 Troponin-I Comments: '[facility]' Serial specimen #1, #2, #3, or #4: [address] [place] [address] [place], [address] TROPONIN-I < 0.02 ng/mL (Normal) Comments: TROPONIN-I EXPECTED VALUES <0.05 NEGATIVE 0.06 - 0.59 AT RISK OF [place] > OR = 0.60 SUGGEST [place] 54-Hkl-072457:23 Microscopic Examination Comments: PATIENT NOT FASTINGPERFORMED BY: [facility]6370 [facility] [id number] Bacteria None seen (Normal) Mucus Threads Present (Normal) Epithelial Cells (non renal) None seen {/hpf} (Normal) Range: 0 - 10 RBC None seen {/hpf} (Normal) Range: 0 - 2 WBC 0-5 {/hpf} (Normal) Range: 0 - 5 98- :14 H pylori, IgM, IgG, IgA Comments: PATIENT NOT FASTINGPERFORMED BY: [facility]6[address] [facility] [id number] Information: [id number] Ab H. pylori, IgM Abs <9.0 {units} (Normal) Range: 0.0-8.9 Comments: Negative <9.0 Equivocal 9.0 - 11.0 Positive >11.0 . This test was developed and its performance characteristics determined by [employer]. It has not been cleared or approved [...] <0.9 Indeterminate 0.9 - 1.0 Positive >1.0 27-Wwf-002995:14 Request Problem Comments: PATIENT NOT FASTINGPERFORMED BY: [facility]6[address] [facility] [id number] 39-Unm-323334:1 Written Authorization WAR (Normal) Comments: PATIENT NOT FASTINGPERFORMED BY: [facility]6[address] [facility] [id number] Comments: Written Authorization Received.Authorization received from ORIGINAL REQUISITION [id number] by Faye Fitzgerald 06-Wzv-825971:23 URINE IZA CULTURE (MARYCHUY COL Comments: PATIENT NOT FASTINGPERFORMED BY: [facility]6[address] [facility] [id number] COUNT) (50785) Result 1 NG36 (Normal) Comments: No growth in 36 - 48 hours. Urine Culture,Comprehensive Final report (Normal) 72-Zpd-402265:14 CBC W/AUTO DIFF WBC Comments: PATIENT NOT FASTINGPERFORMED BY: [facility] [id number] Information: [id number] (48073) Immature Grans (Abs) 0.0 {x10E3/uL} (Normal) Range: [...] 4.14-5.80 WBC 8.1 {x10E3/uL} (Normal) Range: 3.4-10.8 18-Fdd-494968:14 METABOLIC PANEL, COMPREHENSIVE Comments: PATIENT NOT FASTINGPERFORMED BY: [facility] HospitalCoSaint [facility] SussexCkgfrs5877 [facility] [id number] (86424) ALT (SGPT) 21 [iU]/L (Normal) Range: 0-44 [...] Glucose, Serum 87 mg/dL (Normal) Range: 65-99 06-Dnt-635424:14 Vitamin D Hydroxy (19779) Comments: PATIENT NOT FASTINGPERFORMED BY: [facility]CoSaint [facility] Hospital at SussexFzwepj8246 [facility] [id number] Vitamin D, 25-Hydroxy 38.7 ng/mL (Normal) Range: 30.0-100.0 Comments: Vitamin D deficiency has been defined by the [place] of[place]icine and an Endocrine Society practice guideline as alevel of serum 25-OH vitamin D less than 20 ng/mL (1,2).The Endocrine Society went on to further define vitamin Dinsufficiency as a level between 21 and 29 ng/mL (2).1. IOM ([place] of Medicine). 2010. Dietary reference intakes for calcium and D. [place]: The National Academies Press.2. Mike MF, Shital HARVEY, Adele PEREZ, et al. Evaluation, treatment, and prevention of vitamin D deficiency: an Endocrine Society clinical practice guideline. JCEM. 2010; 96(7):1911-30. 51-Fiw-312553:14 VITAMIN B-12 (CYANOCOBALAMIN) Comments: PATIENT NOT FASTINGPERFORMED BY: Unbxd [facility] Akrjub9042 Hannah DorsaVIblin [place] [id number] (11216) Vitamin B12 935 pg/mL (Normal) Range: 211-946 50-Sur-856612:14 EBV Panel (67507) Comments: PATIENT NOT FASTINGPERFORMED BY: [facility] Uaekab6921 Hannah DorsaVIDublin [place] [id number] Interpretation: SPRCS (Normal) Comments: EBV Interpretation Chart [...] <36.0 Equivocal 36.0 - 43.9 Positive >43.9 67-Nym-119939:23 URINALYSIS, W/ MICRO Comments: PATIENT NOT FASTINGPERFORMED BY: [employer] Qsiqgv9787 [facility] [id number] Information: SRC:BENJAMIN [id number] (34997) Microscopic Examination See below: (Normal) Comments: Microscopic was indicated and was performed. Nitrite, Urine Negative (Normal) Urobilinogen,Semi-Qn 0.2 mg/dL (Normal) Range: 0.0-1.9 Bilirubin Negative (Normal) Occult Blood Trace (Abnormal) Ketones Negative (Normal) Glucose Negative (Normal) Protein Negative (Normal) WBC Esterase Negative (Normal) Appearance Clear (Normal) Urine-Color Yellow (Normal) pH 7.5 (Normal) Range: 5.0-7.5 Specific [place] 1.011 (Normal) Range: 1.005-1.030 17-Viu-654643:14 TSH (67598) Comments: PATIENT NOT FASTINGPERFORMED BY: [employer] Xzinfv0289 [facility] [id number] TSH 2.980 {uIU/mL} (Normal) Range: 0.450-4.500 08-Cbk-750414:14 SED RATE ERYTHROCYTE (96979) Comments: PATIENT NOT FASTINGPERFORMED BY: [employer] Mqmtbc0586 [facility] [id number] Sedimentation Rate-Westergren 2 mm/h (Normal) Range: 0-30 32-Aes-142448:14 C-REACTIVE PROTEIN (78861) Comments: PATIENT NOT FASTINGPERFORMED BY: [employer] Mtfyim0812 [facility] [id number] C-Reactive Protein, Quant 1.3 mg/L (Normal) Range: 0.0-4.9 49-Tky-818320:23 ANKLE MIN 3 VIEWS Radiology Report See [...] Mandujano M.D.February 21, 2013 at 6:08:53 PM [id number] Signed BP/BP If you are the referring physician and would like to consult with theradiologist who provided this interpretation, please contact Heri Ramsay at [phone]. If this radiologist is unavailable, youwillbe ected to another radiologist to assist. If you are a patient with a question regarding this report, pleasecontactyour referring physician directly. Professional Interpretation Provided By: Seva Coffee, Phone , These documents contain legally protected [...] on 02/21/131810 Sign by: John Mandujano MD 15-Tiv-548590:23 FOOT MIN 3 VIEWS Radiology See Note [...] Mandujano M.D.February 21, 2013 at 6:10:23 PM [id number] Signed BP/BP If you are the referring physician and would like to consult with theradiologist who provided this interpretation, please contact Heri Ramsay at [phone]. If this radiologist is unavailable, moira directed to another radiologist to assist. If you are a patient with a question regarding this report, juany zeeconsarahctyobenjamin referring physician directly. Professional Interpretation Provided By: Seva Coffee, Phone , These documents contain legally protected [...] on 02/21/131812 Sign by: John Mandujano MD 83-Vzf-475941:57 CBC With Differential/Platelet Comments: PERFORMED BY: [facility]6[address] [facility] [id number] Immature Grans (Abs) 0.0 {x10E3/uL} (Normal) Range: [...] 4.14-5.80 WBC 6.4 {x10E3/uL} (Normal) Range: 4.0-10.5 98-Hvb-501768:57 Celiac Disease Comprehensive Comments: PERFORMED BY: ZANA LabCoSaint Clare's Hospital at SussexQiseob5522 [facility] [id number] Immunoglobulin A, Qn, Serum 266 mg/dL (Normal) [...] - 30 Moderate to Strong Positive >30 40-Rqm-950422:57 Comp. Metabolic Panel (14) Comments: PERFORMED BY: LabCoSaint Clare's Hospital at SussexPviygg8182 [facility] [id number] ALT (SGPT) 17 [iU]/L (Normal) Range: 0-44 [...] IgM, IgG, IgA Ab Comments: PERFORMED BY: [employer] [facility] [id number] H.pylori, IgM ABS <0.80 {index} Range: 0.00-0.79 [...] Serum 2.0 mg/dL (Normal) Comments: PERFORMED BY: [employer] Hvosvl7196 [facility] [id number] :57 Range: 1.6-2.6 TSH 2.770 {uIU/mL} Comments: PERFORMED BY: [employer] Mzhbxa4102 [facility] [id number] :57 (Normal) Range: 0.450-4.500 Vitamin D, 25-Hydroxy 32.0 ng/mL (Normal) Comments: PERFORMED BY: [employer] Xgdyom2737 [facility] [id number] :57 Range: 30.0-100.0 Comments: Vitamin D deficiency has been defined by the [place] of[place]icine and an Endocrine Society practice guideline as alevel of serum 25-OH vitamin D less than 20 ng/mL (1,2).The Endocrine Society went on to further define vitamin Dinsufficiency as a level between 21 and 29 ng/mL (2).1. IOM ([place] of [employer]). 2010. Dietary reference intakes for calcium and D. [place]: The National Academies Press.2. Mike MF, Shital HARVEY, Adele PEREZ, et al. Evaluation, treatment, and prevention of vitamin D deficiency: an Endocrine Society clinical practice guideline. JCEM. 2010; 96(7):1911-30. 07-Ebn-439047:09 URINE IZA CULTURE-IDENTIFICATN Comments: PATIENT NOT FASTINGPERFORMED BY: [facility] Xluqew5103 [facility] [id number] Information: [id number] (57169) Result 1 NG36 (Normal) Comments: No growth in 36 - 48 hours. Urine Culture,Comprehensive Final report (Normal) 93-Vde-95660:35 Urinalysis, Office (06381) UA - BILIRUBIN Negative (Normal) UA - BLOOD Hemolyzed Small (Normal) UA - GLUCOSE Negative (Normal) UA - KETONES Negative mg/dL (Normal) UA - LEUKOCYTE ESTERASE Negative (Normal) UA - NITRITE Negative (Normal) UA - PH 7.5 (Normal) UA - PROTEIN Negative mg/dL (Normal) UA - SPECIFIC GRAVITY 1.015 (Normal) URINE UROBILINGN MARYCHUY TIMED Normal mg/dL (Normal) 07-Tiu-489275:27 KNEE,4 OR MORE VIEWS Radiology Report See [...] radiologist regarding this report, please call our [id number] line @ Dictated on 12/09 1636 by Alfredo Gotti MDTranscribed on 12/11/11 1711 by ITS IMPORTSign by Alfredo Gotti MD on 12/11/11 171 Sign by: Alfredo Gotti MD 5-Yzv-215228:26 HAND,MIN 3 VIEWS Radiology Report See Note [...] 12/23 0126 Sign by: Hiren Braden MD 8-Emg-198719:26 HAND,MIN 3 VIEWS Radiology Report See Note [...] 7 {units} Comments: PATIENT NOT FASTINGPERFORMED BY: [address] [id number] BY: [address] [id number] 6:01 IgG/IgA (Normal) Range: 0-19 Comments: Negative <20 Weak positive 20 - 39 Moderate positive 40 - 59 Strong positive >59 Comment: SPRCS (Normal) Comments: PATIENT NOT FASTINGPERFORMED BY: [address] [id number] BY: [address] [id number] 6:01 Comments: Effective June 11, 2009 order code 233446 CCP IgGAntibodies has been replaced due to an updated reagentversion 3.1. For this reason [facility] has provided youwith a new order code 050670 CCP Antibodies IgG/IgA. 6-Hya-082903:01 SED RATE ERYTHROCYTE Comments: PATIENT NOT FASTINGPERFORMED BY: [address] [id number] BY: [address] [id number] (61872) Sedimentation Rate-Westergren 3 mm/h (Normal) Range: 0-41 : C-REACTIVE PROTEIN (46959) Comments: PATIENT NOT FASTINGPERFORMED BY: [place] 8147270 [facility] [id number] BY: [address] [id number] C-Reactive Protein, Quant 0.7 mg/L (Normal) Range: 0.0-4.9 : TSH (94574) Comments: PATIENT NOT FASTINGPERFORMED BY: [place] 8147270 [facility] [id number] BY: [address] [id number] TSH 2.220 {uIU/mL} (Normal) Range: 0.450-4.500 6-Vpz-212288: RHEUMATOID FACTOR-QUANT Comments: PATIENT NOT FASTINGPERFORMED BY: [place] 8147270 [facility] [id number] BY: [address] [id number] (65495) RA Latex Turbid. 9.1 {IU/mL} (Normal) Range: 0.0-13.9 : BO (ANTINUCLEAR ANTIBODY) Comments: PATIENT NOT FASTINGPERFORMED BY: [place] 8147270 [facility] [id number] BY: [address] [id number] (14472) BO Direct Negative (Normal) : CBC WITH MANUAL DIFF Comments: PATIENT NOT FASTINGPERFORMED BY: [place] 8147270 [facility] [id number] BY: [address] [id number] Inf ormation: [id number] (64775) Immature Grans (Abs) 0.0 {x10E3/uL} (Normal) Range: [...] 4.10-5.60 WBC 6.2 {x10E3/uL} (Normal) Range: 4.0-10.5 4-Dqh-768186:01 METABOLIC PANEL, Comments: PATIENT NOT FASTINGPERFORMED BY: CB [facility] Rxwube3888 [facility] [id number] BY: BN [facility] [address] [id number] [facility] (56476) ALT (SGPT) 15 [iU]/L (Normal) Range: 0-55 [...] mg/dL (Normal) Range: 65-99 :29 IZA CULTURE-OTHER (21165) Comments: PATIENT NOT FASTINGPERFORMED BY: LabCoZ[facility] Comprehensive Health CenterRujakj7789 [facility] [id number] Information: SRC:THRT [id number] Result 1 RRF (Normal) Comments: Routine respiratory hilda Upper Respiratory Culture Final report (Normal) :05 Rapid Strep Test, Office (80200) Rapid Strep Test, Office Negative (Normal) :00 [...] Cyclospora, or Microspo ridia. TESTING PERFORMED AT [facility]. ORIGINAL REPORT ON FILE IN LAB CONTAINS ADDITIONAL TEST SITE INFORMATION. OVA/ PARASITES EXAM NO OVA, CYSTS, OR PARASITES FOUND. 94-Yfo-327418:22 FOLIC ACID SERUM (61914) Comments: PATIENT NOT FASTINGPERFORMED BY: [employer] Basazi8902 [facility] [id number] Folate (Folic Acid), Serum 14.5 ng/mL (Normal) Comments: Indeterminate: 2.2 - 3.0 Deficient: <2.2 70-Uam-855267:22 VITAMIN B-12 (CYANOCOBALAMIN) Comments: PATIENT NOT FASTINGPERFORMED BY: [facility]6370 [facility] [id number] (69288) Vitamin B12 566 pg/mL (Normal) Range: 211-946 71-Xrq-544996:22 T3, FREE (TRIDOTHYRONINE) (83415) Comments: PATIENT NOT FASTINGPERFORMED BY: [facility] Umarph0110 [facility] [id number] Triiodothyronine,Free,Serum 3.0 pg/mL (Normal) Range: 2.0-4.4 60-Aeh-218610:22 T4, FREE (THYROXINE) Comments: PATIENT NOT FASTINGPERFORMED BY: [employer] Mnzrio5235 [facility] Hospitalin [place] [id number] Information: [id number] (50745) T4,Free(Direct) 1.40 ng/dL (Normal) Range: 0.82-1.77 98-Ncc-093341:22 Anti-TPO Antibody (93940) Comments: PATIENT NOT FASTINGPERFORMED BY: [facility] Mlijvw7072 [facility] [place] [id number] Thyroid Peroxidase (TPO) Ab 9 {IU/mL} (Normal) Range: 0-34 67-Pft-117262:22 TSH (11780) Comments: PATIENT NOT FASTINGPERFORMED BY: [facility] Suxbxf4252 Hannah [facility] [place] [id number] TSH 2.640 {uIU/mL} (Normal) Range: 0.450-4.500 07-Jrv-401777:22 Vitamin D Hydroxy (70396) Comments: PATIENT NOT FASTINGPERFORMED BY: [facility] Wdfloi0389 Hannah [facility]in [place] [id number] Vitamin D, 25-Hydroxy 48.1 ng/mL (Normal) Range: 32.0-100.0 Comments: Recent studies consider the lower limit of 32.0 ng/mL to be athreshold for optimal health.Stevan NEAL. J Nutr. 2004;135(2):317-22. 81-Lsh-485852:37 SERUM CRE & GFR EST GFR 60 mL/min (Normal) EST GFR - AA 73 mL/min (Normal) CREAT,SERUM 1.3 mg/dL (Normal) Range: 0.8-1.3 95-Hxg-184828:40 ABDOMEN WITH IV CONTRAST Radiology Report See Note (Normal) Comments: Exam Number: [id number] LINICAL:The patient is a 60-year-old man with [...] is seen Reported By: JA MARIN M.D. 7-Gol-242845:10 HEPATOBILIARY IMAGING Radiology Report See Note (Normal) Comments: Exam Number: [id number] HEPATOBILIARY IMAGING HISTORYRight upper quadrant pain. Following [...] with Cholecystokinin. Reported By: JA MARIN M.D. 92-Syp-896773:32 GALLBLADDER Radiology Report See Note (Normal) Comments: Exam Number: [id number] ULTRASOUND OF THE GALLBLADDER Multiple views of [...] abnormality is seen. Reported By: CHIDI WALKER 11-Szk-374531:07 Bilirubin, Total/Direct, Serum Comments: PERFORMED BY: [facility]Core[facility]6370 [facility] [id number] Bilirubin, Indirect 0.70 mg/dL (Normal) Range: 0.10-0.80 Bilirubin, Direct 0.20 mg/dL (Normal) Range: 0.00-0.40 :07 CBC WITH MANUAL DIFF (12868) Comments: PERFORMED BY: LabCoSaint [facility]'s Hospital at SussexCovflu7248 [facility] [id number] Baso (Absolute) 0.1 {x10E3/uL} (Normal) Range: 0.0-0.2 [...] 4.10-5.60 WBC 7.5 {x10E3/uL} (Normal) Range: 4.0-10.5 86-Kzr-970997:07 METABOLIC PANEL, COMPREHENSIVE Comments: PERFORMED BY: LabCoSaint [facility]'s Hospital at SussexIjgipa6551 [facility] [id number] (01395) Alkaline Phosphatase, S 77 [iU]/L (Normal) Range: [...] Glucose, Serum 88 mg/dL (Normal) Range: 65-99 3-Qbk-889807:10 KIDNEY (HP) Radiology Report See Note (Normal) Comments: Exam Number: [id number] CLINICAL:Elevated renal functions. RENAL ULTRASOUND TECHNIQUE: COMPARISON:None [...] CHOL 170 mg/dL (Normal) Comments: <200 mg/dL Ydkiteanc196-266 mg/dL Borderline>240 mg/dL High Risk HDL 52 [...] VITAMIN B12 729 pg/mL (Normal) Range: 254-1320 41-Xtf-142578:20 IZA CULTURE-OTHER (29447) Comments: PATIENT NOT FASTINGPERFORMED BY: LegalJumpJohn J. [facility] [id number] Information: SRC:THRT [id number] Result 1 RRF (Normal) Comments: Routine respiratory hilda Upper Respiratory Culture Final report (Normal) 74-Yyi-611355:19 Rapid Strep Test, Office (02596) Rapid Strep Test, Office Negative (Normal) 82-Jyu-597249:31 URINE IZA CULTURE (MARYCHUY COL Comments: PATIENT NOT FASTINGClinical Information: SRC:UR [id number] PERFORMED BY: [facility] [id number] COUNT) (31568) Result 1 NG36 (Normal) Comments: No growth in 36 - 48 hours. Urine Culture,Comprehensive Final report (Normal) 52-Mxe-42252:31 Urinalysis, Office (81961) UA - LEUKOCYTE ESTERASE Negative (Normal) Comments: aw UA - BILIRUBIN Negative (Normal) UA - BLOOD Non Hemolyzed Moderate (Normal) UA - GLUCOSE Negative (Normal) UA - KETONES Negative mg/dL (Normal) UA - NITRITE Negative (Normal) UA - PH 5.0 (Normal) UA - PROTEIN Negative mg/dL (Normal) UA - SPECIFIC GRAVITY 1.020 (Normal) URINE UROBILINGN MARYCHUY TIMED Normal mg/dL (Normal) 37-Yzi-947310:45 CHEST, PA AND LATERAL Radiology Report See Note (Normal) Comments: Exam Number: [id number] TWO VIEW CHEST COMPARISON STUDYNone. REASON FOR EXAMINATIONCough. Cardiac, mediastinal and hilar contours are normal. Lungs are clearwithout consolidation or effusion . Fine line ar opacity at the leftlateral base likely represents subsegmental atelectasis/scar. Thereis no acute osseous abnormality. Upper abdomen is unremarkable. IMPRESSIONNo radiographic evidence for acute ch est abnormality. Reported By: KANE MANUEL M.D. 96-Cls-793244:26 CBCD BASO% 0.5 % (Normal) Range: 0-1 [...] 11.6-14.6 WBC 8.9 K/mm3 (Normal) Range: 4.4-11.0 54-Jci-543162:26 ESR SED RATE 11 mm/h (Normal) Range: 0-20 :05 Urinalysis, Office (18843) Comments: done BC UA - BILIRUBIN Negative [...] See Note (Normal) Comments: TESTING PERFORMED AT [facility]. ORIGINAL REPORT ON FILE IN LAB CONTAINS ADDITIONAL TEST SITE INFORMATION. 2 CULTURE, VIRUS GENERAL NO VIRUS ISOLATED AFTER 14 DAYS- FINAL REPORT :38 Urinalysis, Office (08018) UA - BILIRUBIN Negative (Normal) UA - BLOOD Hemolyzed Large (Normal) UA - GLUCOSE Negative (Normal) UA - KETONES Small mg/dL (Normal) Comments: 15 UA - LEUKOCYTE ESTERASE Negative (Normal) UA - NITRITE Negative (Normal) UA - PH 6.5 (Normal) UA - PROTEIN Trace mg/dL (Normal) UA - SPECIFIC GRAVITY 1.000 (Normal) URINE UROBILINGN MARYCHUY TIMED Normal mg/dL (Normal) :19 Rapid Flu (68128 x 2) Comments: Neg INFLUENZA IMMUNOASSY DIRECT OPTICAL OBSERV Negative (Normal) :12 Rapid Strep Test, Office (09061) Comments: neg Rapid Strep Test, Office Negative (Normal) :31 CORONALS,SAG,MULTI,OBL,3-D REC Radiology Report See Note (Normal) Comments: Exam Number: [id number] CT SINUSES REASON FOR EXAMAcute sinusitis. Recent [...] septal deviation. Reported By: KANE MANUEL M.D. 99-Wax-10501:00 SINUS/FACIAL BONE WITHOUT CONT Radiology Report See Note (Normal) Comments: Exam Number: [id number] CT SINUSES REASON FOR EXAMAcute sinusitis. Recent history of dental procedure with drainageof tooth abscess and root canal. Coronal and axial CT scan obtained through the [facility]. All areas areviewed at soft tissue [...] septal deviation. Reported By: KANE MANUEL M.D. 26-Pvc-916646: TSH 2.74 {uIU/mL} Range: 0.34-4.82 00 (Normal) 46-Jwj-710388:20 A/C JTS,KYRA W OR W/O WTS Radiology Report See Note (Normal) Comments: Exam Number: [id number] LEFT SHOULDER/BILATERAL ACROMIOCLAVICULAR JOINTS CLINICAL INFORMATIONShoulder pain. [...] acromioclavicular joints. Reported By: FILIPPO PETERSON M.D. 83-Tdf-733505:19 SHOULDER,MIN 2 VIEWS Radiology Report See Note (Normal) Comments: Exam Number: [id number] LEFT SHOULDER/BILATERAL ACROMIOCLAVICULAR JOINTS CLINICAL INFORMATIONShoulder pain. [...] sinusitis, unspecified Planned Observations Vitamin B-12 (cyanocobalamin) (79188)Indication: Fatigue On: 15-Jun-20189:23 Request URINALYSIS, W/ MICRO (07158)Indication: Benign essential hypertension On: 02-Uca-922954:04 Request CBC W/AUTO DIFF WBC (22180)Indication: Benign essential hypertension On: 03-Mqm-666173:04 Request METABOLIC PANEL, COMPREHENSIVE (29090)Indication: Benign essential hypertension On: 19-Xsn-962877:04 Request HEPATITIS C ANTIBODY (21156)Indication: Encounter for hepatitis C virus screening test for high risk patient On: 06-Gva-149590:04 Request HGB A1C (19946)Indication: Abnormal blood sugar On: :03 Request CBC W/AUTO DIFF WBC (76555)Indication: Benign essential hypertension On: :46 Request METABOLIC PANEL, COMPREHENSIVE (54067)Indication: Benign essential hypertension On: :46 Request LIPID PANEL (08851)Indication: Mixed hyperlipidemia On: :46 Request HEPATITIS C ANTIBODY (05485)Indication: Encounter for hepatitis C virus screening test for high risk patient On: :46 Request METABOLIC PANEL, COMPREHENSIVE (67299)Indication: Prediabetes On: :30 Request RENIN (66208)Indication: Malignant hypertension On: 15-Svn-404909:53 Request URINE VMA (81277)Indication: Malignant hypertension On: :53 Request CATECHOLAMINES TOTAL, URINE (96677)Indication: Malignant hypertension On: :53 Request METANEPHRINES - URINE (67663)Indication: Malignant hypertension On: 09-Zyq-480886:53 Request TESTOSTERONE FREE (73518)Indication: Decreased libido (Renamed from Low libido) On: 6-Oiz-804297:02 Request LIPID PANEL (31016)Indication: Mixed hyperlipidemia On: :55 Request PSA (PROSTATE SPECIFIC ANTIGEN) (V76.44)Indication: Encounter for screening for malignant neoplasm of prostate (Renamed from Screening for prostate cancer) On: :13 Request CBC with auto diff (71853)Indication: Prediabetes On: :12 Request METABOLIC PANEL, COMPREHENSIVE (84402)Indication: Prediabetes On: :12 Request MICROALBUMIN: CREATININE RATIO (20945) AND (99571)Indication: Prediabetes On: :12 Request HGB A1C (40484)Indication: Prediabetes On: :12 Request HEPATIC FUNCTION PANEL (66904)Indication: Acute epigastric pain On: :36 Request Comments: standing Lipase (21635)Indication: Acute epigastric pain On: :36 Request Comments: standing Amylase (54963)Indication: Acute epigastric pain On: :36 Request Comments: standing Lipase (91557)Indication: Abdominal pain, acute, right upper quadrant (Renamed from Acute abdominal pain in right upper quadrant) On: :15 Request Comments: stat Amylase (76799)Indication: Abdominal pain, acute, right upper quadrant (Renamed from Acute abdominal pain in right upper quadrant) On: :15 Request Comments: stat CBC WITH MANUAL DIFF (36677)Indication: Abdominal pain, acute, right upper quadrant (Renamed from Acute abdominal pain in right upper quadrant) On: :15 Request Comments: stat METABOLIC PANEL, COMPREHENSIVE (57029)Indication: Abdominal pain, acute, right upper quadrant (Renamed from Acute abdominal pain in right upper quadrant) On: :15 Request Comments: stat Vitamin D Hydroxy (84403)Indication: Fatigue On: :35 Request VITAMIN B-12 (CYANOCOBALAMIN) (83420)Indication: Fatigue On: :34 Request METABOLIC PANEL, COMPREHENSIVE (54898)Indication: Pancreatitis, acute On: :33 Request CBC W/AUTO DIFF WBC (37071)Indication: Anemia On: :33 Request LIPID PANEL (35385)Indication: Mixed hyperlipidemia On: :33 Request PSA (PROSTATE SPECIFIC ANTIGEN) (V76.44)Indication: Screening for prostate cancer On: :32 Request Phosphorus (05911)Indication: Abdominal pain, acute, generalized On: 93-Rjp-844127:51 Request Magnesium (31006)Indication: Abdominal pain, acute, generalized On: 15-Pls-171560:51 Request METABOLIC PANEL, COMPREHENSIVE (90427)Indication: Abdominal pain, acute, generalized On: 65-Npk-215820:50 Request Helicobacter pylori Ag, EIA (91616)Indication: Abdominal pain, acute, generalized On: 36-Zue-638852:08 Request H. PYLORI ANALYSIS UREASE ACTIVITY (63167)Indication: Metallic taste On: :05 Request Celiac Disease Comphrehensive Profile (31967)Indication: Metallic taste On: 18-Nch-75830:05 Request MAGNESIUM (91698)Indication: Metallic taste On: :03 Request CALCIFEDIOL (21963)Indication: Metallic taste On: :03 Request TSH (35824)Indication: Metallic taste On: :02 Request CBC with manual diff (36250)Indication: Metallic taste On: :02 Request Metabolic Panel, Comprehensive ([id number])Indication: Metallic taste On: :02 Request CCP ANTIBODY ([id number])Indication: Pain in unspecified joint On: 1-Njf-225173:55 Request HEPATIC FUNCTION PANEL ([id number])Indication: Mixed hyperlipidemia On: :19 Request LIPID PANEL ([id number])Indication: Mixed hyperlipidemia On: 66-Das-722666:19 Request OVA & PARASITE DIR SMEAR ([id number])Indication: Diarrhea On: :26 Request Comments: check and make sure no giardia IZA CULTURE-STOOL ([id number])Indication: Diarrhea On: :26 Request HEPATIC FUNCTION PANEL ([id number])Indication: Bilateral carotid artery stenosis On: 29-Xrc-309062:05 Request LIPID PANEL ([id number])Indication: Bilateral carotid artery stenosis On: 80-Lve-007955:05 Request Creatine ([id number])Indication: Abdominal pain, acute, right upper quadrant On: 50-Uhb-533068:55 Request Bilirubin, total (46879)Indication: Abnormal blood chemistry On: 45-Lmz-981566:49 Request Bilirubin, Direct (36857)Indication: Abnormal blood chemistry On: 21-Sqr-880847:49 Request VITAMIN B-12 (CYANOCOBALAMIN) ([id number])Indication: Fatigue On: 81-Mcr-829760:08 Request LIPID PANEL ([id number])Indication: screening On: 44-Wzq-815475:08 Request PSA (PROSTATE SPECIFIC ANTIGEN) (V76.44)Indication: Screening for prostate cancer On: 00-Shj-370262:06 Request URINALYSIS, W/ MICRO (02662)Indication: Fatigue On: :06 Request TSH ([id number])Indication: Fatigue On: :06 Request METABOLIC PANEL, COMPREHENSIVE ([id number])Indication: Fatigue On: :06 Request CBC WITH MANUAL DIFF ([id number])Indication: Fatigue On: :06 Request VIRAL CULTURE ([id number]) On: 92-Eza-704741:55 Request IZA CULTURE-OTHER ([id number]) On: 50-Sas-200525:52 Request TSH ([id number])Indication: Anxiety On: :18 Request Planned Encounters Medical; [facility] Pre Wellness Exam (DF Nurse) - On: 12-Nov-2018 7:15 [facility] NURSE, DF Medical; [facility] Wellness Exam (Doctor) - On: 03-Dec-2018 7:00 [facility] Fast DO, Diandra A Fast DO, Diandra A Planned Procedures CT ABDOMEN AND PELVIS W CONTRAST On: 30-Sep-2018 Intent ([id number])By: Herminia Xie Comments: rule out retrocecal appendix rule out diverticulitis- STAT call wet read CT - Abdomen & Pelvis Stone ProtocolBy: On: 28-Jul-2018 Intent Fast DO, Diandra A Fast DO, Diandra A ELECTROCARDIOGRAM, COMPLETE (ECG) On: 20-Nov-2017 Intent ([id number])By: Fast DO, Diandra A Fast DO, Comments: ekg showed normal sinus rhythym, normal axis, no acute st/t wave changes Diandra A Renal Duplex ScanBy: Fast DO, Diandra A On: 09-Oct-2016 Intent Fast DO, Diandra A ELECTROCARDIOGRAM, COMPLETE (ECG) On: 08-Oct-2016 Intent ([id number])By: Fast DO, Diandra A Fast DO, Comments: ekg showed normal sinus rhythym, normal axis, no acute st/t wave changes Diandra A Cartoid DopplerBy: Fast DO, Diandra A On: 08-Oct-2016 Intent Fast DO, Diandra A INFUSION, NORMAL SALINE SOLUTION , 1000 On: 28-Aug-2016 Intent CC (Special Coverage Instructions Comments: lot:[id number]:12-13-2017rte: left anticub. IV dose: 1000ml (2 bags) given by:Suzanne Godinez LPN Apply. See MCM: 2049) ([id number])By: BARRINGTON Patton Phenergan Injection, up to 50 mg On: 28-Aug-2016 Intent ([id number])By: BARRINGTON Patton Comments: lot:[id number]:04/2017rte:IM right gluteal dose:25mggiven by:cristian Godinez LPN ELECTROCARDIOGRAM, COMPLETE (ECG) On: 14-Aug-2016 Intent ([id number])By: Fast DO, Diandra A Fast DO, Comments: ekg showed normal sinus rhythym, normal axis, no acute st/t wave changes Diandra A Cartoid DopplerBy: Fast DO, Diandra A On: 14-Aug-2016 Intent Fast DO, Diandra A Comments: bilateral Cartoid DopplerBy: Fast DO, Diandra A On: 10-Jun-2016 Intent Fast DO, Diandra A MAGNETIC RESONANCE On: 22-Apr-2016 Intent CHOLANGIOPANCREATOGRAPHY (MRCP) WITH Comments: rule out biliary sludge or stone CONTRAST ([id number])By: Fast DO, Diandra A Fast DO, Diandra A Cartoid DopplerBy: Fast DO, Diandra A On: 24-Aug-2015 Intent Fast DO, Diandra A CT - Abdomen (IV Contrast Needed)By: On: 24-Aug-2015 Intent Fast DO, Diandra A Fast DO, Diandra A IMMUNIZ ADMNIN, 1 VAC, SNGL/COMBO On: 10-Mar-2014 Intent ([id number])By: Visit, Nurse [facility] [place] ([id number])By: Héctor DO, On: 10-Mar-2014 Intent Diandra A Fast DO, Diandra A Comments: lot: [id number]: 11/17/14site/route: R arm/IMamt:0.5mLVIS signed when applicableSHELBY Zamora Radiology - Foot - RightBy: Fast DO, On: 21-Feb-2013 Intent Diandra A Fast DO, Diandra A Comments: call wet read Radiology - Ankle - RightBy: Fast DO, On: 21-Feb-2013 Intent Diandra A Fast DO, Diandra A Comments: call wet read Solu -Medrol Injection, 125 mg On: 08-Nov-2012 Intent ([id number])By: Faye Narayan CNP Comments: lot # [id number]- 06/2015site-RGlut qrrds-IYlozi-5 ML Eun GONZALEZ PHYSICAL THERAPY EVALUATION ([id number])By: On: 10-Dec-2011 Intent Sylvain LIM Meli Radiology - Knee - Right - Weight On: 10-Dec-2011 Intent BearingBy: Faye Narayan CNP Radiology - Humerus - RightBy: Sylvain On: 10-Dec-2011 Intent Faye LIM Radiology - Hand - BilateralBy: Fast On: 16-Apr-2011 Intent DO, Diandra A Fast DO, Diandra A Comments: attn thumbs malik- pain and swelling CT - AbdomenBy: Fast DO, Diandra A Fast On: 28-Jun-2010 Intent DO, Diandra A Comments: - please do today- call wet read Overnight Pulse Ox([id number])By: Bladimir GONZALEZ, On: 12-Jun-2010 Intent Lakshmi Ultrasound - GallbladderBy: Fast DO, On: 02-Nov-2009 Intent Diandra A Fast DO, Diandra A Pneumovax ([id number])By: Julian GONZALEZ, On: 26-Jun-2009 Intent Erin Comments: Lot #[id number]/20/10Site-right deltoidDose0.5mlgiven by:[facility] Flu Vaccine, Split IM ([id number])By: On: 26-Jun-2009 Intent Erin Jordan LPN Comments: Lot #[id number]-left deltoidgiven by:[facility] Inhaler Demonstration ([id number])By: Sylvain On: 21-Sep-2008 Intent Faye LIM Comments: done BC Pulse Oximetry ([id number])By: Sylvain LIM, On: 21-Sep-2008 Intent Faye Alves Comments: done BC Aerosol Treatment ([id number])By: Sylvain LIM, On: 21-Sep-2008 Intent Faye Alves Comments: done BC Solu -Medrol Injection, 125 mg On: 21-Sep-2008 Intent ([id number])By: Faye Narayan CNP Comments: Amt: 2mlLot: [id number]: 03/2011Route: IMSite: right hipTolerated: wellGiven By: LISA Soto Pulse Oximetry ([id number])By: Sylvain LIM, On: 31-Aug-2008 Intent Meli Pulse Oximetry ([id number])By: Sylvain LIM, On: 31-Aug-2008 Intent Faye Alves Aerosol Treatment ([id number])By: Sylvain LIM, On: 31-Aug-[address] - Sinuses CompleteBy: Maxim HAMM, On: 01-Feb-2008 Intent Johana PHYSICAL THERAPY EVALUATION ([id number])By: On: 01-Nov-2007 Intent Faye Narayan CNP Radiology - Shoulder - LeftBy: Fast DO, On: 12-Oct-2007 Intent Diandra A Fast DO Dinadra A Comments: and left ac joint Nerve ConductionBy: Johana Pan DO On: 15-Jan-2007 Intent EMGBy: Jhoana Pan DO On: 15-Jan-2007 Intent Inhaler Demo ([id number])By: JOSY LIM, On: 10-Sep-2006 Intent LASHAY Aerosol Treatment ([id number])By: JOSY On: 10-Sep-2006 Intent LASHAY LIM Comments: expiratory wheeze absent on rt after treatment.Continues on rt. Pulse Oximetry ([id number])By: JOSY LIM, On: 10-Sep-2006 Intent LASHAY Comments: [...] available upon request. Encounters Office Visit On: 30-Sep-2018 7:06 Encounter Diagnosis: Right upper quadrant pain End: 30-Sep-2018 20:04 [facility] Office Visit On: 29-Sep-2018 14:17 Encounter Diagnosis: [...] time losxarten bothers hi m if quick [place] movements and laying on backget up- riding [...] (729.5) [facility] Office Visit On: 25-Feb-2013 10:01 Encounter Reason: Skin Problems - The [...] sometim es better sometimes worse- he called [facility] office other day and gave him dicyclomine- [...]
--- OUTSIDE RECORDS SUMMARY | 2018-12-04 23:11 | XMS RPT_ITS | Continuity of Care Document ---
:1950 Author Organization [facility] Address [address] [facility] [address] [place] [address] Phone Care Team Providers Name Role Phone Diandra Anaya DO Unavailable [facility], [facility] Unavailable Dr. Ryne Arndt Unavailable Marlene Ghosh Unavailable Neshoba DPMBrien Unavailable Long STAFF NURSE ICU RESOURCE TEAM, Shayla L Unavailable Unavailable Slarb STAFF NURSE ICU RESOURCE TEAM, Jade Unavailable Unavailable Willy Edouarda Unavailable Unavailable [...] days Quantity: 20 {Tablet} Refills: 0 Ordered:07-Nov-2010 DO, Diandra AFast DO, Diandra A Start [...] Discontinued Comments:number given unknown -- started by [facility] for pancreatitis PROZAC, 10MG (Oral Tablet) 1 [...] Flow Screening Result: Comments: See Note; NOTES: [facility] Cardiovascular Services [address] [place] [address] 06/15/18 0826 MR#: [id number] Acct: [id number] Name: SIMEON PAIZ Rep #: [id number] : 1950 68 From: Nilo King MD Attending Dr: Diandra Anaya DO Status: REG REF Ordering Dr: Date: 06/16/18 Location: [facility] Sex: M C Admitted: Reason For Study: [...] LOWE ate Dictated: 06/15/18825 Date Transcribed: 06/16/18920 Cloth Stock Sorter: Signed 16-Jun-2018 TXT - Blood Flow Screening Result: Comments: See Note; NOTES: [facility] Cardiovascular Services [address] [place] [address] 06/15/18825 MR#: [id number] Acct: [id number] Name: SIMEON PAIZ Rep #: [id number] : 1950 68 From: Nilo King MD Attending Dr: Diandra Anaya DO Status: REG REF Ordering Dr: Date: 06/16/18 Location: [facility] Sex: M C Admitted: Reason For Study: [...] D ate Dictated: 06/15/18825 Date Transcribed: 06/16/18920 Cloth Stock Sorter: Signed 08-Oct-2016 PT D/C of Non Returning Pt (1) Result: Comments: See Note; NOTES: [facility] Physical Therapy Health[address] [place] [address] Fax REHABILITATION SERVICES DISCHAR GE SUMMARY MR#: [id number] Acct: [id number] Name: SIMEON PAIZ Rep #: [id number] : 1950 66 From: Sean Rojas PT, Cert. T, OCS Referring : Diandra Anaya DO Status: REG RCR Insurance: [facility] - Discharge Summary (1) - Patient Information [...] - PT Result: Comments: See Note; NOTES: [facility] Therapy [facility]point [address] [facility] [address] [facility] [place] [address] Fax REHABILITATION SERVICES INITIAL EVALUATION MR#: [id number] Acct: [id number] Name: SIMEON PAIZ Rep #: [id number] : 1950 66 From: Sean Rojas PT, [...] effect Lumbar Standing: Right Side Glides - Ladle Puller al Response: No effect Lumbar Standing: Right Side [place] - Symptoms During Testing: No effect Lumbar Standing: Right Side [place] - Symptoms After Testing: No effect Lumbar Standing: Left Side [place] - Mec hanical Response: No effect Lumbar Standing: Left Side [place] - Symptoms During Testing: No effect Lumbar Standing: Left Side [place] - Symptoms After Testing: No effect Lumbar [...] to be FAXED BACK to us at [phone] for Medicare purposes. Please let me know [...] without Contrast Result: Comments: See Note; NOTES: [facility] Imaging Services [address] [place] [address] Verdana 4d MRCP Abdomen without Contrast MR#: [id number] Acct: [id number] Name: DELMA PAIZ Rep #: [id number] : 1950 M 66 From: Catherine Mota MD PCP: Diandra Anaya DO Status: REG CLI Study: MRCP Abdomen without Contrast Date of Exam: 04/24/16 Exam# [id number] Ordering Dr: Diandra Anaya DO STUDY: MR [...] MD at 9:35 EDT , Service support [phone], CC: Diandra Anaya DO Cloth Stock Sorter: Signed 20-Sep-2015 Operative Report Result: Comments: See Note; NOTES: [facility] Medical Records Department [address] [place] [address] Operative Report MR#: [id number] Acct: [id number] Name: KIKE PAIZ Rep #: [id number] : 1950 65 From: Simeon Gruber MD PCP: Diandra Anaya DO Status: [facility] DATE OF SERVICE: 09/04/2015 DATE OF [...] the fascia of the umbilical port with bwlrue-tw-dosok stitch of 0 Vicryl. Skin incisions were closed with subcuticular stitches of 4-0 Monocryl. Steri- Strips were applied. Sterile dressings we re applied and the patient tolerated the procedure well. Simeon Gruber MD T: NTS JOB: [id number] 09/20/15 1111 <Electronically signed by Simeon Gruber MD> Date Simeon Gruber MD Cosigner Signature (If Indicated): Date CC: Simeon Gruber MD; Diandra Anaya DO Date D ictated: 09/04/151151 Date Transcribed: 09/04/151151 Cloth Stock Sorter: Signed 06-Sep-2015 12 Lead Electrocardiogram Result: Comments: See Note; NOTES: [facility] Cardiovascular Services [address] [place] [address] 12 Lead EKG 09/04/15911 MR#: [id number] Acct: [id number] Name: ERIK HARTLEYTALATSIMEON Pham Rep #: [id number] : 1950 65 From: Simeon Stack MD Attending Dr: Simeon Gruber MD Status: DEP [facility] Ordering Dr: Misael Mayer MD Date: 09/04/15 Location[place] [facility] Sex: M C Admitted: Test Reason : [...] found Confirmed by SIMEON STACK ([id number]), publication editor EDGAR MOTA ([id number]) on 09/06/2015 10:47:28 AM Referred By: WALLY Confirmed By:SIMEON STACK 09/06/15 1047 Date Simeon Stack MD CC: Diandra Anaya DO Date Dictated: 09/04/15911 Date Transcribed: 09/04/15911 Cloth Stock Sorter: Signed 04-Sep-2015 Discharge Instruction Result: Comments: See Note; NOTES: [facility] Medical Records Department [address] [place] [address] Instructions for Home/Discharge Instructions 09/04/15 1121 MR#: [id number] Acct: [id number] Name: SIMEON PAIZ Rep #: [id number] : 1950 65 From: Simeon Gruber MD PCP: Diandra Anaya DO Status: REG [facility] Discharge Diet: Light diet - advance as [...] Up With: Simeon Gruber - Please call [phone] to schedule an appointment . When: 7 days after your surgery. 09/04/15 1122 <Electronically signed by Simeon Gruber MD> Date Simeon Gruber MD CC: Diandra Anaya DO 30-Aug-2015 Abdomen W/WO IV Contrast Result: Comments: See Note; NOTES: [facility] Imaging Services [address] [place] [address] Verdana 4d Abdomen W/WO IV Contrast MR#: [id number] Acct: [id number] Name: SIMEON YE Rep #: [id number] : 1950 M 65 From: Chidi Walker MD PCP: Diandra Anaya DO Status: REG CLI Study: Abdomen W/WO IV Contrast Date of Exam: 08/30/15 Exam# [id number] Ordering Dr : Diandra Anaya DO STUDY: [...] Chidi Walker MD at 9:59 EST Tel [phone], Service support [phone], CC: Diandra Anaya DO Cloth Stock Sorter: Signed Immunization Name Dates Details Influenza (3 years and up) on: 26-Jun-2009 Comments: Lot #[id number] deltoidgiven by:[facility] Pneumococcal (2 years and up) [...] Status: Active Most Recent Primary Occupation Comments: [employer] Status: Active Number of Adult (age 20 [...] kg/m2 Body Surface Area Calculated 2 m2 44-Gpl-843126:39 Temperature 97.2 f Comments: Method: Temporal Pulse [...] Value Details :11 CBC W/Diff, Automated Comments: [facility] [address] [place], [place], [id number] Absolute Lymph 1.11 {X10_3/ul} (Normal) Range: 0.83-4.51 [...] Range: 4.4-11.0 15-Jun-20188:11 Comprehensive Metabolic Profil Comments: [facility] [address] [place], [place], [address] GAP 9 (Normal) Range: 5-15 CO2 25.0 [...] Comments: Please note revised GLUCOSE reference range kbknxpuxa83/02/2018. 15-Jun-20188:11 Hepatitis C Antibodies Comments: [facility] (refer to report for specific site)refer to report for address and phone number HEP C AB <0.1 {s/co_ratio} (Normal) Range: 0.0-0.9 Comments: Negative: < 0.8 Indeterminate: 0.8 - 0.9 Positive: > 0.9 The CDC recommends that a positive HCV antibody result be followed up with a HCV Nucleic Acid Amplification test (186332).Performed at: [address] [id number] Director: Toby Wilder PhD, Phone: [phone] 15-Jun-20188:11 Urinalysis, Complete Comments: How was Urine Obtained? [facility] [address] [place] [address], [id number] MUCUS, URINE 0 SEEN {/hpf} (Normal) BACTERIA [...] ADD ON TEST PER [facility] Vsxysptwki4922 [place] [place], [address] Range: 211-917 :53 Microscopic Examination Comments: PATIENT WAS FASTINGPERFORMED BY: [facility] [id number] BY: [employer] [id number] Bacteria None seen (Normal) Mucus Threads Present (Normal) Epithelial Cells (non renal) None seen {/hpf} (Normal) Range: 0 - 10 RBC None seen {/hpf} (Normal) Range: 0 - 2 WBC 0-5 {/hpf} (Normal) Range: 0 - 5 :53 URINALYSIS, W/ MICRO Comments: PATIENT WAS FASTINGPERFORMED BY: [employer] [facility] [id number] BY: [employer] [id number] ([address]47) Microscopic Examination See below: (Normal) Comments: Microscopic was indicated and was performed. Microscopic Examination MICRON (Normal) Comments: Microscopic follows if indicated. Nitrite, Urine Negative (Normal) Urobilinogen,Semi-Qn 0.2 mg/dL (Normal) Range: 0.2-1.0 Bilirubin Negative (Normal) Occult Blood Negative (Normal) Ketones Negative (Normal) Glucose Negative (Normal) Protein Negative (Normal) WBC Esterase Negative (Normal) Appearance Clear (Normal) Urine-Color Yellow (Normal) pH 7.0 (Normal) Range: 5.0-7.5 Specific Severn 1.009 (Normal) Range: 1.005-1.030 :53 PSA (PROSTATE SPECIFIC Comments: PATIENT WAS FASTINGPERFORMED BY: [facility] [id number] BY: [employer] [id number] ANTIGEN) (V76.44) Prostate Specific Ag, 1.3 ng/mL (Normal) Range: 0.0-4.0 Serum Comments: Lin ECLIA methodology. .According to the [place] [employer], Serum PSA shoulddecrease and remain at undetectable levels after radicalprostatectomy. The AUA defines biochemical recurrence as an initialPSA value 0.2 ng/mL or greater followed by a subsequent confirmatoryPSA value 0.2 ng/mL or greater.Values obtained with d ifferent assay methods or kits cannot be usedinterchangeably. Results cannot be interpreted as absolute evidenceof the presence or absence of malignant disease. :53 TESTOSTERONE FREE (27122) Comments: PATIENT WAS FASTINGPERFORMED BY: [employer] [id number] BY: [employer] [id number] Free Testosterone(Direct) 13.7 pg/mL (Normal) Range: 6.6-18.1 :53 CBC with auto diff Comments: PATIENT WAS FASTINGPERFORMED BY: [employer] Jrunxz9626 [facility] [id number] BY: [employer] [id number] (14039) Immature Grans (Abs) 0.0 {x10E3/uL} (Normal) Range: [...] MICROALBUMIN: CREATININE Comments: PATIENT WAS FASTINGPERFORMED BY: [employer] LYFE Kitchen [facility] [id number] BY: [employer] [id number] RATIO (73245) AND (88019) Microalb/Creat Ratio <7.8 {mg/g_creat} (Normal) Range: 0.0-30.0 Microalbumin, Urine <3.0 ug/mL (Normal) Creatinine, Urine 38.5 mg/dL (Normal) :53 HGB A1C (94548) Comments: PATIENT WAS FASTINGPERFORMED BY: [employer] ,LLClin6370 [facility] [id number] BY: [employer] [id number] Hemoglobin A1c 5.3 % (Normal) Range: 4.8-5.6 Comments: . Pre-diabetes: 5.7 - 6.4 Diabetes: >6.4 Glycemic control for adults with diabetes: <7.0 :53 LIPID PANEL (41250) Comments: PATIENT WAS FASTINGPERFORMED BY: [employer] LYFE Kitchen [facility] [id number] BY: [employer] [id number] LDL/HDL Ratio 1.8 {ratio_units} (Normal) Range: 0.0-3.6 Comments: LDL/HDL Ratio Men Women 1/2 Avg.Risk 1.0 1.5 Av g.Risk 3.6 3.2 2X Avg.Risk 6.2 5.0 3X Avg.Risk 8.0 6.1 LDL Cholesterol Calc 102 mg/dL (Abnormal) Range: 0-99 VLDL Cholesterol Chaparro 19 mg/dL (Normal) Range: 5-40 HDL Cholesterol 58 mg/dL (Normal) Triglycerides 96 mg/dL (Normal) Range: 0-149 Cholesterol, Total 179 mg/dL (Normal) Range: 100-199 16-Yho-58847:53 METABOLIC PANEL, Comments: PATIENT WAS FASTINGPERFORMED BY: [facility]Zqfodv3536 [facility] [id number] BY: [employer] [id number] COMPREHENSIVE (28365) ALT (SGPT) 18 [iU]/L (Normal) Range: 0-44 [...] Glucose, Serum 88 mg/dL (Normal) Range: 65-99 89-Qgl-863406:15 Microscopic Examination Comments: PATIENT NOT FASTINGPERFORMED BY: [facility] [id number] Bacteria None seen (Normal) Mucus Threads Present (Normal) Epithelial Cells (non renal) None seen {/hpf} (Normal) Range: 0 - 10 RBC 0-2 {/hpf} (Normal) Range: 0 - 2 WBC 0-5 {/hpf} (Normal) Range: 0 - 5 09-Vja-353202:15 URINALYSIS (65529) Comments: PATIENT NOT FASTINGPERFORMED BY: [facility] [id number] Information: SRC:UC Microscopic Examination See below: (Normal) Comments: Microscopic was indicated and was performed. Nitrite, Urine Negative (Normal) Urobilinogen,Semi-Qn 0.2 mg/dL (Normal) Range: 0.2-1.0 Bilirubin Negative (Normal) Occult Blood 2+ (Abnormal) Ketones Negative (Normal) Glucose Negative (Normal) Protein Trace (Normal) WBC Esterase Negative (Normal) Appearance Clear (Normal) Urine-Color Yellow (Normal) pH 6.0 (Normal) Range: 5.0-7.5 Specific Severn 1.025 (Normal) Range: 1.005-1.030 24-Vwu-523838:15 URINE IZA CULTURE-IDENTIFICATN Comments: PATIENT NOT FASTINGPERFORMED BY: UserMojo citizenmadeAt[facility] Health [facility] [id number] (15048) Result 1 NG36 (Normal) Comments: No growth in 36 - 48 hours. Urine Culture,Comprehensive Final report (Normal) 73-Rlh-92166:45 CBC W/AUTO DIFF WBC (23410) Comments: PATIENT NOT FASTINGPERFORMED BY: UserMojo citizenmadeAt[facility] [id number] Immature Grans (Abs) 0.0 {x10E3/uL} (Normal) Range: [...] 4.14-5.80 WBC 6.8 {x10E3/uL} (Normal) Range: 3.4-10.8 10-Wgf-92306:45 METABOLIC PANEL, COMPREHENSIVE Comments: PATIENT NOT FASTINGPERFORMED BY: [facility]Co[facility]Pinlps3692 [facility] [id number] (13358) ALT (SGPT) 18 [iU]/L (Normal) Range: 0-44 [...] mg/dL (Normal) Range: 65-99 :30 Amylase Comments: [facility] J[address]54[address] [facility] [place], [place], [id number] ESTIVEN 80 U/L (Normal) Range: 25-115 :30 CBC W/Diff, Automated Comments: [facility] [address] [place], [place], [address] Absolute Lymph 1.18 {X10_3/ul} (Normal) Range: 0.83-4.51 [...] Range: 4.4-11.0 22-Apr-20169:30 Comprehensive Metabolic Profil Comments: [facility] [address] [place], [address] GAP 6 (Normal) Range: 5-15 CO2 28.0 [...] mg/dL (Normal) Range: 70-110 22-Apr-20169:30 Lipase Comments: [facility] [address] [place], [place], [address] LIPASE 201 U/L (Normal) Range: 73-393 49-Skr-457339:28 GALLBLADDER See Note (Normal) Comments: [facility] [address] [place], [place], [address] Comments: Patient: SIMEON PAIZ : 1950 (65/M) Acct Num: [id number] Phys: Simeon Gruber MD Unit Num: [id number] Loc: [facility] Specimen: [id number] Received: 09/04/15 - 4 Spec Type: G [...] thickness and is free of mass lesions. Hide Measuring Machine Operator sections of the gallbladder and thecystic duct are submitted in one cassette. AM: 09/04/15 TC:3 CPT: 09798 HEADER OPERATION: Cholecystectomy, lap, no grams PRE-OP DIAGNOSIS: Acute biliary pancreatitis TISSUE SUBMITTED: Gallbladder MICROSCOPIC DE SCRIPTION Slides are reviewed. MICROSCOPIC DIAGNOSIS Gallbladder, cholecystectomy: Mild chronic cholecystitis. AM: 09/05/15 Signed Jared Piedraih 09/05/15 <signature on file> 3-Qjf-652726:30 Urinalysis, Complete Comments: Order Date: 08/18/15How was Urine Obtained? CLEAN [facility] [address] [place], [address] FINE GRAN CAST 0-5 SEEN [...] (Normal) CLARITY Clear (Normal) COLOR Yellow (Normal) 1-Tst-304315:00 Basic Metabolic Profile (BMP) Comments: 'TROP' Serial specimen #1, #2, #3, or #4: [address] [place] [address] [address] [place], [place], [address] GAP 12 (Normal) Range: 5-15 CO2 27.0 [...] 7-18 GLU 96 mg/dL (Normal) Range: 70-110 8-Wva-579665:00 CBC W/Diff, Automated Comments: [facility] [address] [place], [place], [address] Absolute Lymph 2.93 {X10_3/ul} (Normal) Range: 0.83-4.51 [...] Serial specimen #1, #2, #3, or #4: [address] [place] [address] [address] [place], [address] LIPASE 37673 U/L (Abnormal) Range: 73-393 8-Esf-754037:00 Liver Profile Comments: 'TROP' Serial specimen #1, #2, #3, or #4: [address] [place] [address] [address] [place], [address] D BILI 0.13 mg/dL (Normal) [...] Serial specimen #1, #2, #3, or #4: [address] [place] [address] [address] [place], [address] TROPONIN-I < 0.02 ng/mL (Normal) Comments: TROPONIN-I EXPECTED VALUES <0.05 NEGATIVE 0.06 - 0.59 AT RISK OF [place] > OR = 0.60 SUGGEST [place] 76-Aln-814516:23 Microscopic Examination Comments: PATIENT NOT FASTINGPERFORMED BY: [facility] Cvdiig8328 [facility] [id number] Bacteria None seen (Normal) Mucus Threads Present (Normal) Epithelial Cells (non renal) None seen {/hpf} (Normal) Range: 0 - 10 RBC None seen {/hpf} (Normal) Range: 0 - 2 WBC 0-5 {/hpf} (Normal) Range: 0 - 5 42-Rxb-913483:14 H pylori, IgM, IgG, IgA Comments: PATIENT NOT FASTINGPERFORMED BY: [facility] [id number] Information: [id number] Ab H. pylori, IgM Abs <9.0 {units} (Normal) Range: 0.0-8.9 Comments: Negative <9.0 Equivocal 9.0 - 11.0 Positive >11.0 . This test was developed and its performance characteristics determined by [facility]. It has not been cleared or approved [...] <0.9 Indeterminate 0.9 - 1.0 Positive >1.0 97-Vwv-243132:14 Request Problem Comments: PATIENT NOT FASTINGPERFORMED BY: [facility] [id number] 58-Xsm-294202:1 Written Authorization WAR (Normal) Comments: PATIENT NOT FASTINGPERFORMED BY: [facility] [id number] Comments: Written Authorization Received.Authorization received from ORIGINAL REQUISITION [id number] by Faye Fitzgerald 13-Ehd-315656:23 URINE IZA CULTURE (MARYCHUY COL Comments: PATIENT NOT FASTINGPERFORMED BY: [facility] [id number] COUNT) (54861) Result 1 NG36 (Normal) Comments: No growth in 36 - 48 hours. Urine Culture,Comprehensive Final report (Normal) 03-Vur-644316:14 CBC W/AUTO DIFF WBC Comments: PATIENT NOT FASTINGPERFORMED BY: [facility] [id number] Information: [id number],I45709 (79684) Immature Grans (Abs) 0.0 {x10E3/uL} (Normal) Range: [...] 4.14-5.80 WBC 8.1 {x10E3/uL} (Normal) Range: 3.4-10.8 13-Hdw-760562:14 METABOLIC PANEL, COMPREHENSIVE Comments: PATIENT NOT FASTINGPERFORMED BY: [facility]Co[facility] [place] 9005870 [facility] [id number] (77120) ALT (SGPT) 21 [iU]/L (Normal) Range: 0-44 [...] Glucose, Serum 87 mg/dL (Normal) Range: 65-99 81-Yod-204899:14 Vitamin D Hydroxy (74781) Comments: PATIENT NOT FASTINGPERFORMED BY: [facility] Dqppyd7717 [facility] [id number] Vitamin D, 25-Hydroxy 38.7 ng/mL (Normal) Range: 30.0-100.0 Comments: Vitamin D deficiency has been defined by the [employer] of[employer] and an Endocrine Society practice guideline as alevel of serum 25-OH vitamin D less than 20 ng/mL (1,2).The Endocrine Society went on to further define vitamin Dinsufficiency as a level between 21 and 29 ng/mL (2).1. IOM ([employer] of Medicine). 2010. Dietary reference intakes for calcium and D. [place]: The National Academies Press.2. Mike MF, Shital [place], Adele PEREZ, et al. Evaluation, treatment, and prevention of vitamin D deficiency: an Endocrine Society clinical practice guideline. JCEM. 2010; 96(7):1911-30. 59-Dph-648862:14 VITAMIN B-12 (CYANOCOBALAMIN) Comments: PATIENT NOT FASTINGPERFORMED BY: [facility]Vuvqgv5043 [facility] [id number] (92776) Vitamin B12 935 pg/mL (Normal) Range: 211-946 90-Njf-738518:14 EBV Panel (82951) Comments: PATIENT NOT FASTINGPERFORMED BY: [facility] [id number] Interpretation: SPRCS (Normal) Comments: EBV Interpretation Chart [...] <36.0 Equivocal 36.0 - 43.9 Positive >43.9 78-Mgu-404829:23 URINALYSIS, W/ MICRO Comments: PATIENT NOT FASTINGPERFORMED BY: [facility]6370 [facility] [id number] Information: SRC:UR P50572 (20396) Microscopic Examination See below: (Normal) Comments: Microscopic was indicated and was performed. Nitrite, Urine Negative (Normal) Urobilinogen,Semi-Qn 0.2 mg/dL (Normal) Range: 0.0-1.9 Bilirubin Negative (Normal) Occult Blood Trace (Abnormal) Ketones Negative (Normal) Glucose Negative (Normal) Protein Negative (Normal) WBC Esterase Negative (Normal) Appearance Clear (Normal) Urine-Color Yellow (Normal) pH 7.5 (Normal) Range: 5.0-7.5 Specific Severn 1.011 (Normal) Range: 1.005-1.030 06-Fiv-195744:14 TSH (89522) Comments: PATIENT NOT FASTINGPERFORMED BY: [employer] Dvqbgf2560 [facility] [id number] TSH 2.980 {uIU/mL} (Normal) Range: 0.450-4.500 22-Khj-546717:14 SED RATE ERYTHROCYTE (08272) Comments: PATIENT NOT FASTINGPERFORMED BY: [facility]Cchjyh1998 [facility] [id number] Sedimentation Rate-Westergren 2 mm/h (Normal) Range: 0-30 99-Qzj-620294:14 C-REACTIVE PROTEIN (58953) Comments: PATIENT NOT FASTINGPERFORMED BY: [facility]jo[facility]Nrirrl4194 [facility] [id number] C-Reactive Protein, Quant 1.3 mg/L (Normal) Range: 0.0-4.9 92-Het-397079:23 ANKLE MIN 3 VIEWS Radiology Report See [...] Mandujano M.D.February 21, 2013 at 6:08:53 PM [id number] Signed BP/BP If you are the referring physician and would like to consult with theradiologist who provided this interpretation, please contact Heri Ramsay at [phone]. If this radiologist is unavailable, youwillbe ected to another radiologist to assist. If you are a patient with a question regarding this report, pleasecontactyour referring physician directly. Professional Interpretation Provided By: [employer], Phone , These documents contain legally protected [...] 0 02/21/131810 Sign by: John Mandujano MD 45-Fkh-123128:23 FOOT MIN 3 VIEWS Radiology See Note [...] Mandujano M.D.February 21, 2013 at 6:10:23 PM [id number] Signed BP/BP If you are the referring physician and would like to consult with theradiologist who provided this interpretation, please contact Heri Ramsay at [phone]. If this radiologist is unavailable, youwillbe directed to another radiologist to assist. If you are a patient with a question regarding this report, juany zeeconsarahctyoalisha referring physician directly. Professional Interpretation Provided By: [employer], Phone , These documents contain legally protected [...] on 02/21/131812 Sign by: John Mandujano MD 61-Wit-156271:57 CBC With Differential/Platelet Comments: PERFORMED BY: [facility] [id number] Immature Grans (Abs) 0.0 {x10E3/uL} (Normal) Range: [...] 4.14-5.80 WBC 6.4 {x10E3/uL} (Normal) Range: 4.0-10.5 44-Kmt-330603:57 Celiac Disease Comprehensive Comments: PERFORMED BY: [facility] [id number] Immunoglobulin A, Qn, Serum 266 mg/dL (Normal) [...] Comp. Metabolic Panel (14) Comments: PERFORMED BY: [facility] [id number] ALT (SGPT) 17 [iU]/L (Normal) Range: 0-44 [...] IgM, IgG, IgA Ab Comments: PERFORMED BY: [facility] [id number] H.pylori, IgM ABS <0.80 {index} Range: 0.00-0.79 [...] Serum 2.0 mg/dL (Normal) Comments: PERFORMED BY: [employer]6370 [facility] [id number] :57 Range: 1.6-2.6 TSH 2.770 {uIU/mL} Comments: PERFORMED BY: [employer]6370 [facility] [id number] :57 (Normal) Range: 0.450-4.500 Vitamin D, 25-Hydroxy 32.0 ng/mL (Normal) Comments: PERFORMED BY: [employer] [id number] :57 Range: 30.0-100.0 Comments: Vitamin D deficiency has been defined by the [employer] and an Endocrine Society practice guideline as alevel of serum 25-OH vitamin D less than 20 ng/mL (1,2).The Endocrine Society went on to further define vitamin Dinsufficiency as a level between 21 and 29 ng/mL (2).1. IOM ([employer]). 2010. Dietary reference intakes for calcium and D. [place]: The National Academies Press.2. Mike MF, Shital [place], Adele PEREZ, et al. Evaluation, treatment, and prevention of vitamin D deficiency: an Endocrine Society clinical practice guideline. JCEM. 2010; 96(7):1911-30. 57-Ueo-538641:09 URINE IZA CULTURE-IDENTIFICATN Comments: PATIENT NOT FASTINGPERFORMED BY: [facility] V[address] [place] [id number] Information: [id number] ([id number]) Result 1 NG36 (Normal) Comments: No growth in 36 - 48 hours. Urine Culture,Comprehensive Final report (Normal) 52-Pcg-19879:35 Urinalysis, Office (11570) UA - BILIRUBIN Negative (Normal) UA - BLOOD Hemolyzed Small (Normal) UA - GLUCOSE Negative (Normal) UA - KETONES Negative mg/dL (Normal) UA - LEUKOCYTE ESTERASE Negative (Normal) UA - NITRITE Negative (Normal) UA - PH 7.5 (Normal) UA - PROTEIN Negative mg/dL (Normal) UA - SPECIFIC GRAVITY 1.015 (Normal) URINE UROBILINGN MARYCHUY TIMED Normal mg/dL (Normal) 74-Cyk-898613:27 KNEE,4 OR MORE VIEWS Radiology Report See [...] radiologist regarding this report, please call our [id number] line @ Dictated on 12/09 1636 by Alfredo Gotti MDTranscribed on 12/11/11 171 by ITS IMPORTSign by Alfredo Gotti MD on 12/11/11 171 Sign by: Alfredo Gotti MD 1-Kgp-194422:26 HAND,MIN 3 VIEWS Radiology Report See Note [...] 12/23 0126 Sign by: Hiren Braden MD 0-Ogn-820589:26 HAND,MIN 3 VIEWS Radiology Report See Note [...] 7 {units} Comments: PATIENT NOT FASTINGPERFORMED BY: [employer] [id number] BY: [address] [id number] 6:01 IgG/IgA (Normal) Range: 0-19 Comments: Negative <20 Weak positive 20 - 39 Moderate positive 40 - 59 Strong positive >59 Comment: SPRCS (Normal) Comments: PATIENT NOT FASTINGPERFORMED BY: [facility]Gryzeh7721 [facility] [id number] BY: [address] [id number] 6:01 Comments: Effective June 11, 2009 order code 000155 CCP IgGAntibodies has been replaced due to an updated reagentversion 3.1. For this reason [facility] has provided youwith a new order code 160656 CCP Antibodies IgG/IgA. 0-Cvo-430125:01 SED RATE ERYTHROCYTE Comments: PATIENT NOT FASTINGPERFORMED BY: [facility]Qsebry4502 [facility] [id number] BY: [address] [id number] (08326) Sedimentation Rate-Westergren 3 mm/h (Normal) Range: 0-41 3-Ucg-402058:01 C-REACTIVE PROTEIN (65363) Comments: PATIENT NOT FASTINGPERFORMED BY: Expert Medical NavigationJustin [place] [id number] [facility] [id number] BY: [address] [id number] C-Reactive Protein, Quant 0.7 mg/L (Normal) Range: 0.0-4.9 :01 TSH (43378) Comments: PATIENT NOT FASTINGPERFORMED BY: LabJustin [place] 7145170 [facility] [id number] BY: [address] [id number] TSH 2.220 {uIU/mL} (Normal) Range: 0.450-4.500 :01 RHEUMATOID FACTOR-QUANT Comments: PATIENT NOT FASTINGPERFORMED BY: LabJustin [place] 7145170 [facility] [id number] BY: [address] [id number] (89030) RA Latex Turbid. 9.1 {IU/mL} (Normal) Range: 0.0-13.9 :01 BO (ANTINUCLEAR ANTIBODY) Comments: PATIENT NOT FASTINGPERFORMED BY: LabJustin [place] 7145170 [facility] [id number] BY: [address] [id number] (76382) BO Direct Negative (Normal) : CBC WITH MANUAL DIFF Comments: PATIENT NOT FASTINGPERFORMED BY: [place] 9180670 [facility] [id number] BY: [address] [id number] Inf ormation: [id number] (09455) Immature Grans (Abs) 0.0 {x10E3/uL} (Normal) Range: [...] 4.10-5.60 WBC 6.2 {x10E3/uL} (Normal) Range: 4.0-10.5 0-Meb-176250:01 METABOLIC PANEL, Comments: PATIENT NOT FASTINGPERFORMED BY: [facility] Zlbvue3294 [facility] [id number] BY: [facility] [address] [id number] [facility] (03145) ALT (SGPT) 15 [iU]/L (Normal) Range: 0-55 [...] mg/dL (Normal) Range: 65-99 :29 IZA CULTURE-OTHER (66325) Comments: PATIENT NOT FASTINGPERFORMED BY: [facility]Hgyrmz9732 [facility] [id number] Information: SRC:CBT [id number] Result 1 RRF (Normal) Comments: Routine respiratory hilda Upper Respiratory Culture Final report (Normal) :05 Rapid Strep Test, Office (01664) Rapid Strep Test, Office Negative (Normal) :00 [...] Cyclospora, or Microspo ridia. TESTING PERFORMED AT [facility]. ORIGINAL REPORT ON FILE IN LAB CONTAINS ADDITIONAL TEST SITE INFORMATION. OVA/ PARASITES EXAM NO OVA, CYSTS, OR PARASITES FOUND. 01-Rxx-302797:22 FOLIC ACID SERUM (43223) Comments: PATIENT NOT FASTINGPERFORMED BY: [address] [id number] Folate (Folic Acid), Serum 14.5 ng/mL (Normal) Comments: Indeterminate: 2.2 - 3.0 Deficient: <2.2 73-Ims-507722:22 VITAMIN B-12 (CYANOCOBALAMIN) Comments: PATIENT NOT FASTINGPERFORMED BY: [place] 9180670 [facility] [id number] (67488) Vitamin B12 566 pg/mL (Normal) Range: 211-946 23-Sbq-349000:22 T3, FREE (TRIDOTHYRONINE) (57062) Comments: PATIENT NOT FASTINGPERFORMED BY: [address] [id number] Triiodothyronine,Free,Serum 3.0 pg/mL (Normal) Range: 2.0-4.4 09-Gvv-130518:22 T4, FREE (THYROXINE) Comments: PATIENT NOT FASTINGPERFORMED BY: [address] [id number] Information: [id number] (77791) T4,Free(Direct) 1.40 ng/dL (Normal) Range: 0.82-1.77 89-Dcm-850064:22 Anti-TPO Antibody (06265) Comments: PATIENT NOT FASTINGPERFORMED BY: [facility] [id number] Thyroid Peroxidase (TPO) Ab 9 {IU/mL} (Normal) Range: 0-34 68-Aam-646964:22 TSH (95325) Comments: PATIENT NOT FASTINGPERFORMED BY: [facility] Jarurn9[address] [facility] [place] [id number] TSH 2.640 {uIU/mL} (Normal) Range: 0.450-4.500 73-Fjg-490737:22 Vitamin D Hydroxy (50862) Comments: PATIENT NOT FASTINGPERFORMED BY: [facility] Nivkdt4404 [facility] [id number] Vitamin D, 25-Hydroxy 48.1 ng/mL (Normal) Range: 32.0-100.0 Comments: Recent studies consider the lower limit of 32.0 ng/mL to be athreshold for optimal health.Stevan NEAL. J Nutr. 2004;135(2):317-22. 22-Xoh-082913:37 SERUM CRE & GFR EST GFR 60 mL/min (Normal) EST GFR - AA 73 mL/min (Normal) CREAT,SERUM 1.3 mg/dL (Normal) Range: 0.8-1.3 72-Tqz-350838:40 ABDOMEN WITH IV CONTRAST Radiology Report See Note (Normal) Comments: Exam Number: [id number] LINICAL:The patient is a 60-year-old man with [...] is seen Reported By: JA MARIN M.D. 9-Flg-610476:10 HEPATOBILIARY IMAGING Radiology Report See Note (Normal) Comments: Exam Number: [id number] HEPATOBILIARY IMAGING HISTORYRight upper quadrant pain. Following [...] with Cholecystokinin. Reported By: JA MARIN M.D. 96-Lqa-748136:32 GALLBLADDER Radiology Report See Note (Normal) Comments: Exam Number: [id number] ULTRASOUND OF THE GALLBLADDER Multiple views of [...] abnormality is seen. Reported By: CHIDI WALKER 05-Xfu-732810:07 Bilirubin, Total/Direct, Serum Comments: PERFORMED BY: [facility]Gndcpd6870 [facility] [id number] Bilirubin, Indirect 0.70 mg/dL (Normal) Range: 0.10-0.80 Bilirubin, Direct 0.20 mg/dL (Normal) Range: 0.00-0.40 :07 CBC WITH MANUAL DIFF (50826) Comments: PERFORMED BY: [facility] [id number] Baso (Absolute) 0.1 {x10E3/uL} (Normal) Range: 0.0-0.2 [...] 4.10-5.60 WBC 7.5 {x10E3/uL} (Normal) Range: 4.0-10.5 00-Nfw-121955:07 METABOLIC PANEL, COMPREHENSIVE Comments: PERFORMED BY: [facility] [id number] (62925) Alkaline Phosphatase, S 77 [iU]/L (Normal) Range: [...] Glucose, Serum 88 mg/dL (Normal) Range: 65-99 3-Ken-219358:10 KIDNEY (HP) Radiology Report See Note (Normal) Comments: Exam Number: [id number] CLINICAL:Elevated renal functions. RENAL ULTRASOUND TECHNIQUE: COMPARISON:None [...] CHOL 170 mg/dL (Normal) Comments: <200 mg/dL Ylmotrqzf927-314 mg/dL Borderline>240 mg/dL High Risk HDL 52 [...] VITAMIN B12 729 pg/mL (Normal) Range: 254-1320 60-Cot-600528:20 IZA CULTURE-OTHER (64454) Comments: PATIENT NOT FASTINGPERFORMED BY: [facility] [id number] Information: SRC:THRT [id number] Result 1 RRF (Normal) Comments: Routine respiratory hilda Upper Respiratory Culture Final report (Normal) 39-Gpp-700460:19 Rapid Strep Test, Office (61845) Rapid Strep Test, Office Negative (Normal) 39-Usc-690054:31 URINE IZA CULTURE (MARYCHUY COL Comments: PATIENT NOT FASTINGClinical Information: SRC:UR [id number] PERFORMED BY: [facility] [id number] COUNT) (18996) Result 1 NG36 (Normal) Comments: No growth in 36 - 48 hours. Urine Culture,Comprehensive Final report (Normal) 32-Pki-97020:31 Urinalysis, Office (86002) UA - LEUKOCYTE ESTERASE Negative (Normal) Comments: aw UA - BILIRUBIN Negative (Normal) UA - BLOOD Non Hemolyzed Moderate (Normal) UA - GLUCOSE Negative (Normal) UA - KETONES Negative mg/dL (Normal) UA - NITRITE Negative (Normal) UA - PH 5.0 (Normal) UA - PROTEIN Negative mg/dL (Normal) UA - SPECIFIC GRAVITY 1.020 (Normal) URINE UROBILINGN MARYCHUY TIMED Normal mg/dL (Normal) 08-Qcg-184485:45 CHEST, PA AND LATERAL Radiology Report See Note (Normal) Comments: Exam Number: [id number] TWO VIEW CHEST COMPARISON STUDYNone. REASON FOR EXAMINATIONCough. Cardiac, mediastinal and hilar contours are normal. Lungs are clearwithout consolidation or effusion . Fine line ar opacity at the leftlateral base likely represents subsegmental atelectasis/scar. Thereis no acute osseous abnormality. Upper abdomen is unremarkable. IMPRESSIONNo radiographic evidence for acute ch est abnormality. Reported By: KANE MANUEL M.D. 82-Sfx-716011:26 CBCD BASO% 0.5 % (Normal) Range: 0-1 [...] 11.6-14.6 WBC 8.9 K/mm3 (Normal) Range: 4.4-11.0 86-Dsg-319219:26 ESR SED RATE 11 mm/h (Normal) Range: 0-20 :05 Urinalysis, Office (12035) Comments: done BC UA - BILIRUBIN Negative [...] See Note (Normal) Comments: TESTING PERFORMED AT [facility]. ORIGINAL REPORT ON FILE IN LAB CONTAINS ADDITIONAL TEST SITE INFORMATION. 2 CULTURE, VIRUS GENERAL NO VIRUS ISOLATED AFTER 14 DAYS- FINAL REPORT 59-Ddk-458491:38 Urinalysis, Office (96132) UA - BILIRUBIN Negative (Normal) UA - BLOOD Hemolyzed Large (Normal) UA - GLUCOSE Negative (Normal) UA - KETONES Small mg/dL (Normal) Comments: 15 UA - LEUKOCYTE ESTERASE Negative (Normal) UA - NITRITE Negative (Normal) UA - PH 6.5 (Normal) UA - PROTEIN Trace mg/dL (Normal) UA - SPECIFIC GRAVITY 1.000 (Normal) URINE UROBILINGN MARYCHUY TIMED Normal mg/dL (Normal) 63-Gff-558236:19 Rapid Flu (48603 x 2) Comments: Neg INFLUENZA IMMUNOASSY DIRECT OPTICAL OBSERV Negative (Normal) 67-Juv-789866:12 Rapid Strep Test, Office (81603) Comments: neg Rapid Strep Test, Office Negative (Normal) :31 CORONALS,SAG,MULTI,OBL,3-D REC Radiology Report See Note (Normal) Comments: Exam Number: [id number] CT SINUSES REASON FOR EXAMAcute sinusitis. Recent history of dental procedure with drainageof tooth abscess and root canal. Coronal and axial CT scan obtained through the [facility]. All areas areviewed at soft tissue and [...] Report See Note (Normal) Comments: Exam Number: [id number] CT SINUSES REASON FOR EXAMAcute sinusitis. Recent history of dental procedure with drainageof tooth abscess and root canal. Coronal and axial CT scan obtained through the [facility]. All areas areviewed at soft tissue and [...] TSH 2.74 {uIU/mL} Range: 0.34-4.82 00 (Normal) 88-Ktr-005016:20 A/C JTS,KYRA W OR W/O WTS Radiology Report See Note (Normal) Comments: Exam Number: [id number] LEFT SHOULDER/BILATERAL ACROMIOCLAVICULAR JOINTS CLINICAL INFORMATIONShoulder pain. [...] Report See Note (Normal) Comments: Exam Number: [id number] LEFT SHOULDER/BILATERAL ACROMIOCLAVICULAR JOINTS CLINICAL INFORMATIONShoulder pain. [...] sinusitis, unspecified Planned Observations Vitamin B-12 (cyanocobalamin) (50966)Indication: Fatigue On: 15-Jun-20189:23 Request URINALYSIS, W/ MICRO (74778)Indication: Benign essential hypertension On: 09-Uvm-248031:04 Request CBC W/AUTO DIFF WBC (75610)Indication: Benign essential hypertension On: 26-Iph-876920:04 Request METABOLIC PANEL, COMPREHENSIVE (52458)Indication: Benign essential hypertension On: 88-Rfk-120711:04 Request HEPATITIS C ANTIBODY (72066)Indication: Encounter for hepatitis C virus screening test for high risk patient On: 58-Hpy-852341:04 Request HGB A1C (46907)Indication: Abnormal blood sugar On: 4-Jdb-734896:03 Request CBC W/AUTO DIFF WBC (69733)Indication: Benign essential hypertension On: :46 Request METABOLIC PANEL, COMPREHENSIVE (61691)Indication: Benign essential hypertension On: :46 Request LIPID PANEL (81764)Indication: Mixed hyperlipidemia On: :46 Request HEPATITIS C ANTIBODY (12342)Indication: Encounter for hepatitis C virus screening test for high risk patient On: :46 Request METABOLIC PANEL, COMPREHENSIVE (82186)Indication: Prediabetes On: :30 Request RENIN (45840)Indication: Malignant hypertension On: :53 Request URINE VMA (51781)Indication: Malignant hypertension On: :53 Request CATECHOLAMINES TOTAL, URINE (77501)Indication: Malignant hypertension On: :53 Request METANEPHRINES - URINE (95992)Indication: Malignant hypertension On: :53 Request TESTOSTERONE FREE (45305)Indication: Decreased libido (Renamed from Low libido) On: 4-Ykx-753178:02 Request LIPID PANEL (64186)Indication: Mixed hyperlipidemia On: 14-Aug-20169:55 Request PSA (PROSTATE SPECIFIC ANTIGEN) (V76.44)Indication: Encounter for screening for malignant neoplasm of prostate (Renamed from Screening for prostate cancer) On: :13 Request CBC with auto diff (32478)Indication: Prediabetes On: :12 Request METABOLIC PANEL, COMPREHENSIVE (35830)Indication: Prediabetes On: :12 Request MICROALBUMIN: CREATININE RATIO (01671) AND (09907)Indication: Prediabetes On: 14-Aug-20169:12 Request HGB A1C (57359)Indication: Prediabetes On: :12 Request HEPATIC FUNCTION PANEL (45231)Indication: Acute epigastric pain On: :36 Request Comments: standing Lipase (83121)Indication: Acute epigastric pain On: :36 Request Comments: standing Amylase (09625)Indication: Acute epigastric pain On: :36 Request Comments: standing Lipase (39834)Indication: Abdominal pain, acute, right upper quadrant (Renamed from Acute abdominal pain in right upper quadrant) On: :15 Request Comments: stat Amylase (39106)Indication: Abdominal pain, acute, right upper quadrant (Renamed from Acute abdominal pain in right upper quadrant) On: :15 Request Comments: stat CBC WITH MANUAL DIFF (48938)Indication: Abdominal pain, acute, right upper quadrant (Renamed from Acute abdominal pain in right upper quadrant) On: :15 Request Comments: stat METABOLIC PANEL, COMPREHENSIVE (28304)Indication: Abdominal pain, acute, right upper quadrant (Renamed from Acute abdominal pain in right upper quadrant) On: :15 Request Comments: stat Vitamin D Hydroxy (10523)Indication: Fatigue On: :35 Request VITAMIN B-12 (CYANOCOBALAMIN) (25662)Indication: Fatigue On: :34 Request METABOLIC PANEL, COMPREHENSIVE (78285)Indication: Pancreatitis, acute On: :33 Request CBC W/AUTO DIFF WBC (41108)Indication: Anemia On: :33 Request LIPID PANEL (01598)Indication: Mixed hyperlipidemia On: :33 Request PSA (PROSTATE SPECIFIC ANTIGEN) (V76.44)Indication: Screening for prostate cancer On: 03-Pns-36891:32 Request Phosphorus (90129)Indication: Abdominal pain, acute, generalized On: 02-Kqi-892199:51 Request Magnesium (97761)Indication: Abdominal pain, acute, generalized On: 05-Vpw-943334:51 Request METABOLIC PANEL, COMPREHENSIVE (74968)Indication: Abdominal pain, acute, generalized On: 38-Gxy-084009:50 Request Helicobacter pylori Ag, EIA (41145)Indication: Abdominal pain, acute, generalized On: 31-Jnd-095543:08 Request H. PYLORI ANALYSIS UREASE ACTIVITY (77824)Indication: Metallic taste On: :05 Request Celiac Disease Comphrehensive Profile (32352)Indication: Metallic taste On: :05 Request MAGNESIUM (19401)Indication: Metallic taste On: :03 Request CALCIFEDIOL (00045)Indication: Metallic taste On: :03 Request TSH (56183)Indication: Metallic taste On: :02 Request CBC with manual diff (76426)Indication: Metallic taste On: :02 Request Metabolic Panel, Comprehensive (28579)Indication: Metallic taste On: :02 Request CCP ANTIBODY (53297)Indication: Pain in unspecified joint On: 6-Wgg-003222:55 Request HEPATIC FUNCTION PANEL (38161)Indication: Mixed hyperlipidemia On: :19 Request LIPID PANEL (01422)Indication: Mixed hyperlipidemia On: :19 Request OVA & PARASITE DIR SMEAR (74831)Indication: Diarrhea On: :26 Request Comments: check and make sure no giardia IZA CULTURE-STOOL (45753)Indication: Diarrhea On: :26 Request HEPATIC FUNCTION PANEL (31746)Indication: Bilateral carotid artery stenosis On: :05 Request LIPID PANEL (28677)Indication: Bilateral carotid artery stenosis On: :05 Request Creatine (16783)Indication: Abdominal pain, acute, right upper quadrant On: 48-Xnq-744286:55 Request Bilirubin, total (76828)Indication: Abnormal blood chemistry On: 27-Vgo-278566:49 Request Bilirubin, Direct (97320)Indication: Abnormal blood chemistry On: 08-Cew-639236:49 Request VITAMIN B-12 (CYANOCOBALAMIN) (29853)Indication: Fatigue On: :08 Request LIPID PANEL (77991)Indication: screening On: :08 Request PSA (PROSTATE SPECIFIC ANTIGEN) (V76.44)Indication: Screening for prostate cancer On: :06 Request URINALYSIS, W/ MICRO (84840)Indication: Fatigue On: :06 Request TSH (02421)Indication: Fatigue On: 83-Kil-689142:06 Request METABOLIC PANEL, COMPREHENSIVE (59943)Indication: Fatigue On: 18-Mpe-785024:06 Request CBC WITH MANUAL DIFF (17141)Indication: Fatigue On: 20-Dkq-394813:06 Request VIRAL CULTURE (25905) On: 91-Nqr-620693:55 Request IZA CULTURE-OTHER (91166) On: 38-Kzw-290390:52 Request TSH (22060)Indication: Anxiety On: 00-Kua-158521:18 Request Planned Encounters Medical; [facility] [...] A ELECTROCARDIOGRAM, COMPLETE (ECG) On: 20-Nov-2017 Intent (43061)By: Fast DO, Diandra A Fast DO, Comments: ekg showed normal sinus rhythym, normal axis, no acute st/t wave changes Diandra A Renal Duplex ScanBy: Fast DO, Diandra A On: 09-Oct-2016 Intent Fast DO, Diandra A ELECTROCARDIOGRAM, COMPLETE (ECG) On: 08-Oct-2016 Intent (60139)By: Fast DO, Diandra A Fast DO, Comments: ekg showed normal sinus rhythym, normal axis, no acute st/t wave changes Diandra A Cartoid DopplerBy: Fast DO, Diandra A Fast On: 08-Oct-2016 Intent DO, Diandra A INFUSION, NORMAL SALINE SOLUTION , 1000 On: 28-Aug-2016 Intent CC (Special Coverage Instructions Apply. Comments: lot:[id number]:12-13-2017rte: left anticub. IV dose: 1000ml (2 bags) given by:Suzanne Godinez LPN See MCM: 2049) (J7030)By: BARRINGTON Patton Phenergan Injection, up to 50 mg On: 28-Aug-2016 Intent (J2550)By: BARRINGTON Patton Comments: lot:[id number]:04/2017rte:IM right gluteal dose:25mggiven by:cristian Godinez LPN ELECTROCARDIOGRAM, COMPLETE (ECG) On: 14-Aug-2016 Intent (38714)By: Fast DO Diandra A Fast DO, Comments: [...] rule out biliary sludge or stone CONTRAST (94461)By: Fast DO, Diandra A Fast DO, Diandra A Cartoid DopplerBy: Fast DO, Diandra A Fast On: 24-Aug-2015 Intent DO, Diandra A CT - Abdomen (IV Contrast Needed)By: Fast On: 24-Aug-2015 Intent DO, Diandra A Fast DO, Diandra A IMMUNIZ ADMNIN, 1 VAC, SNGL/COMBO On: 10-Mar-2014 Intent (64729)By: Visit, Nurse [facility] [place] (35390)By: Fast DO, Diandra On: 10-Mar-2014 Intent A Fast DO, Diandra A Comments: lot: [id number]: 11/17/14site/route: R arm/IMamt:0.5mLVIS signed when applicableSHELBY Zamora Radiology - Foot - RightBy: Fast DO, On: 21-Feb-2013 Intent Diandra A Fast DO, Diandra A Comments: call wet read Radiology - Ankle - RightBy: Fast DO, On: 21-Feb-2013 Intent Diandra A Fast DO, Diandra A Comments: call wet read Solu -Medrol Injection, 125 mg On: 08-Nov-2012 Intent (J2930)By: Faye Narayan CNP Comments: lot # [id number]- 06/2015site-RGlut nxruh-KOplrp-7 ML [facility] PHYSICAL THERAPY EVALUATION (75770)By: On: 10-Dec-2011 Intent Faye Narayan CNP Radiology [...] do today- call wet read Overnight Pulse Ox(26077)By: Bladimir GONZALEZ, On: 12-Jun-2010 Intent Lakshmi Ultrasound - GallbladderBy: Fast DO, On: 02-Nov-2009 Intent Diandra A Fast DO, Diandra A Pneumovax (31723)By: Erin Jordan LPN On: 26-Jun-2009 Intent Comments: Lot #[id number]-11/20/10Site-right deltoidDose0.5mlgiven by:[facility] Flu Vaccine, Split IM (56439)By: Julian On: 26-Jun-2009 Intent Erin GONZALEZ Comments: Lot #[id number]-left deltoidgiven by:[facility] Inhaler Demonstration (82354)By: Sylvain On: 21-Sep-2008 Intent Faye LIM Comments: done BC Pulse Oximetry (88550)By: Faye Narayan CNP On: 21-Sep-2008 Intent E Comments: done BC Aerosol Treatment (83543)By: Sylvain LIM On: 21-Sep-2008 Intent Faye Alves Comments: done BC Solu -Medrol Injection, 125 mg On: 21-Sep-2008 Intent (J2930)By: Faye Narayan CNP Comments: Amt: 2mlLot: [id number]: 03/2011Route: IMSite: right hipTolerated: wellGiven By: LISA Soto Pulse Oximetry (13873)By: Faye Narayan CNP On: 31-Aug-2008 Intent E Pulse Oximetry (58777)By: Faye Narayan CNP On: 31-Aug-2008 Intent E Aerosol Treatment (48979)By: Sylvain LIM, On: 31-Aug-[address] - Sinuses CompleteBy: Maxim DO, On: 01-Feb-2008 Intent Johana PHYSICAL THERAPY EVALUATION (22928)By: On: 01-Nov-2007 Intent Faye Narayan CNP Radiology - Shoulder - LeftBy: Fast DO, On: 12-Oct-2007 Intent Diandra A Fast DO, Diandra A Comments: and left ac joint Nerve ConductionBy: Maxim HAMMJohana On: 15-Jan-2007 Intent EMGBy: Maxim HAMM Johana On: 15-Jan-2007 Intent Inhaler Demo (78547)By: JOSY LIM, On: 10-Sep-2006 Intent LASHAY Aerosol Treatment (87530)By: JOSY LIM, On: 10-Sep-2006 Intent LASHAY Comments: expiratory wheeze absent on rt after treatment.Continues on rt. Pulse Oximetry (28886)By: JOSY LIM, On: 10-Sep-2006 Intent LASHAY Comments: [...] time losxarten bothers hi m if quick [place] movements and laying on backget up- riding [...] sometim es better sometimes worse- he called cooks office other day and gave him dicyclomine- [...]
--- OUTSIDE RECORDS SUMMARY | 2018-12-04 23:12 | XMS RPT_ITS | Continuity of Care Document ---
:1950 Author Organization [facility] Address [address] [place] [address] Phone Care Team Providers Name Role Phone Diandra Anaya DO Unavailable [facility], [facility] Unavailable Dr. Ryne Arndt Unavailable Marlene Ghosh Unavailable Leelanau DPMBrien Unavailable Long VIDEO NETWORK ENGINEER, Shayla L Unavailable Unavailable Slarb VIDEO NETWORK ENGINEER, Jade Unavailable Unavailable Willy Edouarda Unavailable Unavailable [...] Discontinued Comments:number given unknown -- started by [facility] for pancreatitis PROZAC, 10MG (Oral [...] Flow Screening Result: Comments: See Note; NOTES: [facility] Cardiovascular Services [address] [place] [address] 06/15/18 0826 MR#: [id number] Acct: [id number] Name: SIMEON PAIZ Rep #: [id number] : 1950 68 From: Nilo King MD Attending Dr: Diandra Anaya DO Status: REG REF Ordering Dr: Date: 06/16/18 Location: [facility] Sex: M C Admitted: Reason For [...] LOWE ate Dictated: 06/15/18825 Date Transcribed: 06/16/18920 Monotyper: Signed 16-Jun-2018 TXT - Blood Flow Screening Result: Comments: See Note; NOTES: [facility] Cardiovascular Services [address] [place] [address] 06/15/18825 MR#: [id number] Acct: [id number] Name: SIMEON PAIZ Rep #: [id number] : 1950 68 From: Nilo King MD Attending Dr: Diandra Anaya DO Status: REG REF Ordering Dr: Date: 06/16/18 Location: [facility] Sex: M C Admitted: Reason For [...] D ate Dictated: 06/15/18825 Date Transcribed: 06/16/18920 Monotyper: Signed 08-Oct-2016 PT D/C of Non Returning Pt (1) Result: Comments: See Note; NOTES: [facility] Physical Therapy Health[address] [place] [address] Fax REHABILITATION SERVICES DISCHAR GE SUMMARY MR#: [id number] Acct: [id number] Name: SIMEON PAIZ Rep #: [id number] : 1950 66 From: Sean Rojas PT, Cert. T, OCS Referring : Diandra Anaya DO Status: REG RCR Insurance: [facility] - Discharge Summary (1) - Patient Information [...] - PT Result: Comments: See Note; NOTES: [facility] Therapy Healthpoint [address] [place] [address] Fax REHABILITATION SERVICES INITIAL EVALUATION MR#: [id number] Acct: [id number] Name: SIMEON PAIZ Rep #: [id number] : 1950 66 From: Sean Rojas PT, Cert. GUTIERREZ, OCS Referring Dr.: Diandra Anaya DO Status: REG R Insurance: [facility] Patient's Visit Information SIMEON PAIZ is [...] effect Lumbar Standing: Right Side Glides - Technical System Analyst al Response: No effect Lumbar Standing: Right Side Calvert - Symptoms During Testing: No effect Lumbar Standing: Right Side Calvert - Symptoms After Testing: No effect Lumbar Standing: Left Side Calvert - Mec hanical Response: No effect Lumbar Standing: Left Side Calvert - Symptoms During Testing: No effect Lumbar Standing: Left Side Calvert - Symptoms After Testing: No effect Lumbar [...] to be FAXED BACK to us at [phone] for Medicare purposes. Please let me know [...] without Contrast Result: Comments: See Note; NOTES: [facility] Imaging Services [address] [place] [address] Verdana 4d MRCP Abdomen without Contrast MR#: [id number] Acct: [id number] Name: DELMA PAIZ Rep #: [id number] : 1950 M 66 From: Catherine Mota MD PCP: Diandra Anaya DO Status: REG CLI Study: MRCP Abdomen without Contrast Date of Exam: 04/24/16 Exam# [id number] Ordering Dr: Diandra Anaya DO STUDY: MR [...] MD at 9:35 EDT , Service support [phone], CC: Diandra Anaya DO Monotyper: Signed 20-Sep-2015 Operative Report Result: Comments: See Note; NOTES: [facility] Medical Records Department [address] [place] [address] Operative Report MR#: [id number] Acct: [id number] Name: KIKE PAIZ Rep #: [id number] : 1950 65 From: Simeon Gruber MD PCP: Diandra Anaya DO Status: [facility] DATE OF SERVICE: 09/04/2015 DATE OF SERVICE: [...] the fascia of the umbilical port with xtstcz-lb-utizx stitch of 0 Vicryl. Skin incisions were closed with subcuticular stitches of 4-0 Monocryl. Steri- Strips were applied. Sterile dressings we re applied and the patient tolerated the procedure well. Simeon Gruber MD T: NTS JOB: [id number] 09/20/15 1111 <Electronically signed by Simeon Gruber MD> Date Simeon Gruber MD Cosigner Signature (If Indicated): Date CC: Simeon Gruber MD; Diandra Anaya DO Date D ictated: 09/04/151151 Date Transcribed: 09/04/151151 Monotyper: Signed 06-Sep-2015 12 Lead Electrocardiogram Result: Comments: See Note; NOTES: [facility] Cardiovascular Services [address] [place] [address] 12 Lead EKG 09/04/15911 MR#: [id number] Acct: [id number] Name: ERIK HARTLEYTLAATSIMEON Pham Rep #: [id number] : 1950 65 From: Simeon Stack MD Attending Dr: Simeon Gruber MD Status: DEP [facility] [place]: Misael Mayer MD Date: 09/04/15 [place] [facility] Sex: M C Admitted: Test Reason : [...] found Confirmed by SIMEON STACK ([id number]), editor sound EDGAR MOTA ([id number]) on 09/06/2015 10:47:28 AM Referred By: WALLY Confirmed By:SIMEON STACK 09/06/15 1047 Date Simeon Stack MD CC: Diandra Anaya DO Date Dictated: 09/04/15911 Date Transcribed: 09/04/15911 Monotyper: Signed 04-Sep-2015 Discharge Instruction Result: Comments: See Note; NOTES: [facility] Medical Records Department [address] [place] [address] Instructions for Home/Discharge Instructions 09/04/15 1121 MR#: [id number] Acct: [id number] Name: SIMEON PAIZ Rep #: [id number] : 1950 65 From: Simeon Gruber MD PCP: Diandra Anaya DO Status: REG [facility] [place] Diet: Light diet - advance as [...] Up With: Simeon Gruber - Please call [phone] to schedule an appointment . When: 7 days after your surgery. 09/04/15 1122 <Electronically signed by Simeon Gruber MD> Date Simeon Gruber MD CC: Diandra Anaya DO 30-Aug-2015 Abdomen W/WO IV Contrast Result: Comments: See Note; NOTES: [facility] Imaging Services [address] [place] [address] Verdana 4d Abdomen W/WO IV Contrast MR#: [id number] Acct: [id number] Name: SIMEON YE Rep #: [id number] : 1950 M 65 From: Chidi Walker MD PCP: Diandra Anaya DO Status: REG CLI Study: Abdomen W/WO IV Contrast Date of Exam: 08/30/15 Exam# [id number] Ordering Dr : Diandra Anaya DO STUDY: [...] Chidi Walker MD at 9:59 EST Tel [phone], Service support [phone], CC: Diandra Anaya DO Monotyper: Signed Immunization Name Dates Details Influenza (3 years and up) on: 26-Jun-2009 Comments: Lot #[id number]-left deltoidgiven by:[facility] Pneumococcal (2 years and up) [...] Status: Active Most Recent Primary Occupation Comments: [employer] Status: Active Number of Adult (age 20 [...] kg/m2 Body Surface Area Calculated 2 m2 11-Fbi-586632:39 Temperature 97.2 f Comments: Method: Temporal Pulse [...] Value Details :11 CBC W/Diff, Automated Comments: [facility] [address] [place], [place], [id number] Absolute Lymph 1.11 {X10_3/ul} (Normal) Range: 0.83-4.51 [...] Range: 4.4-11.0 15-Jun-20188:11 Comprehensive Metabolic Profil Comments: [facility] [address] [place], [place], [address] GAP 9 (Normal) Range: 5-15 CO2 25.0 [...] Comments: Please note revised GLUCOSE reference range honnklakl90/02/2018. 15-Jun-20188:11 Hepatitis C Antibodies Comments: [facility] (refer to report for specific site)refer to report for address and phone number HEP C AB <0.1 {s/co_ratio} (Normal) Range: 0.0-0.9 Comments: Negative: < 0.8 Indeterminate: 0.8 - 0.9 Positive: > 0.9 The CDC recommends that a positive HCV antibody result be followed up with a HCV Nucleic Acid Amplification test (567787).Performed at: [address] [id number] Director: Toby Wilder PhD, Phone: [phone] 15-Jun-20188:11 Urinalysis, Complete Comments: How was Urine Obtained? [facility] [address] [place] [address], [id number] MUCUS, URINE 0 SEEN {/hpf} (Normal) BACTERIA [...] R1 TUBE ADD ON TEST PER ORDER [facility]ED[facility]St. [facility] Ttxjnxloco2519 [address] [place], [address] Range: 211-914 :53 Microscopic Examination Comments: PATIENT WAS FASTINGPERFORMED BY: SMB Suite [facility] [id number] BY: [employer] [id number] Bacteria None seen (Normal) Mucus Threads Present (Normal) Epithelial Cells (non renal) None seen {/hpf} (Normal) Range: 0 - 10 RBC None seen {/hpf} (Normal) Range: 0 - 2 WBC 0-5 {/hpf} (Normal) Range: 0 - 5 :53 URINALYSIS, W/ MICRO Comments: PATIENT WAS FASTINGPERFORMED BY: [employer]70 [facility] [id number] BY: [employer] [id number] ([address]) Microscopic Examination See below: (Normal) Comments: Microscopic was indicated and was performed. Microscopic Examination MICRON (Normal) Comments: Microscopic follows if indicated. Nitrite, Urine Negative (Normal) Urobilinogen,Semi-Qn 0.2 mg/dL (Normal) Range: 0.2-1.0 Bilirubin Negative (Normal) Occult Blood Negative (Normal) Ketones Negative (Normal) Glucose Negative (Normal) Protein Negative (Normal) WBC Esterase Negative (Normal) Appearance Clear (Normal) Urine-Color Yellow (Normal) pH 7.0 (Normal) Range: 5.0-7.5 Specific [place] 1.009 (Normal) Range: 1.005-1.030 :53 PSA (PROSTATE SPECIFIC Comments: PATIENT WAS FASTINGPERFORMED BY: SMB Suite [facility] [id number] BY: [employer] [id number] ANTIGEN) (V76.44) Prostate Specific Ag, 1.3 ng/mL (Normal) Range: 0.0-4.0 Serum Comments: Lin ECLIA methodology. .According to the [place] [employer], Serum PSA shoulddecrease and remain at undetectable levels after radicalprostatectomy. The AUA defines biochemical recurrence as an initialPSA value 0.2 ng/mL or greater followed by a subsequent confirmatoryPSA value 0.2 ng/mL or greater.Values obtained with d ifferent assay methods or kits cannot be usedinterchangeably. Results cannot be interpreted as absolute evidenceof the presence or absence of malignant disease. :53 TESTOSTERONE FREE (04684) Comments: PATIENT WAS FASTINGPERFORMED BY: [employer]70 [facility] [id number] BY: [employer] [id number] Free Testosterone(Direct) 13.7 pg/mL (Normal) Range: 6.6-18.1 :53 CBC with auto diff Comments: PATIENT WAS FASTINGPERFORMED BY: [employer] Pgsphd3086 [facility] [id number] BY: [employer] [id number] (95733) Immature Grans (Abs) 0.0 {x10E3/uL} (Normal) Range: [...] MICROALBUMIN: CREATININE Comments: PATIENT WAS FASTINGPERFORMED BY: [employer] [facility] [id number] BY: [employer] [id number] RATIO (85875) AND (74225) Microalb/Creat Ratio <7.8 {mg/g_creat} (Normal) Range: 0.0-30.0 Microalbumin, Urine <3.0 ug/mL (Normal) Creatinine, Urine 38.5 mg/dL (Normal) :53 HGB A1C (90103) Comments: PATIENT WAS FASTINGPERFORMED BY: TRDatalin6370 [facility] [id number] BY: [employer] [id number] Hemoglobin A1c 5.3 % (Normal) Range: 4.8-5.6 Comments: . Pre-diabetes: 5.7 - 6.4 Diabetes: >6.4 Glycemic control for adults with diabetes: <7.0 :53 LIPID PANEL (10375) Comments: PATIENT WAS FASTINGPERFORMED BY: [employer] [facility] [id number] BY: [employer] [id number] LDL/HDL Ratio 1.8 {ratio_units} (Normal) Range: 0.0-3.6 Comments: LDL/HDL Ratio Men Women 1/2 Avg.Risk 1.0 1.5 Av g.Risk 3.6 3.2 2X Avg.Risk 6.2 5.0 3X Avg.Risk 8.0 6.1 LDL Cholesterol Calc 102 mg/dL (Abnormal) Range: 0-99 VLDL Cholesterol Chaparro 19 mg/dL (Normal) Range: 5-40 HDL Cholesterol 58 mg/dL (Normal) Triglycerides 96 mg/dL (Normal) Range: 0-149 Cholesterol, Total 179 mg/dL (Normal) Range: 100-199 48-Lkn-92849:53 METABOLIC PANEL, Comments: PATIENT WAS FASTINGPERFORMED BY: LabCoSaint Clare's Hospital at DoverSwwjdg5690 [facility] [id number] BY: [employer]Co[address] [id number] COMPREHENSIVE (82110) ALT (SGPT) 18 [iU]/L (Normal) Range: 0-44 [...] Glucose, Serum 88 mg/dL (Normal) Range: 65-99 75-Diu-168848:15 Microscopic Examination Comments: PATIENT NOT FASTINGPERFORMED BY: We[facility]EngineNov[facility] [id number] Bacteria None seen (Normal) Mucus Threads Present (Normal) Epithelial Cells (non renal) None seen {/hpf} (Normal) Range: 0 - 10 RBC 0-2 {/hpf} (Normal) Range: 0 - 2 WBC 0-5 {/hpf} (Normal) Range: 0 - 5 13-Gil-151501:15 URINALYSIS (99180) Comments: PATIENT NOT FASTINGPERFORMED BY: [facility]EngineNov[facility] [id number] Information: SRC:UC Microscopic Examination See below: (Normal) Comments: Microscopic was indicated and was performed. Nitrite, Urine Negative (Normal) Urobilinogen,Semi-Qn 0.2 mg/dL (Normal) Range: 0.2-1.0 Bilirubin Negative (Normal) Occult Blood 2+ (Abnormal) Ketones Negative (Normal) Glucose Negative (Normal) Protein Trace (Normal) WBC Esterase Negative (Normal) Appearance Clear (Normal) Urine-Color Yellow (Normal) pH 6.0 (Normal) Range: 5.0-7.5 Specific [place] 1.025 (Normal) Range: 1.005-1.030 53-Biw-721587:15 URINE IZA CULTURE-IDENTIFICATN Comments: PATIENT NOT FASTINGPERFORMED BY: Koal[employer] PrintlandNovant Health [facility] [id number] (71314) Result 1 NG36 (Normal) Comments: No growth in 36 - 48 hours. Urine Culture,Comprehensive Final report (Normal) 85-Etm-88894:45 CBC W/AUTO DIFF WBC (79908) Comments: PATIENT NOT FASTINGPERFORMED BY: [employer] PrintlandNov[facility] [id number] Immature Grans (Abs) 0.0 {x10E3/uL} (Normal) Range: [...] 4.14-5.80 WBC 6.8 {x10E3/uL} (Normal) Range: 3.4-10.8 25-Unw-45729:45 METABOLIC PANEL, COMPREHENSIVE Comments: PATIENT NOT FASTINGPERFORMED BY: LabCoSaint Clare's Hospital at DoverCqzrhk7637 [facility] [id number] (10104) ALT (SGPT) 18 [iU]/L (Normal) Range: 0-44 [...] mg/dL (Normal) Range: 65-99 :30 Amylase Comments: [facility] Ffxhirfwtf0269 [facility]. [place], [place], [address] ESTIVEN 80 U/L (Normal) Range: 25-115 :30 CBC W/Diff, Automated Comments: [facility] [address] [place], [place], [address] Absolute Lymph 1.18 {X10_3/ul} (Normal) Range: 0.83-4.51 [...] Range: 4.4-11.0 22-Apr-20169:30 Comprehensive Metabolic Profil Comments: [facility] [address] [place], [address] GAP 6 (Normal) Range: 5-15 CO2 28.0 [...] mg/dL (Normal) Range: 70-110 22-Apr-20169:30 Lipase Comments: [facility] [address] [place], [place], [address] LIPASE 201 U/L (Normal) Range: 73-393 97-Nni-541160:28 GALLBLADDER See Note (Normal) Comments: [facility] [address] [place], [place], [address] Comments: Patient: SIMEON PAIZ : 1950 (65/M) Acct Num: [id number] Phys: Simeon Gruber MD Unit Num: [id number] Loc: [facility] Specimen: [id number] Received: 09/04/15 - 4 Spec Type: G [...] thickness and is free of mass lesions. Analyst Market Intelligence sections of the gallbladder and thecystic duct are submitted in one cassette. AM: 09/04/15 TC:3 CPT: 28524 HEADER OPERATION: Cholecystectomy, lap, no grams PRE-OP DIAGNOSIS: Acute biliary pancreatitis TISSUE SUBMITTED: Gallbladder MICROSCOPIC DE SCRIPTION Slides are reviewed. MICROSCOPIC DIAGNOSIS Gallbladder, cholecystectomy: Mild chronic cholecystitis. AM: 09/05/15 Signed Jared Piedraih 09/05/15 <signature on file> 2-Tuo-264551:30 Urinalysis, Complete Comments: Order Date: 08/18/15How was Urine Obtained? CLEAN [facility] [address] [place], [address] FINE GRAN CAST 0-5 SEEN [...] (Normal) CLARITY Clear (Normal) COLOR Yellow (Normal) 5-Qig-679386:00 Basic Metabolic Profile (BMP) Comments: 'TROP' Serial specimen #1, #2, #3, or #4: [address] [place] [address] [address] [place], [place], [address] GAP 12 (Normal) Range: 5-15 CO2 27.0 [...] 7-18 GLU 96 mg/dL (Normal) Range: 70-110 8-Vzs-496235:00 CBC W/Diff, Automated Comments: [facility] [address] [place], [place], [address] Absolute Lymph 2.93 {X10_3/ul} (Normal) Range: 0.83-4.51 [...] Serial specimen #1, #2, #3, or #4: [address] [place] [address] [address]ss[address] [place], [address] LIPASE 63305 U/L (Abnormal) Range: 73-393 1-Pqt-358201:00 Liver Profile Comments: 'TROP' Serial specimen #1, #2, #3, or #4: [address] [place] [address] [address] [place], [address] D BILI 0.13 mg/dL (Normal) [...] Serial specimen #1, #2, #3, or #4: [address] [place] [address] Ifcmfxkeio[address] [place], [address] TROPONIN-I < 0.02 ng/mL (Normal) Comments: TROPONIN-I EXPECTED VALUES <0.05 NEGATIVE 0.06 - 0.59 AT RISK OF [place] > OR = 0.60 SUGGEST [place] 05-Okl-283337:23 Microscopic Examination Comments: PATIENT NOT FASTINGPERFORMED BY: [facility] Ycczxw8247 [address] [facility] [id number] Bacteria None seen (Normal) Mucus Threads Present (Normal) Epithelial Cells (non renal) None seen {/hpf} (Normal) Range: 0 - 10 RBC None seen {/hpf} (Normal) Range: 0 - 2 WBC 0-5 {/hpf} (Normal) Range: 0 - 5 95-Fbk-528662:14 H pylori, IgM, IgG, IgA Comments: PATIENT NOT FASTINGPERFORMED BY: [facility]6370 [facility] [id number] Information: [id number] Ab H. pylori, IgM Abs <9.0 {units} (Normal) Range: 0.0-8.9 Comments: Negative <9.0 Equivocal 9.0 - 11.0 Positive >11.0 . This test was developed and its performance characteristics determined by [facility]. It has not been cleared or approved [...] <0.9 Indeterminate 0.9 - 1.0 Positive >1.0 70-Seo-834385:14 Request Problem Comments: PATIENT NOT FASTINGPERFORMED BY: [facility]6370 [facility] [id number] 09-Mvn-795385:1 Written Authorization WAR (Normal) Comments: PATIENT NOT FASTINGPERFORMED BY: [facility]6370 [facility] [id number] Comments: Written Authorization Received.Authorization received from ORIGINAL REQUISITION [id number] by Faye Fitzgerald 03-Mit-835570:23 URINE IZA CULTURE (MARYCHUY COL Comments: PATIENT NOT FASTINGPERFORMED BY: [facility]6370 [facility] [id number] COUNT) (46199) Result 1 NG36 (Normal) Comments: No growth in 36 - 48 hours. Urine Culture,Comprehensive Final report (Normal) 42-Tsl-580848:14 CBC W/AUTO DIFF WBC Comments: PATIENT NOT FASTINGPERFORMED BY: [facility]6370 [facility] [id number] Information: [id number] (32903) Immature Grans (Abs) 0.0 {x10E3/uL} (Normal) Range: [...] 4.14-5.80 WBC 8.1 {x10E3/uL} (Normal) Range: 3.4-10.8 61-Wuc-583176:14 METABOLIC PANEL, COMPREHENSIVE Comments: PATIENT NOT FASTINGPERFORMED BY: LabCoSeth [place] 0593270 [facility] [id number] (98049) ALT (SGPT) 21 [iU]/L (Normal) Range: 0-44 [...] Glucose, Serum 87 mg/dL (Normal) Range: 65-99 81-Rar-188482:14 Vitamin D Hydroxy (67521) Comments: PATIENT NOT FASTINGPERFORMED BY: [facility] Rwegpm2497 [facility] [id number] Vitamin D, 25-Hydroxy 38.7 ng/mL (Normal) Range: 30.0-100.0 Comments: Vitamin D deficiency has been defined by the Pacific ofMedicine and an Endocrine Society practice guideline as alevel of serum 25-OH vitamin D less than 20 ng/mL (1,2).The Endocrine Society went on to further define vitamin Dinsufficiency as a level between 21 and 29 ng/mL (2).1. IOM (Pacific of Medicine). 2010. Dietary reference intakes for calcium and D. [place]: The National Academies Press.2. Mike MF, Shital [place], Adele PEREZ, et al. Evaluation, treatment, and prevention of vitamin D deficiency: an Endocrine Society clinical practice guideline. JCEM. 2010; 96(7):1911-30. 78-Qxw-365819:14 VITAMIN B-12 (CYANOCOBALAMIN) Comments: PATIENT NOT FASTINGPERFORMED BY: FreeMarketsSaint Clare's Hospital at DoverGacceu8487 [facility] [id number] (21803) Vitamin B12 935 pg/mL (Normal) Range: 211-946 50-Dki-396580:14 EBV Panel (60114) Comments: PATIENT NOT FASTINGPERFORMED BY: [facility]6370 [facility] [id number] Interpretation: SPRCS (Normal) Comments: EBV Interpretation Chart [...] <36.0 Equivocal 36.0 - 43.9 Positive >43.9 23-Bjr-702377:23 URINALYSIS, W/ MICRO Comments: PATIENT NOT FASTINGPERFORMED BY: [facility]6370 [facility] [id number] Information: SRC:UR [id number] (19409) Microscopic Examination See below: (Normal) Comments: Microscopic was indicated and was performed. Nitrite, Urine Negative (Normal) Urobilinogen,Semi-Qn 0.2 mg/dL (Normal) Range: 0.0-1.9 Bilirubin Negative (Normal) Occult Blood Trace (Abnormal) Ketones Negative (Normal) Glucose Negative (Normal) Protein Negative (Normal) WBC Esterase Negative (Normal) Appearance Clear (Normal) Urine-Color Yellow (Normal) pH 7.5 (Normal) Range: 5.0-7.5 Specific [place] 1.011 (Normal) Range: 1.005-1.030 15-Sdn-210576:14 TSH (14981) Comments: PATIENT NOT FASTINGPERFORMED BY: [employer] Yfbmey7436 [facility] [id number] TSH 2.980 {uIU/mL} (Normal) Range: 0.450-4.500 43-Juz-705692:14 SED RATE ERYTHROCYTE (47408) Comments: PATIENT NOT FASTINGPERFORMED BY: FreeMarketsSaint Clare[facility] Hospital at DoverBgqxqs6088 [facility] [id number] Sedimentation Rate-Westergren 2 mm/h (Normal) Range: 0-30 70-Vki-245329:14 C-REACTIVE PROTEIN (91062) Comments: PATIENT NOT FASTINGPERFORMED BY: KoalifySaint [facility] Hospital at DoverMkkoov9846 [facility] [id number] C-Reactive Protein, Quant 1.3 mg/L (Normal) Range: 0.0-4.9 71-Unc-177192:23 ANKLE MIN 3 VIEWS Radiology Report See [...] Mandujano M.D.February 21, 2013 at 6:08:53 PM [id number] Signed BP/BP If you are the referring physician and would like to consult with theradiologist who provided this interpretation, please contact Heri Ramsay at [phone]. If this radiologist is unavailable, youwillbe ected to another radiologist to assist. If you are a patient with a question regarding this report, pleasecontactyour referring physician directly. Professional Interpretation Provided By: lettrs, Phone , These documents contain legally protected [...] 0 02/21/131810 Sign by: John Mandujano MD 75-Gpk-131381:23 FOOT MIN 3 VIEWS Radiology See Note [...] Mandujano M.D.February 21, 2013 at 6:10:23 PM [id number] Signed BP/BP If you are the referring physician and would like to consult with theradiologist who provided this interpretation, please contact Heri Ramsay at [phone]. If this radiologist is unavailable, youwillbe directed to another radiologist to assist. If you are a patient with a question regarding this report, juany zeeconsarahctyoalisha referring physician directly. Professional Interpretation Provided By: lettrs, Phone , These documents contain legally protected [...] on 02/21/131812 Sign by: John Mandujano MD 46-Vqw-947639:57 CBC With Differential/Platelet Comments: PERFORMED BY: [facility]6370 [facility] [id number] Immature Grans (Abs) 0.0 {x10E3/uL} (Normal) Range: [...] 4.14-5.80 WBC 6.4 {x10E3/uL} (Normal) Range: 4.0-10.5 27-Hxd-700361:57 Celiac Disease Comprehensive Comments: PERFORMED BY: [facility]6370 [facility] [id number] Immunoglobulin A, Qn, Serum 266 mg/dL (Normal) [...] Comp. Metabolic Panel (14) Comments: PERFORMED BY: [facility] [id number] ALT (SGPT) 17 [iU]/L (Normal) Range: 0-44 [...] IgM, IgG, IgA Ab Comments: PERFORMED BY: [facility] [id number] H.pylori, IgM ABS <0.80 {index} Range: 0.00-0.79 [...] Serum 2.0 mg/dL (Normal) Comments: PERFORMED BY: [employer]6370 [facility] [id number] :57 Range: 1.6-2.6 TSH 2.770 {uIU/mL} Comments: PERFORMED BY: Bluenog6370 [facility] [id number] :57 (Normal) Range: 0.450-4.500 Vitamin D, 25-Hydroxy 32.0 ng/mL (Normal) Comments: PERFORMED BY: [employer]6370 [facility] [id number] :57 Range: 30.0-100.0 Comments: Vitamin D deficiency has been defined by the Pacific ofMedicine and an Endocrine Society practice guideline as alevel of serum 25-OH vitamin D less than 20 ng/mL (1,2).The Endocrine Society went on to further define vitamin Dinsufficiency as a level between 21 and 29 ng/mL (2).1. IOM (Pacific of Medicine). 2010. Dietary reference intakes for calcium and D. [place]: The National Academies Press.2. Mike MF, Shital NC, Adele PEREZ, et al. Evaluation, treatment, and prevention of vitamin D deficiency: an Endocrine Society clinical practice guideline. JCEM. 2010; 96(7):1911-30. 96-Lwh-140502:09 URINE IZA CULTURE-IDENTIFICATN Comments: PATIENT NOT FASTINGPERFORMED BY: [facility] [address] [place] [id number] Information: [id number] (40128) Result 1 NG36 (Normal) Comments: No growth in 36 - 48 hours. Urine Culture,Comprehensive Final report (Normal) 20-Onq-55194:35 Urinalysis, Office (14902) UA - BILIRUBIN Negative (Normal) UA - BLOOD Hemolyzed Small (Normal) UA - GLUCOSE Negative (Normal) UA - KETONES Negative mg/dL (Normal) UA - LEUKOCYTE ESTERASE Negative (Normal) UA - NITRITE Negative (Normal) UA - PH 7.5 (Normal) UA - PROTEIN Negative mg/dL (Normal) UA - SPECIFIC GRAVITY 1.015 (Normal) URINE UROBILINGN MARYCHUY TIMED Normal mg/dL (Normal) 85-Tmk-457644:27 KNEE,4 OR MORE VIEWS Radiology Report See [...] radiologist regarding this report, please call our [id number] line @ Dictated on 12/09 1636 by Alfredo Gotti MDTranscribed on 12/11/11 171 by ITS IMPORTSign by Alfredo Gotti MD on 12/11/11 171 Sign by: Alfredo Gotti MD 0-Srd-987811:26 HAND,MIN 3 VIEWS Radiology Report See Note [...] 12/23 0126 Sign by: Hiren Braden MD 1-Tlz-424192:26 HAND,MIN 3 VIEWS Radiology Report See Note [...] 7 {units} Comments: PATIENT NOT FASTINGPERFORMED BY: Coolstuff[address] [id number] BY: [address] [id number] 6:01 IgG/IgA (Normal) Range: 0-19 Comments: Negative <20 Weak positive 20 - 39 Moderate positive 40 - 59 Strong positive >59 Comment: SPRCS (Normal) Comments: PATIENT NOT FASTINGPERFORMED BY: FreeMarketsSaint [facility] Hospital at DoverLqbggt9115 [facility] [id number] BY: [address] [id number] 6:01 Comments: Effective June 11, 2009 order code 371873 CCP IgGAntibodies has been replaced due to an updated reagentversion 3.1. For this reason [facility] has provided youwith a new order code [id number] CCP Antibodies IgG/IgA. 1-Izt-654029:01 SED RATE ERYTHROCYTE Comments: PATIENT NOT FASTINGPERFORMED BY: FreeMarketsSaint [facility] Hospital at DoverNfmief3403 [facility] [id number] BY: [address] [id number] (65420) Sedimentation Rate-Westergren 3 mm/h (Normal) Range: 0-41 2-Kop-443050:01 C-REACTIVE PROTEIN (98731) Comments: PATIENT NOT FASTINGPERFORMED BY: [place]stuffCharles [place] 2169870 [facility] [id number] BY: [address] [id number] C-Reactive Protein, Quant 0.7 mg/L (Normal) Range: 0.0-4.9 :01 TSH (04787) Comments: PATIENT NOT FASTINGPERFORMED BY: LabCharles Ville 2169870 [facility] [id number] BY: [address] [id number] TSH 2.220 {uIU/mL} (Normal) Range: 0.450-4.500 :01 RHEUMATOID FACTOR-QUANT Comments: PATIENT NOT FASTINGPERFORMED BY: LabCharles Ville 2169870 [facility] [id number] BY: [address] [id number] (91117) RA Latex Turbid. 9.1 {IU/mL} (Normal) Range: 0.0-13.9 :01 BO (ANTINUCLEAR ANTIBODY) Comments: PATIENT NOT FASTINGPERFORMED BY: LabCharles V[place] 2169870 [facility] [id number] BY: [address] [id number] (03958) BO Direct Negative (Normal) : CBC WITH MANUAL DIFF Comments: PATIENT NOT FASTINGPERFORMED BY: [place] 3151270 [facility] [id number] BY: [address] [id number] Inf ormation: [id number] (98842) Immature Grans (Abs) 0.0 {x10E3/uL} (Normal) Range: [...] 4.10-5.60 WBC 6.2 {x10E3/uL} (Normal) Range: 4.0-10.5 6-Pdq-985750:01 METABOLIC PANEL, Comments: PATIENT NOT FASTINGPERFORMED BY: [facility] Duogcn5426 [facility] [id number] BY: [facility] [address] [id number] [facility] (31513) ALT (SGPT) 15 [iU]/L (Normal) Range: 0-55 [...] mg/dL (Normal) Range: 65-99 :29 IZA CULTURE-OTHER (49595) Comments: PATIENT NOT FASTINGPERFORMED BY: LabCoSaint Clare's Hospital at DoverEmzezu2498 [facility] [id number] Information: SRC:CBT [id number] Result 1 RRF (Normal) Comments: Routine respiratory hilda Upper Respiratory Culture Final report (Normal) :05 Rapid Strep Test, Office (69359) Rapid Strep Test, Office Negative (Normal) :00 [...] Cyclospora, or Microspo ridia. TESTING PERFORMED AT [facility]. ORIGINAL REPORT ON FILE IN LAB CONTAINS ADDITIONAL TEST SITE INFORMATION. OVA/ PARASITES EXAM NO OVA, CYSTS, OR PARASITES FOUND. 50-Jwp-927405:22 FOLIC ACID SERUM (95252) Comments: PATIENT NOT FASTINGPERFORMED BY: [address] [id number] Folate (Folic Acid), Serum 14.5 ng/mL (Normal) Comments: Indeterminate: 2.2 - 3.0 Deficient: <2.2 11-Cqp-245228:22 VITAMIN B-12 (CYANOCOBALAMIN) Comments: PATIENT NOT FASTINGPERFORMED BY: [place] 3151270 [facility] [id number] (92644) Vitamin B12 566 pg/mL (Normal) Range: 211-946 05-Ktl-760332:22 T3, FREE (TRIDOTHYRONINE) (80537) Comments: PATIENT NOT FASTINGPERFORMED BY: [address] [id number] Triiodothyronine,Free,Serum 3.0 pg/mL (Normal) Range: 2.0-4.4 15-Svr-060429:22 T4, FREE (THYROXINE) Comments: PATIENT NOT FASTINGPERFORMED BY: [address] [id number] Information: [id number] (20186) T4,Free(Direct) 1.40 ng/dL (Normal) Range: 0.82-1.77 06-Lvl-537576:22 Anti-TPO Antibody (30136) Comments: PATIENT NOT FASTINGPERFORMED BY: [facility]6370 [facility] [id number] Thyroid Peroxidase (TPO) Ab 9 {IU/mL} (Normal) Range: 0-34 80-Rcc-804836:22 TSH (15626) Comments: PATIENT NOT FASTINGPERFORMED BY: [facility] Sojvls6170 [facility] [place] [id number] TSH 2.640 {uIU/mL} (Normal) Range: 0.450-4.500 47-Kps-456002:22 Vitamin D Hydroxy (99871) Comments: PATIENT NOT FASTINGPERFORMED BY: [facility] Lepvbe5239 [facility] [id number] Vitamin D, 25-Hydroxy 48.1 ng/mL (Normal) Range: 32.0-100.0 Comments: Recent studies consider the lower limit of 32.0 ng/mL to be athreshold for optimal health.Stevan NEAL. J Nutr. 2004;135(2):317-22. 55-Oxw-950914:37 SERUM CRE & GFR EST GFR 60 mL/min (Normal) EST GFR - AA 73 mL/min (Normal) CREAT,SERUM 1.3 mg/dL (Normal) Range: 0.8-1.3 59-Dab-083082:40 ABDOMEN WITH IV CONTRAST Radiology Report See Note (Normal) Comments: Exam Number: [id number] LINICAL:The patient is a 60-year-old man with [...] is seen Reported By: JA MARIN M.D. 8-Aok-253406:10 HEPATOBILIARY IMAGING Radiology Report See Note (Normal) Comments: Exam Number: [id number] HEPATOBILIARY IMAGING HISTORYRight upper quadrant pain. Following [...] with Cholecystokinin. Reported By: JA MARIN M.D. 15-Oem-440520:32 GALLBLADDER Radiology Report See Note (Normal) Comments: Exam Number: [id number] ULTRASOUND OF THE GALLBLADDER Multiple views of [...] abnormality is seen. Reported By: CHIDI WALKER 65-Qxl-146597:07 Bilirubin, Total/Direct, Serum Comments: PERFORMED BY: LabCoSaint Clare's Hospital at DoverSudqmj4643 [facility] [id number] Bilirubin, Indirect 0.70 mg/dL (Normal) Range: 0.10-0.80 Bilirubin, Direct 0.20 mg/dL (Normal) Range: 0.00-0.40 :07 CBC WITH MANUAL DIFF (93271) Comments: PERFORMED BY: [facility]6370 [facility] [id number] Baso (Absolute) 0.1 {x10E3/uL} (Normal) Range: 0.0-0.2 [...] 4.10-5.60 WBC 7.5 {x10E3/uL} (Normal) Range: 4.0-10.5 84-Rrl-675930:07 METABOLIC PANEL, COMPREHENSIVE Comments: PERFORMED BY: [facility]6370 [facility] [id number] (91279) Alkaline Phosphatase, S 77 [iU]/L (Normal) Range: [...] Glucose, Serum 88 mg/dL (Normal) Range: 65-99 3-Mlr-491326:10 KIDNEY (HP) Radiology Report See Note (Normal) Comments: Exam Number: [id number] CLINICAL:Elevated renal functions. RENAL ULTRASOUND TECHNIQUE: COMPARISON:None [...] CHOL 170 mg/dL (Normal) Comments: <200 mg/dL Ytvfonilj477-961 mg/dL Borderline>240 mg/dL High Risk HDL 52 [...] VITAMIN B12 729 pg/mL (Normal) Range: 254-1320 91-Jpu-856826:20 IZA CULTURE-OTHER (98450) Comments: PATIENT NOT FASTINGPERFORMED BY: [facility]EngineNov[facility] [id number] Information: SRC:THRT [id number] Result 1 RRF (Normal) Comments: Routine respiratory hilda Upper Respiratory Culture Final report (Normal) 36-Wgk-443649:19 Rapid Strep Test, Office (76449) Rapid Strep Test, Office Negative (Normal) 36-Ovq-057028:31 URINE IZA CULTURE (MARYCHUY COL Comments: PATIENT NOT FASTINGClinical Information: SRC:UR [id number] PERFORMED BY: [facility] [id number] COUNT) (86263) Result 1 NG36 (Normal) Comments: No growth in 36 - 48 hours. Urine Culture,Comprehensive Final report (Normal) 80-Qkk-42285:31 Urinalysis, Office (86305) UA - LEUKOCYTE ESTERASE Negative (Normal) Comments: aw UA - BILIRUBIN Negative (Normal) UA - BLOOD Non Hemolyzed Moderate (Normal) UA - GLUCOSE Negative (Normal) UA - KETONES Negative mg/dL (Normal) UA - NITRITE Negative (Normal) UA - PH 5.0 (Normal) UA - PROTEIN Negative mg/dL (Normal) UA - SPECIFIC GRAVITY 1.020 (Normal) URINE UROBILINGN MARYCHUY TIMED Normal mg/dL (Normal) 76-Bfw-538979:45 CHEST, PA AND LATERAL Radiology Report See Note (Normal) Comments: Exam Number: [id number] TWO VIEW CHEST COMPARISON STUDYNone. REASON FOR EXAMINATIONCough. Cardiac, mediastinal and hilar contours are normal. Lungs are clearwithout consolidation or effusion . Fine line ar opacity at the leftlateral base likely represents subsegmental atelectasis/scar. Thereis no acute osseous abnormality. Upper abdomen is unremarkable. IMPRESSIONNo radiographic evidence for acute ch est abnormality. Reported By: KANE MANUEL M.D. 74-Zhk-791417:26 CBCD BASO% 0.5 % (Normal) Range: 0-1 [...] 11.6-14.6 WBC 8.9 K/mm3 (Normal) Range: 4.4-11.0 08-Otl-585645:26 ESR SED RATE 11 mm/h (Normal) Range: 0-20 :05 Urinalysis, Office (71939) Comments: done BC UA - BILIRUBIN Negative [...] See Note (Normal) Comments: TESTING PERFORMED AT [facility]. ORIGINAL REPORT ON FILE IN LAB CONTAINS ADDITIONAL TEST SITE INFORMATION. 2 CULTURE, VIRUS GENERAL NO VIRUS ISOLATED AFTER 14 DAYS- FINAL REPORT 59-Ajh-955894:38 Urinalysis, Office (33973) UA - BILIRUBIN Negative (Normal) UA - BLOOD Hemolyzed Large (Normal) UA - GLUCOSE Negative (Normal) UA - KETONES Small mg/dL (Normal) Comments: 15 UA - LEUKOCYTE ESTERASE Negative (Normal) UA - NITRITE Negative (Normal) UA - PH 6.5 (Normal) UA - PROTEIN Trace mg/dL (Normal) UA - SPECIFIC GRAVITY 1.000 (Normal) URINE UROBILINGN MARYCHUY TIMED Normal mg/dL (Normal) 91-Xds-473794:19 Rapid Flu (31354 x 2) Comments: Neg INFLUENZA IMMUNOASSY DIRECT OPTICAL OBSERV Negative (Normal) 25-Syp-166197:12 Rapid Strep Test, Office (54655) Comments: neg Rapid Strep Test, Office Negative (Normal) :31 CORONALS,SAG,MULTI,OBL,3-D REC Radiology Report See Note (Normal) Comments: Exam Number: [id number] CT SINUSES REASON FOR EXAMAcute sinusitis. Recent history of dental procedure with drainageof tooth abscess and root canal. Coronal and axial CT scan obtained through the [facility]. All areas areviewed at soft [...] Report See Note (Normal) Comments: Exam Number: [id number] CT SINUSES REASON FOR EXAMAcute sinusitis. Recent history of dental procedure with drainageof tooth abscess and root canal. Coronal and axial CT scan obtained through the [facility]. All areas areviewed at soft [...] TSH 2.74 {uIU/mL} Range: 0.34-4.82 00 (Normal) 49-Fcl-563620:20 A/C JTS,KYRA W OR W/O WTS Radiology Report See Note (Normal) Comments: Exam Number: [id number] LEFT SHOULDER/BILATERAL ACROMIOCLAVICULAR JOINTS CLINICAL INFORMATIONShoulder pain. [...] Report See Note (Normal) Comments: Exam Number: [id number] LEFT SHOULDER/BILATERAL ACROMIOCLAVICULAR JOINTS CLINICAL INFORMATIONShoulder pain. [...] sinusitis, unspecified Planned Observations Vitamin B-12 (cyanocobalamin) (95862)Indication: Fatigue On: 15-Jun-20189:23 Request URINALYSIS, W/ MICRO (65812)Indication: Benign essential hypertension On: 64-Gmi-710084:04 Request CBC W/AUTO DIFF WBC (20994)Indication: Benign essential hypertension On: 62-Eom-309752:04 Request METABOLIC PANEL, COMPREHENSIVE (44428)Indication: Benign essential hypertension On: 20-Ehe-920055:04 Request HEPATITIS C ANTIBODY (62079)Indication: Encounter for hepatitis C virus screening test for high risk patient On: 38-Mpp-623024:04 Request HGB A1C (16077)Indication: Abnormal blood sugar On: 5-Dkh-381690:03 Request CBC W/AUTO DIFF WBC (37748)Indication: Benign essential hypertension On: :46 Request METABOLIC PANEL, COMPREHENSIVE (64470)Indication: Benign essential hypertension On: :46 Request LIPID PANEL (45312)Indication: Mixed hyperlipidemia On: :46 Request HEPATITIS C ANTIBODY (37862)Indication: Encounter for hepatitis C virus screening test for high risk patient On: :46 Request METABOLIC PANEL, COMPREHENSIVE (68787)Indication: Prediabetes On: :30 Request RENIN (50991)Indication: Malignant hypertension On: :53 Request URINE VMA (11863)Indication: Malignant hypertension On: :53 Request CATECHOLAMINES TOTAL, URINE (87041)Indication: Malignant hypertension On: :53 Request METANEPHRINES - URINE (98040)Indication: Malignant hypertension On: :53 Request TESTOSTERONE FREE (87168)Indication: Decreased libido (Renamed from Low libido) On: 2-Sgp-082640:02 Request LIPID PANEL (34466)Indication: Mixed hyperlipidemia On: 14-Aug-20169:55 Request PSA (PROSTATE SPECIFIC ANTIGEN) (V76.44)Indication: Encounter for screening for malignant neoplasm of prostate (Renamed from Screening for prostate cancer) On: :13 Request CBC with auto diff (83277)Indication: Prediabetes On: :12 Request METABOLIC PANEL, COMPREHENSIVE (43733)Indication: Prediabetes On: :12 Request MICROALBUMIN: CREATININE RATIO (31104) AND (97170)Indication: Prediabetes On: 14-Aug-20169:12 Request HGB A1C (13068)Indication: Prediabetes On: :12 Request HEPATIC FUNCTION PANEL (70130)Indication: Acute epigastric pain On: :36 Request Comments: standing Lipase (04944)Indication: Acute epigastric pain On: :36 Request Comments: standing Amylase (11399)Indication: Acute epigastric pain On: :36 Request Comments: standing Lipase (54510)Indication: Abdominal pain, acute, right upper quadrant (Renamed from Acute abdominal pain in right upper quadrant) On: :15 Request Comments: stat Amylase (51949)Indication: Abdominal pain, acute, right upper quadrant (Renamed from Acute abdominal pain in right upper quadrant) On: :15 Request Comments: stat CBC WITH MANUAL DIFF (70428)Indication: Abdominal pain, acute, right upper quadrant (Renamed from Acute abdominal pain in right upper quadrant) On: :15 Request Comments: stat METABOLIC PANEL, COMPREHENSIVE (93196)Indication: Abdominal pain, acute, right upper quadrant (Renamed from Acute abdominal pain in right upper quadrant) On: :15 Request Comments: stat Vitamin D Hydroxy (37775)Indication: Fatigue On: :35 Request VITAMIN B-12 (CYANOCOBALAMIN) (44410)Indication: Fatigue On: :34 Request METABOLIC PANEL, COMPREHENSIVE (69277)Indication: Pancreatitis, acute On: :33 Request CBC W/AUTO DIFF WBC (36071)Indication: Anemia On: :33 Request LIPID PANEL (20651)Indication: Mixed hyperlipidemia On: :33 Request PSA (PROSTATE SPECIFIC ANTIGEN) (V76.44)Indication: Screening for prostate cancer On: 84-Jzf-32563:32 Request Phosphorus (06720)Indication: Abdominal pain, acute, generalized On: 61-Ybw-158657:51 Request Magnesium (40702)Indication: Abdominal pain, acute, generalized On: 61-Rpw-770194:51 Request METABOLIC PANEL, COMPREHENSIVE (73038)Indication: Abdominal pain, acute, generalized On: 05-Jfq-017363:50 Request Helicobacter pylori Ag, EIA (35736)Indication: Abdominal pain, acute, generalized On: 47-Wgf-256887:08 Request H. PYLORI ANALYSIS UREASE ACTIVITY (32887)Indication: Metallic taste On: :05 Request Celiac Disease Comphrehensive Profile (17342)Indication: Metallic taste On: :05 Request MAGNESIUM (24712)Indication: Metallic taste On: :03 Request CALCIFEDIOL (82424)Indication: Metallic taste On: :03 Request TSH (22995)Indication: Metallic taste On: :02 Request CBC with manual diff (00320)Indication: Metallic taste On: :02 Request Metabolic Panel, Comprehensive (47350)Indication: Metallic taste On: :02 Request CCP ANTIBODY (57183)Indication: Pain in unspecified joint On: 7-Hln-500798:55 Request HEPATIC FUNCTION PANEL (71553)Indication: Mixed hyperlipidemia On: :19 Request LIPID PANEL (75804)Indication: Mixed hyperlipidemia On: :19 Request OVA & PARASITE DIR SMEAR (16519)Indication: Diarrhea On: :26 Request Comments: check and make sure no giardia IZA CULTURE-STOOL (07330)Indication: Diarrhea On: :26 Request HEPATIC FUNCTION PANEL (35619)Indication: Bilateral carotid artery stenosis On: :05 Request LIPID PANEL (55998)Indication: Bilateral carotid artery stenosis On: :05 Request Creatine (90215)Indication: Abdominal pain, acute, right upper quadrant On: 31-Gvl-946568:55 Request Bilirubin, total (15879)Indication: Abnormal blood chemistry On: 70-Xkt-356658:49 Request Bilirubin, Direct (68511)Indication: Abnormal blood chemistry On: 13-Xpi-462160:49 Request VITAMIN B-12 (CYANOCOBALAMIN) (33371)Indication: Fatigue On: :08 Request LIPID PANEL (60225)Indication: screening On: :08 Request PSA (PROSTATE SPECIFIC ANTIGEN) (V76.44)Indication: Screening for prostate cancer On: :06 Request URINALYSIS, W/ MICRO (69482)Indication: Fatigue On: :06 Request TSH (51840)Indication: Fatigue On: 03-Put-493794:06 Request METABOLIC PANEL, COMPREHENSIVE (39922)Indication: Fatigue On: 37-Zwr-409257:06 Request CBC WITH MANUAL DIFF (12028)Indication: Fatigue On: 93-Knc-135125:06 Request VIRAL CULTURE (87224) On: 84-Haw-959436:55 Request IZA CULTURE-OTHER (77286) On: 24-Ccj-566732:52 Request TSH (85041)Indication: Anxiety On: 58-Xoz-355048:18 Request Planned Encounters Medical; [facility] [...] A ELECTROCARDIOGRAM, COMPLETE (ECG) On: 20-Nov-2017 Intent (66018)By: Fast DO, Diandra A Fast DO, Comments: ekg showed normal sinus rhythym, normal axis, no acute st/t wave changes Diandra A Renal Duplex ScanBy: Fast DO, Diandra A On: 09-Oct-2016 Intent Fast DO, Diandra A ELECTROCARDIOGRAM, COMPLETE (ECG) On: 08-Oct-2016 Intent (14156)By: Fast DO, Diandra A Fast DO, Comments: ekg showed normal sinus rhythym, normal axis, no acute st/t wave changes Diandra A Cartoid DopplerBy: Fast DO, Diandra A Fast On: 08-Oct-2016 Intent DO, Diandra A INFUSION, NORMAL SALINE SOLUTION , 1000 On: 28-Aug-2016 Intent CC (Special Coverage Instructions Apply. Comments: lot:[id number]:12-13-2017rte: left anticub. IV dose: 1000ml (2 bags) given by:Suzanne Godinez LPN See MCM: 2049) (J7030)By: BARRINGTON Patton Phenergan Injection, up to 50 mg On: 28-Aug-2016 Intent (J2550)By: BARRINGTON Patton Comments: lot:[id number]:04/2017rte:IM right gluteal dose:25mggiven by:cristian Godinez LPN ELECTROCARDIOGRAM, COMPLETE (ECG) On: 14-Aug-2016 Intent (31517)By: Fast DO Diandra A Fast DO, Comments: [...] rule out biliary sludge or stone CONTRAST (25399)By: Fast DO, Diandra A Fast DO, Diandra A Cartoid DopplerBy: Fast DO, Diandra A Fast On: 24-Aug-2015 Intent DO, Diandra A CT - Abdomen (IV Contrast Needed)By: Fast On: 24-Aug-2015 Intent DO, Diandra A Fast DO, Diandra A IMMUNIZ ADMNIN, 1 VAC, SNGL/COMBO On: 10-Mar-2014 Intent (56173)By: Visit, Nurse [facility] [place] [place] (42163)By: Fast DO, Diandra On: 10-Mar-2014 Intent A Fast DO, Diandra A Comments: lot: [id number]: 11/17/14site/route: R arm/IMamt:0.5mLVIS signed when applicableSHELBY Zamora Radiology - Foot - RightBy: Fast DO, On: 21-Feb-2013 Intent Diandra A Fast DO, Diandra A Comments: call wet read Radiology - Ankle - RightBy: Fast DO, On: 21-Feb-2013 Intent Diandra A Fast DO, Diandra A Comments: call wet read Solu -Medrol Injection, 125 mg On: 08-Nov-2012 Intent (J2930)By: Faye Narayan CNP Comments: lot # [id number]- 06/2015site-RGlut groqa-OTgglp-9 ML [facility] PHYSICAL THERAPY EVALUATION (47353)By: On: 10-Dec-2011 Intent Faye Narayan CNP Radiology [...] do today- call wet read Overnight Pulse Ox(69658)By: Bladimir GONZALEZ, On: 12-Jun-2010 Intent Lakshmi Ultrasound - GallbladderBy: Fast DO, On: 02-Nov-2009 Intent Diandra A Fast DO, Diandra A Pneumovax (23187)By: Erin Jordan LPN On: 26-Jun-2009 Intent Comments: Lot #[id number]-11/20/10Site-right deltoidDose0.5mlgiven by:[facility] Flu Vaccine, Split IM (55690)By: Julian On: 26-Jun-2009 Intent Erin GONZALEZ Comments: Lot #[id number]-left deltoidgiven by:[facility] Inhaler Demonstration (21046)By: Sylvain On: 21-Sep-2008 Intent Faye LIM Comments: done BC Pulse Oximetry (73564)By: Faye Narayan CNP On: 21-Sep-2008 Intent E Comments: done BC Aerosol Treatment (36349)By: Sylvain LIM On: 21-Sep-2008 Intent Faye Alves Comments: done BC Solu -Medrol Injection, 125 mg On: 21-Sep-2008 Intent (J2930)By: Faye Narayan CNP Comments: Amt: 2mlLot: [id number]: 03/2011Route: IMSite: right hipTolerated: wellGiven By: LISA Soto Pulse Oximetry (94500)By: Faye Narayan CNP On: 31-Aug-2008 Intent E Pulse Oximetry (78771)By: Faye Narayan CNP On: 31-Aug-2008 Intent E Aerosol Treatment (57629)By: Sylvain LIM, On: 31-Aug-[address] - Sinuses CompleteBy: Maxim DO, On: 01-Feb-2008 Intent Johana PHYSICAL THERAPY EVALUATION (88690)By: On: 01-Nov-2007 Intent Faye Narayan CNP Radiology - Shoulder - LeftBy: Fast DO, On: 12-Oct-2007 Intent Diandra A Fast DO, Diandra A Comments: and left ac joint Nerve ConductionBy: Maxim HAMMJohana On: 15-Jan-2007 Intent EMGBy: Maxim HAMM Johana On: 15-Jan-2007 Intent Inhaler Demo (54407)By: JOSY ILM, On: 10-Sep-2006 Intent LASHAY Aerosol Treatment (58785)By: JOSY LIM, On: 10-Sep-2006 Intent LASHAY Comments: expiratory wheeze absent on rt after treatment.Continues on rt. Pulse Oximetry (66930)By: JOSY LIM, On: 10-Sep-2006 Intent LASHAY Comments: [...] upon request. Encounters Phone Encounter On: 28-Jul-2018 13:12 Encounter Diagnosis: [...] time losxarten bothers hi m if quick [place] movements and laying on backget up- riding [...] sometim es better sometimes worse- he called [place] [facility] other day and gave him dicyclomine- [...] Pain: d riving for 6 hours this - thursday and thursday had pain inEncounter Diagnosis: [...]
--- OUTSIDE RECORDS SUMMARY | 2018-12-04 23:13 | XMS RPT_ITS | Continuity of Care Document ---
:1950 Author Organization [facility] Address [address] [facility] [address] [place] [address] Phone Care Team Providers Name Role Phone Diandra Anaya DO Unavailable [facility], [facility] Unavailable Dr. Ryne Arndt Unavailable Marlene Ghosh Unavailable Ashe DPMBrien Unavailable Long INFORMATICS PHYSICIAN, Shayla L Unavailable Unavailable Slarb INFORMATICS PHYSICIAN, Jade Unavailable Unavailable Willy Edouarda Unavailable Unavailable [...] Discontinued Comments:number given unknown -- started by [facility] for pancreatitis PROZAC, 10MG (Oral Tablet) [...] Flow Screening Result: Comments: See Note; NOTES: [facility] Cardiovascular Services [address] [place] [address] 06/15/18 0826 MR#: [id number] Acct: [id number] Name: SIMEON PAIZ Rep #: [id number] : 1950 68 From: Nilo King MD Attending Dr: Diandra Anaya DO Status: REG REF Ordering Dr: Date: 06/16/18 Location: [facility] Sex: M C Admitted: Reason For [...] LOWE ate Dictated: 06/15/18825 Date Transcribed: 06/16/18920 Senior Marketing Manager: Signed 16-Jun-2018 TXT - Blood Flow Screening Result: Comments: See Note; NOTES: [facility] Cardiovascular Services [address] [place] [address] 06/15/18825 MR#: [id number] Acct: [id number] Name: SIMEON PAIZ Rep #: [id number] : 1950 68 From: Nilo King MD Attending Dr: Diandra Anaya DO Status: REG REF Ordering Dr: Date: 06/16/18 Location: [facility] Sex: M C Admitted: Reason For [...] D ate Dictated: 06/15/18825 Date Transcribed: 06/16/18920 Senior Marketing Manager: Signed 08-Oct-2016 PT D/C of Non Returning Pt (1) Result: Comments: See Note; NOTES: [facility] Physical Therapy Health[address] [place] [address] Fax REHABILITATION SERVICES DISCHAR GE SUMMARY MR#: [id number] Acct: [id number] Name: SIMEON PAIZ Rep #: [id number] : 1950 66 From: Sean Rojas PT, Cert. T, OCS Referring : Diandra Anaya DO Status: REG RCR [facility] - Discharge Summary (1) - Patient Information SMIEON PAIZ was seen in my office for [...] - PT Result: Comments: See Note; NOTES: [facility] Physical Therapy Healthpoint [address] [facility] [address] [place] [address] Fax REHABILITATION SERVICES INITIAL EVALUATION MR#: [id number] Acct: [id number] Name: SIMEON PAIZ Rep #: [id number] : 1950 66 From: Sean Rojas PT, Cert. GUTIERREZ, OCS Referring Dr.: Diandra Anaya DO Status: REG R Insurance: [facility] Patient's Visit Information SIMEON PAIZ [...] effect Lumbar Standing: Right Side Glides - Packaging Sales Representative al Response: No effect Lumbar Standing: Right Side [place] - Symptoms During Testing: No effect Lumbar Standing: Right Side [place] - Symptoms After Testing: No effect Lumbar Standing: Left Side [place] - Mec hanical Response: No effect Lumbar Standing: Left Side [place] - Symptoms During Testing: No effect Lumbar Standing: Left Side [place] - Symptoms After Testing: No effect Lumbar [...] to be FAXED BACK to us at [phone] for Medicare purposes. Please let me know [...] [facility] [address] [place] [address] Verdana 4d MRCP Abdomen without Contrast MR#: [id number] Acct: [id number] Name: DELMA PAIZ Rep #: [id number] : 1950 M 66 From: Catherine Mota MD PCP: Diandra Anaya DO Status: REG CLI Study: MRCP Abdomen without Contrast Date of Exam: 04/24/16 Exam# [id number] Ordering Dr: Diandra Anaya DO STUDY: MR [...] MD at 9:35 EDT , Service support [phone], CC: Diandra Anaya DO Senior Marketing Manager: Signed 20-Sep-2015 Operative Report Result: Comments: See Note; NOTES: [facility] Medical Records Department [address] [place] [address] Operative Report MR#: [id number] Acct: [id number] Name: KIKE PAIZ Rep #: [id number] : 1950 65 From: Simeon Gruber MD PCP: Diandra Anaya DO Status: [facility] DATE OF SERVICE: 09/04/2015 DATE OF [...] the fascia of the umbilical port with tfkipb-tp-pgusu stitch of 0 Vicryl. Skin incisions were closed with subcuticular stitches of 4-0 Monocryl. Steri- Strips were applied. Sterile dressings we re applied and the patient tolerated the procedure well. Simeon Gruber MD T: NTS JOB: [id number] 09/20/15 1111 <Electronically signed by Simeon Gruber MD> Date Simeon Gruber MD Cosigner Signature (If Indicated): Date CC: Simeon Gruber MD; Diandra Anaya DO Date D ictated: 09/04/151151 Date Transcribed: 09/04/151151 Senior Marketing Manager: Signed 06-Sep-2015 12 Lead Electrocardiogram Result: Comments: See Note; NOTES: [facility] Cardiovascular Services [address] [place] [address] 12 Lead EKG 09/04/15911 MR#: [id number] Acct: [id number] Name: ERIK HARTELYTALATSIMEON Pham Rep #: [id number] : 1950 65 From: Simeon Stack MD Attending Dr: Simeon Gruber MD Status: [place] [facility] [place] [facility]: Misael Mayer MD Date: 09/04/15 [place] [facility] Sex: M C Admitted: Test Reason : [...] found Confirmed by SIMEON STACK ([id number]), department editor EDGAR MOTA ([id number]) on 09/06/2015 10:47:28 AM Referred By: WALLY Confirmed By:SIMEON STACK 09/06/15 1047 Date Simeon Stack MD CC: Diandra Anaya DO Date Dictated: 09/04/15911 Date Transcribed: 09/04/15911 Senior Marketing Manager: Signed 04-Sep-2015 Discharge Instruction Result: Comments: See Note; NOTES: [facility] Medical Records Department [address] [place] [address] Instructions for Home/Discharge Instructions 09/04/15 1121 MR#: [id number] Acct: [id number] Name: SIMEON PAIZ Rep #: [id number] : 1950 65 From: Simeon Gruber MD PCP: Diandra Anaya DO Status: [place] [facility] [place] Diet: Light diet - advance as [...] Up With: Simeon Gruber - Please call [phone] to schedule an appointment . When: 7 days after your surgery. 09/04/15 1122 <Electronically signed by Simeon Gruber MD> Date Simeon Gruber MD CC: Diandra Anaya DO 30-Aug-2015 Abdomen W/WO IV Contrast Result: Comments: See Note; NOTES: [facility] Imaging Services [address] [place] [address] Verdana 4d Abdomen W/WO IV Contrast MR#: [id number] Acct: [id number] Name: SIMEON YE Rep #: [id number] : 1950 M 65 From: Chidi Walker MD PCP: Diandra Anaya DO Status: REG CLI Study: Abdomen W/WO IV Contrast Date of Exam: 08/30/15 Exam# [id number] Ordering Dr : Diandra Anaya DO STUDY: [...] Chidi Walker MD at 9:59 EST Tel [phone], Service support [phone], CC: Diandra Anaya DO Senior Marketing Manager: Signed Immunization Name Dates Details Influenza (3 years and up) on: 26-Jun-2009 Comments: Lot #[id number] deltoidgiven by:[facility] Pneumococcal (2 years and up) [...] Status: Active Most Recent Primary Occupation Comments: [employer] Status: Active Number of Adult (age 20 [...] kg/m2 Body Surface Area Calculated 2 m2 89-Sgx-241537:39 Temperature 97.2 f Comments: Method: Temporal Pulse [...] Value Details :11 CBC W/Diff, Automated Comments: [facility] [address] [place], [place], [id number] Absolute Lymph 1.11 {X10_3/ul} (Normal) Range: 0.83-4.51 [...] Range: 4.4-11.0 15-Jun-20188:11 Comprehensive Metabolic Profil Comments: [facility] [address] [place], [place], [address] GAP 9 (Normal) Range: 5-15 CO2 25.0 [...] Comments: Please note revised GLUCOSE reference range fqeatqnum39/02/2018. 15-Jun-20188:11 Hepatitis C Antibodies Comments: [facility] (refer to report for specific site)refer to report for address and phone number HEP C AB <0.1 {s/co_ratio} (Normal) Range: 0.0-0.9 Comments: Negative: < 0.8 Indeterminate: 0.8 - 0.9 Positive: > 0.9 The CDC recommends that a positive HCV antibody result be followed up with a HCV Nucleic Acid Amplification test (767190).Performed at: [address] [id number] Director: Toby Wilder PhD, Phone: [phone] 15-Jun-20188:11 Urinalysis, Complete Comments: How was Urine Obtained? [facility] [address] [place] [address], [id number] MUCUS, URINE 0 SEEN {/hpf} (Normal) BACTERIA [...] R1 TUBE ADD ON TEST PER [facility] Dfsktuspjj4367 FAREED Gomez, [address] Range: 211-917 :53 Microscopic Examination Comments: PATIENT WAS FASTINGPERFORMED BY: [facility] [id number] BY: [employer] [id number] Bacteria None seen (Normal) Mucus Threads Present (Normal) Epithelial Cells (non renal) None seen {/hpf} (Normal) Range: 0 - 10 RBC None seen {/hpf} (Normal) Range: 0 - 2 WBC 0-5 {/hpf} (Normal) Range: 0 - 5 :53 URINALYSIS, W/ MICRO Comments: PATIENT WAS FASTINGPERFORMED BY: [employer]70 [facility] [id number] BY: [employer] [id number] ([address]) Microscopic Examination See below: (Normal) Comments: Microscopic was indicated and was performed. Microscopic Examination MICRON (Normal) Comments: Microscopic follows if indicated. Nitrite, Urine Negative (Normal) Urobilinogen,Semi-Qn 0.2 mg/dL (Normal) Range: 0.2-1.0 Bilirubin Negative (Normal) Occult Blood Negative (Normal) Ketones Negative (Normal) Glucose Negative (Normal) Protein Negative (Normal) WBC Esterase Negative (Normal) Appearance Clear (Normal) Urine-Color Yellow (Normal) pH 7.0 (Normal) Range: 5.0-7.5 Specific [place] 1.009 (Normal) Range: 1.005-1.030 :53 PSA (PROSTATE SPECIFIC Comments: PATIENT WAS FASTINGPERFORMED BY: [facility] [id number] BY: [employer] [id number] ANTIGEN) (V76.44) Prostate Specific Ag, 1.3 ng/mL (Normal) Range: 0.0-4.0 Serum Comments: Lin ECLIA methodology. .According to the [place] [employer], Serum PSA shoulddecrease and remain at undetectable levels after radicalprostatectomy. The AUA defines biochemical recurrence as an initialPSA value 0.2 ng/mL or greater followed by a subsequent confirmatoryPSA value 0.2 ng/mL or greater.Values obtained with d ifferent assay methods or kits cannot be usedinterchangeably. Results cannot be interpreted as absolute evidenceof the presence or absence of malignant disease. :53 TESTOSTERONE FREE (85768) Comments: PATIENT WAS FASTINGPERFORMED BY: [facility]70 [facility] [id number] BY: [employer] [id number] Free Testosterone(Direct) 13.7 pg/mL (Normal) Range: 6.6-18.1 :53 CBC with auto diff Comments: PATIENT WAS FASTINGPERFORMED BY: [employer]com Opypcl8644 [facility] [id number] BY: [employer] [id number] ([address]) Immature Grans (Abs) 0.0 {x10E3/uL} (Normal) Range: [...] MICROALBUMIN: CREATININE Comments: PATIENT WAS FASTINGPERFORMED BY: [employer] [facility] [id number] BY: [employer] [id number] RATIO (12785) AND (23714) Microalb/Creat Ratio <7.8 {mg/g_creat} (Normal) Range: 0.0-30.0 Microalbumin, Urine <3.0 ug/mL (Normal) Creatinine, Urine 38.5 mg/dL (Normal) :53 HGB A1C (72939) Comments: PATIENT WAS FASTINGPERFORMED BY: [employer] Cuizinelin6370 [facility] [id number] BY: [employer] [id number] Hemoglobin A1c 5.3 % (Normal) Range: 4.8-5.6 Comments: . Pre-diabetes: 5.7 - 6.4 Diabetes: >6.4 Glycemic control for adults with diabetes: <7.0 :53 LIPID PANEL (26038) Comments: PATIENT WAS FASTINGPERFORMED BY: [employer] [facility] [id number] BY: [facility] [id number] LDL/HDL Ratio 1.8 {ratio_units} (Normal) Range: 0.0-3.6 Comments: LDL/HDL Ratio Men Women 1/2 Avg.Risk 1.0 1.5 Av g.Risk 3.6 3.2 2X Avg.Risk 6.2 5.0 3X Avg.Risk 8.0 6.1 LDL Cholesterol Calc 102 mg/dL (Abnormal) Range: 0-99 VLDL Cholesterol [place] 19 mg/dL (Normal) Range: 5-40 HDL Cholesterol 58 mg/dL (Normal) Triglycerides 96 mg/dL (Normal) Range: 0-149 Cholesterol, Total 179 mg/dL (Normal) Range: 100-199 37-Kai-37804:53 METABOLIC PANEL, Comments: PATIENT WAS FASTINGPERFORMED BY: [facility]CoCooper [facility] HospitalHgskkd1736 [facility] [id number] BY: [facility] [id number] COMPREHENSIVE (11083) ALT (SGPT) 18 [iU]/L (Normal) Range: 0-44 [...] Glucose, Serum 88 mg/dL (Normal) Range: 65-99 35-Pxp-477049:15 Microscopic Examination Comments: PATIENT NOT FASTINGPERFORMED BY: [facility] [id number] Bacteria None seen (Normal) Mucus Threads Present (Normal) Epithelial Cells (non renal) None seen {/hpf} (Normal) Range: 0 - 10 RBC 0-2 {/hpf} (Normal) Range: 0 - 2 WBC 0-5 {/hpf} (Normal) Range: 0 - 5 06-Qpt-540332:15 URINALYSIS (37781) Comments: PATIENT NOT FASTINGPERFORMED BY: [facility] [id number] Information: SRC:UC Microscopic Examination See below: (Normal) Comments: Microscopic was indicated and was performed. Nitrite, Urine Negative (Normal) Urobilinogen,Semi-Qn 0.2 mg/dL (Normal) Range: 0.2-1.0 Bilirubin Negative (Normal) Occult Blood 2+ (Abnormal) Ketones Negative (Normal) Glucose Negative (Normal) Protein Trace (Normal) WBC Esterase Negative (Normal) Appearance Clear (Normal) Urine-Color Yellow (Normal) pH 6.0 (Normal) Range: 5.0-7.5 Specific [place] 1.025 (Normal) Range: 1.005-1.030 83-Ffk-834310:15 URINE IZA CULTURE-IDENTIFICATN Comments: PATIENT NOT FASTINGPERFORMED BY: Ziipa Vensun PharmaceuticalsY[facility] [id number] (42029) Result 1 NG36 (Normal) Comments: No growth in 36 - 48 hours. Urine Culture,Comprehensive Final report (Normal) 08-Sql-35547:45 CBC W/AUTO DIFF WBC (41024) Comments: PATIENT NOT FASTINGPERFORMED BY: [facility]iipa [facility] PharmaceuticalsY[facility] [id number] Immature Grans (Abs) 0.0 {x10E3/uL} (Normal) Range: [...] 4.14-5.80 WBC 6.8 {x10E3/uL} (Normal) Range: 3.4-10.8 00-Hvl-68550:45 METABOLIC PANEL, COMPREHENSIVE Comments: PATIENT NOT FASTINGPERFORMED BY: LabCoCo[facility] HospitalZemcsj9000 [facility] [id number] (28965) ALT (SGPT) 18 [iU]/L (Normal) Range: 0-44 [...] mg/dL (Normal) Range: 65-99 :30 Amylase Comments: [facility] Mvvcipkcyi3953 [facility] [place], [place], [address] ESTIVEN 80 U/L (Normal) Range: 25-115 :30 CBC W/Diff, Automated Comments: [facility] [address] [place], [place], [address] Absolute Lymph 1.18 {X10_3/ul} (Normal) Range: 0.83-4.51 [...] Range: 4.4-11.0 22-Apr-20169:30 Comprehensive Metabolic Profil Comments: [facility] [address] [place], [address] GAP 6 (Normal) Range: 5-15 CO2 28.0 [...] mg/dL (Normal) Range: 70-110 22-Apr-20169:30 Lipase Comments: [facility] [address] [place], [place], [address] LIPASE 201 U/L (Normal) Range: 73-393 50-Dte-768925:28 GALLBLADDER See Note (Normal) Comments: [facility] [address] [place], [place], [address] Comments: Patient: SIMEON PAIZ : 1950 (65/M) Acct Num: [id number] Phys: Simeon Gruber MD Unit Num: [id number] [place] [facility] Specimen: [id number] Received: 09/04/15 - 4 Spec Type: G [...] thickness and is free of mass lesions. Wash Oil Pump Operator Helper sections of the gallbladder and thecystic duct are submitted in one cassette. AM: 09/04/15 TC:3 CPT: 11847 HEADER OPERATION: Cholecystectomy, lap, no grams PRE-OP DIAGNOSIS: Acute biliary pancreatitis TISSUE SUBMITTED: Gallbladder MICROSCOPIC DE SCRIPTION Slides are reviewed. MICROSCOPIC DIAGNOSIS Gallbladder, cholecystectomy: Mild chronic cholecystitis. AM: 09/05/15 Signed Jared Piedraih 09/05/15 <signature on file> 9-Una-709943:30 Urinalysis, Complete Comments: Order Date: 08/18/15How was Urine Obtained? [facility] [address] [place], [address] FINE GRAN CAST 0-5 SEEN [...] (Normal) CLARITY Clear (Normal) COLOR Yellow (Normal) 9-Hji-756881:00 Basic Metabolic Profile (BMP) Comments: 'TROP' Serial specimen #1, #2, #3, or #4: [address] [place] [address] [address] [place], [place], [address] GAP 12 (Normal) Range: 5-15 CO2 27.0 [...] 7-18 GLU 96 mg/dL (Normal) Range: 70-110 2-Kaw-887917:00 CBC W/Diff, Automated Comments: [facility] [address] [place], [place], [address] Absolute Lymph 2.93 {X10_3/ul} (Normal) Range: 0.83-4.51 [...] Serial specimen #1, #2, #3, or #4: [address] [place] [address] [address] [place], [address] LIPASE 21894 U/L (Abnormal) Range: 73-393 1-Aqn-369865:00 Liver Profile Comments: 'TROP' Serial specimen #1, #2, #3, or #4: [address] [place] [address] [address] [place], [address] D BILI 0.13 mg/dL (Normal) [...] Serial specimen #1, #2, #3, or #4: [address] [place] [address] [address] [place], [address] TROPONIN-I < 0.02 ng/mL (Normal) Comments: TROPONIN-I EXPECTED VALUES <0.05 NEGATIVE 0.06 - 0.59 AT RISK OF [place] > OR = 0.60 SUGGEST [place] 31-Mjl-009968:23 Microscopic Examination Comments: PATIENT NOT FASTINGPERFORMED BY: [facility] Uigxlf8756 [facility] [id number] Bacteria None seen (Normal) Mucus Threads Present (Normal) Epithelial Cells (non renal) None seen {/hpf} (Normal) Range: 0 - 10 RBC None seen {/hpf} (Normal) Range: 0 - 2 WBC 0-5 {/hpf} (Normal) Range: 0 - 5 48-Dlw-939326:14 H pylori, IgM, IgG, IgA Comments: PATIENT NOT FASTINGPERFORMED BY: [facility]6370 [facility] [id number] Information: [id number] Ab H. pylori, IgM Abs <9.0 {units} (Normal) Range: 0.0-8.9 Comments: Negative <9.0 Equivocal 9.0 - 11.0 Positive >11.0 . This test was developed and its performance characteristics determined by [facility]. It has not been cleared or [...] <0.9 Indeterminate 0.9 - 1.0 Positive >1.0 88-Pnk-307382:14 Request Problem Comments: PATIENT NOT FASTINGPERFORMED BY: [facility]6370 [facility] [id number] 99-Pkn-865098:1 Written Authorization WAR (Normal) Comments: PATIENT NOT FASTINGPERFORMED BY: [facility]6370 [facility] [id number] 4 Comments: Written Authorization Received.Authorization received from ORIGINAL REQUISITION [id number] by Faye Fitzgerald 01-Amj-036820:23 URINE IZA CULTURE (MARYCHUY COL Comments: PATIENT NOT FASTINGPERFORMED BY: [facility]6370 [facility] [id number] COUNT) (20771) Result 1 NG36 (Normal) Comments: No growth in 36 - 48 hours. Urine Culture,Comprehensive Final report (Normal) 52-Pxm-243822:14 CBC W/AUTO DIFF WBC Comments: PATIENT NOT FASTINGPERFORMED BY: [facility]6370 [facility] [id number] Information: [id number] (20204) Immature Grans (Abs) 0.0 {x10E3/uL} (Normal) Range: [...] 4.14-5.80 WBC 8.1 {x10E3/uL} (Normal) Range: 3.4-10.8 54-Nnv-448578:14 METABOLIC PANEL, COMPREHENSIVE Comments: PATIENT NOT FASTINGPERFORMED BY: [facility]CoRobert [facility] 5139370 [facility] [id number] (70846) ALT (SGPT) 21 [iU]/L (Normal) Range: 0-44 [...] Glucose, Serum 87 mg/dL (Normal) Range: 65-99 38-Mir-291719:14 Vitamin D Hydroxy (85593) Comments: PATIENT NOT FASTINGPERFORMED BY: [facility] Wsdwtr1310 [facility] [id number] Vitamin D, 25-Hydroxy 38.7 ng/mL (Normal) Range: 30.0-100.0 Comments: Vitamin D deficiency has been defined by the [place] ofMedicine and an Endocrine Society practice guideline as alevel of serum 25-OH vitamin D less than 20 ng/mL (1,2).The Endocrine Society went on to further define vitamin Dinsufficiency as a level between 21 and 29 ng/mL (2).1. IOM ([place] of Medicine). 2010. Dietary reference intakes for calcium and D. [place]: The National Academies Press.2. Mike MF, Shital [place], Adele PEREZ, et al. Evaluation, treatment, and prevention of vitamin D deficiency: an Endocrine Society clinical practice guideline. JCEM. 2010; 96(7):1911-30. 55-Upk-592428:14 VITAMIN B-12 (CYANOCOBALAMIN) Comments: PATIENT NOT FASTINGPERFORMED BY: [facility] RealityCooper University HospitalZkoxdq2478 [facility] [id number] (52954) Vitamin B12 935 pg/mL (Normal) Range: 211-946 85-Iyv-846378:14 EBV Panel (44861) Comments: PATIENT NOT FASTINGPERFORMED BY: [facility]6370 [facility] [id number] Interpretation: SPRCS (Normal) Comments: EBV Interpretation Chart [...] <36.0 Equivocal 36.0 - 43.9 Positive >43.9 88-Tjn-085176:23 URINALYSIS, W/ MICRO Comments: PATIENT NOT FASTINGPERFORMED BY: [facility]6370 [facility] [id number] Information: SRC:UR [id number] (16347) Microscopic Examination See below: (Normal) Comments: Microscopic was indicated and was performed. Nitrite, Urine Negative (Normal) Urobilinogen,Semi-Qn 0.2 mg/dL (Normal) Range: 0.0-1.9 Bilirubin Negative (Normal) Occult Blood Trace (Abnormal) Ketones Negative (Normal) Glucose Negative (Normal) Protein Negative (Normal) WBC Esterase Negative (Normal) Appearance Clear (Normal) Urine-Color Yellow (Normal) pH 7.5 (Normal) Range: 5.0-7.5 Specific [place] 1.011 (Normal) Range: 1.005-1.030 56-Cph-754765:14 TSH (53872) Comments: PATIENT NOT FASTINGPERFORMED BY: [employer]a Vmtifd5674 [facility] [id number] TSH 2.980 {uIU/mL} (Normal) Range: 0.450-4.500 25-Egy-482370:14 SED RATE ERYTHROCYTE (51869) Comments: PATIENT NOT FASTINGPERFORMED BY: [facility] RealityCooper University HospitalTuppep3767 [facility] [id number] Sedimentation Rate-Westergren 2 mm/h (Normal) Range: 0-30 60-Uub-172281:14 C-REACTIVE PROTEIN (97903) Comments: PATIENT NOT FASTINGPERFORMED BY: [facility]ipaCooper [facility] HospitalXkyzef8244 [facility] [id number] C-Reactive Protein, Quant 1.3 mg/L (Normal) Range: 0.0-4.9 59-Mmq-095948:23 ANKLE MIN 3 VIEWS Radiology Report See [...] Mandujano M.D.February 21, 2013 at 6:08:53 PM [id number] Signed BP/BP If you are the referring physician and would like to consult with theradiologist who provided this interpretation, please contact Heri Ramsay at [phone]. If this radiologist is unavailable, youwillbe ected to another radiologist to assist. If you are a patient with a question regarding this report, pleasecontactyour referring physician directly. Professional Interpretation Provided By: [employer], Phone , These documents contain legally protected [...] 0 02/21/131810 Sign by: John Mandujano MD 87-Zhr-169971:23 FOOT MIN 3 VIEWS Radiology See Note [...] Mandujano M.D.February 21, 2013 at 6:10:23 PM [id number] Signed BP/BP If you are the referring physician and would like to consult with theradiologist who provided this interpretation, please contact Heri Ramsay at [phone]. If this radiologist is unavailable, youwillbe directed to another radiologist to assist. If you are a patient with a question regarding this report, juany zeeconsarahctyoalisha referring physician directly. Professional Interpretation Provided By: [employer], Phone , These documents contain legally protected [...] on 02/21/131812 Sign by: John Mandujano MD 89-Gbq-038350:57 CBC With Differential/Platelet Comments: PERFORMED BY: [facility]6370 [facility] [id number] Immature Grans (Abs) 0.0 {x10E3/uL} (Normal) Range: [...] 4.14-5.80 WBC 6.4 {x10E3/uL} (Normal) Range: 4.0-10.5 54-Qor-975837:57 Celiac Disease Comprehensive Comments: PERFORMED BY: [facility]6[address] [facility] [id number] Immunoglobulin A, Qn, Serum 266 mg/dL (Normal) [...] Comp. Metabolic Panel (14) Comments: PERFORMED BY: [facility] [id number] ALT (SGPT) 17 [iU]/L (Normal) Range: 0-44 [...] IgM, IgG, IgA Ab Comments: [facility]FORMED BY: [facility] [id number] H.pylori, IgM ABS <0.80 {index} Range: 0.00-0.79 [...] Serum 2.0 mg/dL (Normal) Comments: PERFORMED BY: Conject6370 [facility] [id number] :57 Range: 1.6-2.6 TSH 2.770 {uIU/mL} Comments: PERFORMED BY: Sunshine6370 [facility] [id number] :57 (Normal) Range: 0.450-4.500 Vitamin D, 25-Hydroxy 32.0 ng/mL (Normal) Comments: PERFORMED BY: Conject6370 [facility] [id number] :57 Range: 30.0-100.0 Comments: Vitamin D deficiency has been defined by the [place] ofMedicine and an Endocrine Society practice guideline as alevel of serum 25-OH vitamin D less than 20 ng/mL (1,2).The Endocrine Society went on to further define vitamin Dinsufficiency as a level between 21 and 29 ng/mL (2).1. IOM ([place] of Medicine). 2010. Dietary reference intakes for calcium and D. [place]: The National Academies Press.2. Mike MF, Shital NC, Adele PEREZ, et al. Evaluation, treatment, and prevention of vitamin D deficiency: an Endocrine Society clinical practice guideline. JCEM. 2010; 96(7):1911-30. 69-Dev-566929:09 URINE IZA CULTURE-IDENTIFICATN Comments: PATIENT NOT FASTINGPERFORMED BY: [facility] Faaoal[address] [place] [id number] Information: [id number] (53740) Result 1 NG36 (Normal) Comments: No growth in 36 - 48 hours. Urine Culture,Comprehensive Final report (Normal) 91-Pje-60036:35 Urinalysis, Office (04457) UA - BILIRUBIN Negative (Normal) UA - BLOOD Hemolyzed Small (Normal) UA - GLUCOSE Negative (Normal) UA - KETONES Negative mg/dL (Normal) UA - LEUKOCYTE ESTERASE Negative (Normal) UA - NITRITE Negative (Normal) UA - PH 7.5 (Normal) UA - PROTEIN Negative mg/dL (Normal) UA - SPECIFIC GRAVITY 1.015 (Normal) URINE UROBILINGN MARYCHUY TIMED Normal mg/dL (Normal) 86-Ihd-054936:27 KNEE,4 OR MORE VIEWS Radiology Report See [...] radiologist regarding this report, please call our [id number] line @ Dictated on 12/09 1636 by Alfredo Gotti MDTranscribed on 12/11/11 171 by ITS IMPORTSign by Alfredo Gotti MD on 12/11/11 171 Sign by: Alfredo Gotti MD 7-Plo-352109:26 HAND,MIN 3 VIEWS Radiology Report See Note [...] 12/23 0126 Sign by: Hiren Braden MD 7-Knq-140333:26 HAND,MIN 3 VIEWS Radiology Report See Note [...] 7 {units} Comments: PATIENT NOT FASTINGPERFORMED BY: Super [employer] Jobsite[address] [id number] BY: [address] [id number] 6:01 IgG/IgA (Normal) Range: 0-19 Comments: Negative <20 Weak positive 20 - 39 Moderate positive 40 - 59 Strong positive >59 Comment: SPRCS (Normal) Comments: PATIENT NOT FASTINGPERFORMED BY: [facility] RealityCooper University HospitalIraxyn6302 [facility] [id number] BY: [address] [id number] 6:01 Comments: Effective June 11, 2009 order code 841604 CCP IgGAntibodies has been replaced due to an updated reagentversion 3.1. For this reason [facility] has provided youwith a new order code 797721 CCP Antibodies IgG/IgA. 7-Hmh-768877:01 SED RATE ERYTHROCYTE Comments: PATIENT NOT FASTINGPERFORMED BY: [facility] RealityCooper University HospitalJhxzfc8785 [facility] [id number] BY: [address] [id number] (05275) Sedimentation Rate-Westergren 3 mm/h (Normal) Range: 0-41 4-Ngo-522589:01 C-REACTIVE PROTEIN (61095) Comments: PATIENT NOT FASTINGPERFORMED BY: Super Clean JobsiteMichael [place] [id number] [facility] [id number] BY: [address] [id number] C-Reactive Protein, Quant 0.7 mg/L (Normal) Range: 0.0-4.9 :01 TSH (17794) Comments: PATIENT NOT FASTINGPERFORMED BY: LabMichael Ville 4276170 [facility] [id number] BY: [address] [id number] TSH 2.220 {uIU/mL} (Normal) Range: 0.450-4.500 :01 RHEUMATOID FACTOR-QUANT Comments: PATIENT NOT FASTINGPERFORMED BY: LabMichael Ville 4276170 [facility] [id number] BY: [address] [id number] (21088) RA Latex Turbid. 9.1 {IU/mL} (Normal) Range: 0.0-13.9 :01 BO (ANTINUCLEAR ANTIBODY) Comments: PATIENT NOT FASTINGPERFORMED BY: LabMichael [place] 4276170 [facility] [id number] BY: [address] [id number] (65975) BO Direct Negative (Normal) : CBC WITH MANUAL DIFF Comments: PATIENT NOT FASTINGPERFORMED BY: [place] [id number] [facility] [id number] BY: [address] [id number] Inf ormation: [id number] (96205) Immature Grans (Abs) 0.0 {x10E3/uL} (Normal) Range: [...] 4.10-5.60 WBC 6.2 {x10E3/uL} (Normal) Range: 4.0-10.5 3-Vwk-518805:01 METABOLIC PANEL, Comments: PATIENT NOT FASTINGPERFORMED BY: [facility] Xazxgy3025 [facility] [id number] BY: [facility] [address] [id number] [facility] (94741) ALT (SGPT) 15 [iU]/L (Normal) Range: 0-55 [...] mg/dL (Normal) Range: 65-99 :29 IZA CULTURE-OTHER (35070) Comments: PATIENT NOT FASTINGPERFORMED BY: LabCoCooper University HospitalTsoyyh1621 [facility] [id number] Information: SRC:CBT [id number] Result 1 RRF (Normal) Comments: Routine respiratory hilda Upper Respiratory Culture Final report (Normal) :05 Rapid Strep Test, Office (20874) Rapid Strep Test, Office Negative (Normal) :00 [...] Cyclospora, or Microspo ridia. TESTING PERFORMED AT [facility]. ORIGINAL REPORT ON FILE IN LAB CONTAINS ADDITIONAL TEST SITE INFORMATION. OVA/ PARASITES EXAM NO OVA, CYSTS, OR PARASITES FOUND. 06-Dhw-901933:22 FOLIC ACID SERUM (41624) Comments: PATIENT NOT FASTINGPERFORMED BY: [address] [id number] Folate (Folic Acid), Serum 14.5 ng/mL (Normal) Comments: Indeterminate: 2.2 - 3.0 Deficient: <2.2 04-Jtc-184256:22 VITAMIN B-12 (CYANOCOBALAMIN) Comments: PATIENT NOT FASTINGPERFORMED BY: [place] [id number] [facility] [id number] (38705) Vitamin B12 566 pg/mL (Normal) Range: 211-946 97-Fve-553163:22 T3, FREE (TRIDOTHYRONINE) (15255) Comments: PATIENT NOT FASTINGPERFORMED BY: [address] [id number] Triiodothyronine,Free,Serum 3.0 pg/mL (Normal) Range: 2.0-4.4 75-Jmv-546694:22 T4, FREE (THYROXINE) Comments: PATIENT NOT FASTINGPERFORMED BY: [address] [id number] Information: 516283,[id number] (22685) T4,Free(Direct) 1.40 ng/dL (Normal) Range: 0.82-1.77 66-Rkb-094851:22 Anti-TPO Antibody (77105) Comments: PATIENT NOT FASTINGPERFORMED BY: [facility] [id number] Thyroid Peroxidase (TPO) Ab 9 {IU/mL} (Normal) Range: 0-34 96-Aej-668069:22 TSH (42831) Comments: PATIENT NOT FASTINGPERFORMED BY: [facility] Tfmgmp4183 [facility] [place] [id number] TSH 2.640 {uIU/mL} (Normal) Range: 0.450-4.500 02-Osg-078485:22 Vitamin D Hydroxy (97856) Comments: PATIENT NOT FASTINGPERFORMED BY: Lab[facility] Colezf3328 [facility] [id number] Vitamin D, 25-Hydroxy 48.1 ng/mL (Normal) Range: 32.0-100.0 Comments: Recent studies consider the lower limit of 32.0 ng/mL to be athreshold for optimal health.Stevan NEAL. J Nutr. 2004;135(2):317-22. 98-Zmf-983087:37 SERUM CRE & GFR EST GFR 60 mL/min (Normal) EST GFR - AA 73 mL/min (Normal) CREAT,SERUM 1.3 mg/dL (Normal) Range: 0.8-1.3 06-Usg-747233:40 ABDOMEN WITH IV CONTRAST Radiology Report See Note (Normal) Comments: Exam Number: [id number] LINICAL:The patient is a 60-year-old man with [...] is seen Reported By: JA MARIN M.D. 2-Yqx-631010:10 HEPATOBILIARY IMAGING Radiology Report See Note (Normal) Comments: Exam Number: [id number] HEPATOBILIARY IMAGING HISTORYRight upper quadrant pain. Following [...] with Cholecystokinin. Reported By: JA MARIN M.D. 90-Oax-543833:32 GALLBLADDER Radiology Report See Note (Normal) Comments: Exam Number: [id number] ULTRASOUND OF THE GALLBLADDER Multiple views of [...] abnormality is seen. Reported By: CHIDI WALKER 51-Pfi-215388:07 Bilirubin, Total/Direct, Serum Comments: PERFORMED BY: LabCoCooper University HospitalKjuiiq9865 [facility] [id number] Bilirubin, Indirect 0.70 mg/dL (Normal) Range: 0.10-0.80 Bilirubin, Direct 0.20 mg/dL (Normal) Range: 0.00-0.40 :07 CBC WITH MANUAL DIFF (85169) Comments: PERFORMED BY: [facility]6370 [facility] [id number] Baso (Absolute) 0.1 {x10E3/uL} (Normal) Range: 0.0-0.2 [...] 4.10-5.60 WBC 7.5 {x10E3/uL} (Normal) Range: 4.0-10.5 66-Gmz-705087:07 METABOLIC PANEL, COMPREHENSIVE Comments: PERFORMED BY: [facility]6370 [facility] [id number] (64794) Alkaline Phosphatase, S 77 [iU]/L (Normal) Range: [...] Glucose, Serum 88 mg/dL (Normal) Range: 65-99 6-Pgq-846453:10 KIDNEY (HP) Radiology Report See Note (Normal) Comments: Exam Number: [id number] CLINICAL:Elevated renal functions. RENAL ULTRASOUND TECHNIQUE: COMPARISON:None [...] IMPRESSION:Simple left renal cyst. Reported By: HALLEY SIDDIQIU M.D. :40 CBCD,SMEAR DIFF BAND 2 % [...] CHOL 170 mg/dL (Normal) Comments: <200 mg/dL Cgbgmidzl313-981 mg/dL Borderline>240 mg/dL High Risk HDL 52 [...] VITAMIN B12 729 pg/mL (Normal) Range: 254-1320 57-Kix-930138:20 IZA CULTURE-OTHER (60153) Comments: PATIENT NOT FASTINGPERFORMED BY: [facility] [id number] Information: SRC:THRT [id number] Result 1 RRF (Normal) Comments: Routine respiratory hilda Upper Respiratory Culture Final report (Normal) 12-Swz-815906:19 Rapid Strep Test, Office (52313) Rapid Strep Test, Office Negative (Normal) 36-Cet-642230:31 URINE IZA CULTURE (MARYCHUY COL Comments: PATIENT NOT FASTINGClinical Information: SRC:UR [id number] PERFORMED BY: [facility] [id number] COUNT) (78007) Result 1 NG36 (Normal) Comments: No growth in 36 - 48 hours. Urine Culture,Comprehensive Final report (Normal) 93-Ror-79638:31 Urinalysis, Office (80790) UA - LEUKOCYTE ESTERASE Negative (Normal) Comments: aw UA - BILIRUBIN Negative (Normal) UA - BLOOD Non Hemolyzed Moderate (Normal) UA - GLUCOSE Negative (Normal) UA - KETONES Negative mg/dL (Normal) UA - NITRITE Negative (Normal) UA - PH 5.0 (Normal) UA - PROTEIN Negative mg/dL (Normal) UA - SPECIFIC GRAVITY 1.020 (Normal) URINE UROBILINGN MARYCHUY TIMED Normal mg/dL (Normal) 87-Kbe-199687:45 CHEST, PA AND LATERAL Radiology Report See Note (Normal) Comments: Exam Number: [id number] TWO VIEW CHEST COMPARISON STUDYNone. REASON FOR EXAMINATIONCough. Cardiac, mediastinal and hilar contours are normal. Lungs are clearwithout consolidation or effusion . Fine line ar opacity at the leftlateral base likely represents subsegmental atelectasis/scar. Thereis no acute osseous abnormality. Upper abdomen is unremarkable. IMPRESSIONNo radiographic evidence for acute ch est abnormality. Reported By: KANE MANUEL M.D. 91-Jdp-349509:26 CBCD BASO% 0.5 % (Normal) Range: 0-1 [...] 11.6-14.6 WBC 8.9 K/mm3 (Normal) Range: 4.4-11.0 00-Qcx-841506:26 ESR SED RATE 11 mm/h (Normal) Range: 0-20 :05 Urinalysis, Office (32277) Comments: done BC UA - BILIRUBIN Negative [...] See Note (Normal) Comments: TESTING PERFORMED AT [facility]. ORIGINAL REPORT ON FILE IN LAB CONTAINS ADDITIONAL TEST SITE INFORMATION. 2 CULTURE, VIRUS GENERAL NO VIRUS ISOLATED AFTER 14 DAYS- FINAL REPORT 95-Tln-360868:38 Urinalysis, Office (72626) UA - BILIRUBIN Negative (Normal) UA - BLOOD Hemolyzed Large (Normal) UA - GLUCOSE Negative (Normal) UA - KETONES Small mg/dL (Normal) Comments: 15 UA - LEUKOCYTE ESTERASE Negative (Normal) UA - NITRITE Negative (Normal) UA - PH 6.5 (Normal) UA - PROTEIN Trace mg/dL (Normal) UA - SPECIFIC GRAVITY 1.000 (Normal) URINE UROBILINGN MARYCHUY TIMED Normal mg/dL (Normal) 62-Waj-879430:19 Rapid Flu (12476 x 2) Comments: Neg INFLUENZA IMMUNOASSY DIRECT OPTICAL OBSERV Negative (Normal) 16-Miy-790789:12 Rapid Strep Test, Office (62377) Comments: neg Rapid Strep Test, Office Negative (Normal) :31 CORONALS,SAG,MULTI,OBL,3-D REC Radiology Report See Note (Normal) Comments: Exam Number: [id number] CT SINUSES REASON FOR EXAMAcute sinusitis. Recent history of dental procedure with drainageof tooth abscess and root canal. Coronal and axial CT scan obtained through the [facility]. All areas areviewed at soft [...] Report See Note (Normal) Comments: Exam Number: [id number] CT SINUSES REASON FOR EXAMAcute sinusitis. Recent history of dental procedure with drainageof tooth abscess and root canal. Coronal and axial CT scan obtained through the [facility]. All areas areviewed at soft [...] TSH 2.74 {uIU/mL} Range: 0.34-4.82 00 (Normal) 94-Ula-132851:20 A/C JTS,KYRA W OR W/O WTS Radiology Report See Note (Normal) Comments: Exam Number: [id number] LEFT SHOULDER/BILATERAL ACROMIOCLAVICULAR JOINTS CLINICAL INFORMATIONShoulder pain. [...] Report See Note (Normal) Comments: Exam Number: [id number] LEFT SHOULDER/BILATERAL ACROMIOCLAVICULAR JOINTS CLINICAL INFORMATIONShoulder pain. [...] sinusitis, unspecified Planned Observations Vitamin B-12 (cyanocobalamin) (15113)Indication: Fatigue On: 15-Jun-20189:23 Request URINALYSIS, W/ MICRO (75033)Indication: Benign essential hypertension On: 59-Dml-734776:04 Request CBC W/AUTO DIFF WBC (91315)Indication: Benign essential hypertension On: 53-Jah-832428:04 Request METABOLIC PANEL, COMPREHENSIVE (61972)Indication: Benign essential hypertension On: 99-Ycy-908742:04 Request HEPATITIS C ANTIBODY (96177)Indication: Encounter for hepatitis C virus screening test for high risk patient On: 69-Zdj-080233:04 Request HGB A1C (74837)Indication: Abnormal blood sugar On: 7-Gki-916970:03 Request CBC W/AUTO DIFF WBC (73960)Indication: Benign essential hypertension On: :46 Request METABOLIC PANEL, COMPREHENSIVE (16163)Indication: Benign essential hypertension On: :46 Request LIPID PANEL (71328)Indication: Mixed hyperlipidemia On: :46 Request HEPATITIS C ANTIBODY (39616)Indication: Encounter for hepatitis C virus screening test for high risk patient On: :46 Request METABOLIC PANEL, COMPREHENSIVE (63171)Indication: Prediabetes On: :30 Request RENIN (51501)Indication: Malignant hypertension On: :53 Request URINE VMA (50558)Indication: Malignant hypertension On: :53 Request CATECHOLAMINES TOTAL, URINE (02513)Indication: Malignant hypertension On: :53 Request METANEPHRINES - URINE (51911)Indication: Malignant hypertension On: :53 Request TESTOSTERONE FREE (33163)Indication: Decreased libido (Renamed from Low libido) On: 9-Suu-541987:02 Request LIPID PANEL (50010)Indication: Mixed hyperlipidemia On: 14-Aug-20169:55 Request PSA (PROSTATE SPECIFIC ANTIGEN) (V76.44)Indication: Encounter for screening for malignant neoplasm of prostate (Renamed from Screening for prostate cancer) On: :13 Request CBC with auto diff (55411)Indication: Prediabetes On: :12 Request METABOLIC PANEL, COMPREHENSIVE (00211)Indication: Prediabetes On: :12 Request MICROALBUMIN: CREATININE RATIO (00317) AND (45768)Indication: Prediabetes On: 14-Aug-20169:12 Request HGB A1C (41087)Indication: Prediabetes On: :12 Request HEPATIC FUNCTION PANEL (82554)Indication: Acute epigastric pain On: :36 Request Comments: standing Lipase (12436)Indication: Acute epigastric pain On: :36 Request Comments: standing Amylase (32375)Indication: Acute epigastric pain On: :36 Request Comments: standing Lipase (61866)Indication: Abdominal pain, acute, right upper quadrant (Renamed from Acute abdominal pain in right upper quadrant) On: :15 Request Comments: stat Amylase (20742)Indication: Abdominal pain, acute, right upper quadrant (Renamed from Acute abdominal pain in right upper quadrant) On: :15 Request Comments: stat CBC WITH MANUAL DIFF (33768)Indication: Abdominal pain, acute, right upper quadrant (Renamed from Acute abdominal pain in right upper quadrant) On: :15 Request Comments: stat METABOLIC PANEL, COMPREHENSIVE (04317)Indication: Abdominal pain, acute, right upper quadrant (Renamed from Acute abdominal pain in right upper quadrant) On: :15 Request Comments: stat Vitamin D Hydroxy (81779)Indication: Fatigue On: :35 Request VITAMIN B-12 (CYANOCOBALAMIN) (40953)Indication: Fatigue On: :34 Request METABOLIC PANEL, COMPREHENSIVE (62279)Indication: Pancreatitis, acute On: :33 Request CBC W/AUTO DIFF WBC (72897)Indication: Anemia On: :33 Request LIPID PANEL (67689)Indication: Mixed hyperlipidemia On: :33 Request PSA (PROSTATE SPECIFIC ANTIGEN) (V76.44)Indication: Screening for prostate cancer On: 05-Grh-88465:32 Request Phosphorus (36673)Indication: Abdominal pain, acute, generalized On: 18-Qft-247014:51 Request Magnesium (64369)Indication: Abdominal pain, acute, generalized On: 63-Qps-252625:51 Request METABOLIC PANEL, COMPREHENSIVE (04807)Indication: Abdominal pain, acute, generalized On: 45-Sgt-839404:50 Request Helicobacter pylori Ag, EIA (97271)Indication: Abdominal pain, acute, generalized On: 12-Ahj-360436:08 Request H. PYLORI ANALYSIS UREASE ACTIVITY (00966)Indication: Metallic taste On: :05 Request Celiac Disease Comphrehensive Profile (80207)Indication: Metallic taste On: :05 Request MAGNESIUM (69426)Indication: Metallic taste On: :03 Request CALCIFEDIOL (00469)Indication: Metallic taste On: :03 Request TSH (96322)Indication: Metallic taste On: :02 Request CBC with manual diff (64698)Indication: Metallic taste On: :02 Request Metabolic Panel, Comprehensive (24343)Indication: Metallic taste On: :02 Request CCP ANTIBODY (07546)Indication: Pain in unspecified joint On: 9-Dbi-934627:55 Request HEPATIC FUNCTION PANEL (29322)Indication: Mixed hyperlipidemia On: :19 Request LIPID PANEL (68975)Indication: Mixed hyperlipidemia On: :19 Request OVA & PARASITE DIR SMEAR (04366)Indication: Diarrhea On: :26 Request Comments: check and make sure no giardia IZA CULTURE-STOOL (90901)Indication: Diarrhea On: :26 Request HEPATIC FUNCTION PANEL (49575)Indication: Bilateral carotid artery stenosis On: :05 Request LIPID PANEL (53148)Indication: Bilateral carotid artery stenosis On: :05 Request Creatine (75304)Indication: Abdominal pain, acute, right upper quadrant On: 74-Yji-463857:55 Request Bilirubin, total (26329)Indication: Abnormal blood chemistry On: 62-Las-716381:49 Request Bilirubin, Direct (57666)Indication: Abnormal blood chemistry On: 94-Mqd-145542:49 Request VITAMIN B-12 (CYANOCOBALAMIN) (95848)Indication: Fatigue On: :08 Request LIPID PANEL (45117)Indication: screening On: :08 Request PSA (PROSTATE SPECIFIC ANTIGEN) (V76.44)Indication: Screening for prostate cancer On: :06 Request URINALYSIS, W/ MICRO (88104)Indication: Fatigue On: :06 Request TSH (16290)Indication: Fatigue On: 14-Pkk-898454:06 Request METABOLIC PANEL, COMPREHENSIVE (24208)Indication: Fatigue On: 22-Fmx-561838:06 Request CBC WITH MANUAL DIFF (86386)Indication: Fatigue On: 65-Ocx-748453:06 Request VIRAL CULTURE (88225) On: 28-Arc-910160:55 Request IZA CULTURE-OTHER (28627) On: 81-Qbj-356297:52 Request TSH (50816)Indication: Anxiety On: 61-Bvz-821440:18 Request Planned Encounters Medical; [facility] [...] A ELECTROCARDIOGRAM, COMPLETE (ECG) On: 20-Nov-2017 Intent (33745)By: Fast DO, Diandra A Fast DO, Comments: ekg showed normal sinus rhythym, normal axis, no acute st/t wave changes Diandra A Renal Duplex ScanBy: Fast DO, Diandra A On: 09-Oct-2016 Intent Fast DO, Diandra A ELECTROCARDIOGRAM, COMPLETE (ECG) On: 08-Oct-2016 Intent (33593)By: Fast DO, Diandra A Fast DO, Comments: ekg showed normal sinus rhythym, normal axis, no acute st/t wave changes Diandra A Cartoid DopplerBy: Fast DO, Diandra A Fast On: 08-Oct-2016 Intent DO, Diandra A INFUSION, NORMAL SALINE SOLUTION , 1000 On: 28-Aug-2016 Intent CC (Special Coverage Instructions Apply. Comments: lot:[id number]:12-13-2017rte: left anticub. IV dose: 1000ml (2 bags) given by:Suzanne Godinez LPN See MCM: 2049) (J7030)By: BARRINGTON Patton Phenergan Injection, up to 50 mg On: 28-Aug-2016 Intent (J2550)By: BARRINGTON Patton Comments: lot:[id number]:04/2017rte:IM right gluteal dose:25mggiven by:cristian Godinez LPN ELECTROCARDIOGRAM, COMPLETE (ECG) On: 14-Aug-2016 Intent (74148)By: Fast DO Diandra A Fast DO, Comments: [...] rule out biliary sludge or stone CONTRAST (60532)By: Fast DO, Diandra A Fast DO, Diandra A Cartoid DopplerBy: Fast DO, Diandra A Fast On: 24-Aug-2015 Intent DO, Diandra A CT - Abdomen (IV Contrast Needed)By: Fast On: 24-Aug-2015 Intent DO, Diandra A Fast DO, Diandra A IMMUNIZ ADMNIN, 1 VAC, SNGL/COMBO On: 10-Mar-2014 Intent (59463)By: Visit, Nurse [facility] [place] (08381)By: Fast DO, Diandra On: 10-Mar-2014 Intent A Fast DO, Diandra A Comments: lot: [id number]: 11/17/14site/route: R arm/IMamt:0.5mLVIS signed when applicableSHELBY Zamora Radiology - Foot - RightBy: Fast DO, On: 21-Feb-2013 Intent Diandra A Fast DO, Diandra A Comments: call wet read Radiology - Ankle - RightBy: Fast DO, On: 21-Feb-2013 Intent Diandra A Fast DO, Diandra A Comments: call wet read Solu -Medrol Injection, 125 mg On: 08-Nov-2012 Intent (J2930)By: Faye Narayan CNP Comments: lot # [id number]- 06/2015site-RGlut awzfi-MWesbb-4 ML [facility] PHYSICAL THERAPY EVALUATION (63913)By: On: 10-Dec-2011 Intent Faye Narayan CNP Radiology [...] do today- call wet read Overnight Pulse Ox(40611)By: Bladimir GONZALEZ, On: 12-Jun-2010 Intent Lakshmi Ultrasound - GallbladderBy: Fast DO, On: 02-Nov-2009 Intent Diandra A Fast DO, Diandra A Pneumovax (25758)By: Erin Jordan LPN On: 26-Jun-2009 Intent Comments: Lot #[id number]-11/20/10Site-right deltoidDose0.5mlgiven by:[facility] Flu Vaccine, Split IM (57016)By: Julian On: 26-Jun-2009 Intent Erin GONZALEZ Comments: Lot #[id number]-left deltoidgiven by:[facility] Inhaler Demonstration (70110)By: Sylvain On: 21-Sep-2008 Intent Faye LIM Comments: done BC Pulse Oximetry (29465)By: Faye Narayan CNP On: 21-Sep-2008 Intent E Comments: done BC Aerosol Treatment (00750)By: Sylvain LIM On: 21-Sep-2008 Intent Faye Alves Comments: done BC Solu -Medrol Injection, 125 mg On: 21-Sep-2008 Intent (J2930)By: Faye Narayan CNP Comments: Amt: 2mlLot: [id number]: 03/2011Route: IMSite: right hipTolerated: wellGiven By: LISA Soto Pulse Oximetry (86881)By: Faye Narayan CNP On: 31-Aug-2008 Intent E Pulse Oximetry (33872)By: Faye Narayan CNP On: 31-Aug-2008 Intent E Aerosol Treatment (47010)By: Sylvain LIM, On: 31-Aug-[address] - Sinuses CompleteBy: Maxim DO, On: 01-Feb-2008 Intent Johana PHYSICAL THERAPY EVALUATION (09690)By: On: 01-Nov-2007 Intent Faye Narayan CNP Radiology - Shoulder - LeftBy: Fast DO, On: 12-Oct-2007 Intent Diandra A Fast DO, Diandra A Comments: and left ac joint Nerve ConductionBy: Maxim HAMMJohana On: 15-Jan-2007 Intent EMGBy: Maxim HAMM Johana On: 15-Jan-2007 Intent Inhaler Demo (63736)By: JOSY LIM, On: 10-Sep-2006 Intent LASHAY Aerosol Treatment (22372)By: JOSY LIM, On: 10-Sep-2006 Intent LASHAY Comments: expiratory wheeze absent on rt after treatment.Continues on rt. Pulse Oximetry (86471)By: JOSY LIM, On: 10-Sep-2006 Intent LASHAY Comments: [...] time losxarten bothers hi m if quick [place] movements and laying on backget up- riding [...] sometim es better sometimes worse- he called [place] office other day and gave him dicyclomine- [...]
--- OUTSIDE RECORDS SUMMARY | 2018-12-04 23:13 | XMS RPT_ITS ---
:1950 Author Organization [facility] Care Team Providers Name Role Phone Fast DO, Diandra A Attending Unavailable Fast DO, Diandra A Referring Unavailable Fast DO, Diandra A Consulting Unavailable Fast, Diandra Attending Unavailable Fast, Diandra Referring Unavailable Fast, Diandra Primary Care Unavailable Fast, Diandra Attending Unavailable Fast, Diandra Primary Care Unavailable Fast, Diandra Attending Unavailable Fast, Diandra Referring Unavailable Fast, Diandra Primary Care Unavailable PROBLEMS PROBLEMS No Problem Records FoundPROCEDURES PROCEDURES No Procedure Records FoundRESULTS RESULTS ABDOMEN/PELVIS WITH Observed: 09/30/2018 Status: F Source: [place] CONTRAST 9:37 AM [facility] REPOSITORY [facility] Imaging Services [address] [place] [address] Abdomen/Pelvis WITH Contrast MR#: [id number] Acct: [id number] Name: SIMEON PAIZ Rep #: [id number] : 1950 M 68 From: Tonya Torrez MD PCP: Diandra Anaya DO Status: REG CLI Study: Abdomen/Pelvis WITH Contrast Date of Exam: 09/30/18 Exam# [id number] Ordering Dr: Diandra Anaya DO STUDY: CT ABDOMEN AND PELVIS WITH CONTRAST REASON FOR EXAM: Male, 68 years old. RUQ pain radiating to RLQ and around to flank. Prior cholecystectomy, hypertension, hx pancreatitis. RADIATION DOSAGE (If Supplied By Facility): CTDIvol = ( 15.38 ) mGy, DLP = ( 717.21 ) mGycm TECHNIQUE: Transaxial images were obtained from the dome of the diaphragm to the symphysis pubis with oral contrast. 75mL ml of Isovue 300 contrast was administered. Sagittal and coronal [...] Normal bilateral adrenal glands. Normal right kidney. Normal left kidney. There is an exophytic cyst of the mid to lower pole the left kidney measuring approximately 4.5 cm. Normal visualized stomach. Normal small intestine. There are multiple colonic diverticula consistent with diverticulosis. The appendix is visualized and appears normal. Mild atherosclerosis of the aorta noted. Normal inferior vena cava. Normal retroperitoneum. Normal urinary bladder. Prominent fat extends into the right inguinal canal. There is no evidence of bowel hernia. Normal osseous structures. Mild degenerative endplate changes present. CT/Abdomen/Pelvis WITH Contrast IMPRESSION: Normal appendix. No acute intra-abdominal or pelvic abnormality. No evidence of pancreatitis. No evidence of aortic aneurysm. Diverticulosis without evidence of diverticulitis. Right inguinal fatty hernia without bowel herniation. See above. Electronically Signed: Tonya Torrez MD at 12:39 EST , Service support , CC: Diandra Anaya DO Director Of Restaurant: Signed TXT - BLOOD FLOW Observed: 06/17/2018 Status: F Source: [place] SCREENING 1:04 PM [facility] REPOSITORY [facility] Cardiovascular Services [address] [place] [address] 06/15/18 0826 MR#: [id number] Acct: [id number] Name: SIMEON PAIZ Rep #: [id number] : 1950 68 From: Nilo King MD Attending Dr: Diandra Anaya DO Status: REG REF Ordering Dr: Date: 06/16/18 Location: CVS Sex: M C Admitted: Reason For Study: BFS Carotid Duplex Ultrasound Abdominal Aorta The right maximum ICA velocity is 98.9/41.4 cm/s.The maximal outside diameter of the proximal The left maximum ICA velocity is 102/37.7 cm/s. aorta measures 1.72 cm in the longitudinal axis. The right ECA velocity is less than 125 cm/s. The maximal outside diameter of the proximal The left ECA velocity is less than 125 cm/s. aorta measures 1.69 x 1.65 cm in the cross- There is no plaque formation noted on the right sectional axis. [...] pressure is 140/82. Pt presents with a history of high blood pressure. The assessment was performed by Ángel Porter RVT. Interpretation Summary Normal carotid artery screening (0 to 15% narrowing). Normal aortic ultrasound exam. The ankle/brachial index is normal (1.0 or greater). .rdering Physician: Diandra Anaya D.O Performed By: Kely Porter RVT and Student 06/16/18920 Date Nilo King MD CC: Diandra Anaya DO Date Dictated: 06/15/18825 Date Transcribed: 06/16/18920 Director Of Restaurant: Signed CBC W/DIFF, AUTOMATED Collected: 06/15/2018 Status: F Source: [place] 8:11 AM [facility] REPOSITORY TYPE CODE TESTS RESULT OUT OF RANGE REFERENCE UNITS LAB L100.1000 4.4-11.0 K/mm3 Normal WBC 8.3 LAB L100.1200 4.6-6.2 M/mm3 Low RBC 4.33 LAB L100.1300 13.0-16.5 g/dl Normal HGB 13.6 LAB L100.1400 40-54 % Normal HCT 41.0 LAB L100.1500 80-94 fL High MCV 94.7 LAB L100.1600 27.0-32.0 pg Normal MCH 31.4 LAB L100.1700 32-36 g/gl Normal MCHC 33.2 LAB L100.1810 11.6-14.6 % Normal RDW CV 13.0 LAB L100.1820 35.1-43.9 fl High RDW SD 45.3 LAB L100.1900 150-450 K/mm3 Normal PLT 231 LAB L100.2000 6.2-12.0 fl Normal MPV 8.8 LAB L100.2100 47-70 % High NEUT% 73.3 LAB L100.2200 19-41 % Low LY% 13.5 LAB L100.2300 0-10 % High MONO% 10.9 LAB L100.2400 0-5 % Normal EO% 1.5 LAB L100.2500 0-1 % Normal BASO% 0.7 LAB L100.2550 0.0-0.9 % Normal IM GRAN % 0.100 Result Comment: IG% - Immature Granulocytes (promyelocytes, myelocytes and metamyelocytes) > 1% indicates that a LEFT SHIFT is Present. LAB L100.2620 2.0-7.7 X10 3/uL Normal Absolute Neut 6.1 LAB L100.2720 0.83-4.51 X10 3/ul Normal Absolute Lymph 1.11 Performed By: #### L100.0100 #### [facility] [address] [place], [place], [address] URINALYSIS, COMPLETE Collected: 06/15/2018 Status: F Source: [place] 8:11 AM [facility] REPOSITORY Order Comment: How was Urine Obtained? CLEAN CATCH TYPE CODE TESTS RESULT OUT OF RANGE REFERENCE UNITS LAB L400.3000 Yellow COLOR Normal Yellow LAB L400.3050 Clear Normal CLARITY Clear LAB L400.3200 Normal mg/dl Normal GLUCOSE, UR Normal LAB L400.3300 Negative mg/dL Normal BILIRUBIN URINE Negative LAB L400.3400 Negative mg/dl Normal KETONE UR Negative LAB L400.3465 1.002-1.030 Normal SP.GR. DIPSTX 1.005 LAB L400.3550 5.0 - 8.0 pH UR Normal 6.5 LAB L400.3600 Negative mg/dl PROT Normal DIPSTX Negative LAB L400.3700 Normal mg/dl Normal UROBILI Normal LAB L400.3750 Negative Normal NITRITE UR Negative LAB L400.3780 Negative /ul High 25 OCCULT BLOOD-UR LAB L400.3800 Negative /ul LEUK Normal ESTERASE Negative LAB L400.4050 0-5 /hpf WBC 0 Normal SEEN LAB L400.4100 0-5 /hpf 0 Normal RBC-UA SEEN LAB L400.4150 0-5 /hpf SQUAM 0 Normal EPI SEEN LAB L400.4300 None Seen /hpf 0 Normal BACTERIA SEEN LAB L400.4350 <or=2+ /hpf 0 Normal MUCUS, URINE SEEN Performed By: #### L400.0001 #### [facility] [address] [facility] [address] [place], [place], [id number] COMPREHENSIVE METABOLIC Collected: 06/15/2018 Status: F Source: [place] [facility] 8:11 AM [facility] REPOSITORY TYPE CODE TESTS RESULT OUT OF RANGE REFERENCE UNITS LAB L501.0100 74-106 mg/dL Normal GLU 93 Result Comment: Please note revised GLUCOSE reference range effective 2017. LAB L501.1000 7-18 mg/dL Normal BUN 18 LAB L501.1100 0.70-1.30 mg/dL Normal CREAT,SERUM 1.20 Result Comment: The validity of the calculated GFR AND GFRAA in patients over 70 years has not been determined. Clinical correlation is essential. LAB L501.1110 >60 mL/min Normal EST GFR 64 Result Comment: Non- GFR Calc LAB L501.1115 >60 mL/min Normal EST GFR - AA 78 Result Comment: GFR Calc LAB L501.1300 10-20 RATIO Normal BUN/CRE 15.0 LAB L501.1500 6.4-8.2 g/dL T Normal PROT 7.4 LAB L501.1800 3.2-5.0 g/dL Normal ALB 3.6 LAB L501.1950 2.2-4.2 g/dL Normal GLOB 3.8 LAB L501.2000 0.9-2.4 RATIO Normal A/G 0.9 LAB L501.2200 8.5-10.1 mg/dL CA Normal 8.8 LAB L501.4100 15-37 U/L Low AST 10 LAB L501.4305 45-117 U/L Normal ALK P 72 LAB L501.4405 16-61 U/L Normal ALT 27 LAB L501.4600 0.20-1.00 mg/dL High T BILI 1.10 LAB L501.5300 136-145 mmol/L NA Normal 140 LAB L501.5600 3.5-5.1 mmol/L K Normal 4.1 LAB L501.5900 98-107 mmol/L CL Normal 106 LAB L501.6100 21.0-32.0 mmol/L Normal CO2 25.0 LAB L501.6200 5-15 Normal GAP 9 Performed By: #### L500.4050 #### [facility] [address] [facility] [address] [place], [place], [address] VITAMIN B12 Collected: 06/15/2018 Status: F Source: [place] 8:11 AM [facility] REPOSITORY Order Comment: USE R1 TUBE ADD ON TEST PER ORDER FAXED TYPE CODE TESTS RESULT OUT OF RANGE REFERENCE UNITS LAB L503.0105 211-911 pg/mL Normal Vitamin B12 870 Performed By: #### L503.0105 #### [facility] [address] [place], [address] HEPATITIS C ANTIBODIES Collected: 06/15/2018 Status: F Source: [place] 8:11 AM [facility] REPOSITORY TYPE CODE TESTS RESULT OUT OF RANGE REFERENCE UNITS LAB L3100.0650 0.0-0.9 s/co ratio Normal HEP C AB <0.1 Result Comment: Negative: < 0.8 Indeterminate: 0.8 - 0.9 Positive: > 0.9 The CDC recommends that a positive HCV antibody result be followed up with a HCV Nucleic Acid Amplification test (196784). Performed at: [facility] [id number] Surgical Asst: Toby Wilder PhD, Phone: [phone] Performed By: #### L3100.0625 #### [facility] (refer to report for specific site) refer to report for address and phone number ALLERGIES ALLERGIES DATE TYPE / CODE NAME / CODE REACTION SEVERITY SOURCE 08/18/2015 Drug Penicillins/ Hives [facility] Allergy/4160 [id number]([facility] [address]502(SNOMED XNORM) Repository CT) ENCOUNTERS ENCOUNTERS ADMIT/DISCHARGE ACCOUNT ADMITTING ENCOUNTER LOCATION SOURCE NUMBER CLASS 09/30/2018 [id number] Ambulatory [address] ing:CT Repository 09/29/2018 4777 Ambulatory Building:[facility] Practices Repository 06/15/2018 [id number] Ambulatory [address] ing:LAB Repository 06/15/2018 [id number] [facility] ing:CVS Repository PAYERS PAYERS ENCOUNTER GUARANTOR PAYER SUBSCRIBER SOURCE 09/30/2018 SIMEON Nath Primary SIMEON [place] [id number] Insurance:ANTHEMPolic [place] [facility] [place]: [id number] [id number] Repository [address]Xqx: ([phone]) Date:[id number] [phone] () [address], [place] [address]NO: 09/30/2018 Secondary NOT GIVENUNK [place] Insurance:SELF PAY [facility] Number: Effective Repository Date:2018-09-30 09/29/2018 SIMEON R Primary SIMEON R [facility] Practices STRONGDOB: Insurance:[place] STRONGDOB: Repository [id number] BC/BSPolicy Number: [id number] [place] [id number] [address] [place], [place] Date:1191-34-[place], [place] [address]Bcy: ([phone]) Name:[address]Qvk: [address] [place] [address] [phone] (HP) (HP)Tel: [phone]: [phone] 09/29/2018 Secondary SIMEON R [facility] Practices Insurance:United STRONGDOB: Repository [facility] CarePolicy [id number] Number: [address] [place] [id number] [place], [place] Date: [address]Vvu: [phone] [id number] [phone] (HP) Name:[address] [address], [place] [address]RB: 09/29/2018 Tertiary SIMEON R [facility] Practices Insurance:AETNAPolicy STRONGDOB: Repository Number: [id number] [address] [place] Date:2006-02-12 - [place], [place] [id number] [phone]: ([phone]) Name:[facility] [address]O [phone] (HP) [facility] [place] [id number]: 06/15/2018 SIMEON Nath Primary SIMEON R [place] [id number] Insurance:ANTHEMPolic STRONGDOB: [facility] [place] y Number: [id number], [place] [id number] Repository [address]Zwl: (419) Date:[id number] [phone] (HP) [id number], [place] [address]UJ: 06/15/2018 Secondary NOT GIVENUNK [place] Insurance:SELF PAY [facility] Number: Effective Repository Date:2018-06-15 06/15/2018 Simeon Nath Primary NOT GIVENNICOLAS [place] [id number] Insurance:SELF PAY [facility] tamra Luo Number: Effective Repository [id number]: [phone]) Date:2018-05-27 [phone] ()
== END ==
PROVIDERS: Family Provider Internal Medicine; PCP Internal Medicine; Referring Provider Internal Medicine; Visit Provider Internal Medicine
DX: R10.11 Right upper quadrant pain (principal)
CPT/HCPCS: 74177; Q9967

== ENCOUNTER → 2019-01-06 | Outpatient (CLI) | payer BC, SELFPAY ==
--- NOTE | 2019-01-04 13:00 | BLA_PTH ---
PATIENT: ODALIS PAIZ LOC: [facility]I U#:[id number] AGE/SX: 68/M ROOM: RE01/06/[address]: Dr. Jarad Rojas MD : 1950 BED: DIS: 01/06/2019 SPEC #: [id number] RECD: 01/04/19 17:02 STATUS: RAJAN RERuby #: [id number] ANDREE: 01/04/19 13:[address]: Jarad Rojas DEPT: SURGICAL PATHOLOGY RECD BY: Jan Barragan ENTERED: 01/06/19 09:34 SP TYPE: BLADDER BX OTHR DR: Dr. 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 See comment. SJ:bal 4/25/19 COMMENT The lesion may represent papilloma or papillary neoplasm of undetermined malignant potential. Clinical correlation and appropriate follow up are necessary. Case has been reviewed in consultation with Dr. Ayon who concurs with the above diagnosis. IDC:AM MICROSCOPIC DESCRIPTION Slides are reviewed. GROSS DESCRIPTION Received in fixative is one container labeled with the patient's name and designated bladder biopsy. The specimen consists of one irregular fragment of light beck soft tissue that measures 0.2 x 0.1 x 0.1 cm. The specimen is totally submitted in one cassette. / SJ:bal 01/05/19 TC:5 CPT: 86107
== END | disposition home or self-care (01) ==
LOC: LABSPEC 09:16
PROVIDERS: Family Provider Internal Medicine; PCP Internal Medicine; Referring Provider Urology; Visit Provider Urology
DX: N32.9 Bladder disorder, unspecified (principal); R31.9 Hematuria, unspecified
CPT/HCPCS: 88305

== ENCOUNTER → 2019-03-18 | Outpatient (CLI) | payer BC, SELFPAY ==
--- NOTE | 2019-03-18 13:14 | RAD_ITS ---
STUDY: X-RAY - LEFT KNEE REASON FOR EXAM: Male, 68 years old. Bumps (cysts?) laterally over front of knee TECHNIQUE: 4 view(s) of the knee, 2 of which are labeled as standing. COMPARISON: None. FINDINGS: There is early periventricular spurring along the intercondylar margin of the medial femoral condyle. Mild spurring of the tibial spines, more prominent medially, and very early degenerative lipping at the articular margin of the medial tibial plateau. Normal visualized proximal fibula. Normal patella. There is no demonstrated destructive osseous lesion or fracture. There is mild degenerative narrowing of the medial femorotibial compartment. Normal lateral femorotibial compartment. There is moderate degenerative narrowing of the patellofemoral articulation. Normal proximal tibiofibular articulation. There is no demonstrated joint effusion. The soft tissue structures are unremarkable. RAD/Knee 4 or More Views IMPRESSION: Early degenerative changes of the left knee, as described. Electronically Signed: Yvon Dejesus MD at 19:59 EDT , Service support ,
== END | disposition home or self-care (01) ==
LOC: HPRAD 13:10
PROVIDERS: Family Provider Internal Medicine; PCP Internal Medicine; Referring Provider Internal Medicine; Visit Provider Internal Medicine
DX: M25.562 Pain in left knee (principal)
CPT/HCPCS: 73564

== ENCOUNTER → 2019-04-06 | Outpatient (CLI) | payer BC, SELFPAY ==
--- NOTE | 2019-04-06 15:22 | MRI_ITS ---
HISTORY:left knee masspain and swelling left knee, small hard area patella lateral edge x 3 weeks MR Knee WO/W Contrast COMPARISON: Radiograph of the left knee obtained on March 18, 2019 TECHNIQUE: Coronal proton density, fat-suppressed T2 and thin section T2, sagittal fat-suppressed T2 proton density. Patient was administered 18 cc of dotarem intra-intravenously and postcontrast fat-suppressed T1-weighted axial and sagittal images were obtained # of images including paperwork:223 The study was imaged due to pulsation artifact particularly in the axial images but also in the sagittal images. Phase encoding gradient was not switched for the study. FINDINGS: Bones: There is no evidence of an acute fracture. Subchondral edema and subchondral cyst formation is seen at the lateral facet of the patella Enhancing lesions are noted Ligaments and tendons: The anterior cruciate ligament demonstrate minimal increased signal near the tibial attachment. The ligament does parallel Blumensaat's line. This is suspect for intrasubstance degeneration/partial tear. No associated osseous edema. I suspect this is chronic The posterior cruciate ligament, lateral collateral ligament, medial collateral ligament, iliotibial band, biceps femoris tendon and the popliteus tendon are intact Extensor mechanism: The patellar tendon is unremarkable The quadriceps tendons is unremarkable. There is a probable enthesophyte at the insertion of the quadriceps tendon on the patella The medial and lateral retinacula are unremarkable. Knee joint: There is no joint effusion. There is no popliteal cyst. No loose bodies are identified. Medial compartment: The medial meniscus is normal, without full thickness meniscal tear, meniscocapsular separation injury, or parameniscal cyst. The articular cartilage is unremarkable. There is a small ganglion cyst with an associated subcortical cyst seen posterior to the posterior root ligament attachment of the medial meniscus Lateral compartment: The lateral meniscus is normal, without full thickness meniscal tear, meniscocapsular separation injury, or parameniscal cyst. The articular cartilage is unremarkable. Patellofemoral articulation: The articular cartilage of the patellofemoral joint appears mildly thinned at the superior lateral facet of the patella however imaging is limited by overlying artifact. Minimal subchondral edema is seen at the apex of the patella as well as the medial facet at the inferior patella. The trochlear cartilage is frayed at the sulcus with minimal subjacent marrow edema MRI/Lower Ext Joint Only W/WO Cont IMPRESSION: No enhancing lesions are noted The study is limited by pulsation artifact as discussed Probable enthesophyte at the quadriceps tendon on the patella Alfredo of the articular cartilage of the patella and the trochlea with subjacent marrow edema and subchondral cyst formation as discussed Small ganglion cyst and subcortical cyst at the posterior medial tibia just posterior to the root ligament attachment of the medial meniscus at 1736 Reported and signed by: Mirna Riojas DO Electronically Signed: Mirna Riojas DO at 17:35 EDT Tel , Service support ,
[2019-04-06 16:05] LABS: EGFR FINGERSTICK > 60.0000 mL/min (>60)
== END | disposition home or self-care (01) ==
LOC: MRI 15:20
PROVIDERS: Family Provider Internal Medicine; PCP Internal Medicine; Referring Provider Internal Medicine; Visit Provider Internal Medicine
DX: M25.862 Other specified joint disorders, left knee (principal)
CPT/HCPCS: 73723; A9575

== ENCOUNTER 2020-12-03 08:00 | Outpatient (RCR) | payer BC, SELFPAY ==
--- NOTE | 2020-11-13 09:22 | HP.PTEVAL ---
Patient's Visit Information ODALIS PAIZ is a 70 year old M referred to Physical Therapy by Alex Sarabia PA-C with a diagnosis of Contusion of R shoulder and sprain of shoulder. Date of Evaluation: 11/13/20 Physical Therapist: DELORES Hi - Visit Plan Frequency: 2x /Week Duration: 4-6 Weeks Plan: 2X/ week for 4-6 weeks for R shoulder PROM, AAROM, AROM, postural exercises, strength with HEP and US to the anterior shoulder to DECREASE inflammation with HEP - Subjective Pt fell on the ice about 18 days ago. He fell getting out of the car. He has no idea how or what he fell on. He is bruised over R bicep belly. His joint was good with a little bit of arthritis. Hilario Sarabia said her tore his R bicep. He has a toothache on the anterior shoulder and has tightness over he shoulder blade. He has trouble with flexion and abduction. He could not shake a hand 2 weeks ago. He is getting ready to build a building and working on home renevation... plus outside projects. No N&T. He has no neck pain. He is taking IBPRO morning and evening per instructions and Tylenol intermit for pain. He is R handed. He ices his shoulder. He is sleeping ok... he wakes up if he rolls on it. He was in the recliner for the first 2 weeks with pillow under his arm. - Pain R shoulder pain Pain Intensity (Out of 10): 3 Pain Intensity Range: 5 Comment: with movement - Objective C-spine: Rot B 100%, ext 50%, flex 100%, SB B 75%. sharepoint net developer strength: R 91 and L 87. R shoulder AROM: 110 flexion, 114 abduction, T8 IR, 60 ER. L shoulder AROM: Full AROM FLEXION and ABDUCTION, T8 IR, 62 ER. L shld MMT: flex, abd, ER, IR 4+/5. R shld MMTL flex and abd 3-/5, ER 3-/5, IR 4-/5. -HK. Palpation: Tender over R bicep and under R acromion; tender over the medial border of the R scapula. PROM greater on R greater than L... painful at end range flex and abd... - Goals Goal 1:: I HEP Goal Time Frame: 4-6 Weeks Goal 2:: Increase R shoulder AROM to full pain free shoulder flex and abd Goal Time Frame: 4-6 Weeks Goal 3:: Increase R shoulder strength to 4/5 throughout flex/abd/ ER and IR Goal Time Frame: 4-6 Weeks Goal 4:: Be able to reach and use his R arm without pain or weakness. Goal Time Frame: 4-6 Weeks - Rehabilitation Potential Rehabilitation Potential: Good - Anticipated Interventions Patient/Client Instruction: Educate patient on: Condition, Plan of Care For the Purpose of:: To decrease pain, To decrease swelling/inflammation, To increase ROM, To improve nutrient delivery to tissue, To improve muscle performance and motor function, To improve ability to perform ADL's, To increase tolerance to activity/condition/position, To improve performance and independence with ADL's, To decrease level of supervision to perform tasks, To improve ability of physical actions for home/community/work/leisure, To improve health of tissue, To decrease soft tissue restriction, To increase flexibility/ROM Therapeutic Exercise to Include: Strength training, Postural training, Flexibilty training, Neuromotor development, Passive ROM, Active ROM, Scapular Strength/Stabilization For the Purpose of:: To decrease pain, To decrease swelling/inflammation, To increase ROM, To improve nutrient delivery to tissue, To improve muscle performance and motor function, To improve ability to perform ADL's, To increase tolerance to activity/condition/position, To improve performance and independence with ADL's, To decrease level of supervision to perform tasks, To improve health of tissue, To decrease soft tissue restriction, To increase flexibility/ROM Manual Therapy Techniques to Include: Passive ROM, Soft tissue mobilization For the Purpose of:: To increase ROM, To improve nutrient delivery to tissue, To decrease soft tissue restriction, To increase flexibility/ROM Ultrasound (thermal/non thermal): Yes For the Purpose of:: To decrease pain, To decrease swelling/inflammation, To increase ROM, To increase oxygenation perfusion Thank you for the opportunity to evaluate your patient. For Medicare and Medicare HMO plans, please review the plan of care and approve it. It will need to be FAXED BACK to us at [phone] for Medicare purposes. For Medicare only, by signing this I certify the plan of care. Please let me know if there are questions or concerns regarding this plan of care. Physician Signature: Date:
--- NOTE | 2021-06-20 09:00 | HP.PTDCNRP_ITS ---
ODALIS PAIZ was seen in my office for initial evaluation on 11/13/20. The following Plan of Care was established for this patient: Initial Frequency: 2x /Week Initial Duration: 4-6 Weeks Patient/Client Instruction: Educate patient on: Condition, Plan of Care For the Purpose of:: To decrease pain, To decrease swelling/inflammation, To increase ROM, To improve nutrient delivery to tissue, To improve muscle performance and motor function, To improve ability to perform ADL's, To increase tolerance to activity/condition/position, To improve performance and independence with ADL's, To decrease level of supervision to perform tasks, To improve ability of physical actions for home/community/work/leisure, To improve health of tissue, To decrease soft tissue restriction, To increase flexibility/ROM Therapeutic Exercise to Include: Strength training, Postural training, Flexibilty training, Neuromotor development, Passive ROM, Active ROM, Scapular Strength/Stabilization For the Purpose of:: To decrease pain, To decrease swelling/inflammation, To increase ROM, To improve nutrient delivery to tissue, To improve muscle performance and motor function, To improve ability to perform ADL's, To increase tolerance to activity/condition/position, To improve performance and independence with ADL's, To decrease level of supervision to perform tasks, To improve health of tissue, To decrease soft tissue restriction, To increase fle xibility/ROM Manual Therapy Techniques to Include: Passive ROM, Soft tissue mobilization For the Purpose of:: To increase ROM, To improve nutrient delivery to tissue, To decrease soft tissue restriction, To increase flexibility/ROM Ultrasound (thermal/non thermal): Yes For the Purpose of:: To decrease pain, To decrease swelling/inflammation, To increase ROM, To increase oxygenation perfusion This patient was last seen in our office 12/03/20. Pertinent comments regarding their Physical therapy will appear below: DC PT At this point I will be discontinuing this patient from physical therapy. I would be happy to see this patient again in the future if found appropriate by the physician. Thank you! Jade Barnhart, DELORES Balance/Gait/Functional tests - Balance/Special Test Scores Quick DASH Score: [phone]
== END 2020-12-03 19:00 | disposition home or self-care (01) ==
LOC: PT 08:00
PROVIDERS: PCP Internal Medicine; Referring Provider Physician Assistant; Visit Provider Physician Assistant
DX: S40.011D Contusion of right shoulder, subsequent encounter (principal); S43.491D Other sprain of right shoulder joint, subsequent encounter
CPT/HCPCS: 97035; 97110; 97161

== ENCOUNTER 2022-10-04 11:28 | Inpatient (IN) | payer MEDICARE, BC, SELFPAY ==
[2022-10-04 11:29] VITALS: BP 164/98; PULSE 91; RESP 18; TEMP 36.1; O2SAT 97; BMI 28.0
--- NOTE | 2022-10-04 12:14 | ED.VIS.GI ---
HPI HPI - GI History of Present Illness Chief Complaint: Nausea/Vomiting Narrative Narrative: 72-year-old male presenting with nausea, vomiting, fever, chills, body aches. Patient states he started feeling ill a couple of days ago. He states that he had a cystoscopy performed on Thursday by Dr. Rojas. This was follow-up for a cyst that was in his bladder a few years ago which was delayed secondary to COVID. Patient states he had a clean cystoscopy and Dr. Rojas told him he does not have to come back. Patient reports that on Thursday he was very tired and slept all night and felt rundown. He came in for a leave from work and Thursday. Overnight he developed a fever, chills, body aches. He states he was sweating. He denies chest pain, shortness of breath, cough. He does have some suprapubic pain but denies flank pain. He does state that he has some lower back pains and aches. He denies any trauma. No loss of bladder or bowel control. No saddle anesthesia paresthesia. Patient states that he is able to make a stream and initially had some dysuria which resolved. He does have urinary frequency. He no longer has dysuria. PFSH PFSH Home Medications Cholecalciferol (Vitamin D3) [Vitamin D3] 5,000 tab PO DAILY 09/03/15 [History Last Taken Unknown] multivitamin,go-vzji-vcffymjf 27 mg-0.4 mg tablet (Therems-M) 1 tab PO DAILY 09/03/15 [History Last Taken Unknown] oxycodone-acetaminophen 5 mg-325 mg tablet 1 - 2 tab PO Q4H PRN PRN Pain #30 tabs 09/04/15 [Rx Last Taken Unknown] tamsulosin 0.4 mg capsule 0.4 mg PO DAILY 10/04/22 [History Last Taken Unknown] Allergy/AdvReac Type Severity Reaction Status Date / Time Penicillins Allergy Intermediate Hives Verified 10/04/22 11:32 Surgical History Hx of cystoscopy Social History Smoking Status: Former smoker ROS ROS ED Constitutional Constitutional ED: Reports chills, fever(s) and sweats ENT ENT ED: Denies rhinorrhea or sore throat Cardiovascular Cardiovascular: Denies chest pain or palpitations Respiratory/Chest Respiratory/Chest: Denies cough or dyspnea Gastrointestinal Gastrointestinal: Reports abdominal pain, nausea and vomiting; Denies constipation or diarrhea Genitourinary Genitourinary ED: Reports dysuria and urinary frequency Musculoskeletal Musculoskeletal: Reports back pain Integumentary Denies abscess or Abrasions Neurologic Neurologic: Denies headache(s) or paresthesias Psychiatric Psychiatric: Denies anxiety or depression EXAM Physical Exam Const Vital Signs: 10/04/22 11:29 Temperature 97.0 F L Temperature Source Temporal Pulse Rate 91 Respiratory Rate 18 Blood Pressure 164/98 H Blood Pressure Mean 120 Pulse Ox 97 Oxygen Delivery Method Room Air Positive well nourished General Appearance ED: NAD HEENT Reports moist mucous membranes normocephalic and atraumatic Eyes PERRL and EOMs intact bilaterally General Eye ED: Negative for pale conjunctiva or scleral icterus Resp normal respiratory effort and clear to auscultation bilaterally Auscultation: Negative for rales, rhonchi or wheezes Cardio regular rate and regular rhythm GI GI Narrative: Mild suprapubic tenderness. Back/Spine no CVA tenderness Neuro CN's II-XII intact bilaterally, moves all extremities and no sensory deficits noted Sensorium / Orientation: alert, oriented to person and oriented to place Motor Exam: strength 5/5 throughout Psych mental status grossly normal and thought process normal Skin no wounds MDM MDM MDM Narrative Medical decision making narrative: Patient was sent in by his neighbor Dr. Anaya. She is concerned that he might be septic. He arrives with a heart rate of 91, respiratory of 18, temperature 97.0, O2 sat 97% on room air. He does not trigger SIRS. He states he did have a fever at home. He is some mild suprapubic tenderness on exam without flank pain or CVA tenderness. He is well-appearing. IV line was established patient medicated with Toradol and Zofran and a liter of IV fluids.. I will obtain a rapid COVID/influenza to rule out viral etiology. I will obtain a CBC to look for an elevated white blood cell count and differential. BMP to renal function and electrolytes to assess. Urinalysis to assess for UTI. CBC shows a leukocytosis of 15.1. There is no left shift. Hemoglobin hematocrit are stable. Platelets are normal. It is possible that this could be caused by the vomiting episodes. Liver function and renal function are both within normal limits. Patient slightly hyponatremic at 129. Glucose is slightly elevated 131 without anion gap. Urinalysis was obtained and shows 50 urine ketones, 250 occult blood, 100 leukocyte esterase with 5-10 white blood cells. No squamous epithelial cells or bacteria are seen. No nitrites. Rapid COVID and influenza are negative. Case was discussed with Dr. Rojas, and he requested that I obtain a urine culture and blood cultures and admit him to his service. He requested Rocephin 1 g IV to cover for UTI. This was discussed with the patient and he is amenable to this. Patient admitted in stable condition. Impression: 1. Nausea/vomiting 2. UTI 3. Leukocytosis Lab Data Labs: Laboratory Results - last 24 hr 10/04/22 10/04/22 10/04/22 12:20 12:35 12:35 WBC 15.1 H RBC 4.33 L Hgb 13.5 Hct 39.5 L MCV 91.2 MCH 31.2 MCHC 34.2 RDW Std Deviation 41.0 RDW Coeff of Kusum 12.3 Plt Count 189 MPV 8.7 Immature Gran % (Auto) 0.400 Neut % (Auto) 84.9 H Lymph % (Auto) 5.3 L [place] % (Auto) 8.5 Eos % (Auto) 0.4 Baso % (Auto) 0.5 Absolute Neuts (auto) 12.8 H Absolute Lymphs (auto) 0.80 L Nucleated RBC % 0 Sodium 129 L Potassium 3.9 Chloride 96 L Carbon Dioxide 28.0 Anion Gap 5 BUN 14 Creatinine 1.21 Estim Creat Clear Calc 56.81 Est GFR (MDRD) Af Amer 76 Est GFR (MDRD) Non-Af 63 BUN/Creatinine Ratio 11.6 Glucose 131 H Calcium 8.4 L Total Bilirubin 2.30 H AST 6 L ALT 18 Alkaline Phosphatase 57 Total Protein 7.0 Albumin 3.4 Globulin 3.6 Albumin/Globulin Ratio 0.9 Urine Color Yellow Urine Clarity Sl. Cloudy Urine pH 6.5 Ur Specific [place] 1.015 Urine Protein 15 H Urine Glucose (UA) Normal Urine Ketones 50 H Urine Occult Blood 250 H Urine Nitrite Negative Urine Bilirubin Negative Urine Urobilinogen Normal Ur Leukocyte Esterase 100 H Urine RBC 0-5 SEEN Urine WBC 5-10 SEEN Ur Squamous Epith Cells 0 SEEN Urine Bacteria 0 SEEN Urine Mucus 0 SEEN Discharge Plan Triage Chief Complaint: Nausea/Vomiting ED Provider: Sachin Lanza Dx/Rx/DC Orders Prescriptions: No Action multivitamin,cd-yevg-sksqcyfj [Therems-M] 1 TABLET tablet 1 tab PO DAILY Cholecalciferol (Vitamin D3) [Vitamin D3] 5,000 UNIT capsule 5,000 tab PO DAILY oxycodone-acetaminophen 1 TABLET tablet 1 - 2 tab PO Q4H PRN PRN (Reason: Pain) Qty: 30 0RF tamsulosin 0.4 mg capsule 0.4 mg PO DAILY Label Comments: take 1 capsule by mouth at bedtime Primary Care Provider: Diandra Anaya Referrals: Diandra Anaya DO [Primary Care Provider] -
[2022-10-04 12:35] LABS: Bacteria 0 SEEN /hpf (None Seen); Mucous, Urine 0 SEEN /hpf (<or=2+); Squamous Epithelial Cells - UA 0 SEEN /hpf (0-5)
[2022-10-04 12:37] LABS: Color, Urine Yellow (Yellow); Glucose, Dipstick Normal (Normal); Ketone-Dipstick 50 mg/dl (Negative); Leukocyte Esterase-Dipstick 100 /ul (Negative); Nitrite-Dipstick Negative (Negative); Occult Blood-Urine 250 /ul (Negative); Protein-Dipstick 15 mg/dl (Negative); Specific Gravity, Urine 1.015 (1.002-1.030); Urine Bilirubin Dipstick Negative (Negative); Urine Clarity Sl. Cloudy (Clear); Urine Urobilinogen Normal (Normal); Urine pH 6.5 (5.0 - 8.0)
[2022-10-04 12:43] LABS: Red Blood Cells-Urine 0-5 SEEN /hpf (0-5); White Blood Cells 5-10 SEEN /hpf (0-5)
[2022-10-04 12:46] LABS: Absolute Neutrophil Count 12.8 X10^3/uL (2.0-7.7); Basophil# 0.07 X10^3/uL; Basophil% 0.5 % (0-1); Eosinophil# 0.06 X10^3/uL; Eosinophils% 0.4 % (0-5); Hematocrit 39.5 % (40-54); Hemoglobin 13.5 g/dL (13.0-16.5); Lymphocyte % 5.3 % (19-41); Mean Corp Hgb Conc 34.2 g/dL (32-36); Mean Corpuscular Hgb 31.2 pg (27.0-32.0); Mean Corpuscular Volume 91.2 fL (80-94); Mean Platelet Vol. 8.7 fl (6.2-12.0); Monocyte# 1.29 X10^3/uL; Monocyte% 8.5 % (0-10); NRBC Flagged by Analyzer 0 % (0-5); Neutrophil # 12.84 X10^3/uL (2.7-7.7); Neutrophil % 84.9 % (47-70); Platelet Count 189 K/mm3 (150-450); RBC Distribution Width CV 12.3 % (11.6-14.6); Red Blood Count 4.33 M/mm3 (4.6-6.2); White Blood Count 15.1 K/mm3 (4.4-11.0)
[2022-10-04] MEDS: Ondansetron 4 MG/2 ML Vial IV ×2 (12:47→21:25)
[2022-10-04] MEDS: 0.9% Normal Saline 1,000 ML 1000 ML IV (12:47)
[2022-10-04] MEDS: Ketorolac 15 MG/ML Vial IV (12:47)
[2022-10-04 13:00] LABS: ALB/GLOB Ratio 0.9 RATIO (0.9-2.4); AST(SGOT) 6 U/L (15-37); Alanine Aminotransfer ALT/SGPT 18 U/L (16-61); Albumin, Serum 3.4 g/dL (3.2-5.0); Alkaline Phosphatase 57 U/L (45-117); Anion Gap 5 (5-15); BUN 14 mg/dL (7-18); BUN/Creat Ratio 11.6 RATIO (10-20); Calcium,Total 8.4 mg/dL (8.5-10.1); Chloride 96 mmol/L (98-107); Creatinine, Serum 1.21 mg/dL (0.70-1.30); EST Glomerular Filtration Rate 63 mL/min (>60); Est Glom Filt Rate - Afr Amer 76 mL/min (>60); Estimated Creatinine Clearance 56.81 ml/min; Globulin 3.6 g/dL (2.2-4.2); Glucose 131 mg/dL (74-106); Potassium 3.9 mmol/L (3.5-5.1); Sodium Level 129 mmol/L (136-145)
--- NOTE | 2022-10-04 14:00 | HP.PCM_ITS ---
HPI - General General Date of Service: 10/04/22 Chief Complaint: Urinary tract infection rule out sepsis HPI Narrative ODALIS PAIZ, is a 72 M who presents to the hospital with apparent urinary tract infection, not been feeling well nausea vomiting we will bring him in for observation and work-up for bacteremia possible sepsis. PFSH Home Medications Cholecalciferol (Vitamin D3) [Vitamin D3] 5,000 tab PO DAILY 09/03/15 [History Last Taken Unknown] multivitamin,wr-ekdz-mdffenuu 27 mg-0.4 mg tablet (Therems-M) 1 tab PO DAILY 09/03/15 [History Last Taken Unknown] oxycodone-acetaminophen 5 mg-325 mg tablet 1 - 2 tab PO Q4H PRN PRN Pain ##30 09/04/15 [Rx Last Taken Unknown] Allergy/AdvReac Type Severity Reaction Status Date / Time Penicillins Allergy Intermediate Hives Verified 10/04/22 11:32 Surgical History Hx of cystoscopy Social History Smoking Status: Former smoker Vital Signs Vital Signs Vital Signs: 10/04/22 11:29 Temperature 97.0 F L Temperature Source Temporal Pulse Rate 91 Respiratory Rate 18 Blood Pressure 164/98 H Blood Pressure Mean 120 Pulse Ox 97 Oxygen Delivery Method Room Air Weight Weight: 86.183 kg Body Mass Index (BMI) 28.0 Physical Exam Const alert and oriented x3 General Appearance: cooperative HEENT normocephalic and head/scalp atraumatic Eyes PERRL and EOMs intact bilaterally Neck supple, no JVD and no carotid bruits Resp normal respiratory effort, normal air movement and clear to auscultation bi laterally Cardio regular rate and no murmurs GI normal to inspection, nondistended, normoactive bowel sounds and soft to palpation Extremity normal capillary refill General Extremity: no tenderness to palpation of joints or extremities; Negative for edema Skin no rashes or lesions noted and no wounds General Skin Exam: no breakdown Neuro CN's II-XII intact bilaterally Psych affect normal Appearance: appropriate Results Lab / Micro Data Result Diagrams: 10/04/22 12:35 10/04/22 12:35 Labs: Laboratory Results - last 24 hr 10/04/22 12:20: Urine Color Yellow, Urine Clarity Sl. Cloudy, Urine pH 6.5, Ur Specific [place] 1.015, Urine Protein 15 H, Urine Glucose (UA) Normal, Urine Ketones 50 H, Urine Occult Blood 250 H, Urine Nitrite Negative, Urine Bilirubin Negative, Urine Urobilinogen Normal, Ur Leukocyte Esterase 100 H, Urine RBC 0-5 SEEN, Urine WBC 5-10 SEEN, Ur Squamous Epith Cells 0 SEEN, Urine Bacteria 0 SEEN, Urine Mucus 0 SEEN 10/04/22 12:35: WBC 15.1 H, RBC 4.33 L, Hgb 13.5, Hct 39.5 L, MCV 91.2, MCH 31.2, MCHC 34.2, RDW Std Deviation 41.0, RDW Coeff of Kusum 12.3, Plt Count 189, MPV 8.7, Immature Gran % (Auto) 0.400, Neut % (Auto) 84.9 H, Lymph % (Auto) 5.3 L, [place] % (Auto) 8.5, Eos % (Auto) 0.4, Baso % (Auto) 0.5, Absolute Neuts (auto) 12.8 H, Absolute Lymphs (auto) 0.80 L, Nucleated RBC % 0 10/04/22 12:35: Sodium 129 L, Potassium 3.9, Chloride 96 L, Carbon Dioxide 28.0, Anion Gap 5, BUN 14, Creatinine 1.21, Estim Creat Clear Calc 56.81, Est GFR (MDRD) Af Amer 76, Est GFR (MDRD) Non-Af 63, BUN/Creatinine Ratio 11.6, Glucose 131 H, Calcium 8.4 L, Total Bilirubin 2.30 H, AST 6 L, ALT 18, Alkaline Phosphatase 57, Total Protein 7.0, Albumin 3.4, Globulin 3.6, Albumin/Globulin Ratio 0.9 Assessment & Plan Assessment/Plan (1) Bacteremia: PLAN: Admit for possible bacteremia and IV antibiotics rehydration from nausea vomiting possible UTI I asked the ER to do blood and urine cultures.
[2022-10-04] MEDS: Ceftriaxone 1 GM/50 ML BAG IV (14:30)
[2022-10-04 14:50] VITALS: BP 158/73; PULSE 69; RESP 14; O2SAT 98
[2022-10-04 16:00] VITALS: BP 149/72; PULSE 78; RESP 16; TEMP 36.9; O2SAT 99
[2022-10-04 16:55] VITALS: BMI 28.0
[2022-10-04] MEDS: Lactated Ringers 1,000 ML 125 ML IV (17:29)
[2022-10-04 17:40] VITALS: BP 152/80; PULSE 67; RESP 18; TEMP 36.7; O2SAT 99
[2022-10-04 22:09] VITALS: BP 132/69; PULSE 73; RESP 16; TEMP 37.1; O2SAT 98
[2022-10-05] MEDS: Ketorolac 15 MG/ML Vial IV ×2 (01:23→10:49)
[2022-10-05] MEDS: 0.9% Saline Lock 10 ML Syringe IV (01:23)
[2022-10-05 04:09] VITALS: BP 135/67; PULSE 74; RESP 16; TEMP 37.2; O2SAT 99
[2022-10-05 06:18] LABS: Hematocrit 38.8 % (40-54); Hemoglobin 12.9 g/dL (13.0-16.5); Mean Corp Hgb Conc 33.2 g/dL (32-36); Mean Corpuscular Hgb 31.1 pg (27.0-32.0); Mean Corpuscular Volume 93.5 fL (80-94); Mean Platelet Vol. 9.3 fl (6.2-12.0); Platelet Count 200 K/mm3 (150-450); RBC Distribution Width CV 12.4 % (11.6-14.6); RBC Distribution Width SD 42.8 fl (35.1-43.9); Red Blood Count 4.15 M/mm3 (4.6-6.2); White Blood Count 13.3 K/mm3 (4.4-11.0)
[2022-10-05] MEDS: Lactated Ringers 1,000 ML 125 ML IV (06:45)
[2022-10-05 06:47] LABS: Anion Gap 8 (5-15); BUN 12 mg/dL (7-18); BUN/Creat Ratio 10.4 RATIO (10-20); Calcium,Total 8.6 mg/dL (8.5-10.1); Chloride 100 mmol/L (98-107); Creatinine, Serum 1.15 mg/dL (0.70-1.30); EST Glomerular Filtration Rate 67 mL/min (>60); Est Glom Filt Rate - Afr Amer 81 mL/min (>60); Estimated Creatinine Clearance 59.77 ml/min; Glucose 93 mg/dL (74-106); Potassium 3.9 mmol/L (3.5-5.1); Sodium Level 133 mmol/L (136-145)
--- NOTE | 2022-10-05 07:49 | PN.URO_ITS ---
Subjective Subjective Patient admitted for bacteremia and urinary tract infection but this morning he is clinically looking really well he has had some food stay down White blood count is coming down his vital signs are stable low-grade fever I think he will be safe to discharge home with some antibiotics I will call him if I need to ch karlee his antibiotics he is agreeable with this plan. Objective Data Objective Data Vital Signs: Vital Signs Temp Pulse Resp BP Pulse Ox O2 Del Method 99.0 F 74 16 135/67 H 99 Room Air 10/05/22 04:09 10/05/22 04:09 10/05/22 04:09 10/05/22 04:09 10/05/22 04:09 10/05/22 04:09 Oxygen Delivery Method Room Air Weight: 86.183 kg Body Mass Index (BMI) 28.0 Intake & Output: Intake and Output for Last 24 Hours 10/03/22 10/04/22 10/05/22 23:59 23:59 23:59 Intake Total 1100 / 1100 1492.75 / 1492.75 Balance 1100 / 1100 1492.75 / 1492.75 Lab / Micro Data Result Diagrams: 10/05/22 04:51 10/05/22 04:51 Labs: Laboratory Results - last 24 hr 10/04/22 12:20: Urine Color Yellow, Urine Clarity Sl. Cloudy, Urine pH 6.5, Ur Specific [place] 1.015, Urine Protein 15 H, Urine Glucose (UA) Normal, Urine Ketones 50 H, Urine Occult Blood 250 H, Urine Nitrite Negative, Urine Bilirubin Negative, Urine Urobilinogen Normal, Ur Leukocyte Esterase 100 H, Urine RBC 0-5 SEEN, Urine WBC 5-10 SEEN, Ur Squamous Epith Cells 0 SEEN, Urine Bacteria 0 SEEN, Urine Mucus 0 SEEN 10/04/22 12:35: WBC 15.1 H, RBC 4.33 L, Hgb 13.5, Hct 39.5 L, MCV 91.2, MCH 31.2, MCHC 34.2, RDW Std Deviation 41.0, RDW Coeff of [place]usum 12.3, Plt Count 189, MPV 8.7, Immature Gran % (Auto) 0.400, Neut % (Auto) 84.9 H, Lymph % (Auto) 5.3 L, [place] % (Auto) 8.5, Eos % (Auto) 0.4, Baso % (Auto) 0.5, Absolute Neuts (auto) 12.8 H, Absolute Lymphs (auto) 0.80 L, Nucleated RBC % 0 10/04/22 12:35: Sodium 129 L, Potassium 3.9, Chloride 96 L, Carbon Dioxide 28.0, Anion Gap 5, BUN 14, Creatinine 1.21, Estim Creat Clear Calc 56.81, Est GFR (MDRD) Af Amer 76, Est GFR (MDRD) Non-Af 63, BUN/Creatinine Ratio 11.6, Glucose 131 H, Calcium 8.4 L, Total Bilirubin 2.30 H, AST 6 L, ALT 18, Alkaline Phosphatase 57, Total Protein 7.0, Albumin 3.4, Globulin 3.6, Albumin/Globulin Ratio 0.9 10/05/22 04:51: WBC 13.3 H, RBC 4.15 L, Hgb 12.9 L, Hct 38.8 L, MCV 93.5, MCH 31.1, MCHC 33.2, RDW Std Deviation 42.8, RDW Coeff of [place] 12.4, Plt Count 200, MPV 9.3 10/05/22 04:51: Sodium 133 L, Potassium 3.9, Chloride 100, Carbon Dioxide 25.0, Anion Gap 8, BUN 12, Creatinine 1.15, Estim Creat Clear Calc 59.77, Est GFR (MDRD) Af Amer 81, Est GFR (MDRD) Non-Af 67, BUN/Creatinine Ratio 10.4, Glucose 93, Calcium 8.6 Micro: Microbiology 10/04/22 12:20 Nasal Secretion SARS-CoV-2 & FLU Antigen (Rapid) - Final
--- NOTE | 2022-10-05 07:54 | DCINST_ITS ---
Discharge Instructions Diet Discharge Diet: No restrictions Dressing / Incision Call your doctor if your incision/area has: Continuous Slow Oozing, Increased Pain/ Swelling, Increased Redness and Foul Smelling Discharge Call your doctor if you observe: Fever of 101 or Higher, Numbness or Tingling, Shortness of breath, Dizziness, Calf discomfort and Uncontrolled pain Follow Up Care Please Follow Up With: Jarad Rojas MD Test Results: Test results from this visit will be discussed in further detail at your follow- up appointment, if applicable. Discharge Plan Admission Admit Date/Time: 10/04/22 14:01 Primary Reason for Your Visit: bactermia Attending Provider: Jarad Rojas Primary Care Provider: Diandra Anaya Discharge Orders/Prescriptions Prescriptions: New cephalexin 500 mg capsule 500 mg PO TID Qty: 18 0RF Continued Cholecalciferol (Vitamin D3) [Vitamin D3] 5,000 UNIT capsule 5,000 tab PO DAILY tamsulosin 0.4 mg capsule 0.4 mg PO DAILY Label Comments: take 1 capsule by mouth at bedtime losartan 25 mg tablet 25 mg PO DAILY Label Comments: take 1 tablet by mouth twice a day Referrals / Follow Up: Diandra Anaya DO [Primary Care Provider] - Jarad Rojas MD [Med Staff - Active Staff] - Disposition Discharge Orders: Discharge Patient (Routine); Ordered 10/05/22 Ordered By: Dr. Jarad Rojas
[2022-10-05 08:00] VITALS: PULSE 80; RESP 18; O2SAT 95
[2022-10-05 10:09] VITALS: BP 139/76; PULSE 88; RESP 18; TEMP 36.6; O2SAT 95
[2022-10-05 13:10] VITALS: BP 131/64; PULSE 80; RESP 18; TEMP 36.6; O2SAT 95
== END 2022-10-05 13:34 | disposition home or self-care (01) | DRG 690 ==
LOC: ED 14:36 → MS3 16:36
PROVIDERS: Admitting Provider Urology; Emergency Provider Student in an Organized Health Care Education/Training Program; PCP Internal Medicine; Visit Provider Urology
DX: N39.0 Urinary tract infection, site not specified (principal); R78.81 Bacteremia; E87.1 Hypo-osmolality and hyponatremia; Z87.891 Personal history of nicotine dependence
CPT/HCPCS: 36415; 80048; 80053; 81001; 85025; 85027; 87040; 87086; 87088; 87428; 99284; J7030; J7050; J7120; A4216; J2405

== ENCOUNTER → 2022-10-20 | Outpatient (CLI) | payer BC, SELFPAY ==
[2022-10-20 16:17] LABS: Troponin-I HS 5 pg/mL (3.0-78.0)
[2022-10-20 16:20] LABS: D-Dimer Quantitative (DVT/PE) 0.41 FEU/ug/m (0.27-0.49)
== END | disposition home or self-care (01) ==
LOC: LABSPEC 15:38
PROVIDERS: PCP Internal Medicine; Visit Provider Internal Medicine
DX: R07.81 Pleurodynia (principal)
CPT/HCPCS: 84484; 85379

== ENCOUNTER → 2024-07-22 | Outpatient (CLI) | payer BC, SELFPAY | END | disposition home or self-care (01) | PROVIDERS: PCP Internal Medicine; Referring Provider Internal Medicine; Visit Provider Internal Medicine | DX: I49.3 Ventricular premature depolarization (principal) | CPT/HCPCS: 93225; 93226 ==